=== PATIENT | female | born 1935 | race Caucasian/White ===

== ENCOUNTER 2017-04-24 14:40 | Inpatient (IN) | payer MEDICARE, BC ==
--- NOTE | 2017-04-24 16:16 | RAD ---
PORTABLE CHEST: History: Chest pain. Comparison: 02-01-17 FINDINGS: Heart is mildly prominent with post op sternotomy change. The lung jaimes are well aerated and are c lear. No evidence of vascular congestion. Transvenous pacemaker leads are noted. IMPRESSION: No acute process. Heart size is mildly prominent but stable. POS: [facility]
[2017-04-24 16:36] LABS: Bilirubin Negative (Negative); Blood, Urine Trace (Negative); Glucose, Urine (Dipstick) Negative (Negative); Ketone, Urine Negative (Negative)
[2017-04-24 16:37] LABS: Nitrite Negative (Negative); Protein, Urine (Dipstick) Negative (Neg-Trace); Urobilinogen 0.2 mg/dL (0.2-1.0)
[2017-04-24 16:39] LABS: #Eosinphils 0.2 thou/uL (0.0-0.7); #Monocytes 0.4 thou/uL (0.11-0.59); #Neutrophils 3.6 thou/uL (1.40-6.50); %Basophils 0.1 % (0.0-1.0); %Eosinophils 4.5 % (0.0-10.0); %Lymphocytes 18.8 % (21.0-51.0); %Monocytes 7.4 % (0.0-10.0); Hematocrit 37.4 % (36.0-47.0); Mean Platelet Volume 8.3 fL (7.4-10.4); Red Blood Cell (RBC) Count 3.69 mill/uL (4.20-5.40); White Blood Cell (WBC) Count 5.2 thou/uL (4.8-10.8)
[2017-04-24 16:46] LABS: PTT 49.1 SEC (22.9-36.1); Prothrombin Time 16.7 SEC (12.0-14.7)
[2017-04-24 16:52] LABS: ALT (SGPT) 7 U/L (8-55); AST (SGOT) 14 U/L (5-34); Alkaline Phosphatase 179 U/L (40-150); Anion Gap 13 mmol/L (10-20); BUN (Urea Nitrogen) 27 mg/dL (9.8-20.1); Bilirubin, Total 0.9 mg/dL (0.2-1.2); CK (CPK) 22 U/L (29-168); Calc. Creatinine Clearance 0 mL/min (70-130); Calcium 9.5 mg/dL (7.8-10.44); Carbon Dioxide 22 mmol/L (23-31); Chloride 105 mmol/L (98-107); Estimated GFR-MDRD 22; Globulin 2.6 g/dL (2.4-3.5); Lipase 443 U/L (8-78); Protein, Total 6.2 g/dL (6.0-8.3)
[2017-04-24 16:56] LABS: Troponin I 0.018 ng/mL (< 0.028)
[2017-04-24 17:17] LABS: Bacteria/HPF None Seen HPF (None Seen); RBC/HPF 0-3 HPF (0-3); Squamous Epithelial 21-50 HPF (0-3); WBC/HPF 0-3 HPF (0-3)
[2017-04-24 17:20] LABS: Hyaline Casts/LPF 0-3 HYALINE CAST LPF (0-3 Hyaline)
[2017-04-24] MEDS ORDERED: Furosemide 40 MG/4 ML VIAL ONE (17:59)
[2017-04-24 19:11] LABS: Troponin I 0.024 ng/mL (< 0.028)
[2017-04-24] MEDS ORDERED: Ondansetron HCl/PF 4 MG/2 ML Vial IVP PRN (19:45)
[2017-04-24] MEDS ORDERED: Fludrocortisone Acetate 0.1 MG TAB PO PRN (19:45)
[2017-04-24] MEDS ORDERED: cefTRIAXone\\ROCEPHIN 1 GM in Sodium Chloride 0.9% 100 ML IVPB SCH (20:00)
[2017-04-24] MEDS: Apixaban 5 MG TAB PO SCH (21:24)
[2017-04-24] MEDS: Hydrocortisone Sod Succ/PF 100 mg/2 ml Vial IVP SCH ×2 (21:24→21:31)
[2017-04-24] MEDS: Famotidine/PF 20 mg/2ml Vial SLOW IVP SCH (21:24)
[2017-04-24 22:00] LABS: Troponin I 0.018 ng/mL (< 0.028)
[2017-04-24] MEDS: Lorazepam 1 MG TAB PO PRN (23:10)
[2017-04-25 01:04] LABS: Troponin I 0.019 ng/mL (< 0.028)
--- NOTE | 2017-04-25 01:45 | HP ---
PRIMARY CARE PHYSICIAN: Dr. Sheikh. CHIEF COMPLAINT: \\\\"I'm having pain in my chest when I lay back and I also get short of breath.\\\\" HISTORY OF PRESENT ILLNESS: Ms. Johnson is a pleasant 82-year-old female. 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 In the last couple of days, she says that she has been waking up in the night with trouble b reathing and she also says that she feels some pain across her chest. It seems to be primarily on t he left side of her chest and it goes around to her back. She says that she will have to sit up in a chair in order to make the pain and the shortness of breath go away. She says that it keeps her f rom sleeping and she typically will have to read or do some knitting through the night. She says th at this has been off and on for several weeks, but has gotten progressively worse. Her daughter khai knox notes increasing swelling in her legs, primarily since Saturday. She also was seen in the emerge ncy room recently for the leg swelling and also redness in her legs and had some oozing of her legs of fluid and was put on Keflex for this. She also says that because of this excess swelling and babak rtness of breath she called her primary care physician Dr. Sheikh, who told her to take 80 mg of Lasix and she did do this, but her daughter was concerned that with 80 mg of Lasix that she would have lo w blood pressure and end up falling like she had in the past. The patient has been going to rehabil itation outpatient because she did suffer a fall and she says that she has been doing this twice a w [place] and she had been doing well until recently. She had gotten to the point where she was able to w alk again and was walking with a cane instead of a walker, but in the last few weeks, she is back us ing the walker again and has been relatively extremely sedentary. REVIEW OF SYSTEMS: With regard to the review of system: Constitutional: There has been some subje ctive fever, but no chills, no night sweats, but she has been having significant weakness. HEENT: She denies any headaches. She denies any dizziness. There has been no sore throat, rhinorrhea, nec k pain, no adenopathy. Pulmonary: She denies any cough or congestion, no hemoptysis. Cardiovascul ar: As the history of present illness with the addition of increasing lower extremity edema. She h as had PND and orthopnea as previously mentioned. Gastrointestinal: She denies any abdominal pain, no nausea, no vomiting, no change in bowels. Genitourinary: No urinary frequency, hematuria, no h esitancy. Neurologic: No focal weakness, numbness, no seizures. Musculoskeletal: She did mention some joint pains, but no rash and she has had the swelling in her lower extremities. Her daughter noted some redness and warmth in her legs. Psychiatric: No symptoms of anxiety or depression. PAST MEDICAL HISTORY: Significant for atrial fibrillation, chronic diastolic heart failure, mitral valve repair, aortic insufficiency, previous cerebrovascular accident, adrenal insufficiency and hyp othyroidism. PAST SURGICAL HISTORY: The patient has had a bilateral oophorectomy, she has had 3 previous AV node ablations and she has a pacemaker placement which was recently upgraded. ALLERGIES: She says are to SOLU-MEDROL. She says she cannot take PREDNISONE and she cannot take HY DROCORTISONE. SOCIAL HISTORY: She lives alone. She is a nonsmoker, nondrinker. FAMILY HISTORY: Significant for history of coronary artery disease. CURRENT MEDICATIONS: Include Lexapro 20 mg daily, estradiol 1 mg daily, Nexium 40 mg daily, prednis one 5 mg once a day, Eliquis 2.5 mg twice daily, Synthroid 112 mcg daily, lorazepam 1 mg daily, Kefl ex 500 mg t.i.d., fexofenadine 180 mg daily and Lasix 40 mg daily. PHYSICAL EXAMINATION: GENERAL: She is alert and oriented. She appears to be in no acute distress. VITAL SIGNS: Blood pressure was ranging from 98-108 systolic, heart rate is 80, respiratory rate of 14, temperature is 98.3. HEENT: Pupils are equal, round, and reactive. Extraocular muscles are intact. Her sclerae are ani cteric. Throat: There is no erythema, no exudates. NECK: No adenopathy, but she did have some increase in jugular venous distention. LUNGS: Clear. I did not appreciate any wheezing or rales. CARDIOVASCULAR: She has a normal S1, S2. I did not appreciate an S3 or S4. No murmurs, clicks, no rubs. ABDOMEN: Soft, it is nontender, nondistended. Positive for bowel sounds. There is no rebound, no guarding. EXTREMITIES: She has got 2+ pitting edema. There is some diffuse erythema. There is some warmth i n both her lower extremities up to about the level of the knees. Her dorsalis pedis pulses were pal pable and she did have some excoriations on her anterior cardenas bilaterally. NEUROLOGICALLY: The exam is nonfocal. LABORATORY DATA: Her white blood cell count was 5.2, hemoglobin 12, hematocrit is 37, platelet coun t 146. INR is 1.3. Sodium of 136, potassium 4.1, chloride is 105, CO2 is 22, BUN of 27, creatinine 2.13. Glucose of 121. Urinalysis was essentially negative. She had a natriuretic peptide, which is 334. ASSESSMENT AND PLAN: 1. This is an 82-year-old female that presents with symptoms suggestive of an exacerbation of conge stive heart failure with orthopnea and PND. The patient has a history of known diastolic heart fail ure. She also has increasing lower extremity edema. However, her proBNP is slightly lower than wha t it has been in the past; however, we will treat her symptomatically for decompensated heart failur e, placing her on IV Lasix and we will monitor her blood pressure carefully. We will also consult Mary Kay Dillon, her ecmo specialist in the a.m. for further recommendations. 2. Cellulitis. She appears to have bilateral lower extremity cellulitis with erythema and warmth o f both of her lower extremities. She also mentioned to me that she had gotten scratched recently by a dog. She had some bad scratches on both lower extremities and likely this is the source of infec tion; therefore, we will place her on IV antibiotics to cover for this. 3. She has a history of adrenal insufficiency given the recent cellulitis as well as the possible e xacerbation in congestive heart failure. She likely requires some stress dose steroids and this cou ld be why she has been having this progressive decline over the last few weeks to months. It could be related to insufficiently treated adrenal insufficiency. 4. She has a history of hypothyroidism. We will also need to check her thyroid functions as well. She says she had been failing to go to see Dr. Sánchez, her manufacturing supervisor in the last few months , but had planned to revisit him with regards to her endocrine illnesses and she also mentions that she had been taken off of Cytomel recently. Therefore, she may have some degree of hypothyroidism c ontributing to her symptomatology as well. Otherwise, we will continue her usual home medications r egarding the atrial fibrillation including the Eliquis. 5. Chronic kidney disease, stage 4. This appears to be stable. She has a creatinine of 2.13, whic h is about her baseline from her previous hospitalizations. We will be careful to renal dose medica tions as needed.
[2017-04-25 05:04] LABS: #Eosinphils 0.2 thou/uL (0.0-0.7); #Lymphocytes 0.7 thou/uL (1.20-3.40); #Monocytes 0.4 thou/uL (0.11-0.59); #Neutrophils 2.9 thou/uL (1.40-6.50); %Basophils 0.4 % (0.0-1.0); %Eosinophils 5.6 % (0.0-10.0); %Lymphocytes 17.2 % (21.0-51.0); %Monocytes 10.2 % (0.0-10.0); Hematocrit 35.3 % (36.0-47.0); Mean Platelet Volume 7.6 fL (7.4-10.4); Red Blood Cell (RBC) Count 3.53 mill/uL (4.20-5.40); White Blood Cell (WBC) Count 4.3 thou/uL (4.8-10.8)
[2017-04-25 05:22] LABS: Anion Gap 12 mmol/L (10-20); BUN (Urea Nitrogen) 26 mg/dL (9.8-20.1); Calc. Creatinine Clearance 23 mL/min (70-130); Calcium 9.2 mg/dL (7.8-10.44); Carbon Dioxide 26 mmol/L (23-31); Chloride 104 mmol/L (98-107); Estimated GFR-MDRD 23
[2017-04-25] MEDS: Furosemide 40 MG/4 ML VIAL SLOW IVP SCH ×2 (06:38→14:52)
[2017-04-25] MEDS: Levothyroxine Sodium 112 MCG TAB PO SCH (06:38)
[2017-04-25] MEDS: Apixaban 5 MG TAB PO SCH ×2 (08:55→21:07)
[2017-04-25] MEDS: predniSONE 5 MG TAB PO SCH (08:56)
[2017-04-25] MEDS ORDERED: Colchicine 0.6 MG TAB PO SCH ×2 (09:15→09:30)
[2017-04-25] MEDS: Ondansetron ODT 4 MG TAB PO PRN ×2 (12:48→18:09)
--- NOTE | 2017-04-25 15:01 | PDOC.PN ---
- Subjective Encounter Start Date: 04/25/17 Encounter Start Time: 09:05 Pt seen and examined on rounds, chart reviewed in its entirety. Case discussed [id number] with Dr Dillon. No CP since admit, no f/C, no N/V/D/C, no SOB excpe when lying flat. Dr iDllon plans to get and echo today, suspects pericarditis, doubts cardiac ischemia. 10 point ROS performed and neg except as above - Objective Resuscitation Status: Resuscitation Status FULL:Full Resuscitation MAR Reviewed: Yes Vital Signs & Weight: Vital Signs (12 hours) Temp Pulse Pulse Resp BP BP BP 04/25/17 11:23 98.0 F 77 12 146/69 H 04/25/17 08:13 76 131/60 110/59 L 04/25/17 08:00 98.1 F 76 18 04/25/17 07:00 98.1 F 76 18 131/60 04/25/17 04:25 98.8 F 74 16 131/62 Pulse Ox 04/25/17 11:23 98 04/25/17 08:13 04/25/17 08:00 04/25/17 07:00 96 04/25/17 04:25 94 L Weight Weight 154 lb 14.4 oz I&O: 04/24/17 04/25/17 04/26/17 06:59 06:59 06:59 Intake Total 586 480 Output Total 1550 400 Balance -964 80 Result Diagrams: 04/25/17 04:51 04/25/17 04:51 Radiology Reviewed by me: Yes EKG Reviewed by me: Yes Phys Exam - Physical Examination Constitutional: NAD HEENT: PERRLA, moist MMs, sclera anicteric, oral pharynx no lesions Neck: no nodes, no JVD, supple, full ROM Respiratory: no wheezing, no rales, no rhonchi, clear to auscultation bilateral Cardiovascular: RRR, no significant murmur, no rub Gastrointestinal: soft, non-tender, no distention, positive bowel sounds Musculoskeletal: pulses present, edema present improved form admit, no weeping Neurological: non-focal, normal sensation, moves all 4 limbs Lymphatic: no nodes Psychiatric: normal affect, A&O x 3 Skin: no rash, normal turgor, cap refill <2 seconds Deviation from normal: BLE with scabbed over scratches. minimal heat or redness Dx/Plan (1) Acute on chronic systolic CHF (congestive heart failure) Code(s): I50.23 - ACUTE ON CHRONIC SYSTOLIC (CONGESTIVE) HEART FAILURE Status : Acute Comment: echo pending, diuresed well overnight, feels better, legs less swollen (2) Pericarditis Code(s): I31.9 - DISEASE OF PERICARDIUM, UNSPECIFIED Status: Acute Qualifiers: Pericarditis type: idiopathic Chronicity: acute Qualified Code(s): I30.0 - Acute nonspecific idiopathic pericarditis Comment: suspeced by cardiology - followup on echo. Pt not candidate for NSAIDS due to CKD, resistant tto steroids. Will followup on results (3) Cellulitis of right lower extremity Code(s): L03.115 - CELLULITIS OF RIGHT LOWER LIMB Status: Acute Comment: CCM with abx. will change to po omnicef. (4) Adrenocortical insufficiency Code(s): E27.40 - UNSPECIFIED ADRENOCORTICAL INSUFFICIENCY Status: Chronic Comment: on prednisone 5mg, only takes fludrocortisone when BP drops. Will keep PRN at pt wishes (5) Anxiety and depression Code(s): F41.9 - ANXIETY DISORDER, UNSPECIFIED; F32.9 - MAJOR DEPRESSIVE DISORDER, SINGLE EPISODE, UNSPECIFIED Status: Chronic (6) Atrial fibrillation Code(s): I48.91 - UNSPECIFIED ATRIAL FIBRILLATION Status: Chronic Qualifiers: Atrial fibrillation type: paroxysmal Qualified Code(s): I48.0 - Paroxysmal atrial fibrillation (7) CKD (chronic kidney disease), stage IV Code(s): N18.4 - CHRONIC KIDNEY DISEASE, STAGE 4 (SEVERE) Status: Chronic Comment: Cr stable (8) Chronic anticoagulation Code(s): Z79.01 - SENIOR LIVING (CURRENT) USE OF ANTICOAGULANTS Status: Chronic (9) Dyslipidemia Code(s): E78.5 - HYPERLIPIDEMIA, UNSPECIFIED Status: Chronic (10) Hypothyroidism Code(s): E03.9 - HYPOTHYROIDISM, UNSPECIFIED Status: Chronic Qualifiers: Hypothyroidism type: unspecified Qualified Code(s): E03.9 - Hypothyroidism , unspecified - Plan cont current plan of care, continue antibiotics, PT/OT * .
--- NOTE | 2017-04-25 15:28 | CON ---
CARDIOLOGY CONSULTATION NOTE DATE OF CONSULTATION: 04/25/2017 REASON FOR CONSULTATION: Chest pain. HISTORY OF PRESENT ILLNESS: Ms. Contreras is a pleasant elderly woman with history of diastolic he art failure, atrial fibrillation, severe orthostatic hypotension with history of syncope, previous b iventricular pacemaker and previous mitral valve repair, admitted with chest pain. The patient's pa in is predominantly on the left side under the left breast. It hurts worse when she lays down. It hurts worse with a deep breath. She also had some in the center of her chest. It definitely hurts worse when she lays down. When she sits up, she can breathe better and the chest pain is not as intense, but it still hurts wi th a breath. She has no pressure, typical of angina. Otherwise, the patient has a long history of the other problems as outlined above. PAST MEDICAL AND SURGICAL HISTORY: 1. History of diastolic heart failure with recurrent admission. 2. History of orthostatic hypotension. She gets slightly volume depleted. She gets very hypotensi ve and sometimes faints. 3. History of biventricular pacemaker. 4. History of atrial fibrillation. 5. History of mitral valve repair many years ago. MEDICATIONS ON ADMISSION: 1. She takes fludrocortisone if she gets hypotensive. 2. Prednisone 5 mg a day. 3. Eliquis 2.5 mg twice a day. 4. Amiodarone 200 mg a day. ALLERGIES: \\\\"HYDROCORTISONE and METHYLPREDNISOLONE\\\\", but I do not know that it is actually a carmela e allergy, more side effects. FAMILY HISTORY: Negative for heart disease at a young age. 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 No alcohol or tobacco abuse. PHYSICAL EXAMINATION: GENERAL: This is a pleasant elderly woman in no distress and this hurts with a deep breath. VITAL SIGNS: Blood pressure 130/60 and pulse 76, regular. LUNGS: Clear. CARDIAC: Normal S1 and normal S2. There is no murmur, rub or gallop. ABDOMEN: Soft and nontender. No hepatosplenomegaly. EXTREMITIES: Warm and dry. No clubbing stenosis. There is moderate edema. There are some healing injury sites where she said it got bit by a dog on both the legs about 3 weeks ago, she came to the emergency room for that. It appears that it is crusted over now. IMAGING DATA: EKG is atrial sensed, ventricular paced in some locations, but in other areas, it is hard to tell if she is in sinus rhythm or not to biventricular paced rhythm. Chest x-ray shows card iomegaly with clear lung jaimes. ASSESSMENT: 1. Chest pain, it sounds like pleuritic, there may be some element of pericardial pain as well, pro chelseyly has some pericarditis. 2. Renal failure stage 4. Estimated glomerular filtration rate is 22. 3. History of mitral valve repair. 4. Orthostatic hypotension. 5. Biventricular pacemaker. 6. Paroxysmal atrial fibrillation. PLAN: 1. Interrogate the pacemaker to check the heart rhythm. We will add colchicine. 2. If pain persists, may need to add a short course of increased steroids. We will follow with you .
[2017-04-25] MEDS: Colchicine 0.6 MG TAB PO SCH (21:06)
[2017-04-25] MEDS: Cefdinir 300 MG CAP PO SCH (21:07)
[2017-04-25] MEDS: Famotidine/PF 20 mg/2ml Vial SLOW IVP SCH (21:07)
[2017-04-25] MEDS: Lorazepam 1 MG TAB PO PRN (21:08)
[2017-04-26 04:59] LABS: #Eosinphils 0.3 thou/uL (0.0-0.7); #Monocytes 0.6 thou/uL (0.11-0.59); #Neutrophils 3.2 thou/uL (1.40-6.50); %Basophils 0.9 % (0.0-1.0); %Eosinophils 5.7 % (0.0-10.0); %Monocytes 11.4 % (0.0-10.0); Hematocrit 36.1 % (36.0-47.0); Mean Platelet Volume 7.6 fL (7.4-10.4); Red Blood Cell (RBC) Count 3.61 mill/uL (4.20-5.40)
[2017-04-26 05:25] LABS: Anion Gap 16 mmol/L (10-20); BUN (Urea Nitrogen) 32 mg/dL (9.8-20.1); Calc. Creatinine Clearance 18 mL/min (70-130); Calcium 9.1 mg/dL (7.8-10.44); Carbon Dioxide 26 mmol/L (23-31); Chloride 100 mmol/L (98-107); Estimated GFR-MDRD 18
[2017-04-26] MEDS: Furosemide 40 MG/4 ML VIAL SLOW IVP SCH (05:54)
[2017-04-26] MEDS: Levothyroxine Sodium 112 MCG TAB PO SCH (05:54)
[2017-04-26] MEDS: Cefdinir 300 MG CAP PO SCH ×2 (09:06→20:43)
[2017-04-26] MEDS: Colchicine 0.6 MG TAB PO SCH ×2 (09:07→09:18)
[2017-04-26] MEDS: Apixaban 5 MG TAB PO SCH ×2 (09:07→20:43)
[2017-04-26] MEDS: predniSONE 5 MG TAB PO SCH (09:16)
[2017-04-26] MEDS ORDERED: Sodium Chloride 0.9% 500 ML IV SCH (09:30)
--- NOTE | 2017-04-26 11:53 | PDOC.PN ---
- Subjective Encounter Start Date: 04/26/17 Encounter Start Time: 11:15 - Objective Resuscitation Status: Feels weak.. Result Diagrams: 04/26/17 03:49 04/26/17 03:49 Phys Exam - Physical Examination HEENT: sclera anicteric Neck: no JVD Respiratory: no rales Cardiovascular: RRR Gastrointestinal: soft, non-tender, no distention Musculoskeletal: edema present Neurological: moves all 4 limbs Psychiatric: A&O x 3 Dx/Plan (1) Acute on chronic systolic CHF (congestive heart failure) Code(s): I50.23 - ACUTE ON CHRONIC SYSTOLIC (CONGESTIVE) HEART FAILURE Status : Acute Comment: Echo done. Discharge held by underground conduit installer today. Possible discharge tomorrow. (2) Pericarditis Code(s): I31.9 - DISEASE OF PERICARDIUM, UNSPECIFIED Status: Acute Qualifiers: Chronicity: acute Comment: In the setting of chf. f/u with cardiology.. (3) Cellulitis of right lower extremity Code(s): L03.115 - CELLULITIS OF RIGHT LOWER LIMB Status: Acute Comment: on omnicef. (4) Atrial fibrillation Code(s): I48.91 - UNSPECIFIED ATRIAL FIBRILLATION Status: Chronic Qualifiers: Atrial fibrillation type: paroxysmal Qualified Code(s): I48.0 - Paroxysmal atrial fibrillation (5) CKD (chronic kidney disease), stage IV Code(s): N18.4 - CHRONIC KIDNEY DISEASE, STAGE 4 (SEVERE) Status: Acute - Plan * .
--- NOTE | 2017-04-26 12:59 | PRG ---
DATE OF SERVICE: 04/26/2017 SUBJECTIVE: Ms. Contreras feels better today. Apparently, she took I believe one dose of colchici ne yesterday and then refused further doses. She is feeling better today. PHYSICAL EXAMINATION: VITAL SIGNS: Her blood pressure 129/60, pulse 75. LUNGS: Clear. CARDIAC: Normal S1, normal S2. ABDOMEN: Soft, nontender. EXTREMITIES: There is moderate edema. LABORATORY DATA: Her creatinine has worsened from 2.09 to 2.58. ASSESSMENT: 1. Diastolic congestive heart failure. 2. Renal failure, worsening still stage 4, but GFR is gone from 23 to 18 related to diuretics. 3. Chest pain, probably pericarditis. 4. Previous mitral valve repair. PLAN: 1. Need to stop intravenous Lasix. 2. Give her fluid. 3. She declines further colchicine. 4. She cannot receive anti-inflammatories. 5. She does not want steroids. 6. Echo pending.
[2017-04-26] MEDS: Colchicine 0.3 MG TAB PO SCH (20:46)
[2017-04-26] MEDS: Famotidine/PF 20 mg/2ml Vial SLOW IVP SCH (20:46)
[2017-04-26] MEDS: Lorazepam 1 MG TAB PO PRN (20:48)
[2017-04-26] MEDS ORDERED: Colchicine 0.6 MG TAB PO SCH (21:00)
[2017-04-27] MEDS: Levothyroxine Sodium 112 MCG TAB PO SCH (06:07)
[2017-04-27 06:08] VITALS: BMI 23.1
[2017-04-27 06:43] LABS: Anion Gap 15 mmol/L (10-20); BUN (Urea Nitrogen) 31 mg/dL (9.8-20.1); Calc. Creatinine Clearance 19 mL/min (70-130); Calcium 8.7 mg/dL (7.8-10.44); Carbon Dioxide 24 mmol/L (23-31); Chloride 103 mmol/L (98-107); Estimated GFR-MDRD 19
[2017-04-27 08:20] VITALS: BP 115/63; TEMP 98.3
[2017-04-27] MEDS: predniSONE 5 MG TAB PO SCH (08:21)
[2017-04-27] MEDS: Apixaban 5 MG TAB PO SCH (08:21)
[2017-04-27] MEDS: Colchicine 0.3 MG TAB PO SCH (08:22)
[2017-04-27] MEDS: Cefdinir 300 MG CAP PO SCH (08:22)
--- NOTE | 2017-04-27 08:57 | DIS ---
DATE OF ADMISISON: 04/26/2017 DATE OF DISCHARGE: 04/27/2017 PRIMARY CARE PROVIDER: Dr. Jeffry Sheikh. DISPOSITION: Discharged home. FINAL DIAGNOSES: Probable pleuritic chest pain; chronic diastolic heart failure; atrial fibrillatio n, controlled; adrenal insufficiency; chronic kidney disease, stage 4; hypothyroidism; cellulitis of her lower extremity. DISCHARGE MEDICATIONS: MiraLax 17 grams in water daily, prednisone 5 mg p.o. q.a.m., Ativan 1 mg at bedtime p.r.n., Eliquis 2.5 mg twice a day, Lasix 40 mg a day p.r.n., Nexium 40 mg a day, Levothyro xine 112 mcg a day, estradiol 1 mg a day, Lexapro 20 mg p.o. daily, Omnicef 300 mg p.o. daily for 7 more days. ALLERGIES: METHYLPREDNISOLONE, HYDROCORTISONE, they cause hot flashes. PENDING AT THE TIME OF DISCHARGE: Nothing except the blood cultures, which were no growth at 48 [address]. CODE STATUS: FULL. CONSULTATIONS: Dr. Amber Dillon, Cardiology. PROCEDURES: None. HOSPITAL COURSE: The patient admitted [facility] with chest pain when she laid back and some shortness of breath. She was thought to have an exacerbation of diastolic heart failure. Chest x-ray revealed no cardiomegaly, CHF or infiltrate. LABORATORY DATA: BNP was 334 x 2, which is lower than in the past. Comprehensive metabolic profile revealed a creatinine of 2.13, BUN of 27 consistent with her past history, T4 free was 1.01. TSH w as 5. CBC: White count 5.2, hemoglobin 12.0, platelet count 146,000. The patient was initially given Lasix, but this was stopped because of adverse changes on renal func tion and the lack of evidence for any exacerbation of heart failure. For possible pericarditis, she was started on colchicine, but refused it after the first dose. She refused any more steroids that she is taking, she is unable to take NSAIDs. When I saw her for the first time this morning, she s ays she feels fine and ready to go home. Vital signs are stable. Cardiorespiratory exam is unremar kable. She is being discharged on her home medicines plus Omnicef 300 mg twice a day for 7 days. S he has been advised to see Dr. Sheikh in 7 days for followup.
== END 2017-04-27 11:02 | disposition home or self-care (01) | DRG 315 ==
LOC: ERS 14:40 → 2SW 19:11 → OBSVTOIN 04-26 11:20 → 2NO 04-26 12:44
PROVIDERS: ADMIT Internal Medicine; ATTEND Internal Medicine
DX: I30.9 Acute pericarditis, unspecified (principal); I13.0 Hypertensive heart and chronic kidney disease with heart failure and stage 1 through stage 4 chronic kidney disease, or unspecified chronic kidney disease; N18.4 Chronic kidney disease, stage 4 (severe); E27.40 Unspecified adrenocortical insufficiency; I50.32 Chronic diastolic (congestive) heart failure; L03.115 Cellulitis of right lower limb; I48.0 Paroxysmal atrial fibrillation; Z79.01 Long term (current) use of anticoagulants; E03.9 Hypothyroidism, unspecified; Z86.73 Personal history of transient ischemic attack (TIA), and cerebral infarction without residual deficits; Z53.29 Procedure and treatment not carried out because of patient's decision for other reasons; Z95.0 Presence of cardiac pacemaker; I95.1 Orthostatic hypotension; F41.9 Anxiety disorder, unspecified; F32.9 Major depressive disorder, single episode, unspecified; E78.5 Hyperlipidemia, unspecified
CPT/HCPCS: 36415; 71010; 80048; 80053; 81003; 81015; 82550; 82553; 83605; 83690; 83880; 84439; 84443; 84484; 85025; 85610; 85730; 87040; 93005; 93306; 94760; 96374; A4216; G8978-GP-CJ; G8979-GP-CJ; G8980-GP-CJ; G8987-GO-CJ; G8988-GO-CI; J0696; J1720; J1940; J7050; Q0162; S0028

== ENCOUNTER 2017-07-11 09:29 | Outpatient (CLI) | payer MEDICARE, BC ==
[2017-07-11 11:33] LABS: Hematocrit 43.5 % (36.0-47.0); White Blood Cell (WBC) Count 11.6 thou/uL (4.8-10.8)
[2017-07-11 11:35] LABS: Bilirubin Small (Negative); Blood, Urine Negative (Negative); Glucose, Urine (Dipstick) Negative (Negative); Ketone, Urine Trace mg/dL (Negative); Nitrite Negative (Negative); Protein, Urine (Dipstick) Negative (Neg-Trace)
[2017-07-11 11:38] LABS: PTT 35.6 SEC (22.9-36.1); Prothrombin Time 15.8 SEC (12.0-14.7)
[2017-07-11 11:49] LABS: Bacteria/HPF 4+ HPF (None Seen); Hyaline Casts/LPF NONE SEEN LPF (0-3 Hyaline); RBC/HPF None Seen HPF (0-3); Squamous Epithelial 0-3 HPF (0-3)
[2017-07-11 12:06] LABS: Anion Gap 14 mmol/L (10-20); BUN (Urea Nitrogen) 50 mg/dL (9.8-20.1); Calc. Creatinine Clearance 0 mL/min (70-130); Calcium 9.3 mg/dL (7.8-10.44); Carbon Dioxide 20 mmol/L (23-31); Chloride 107 mmol/L (98-107); Estimated GFR-MDRD 26
--- NOTE | 2017-07-11 15:53 | EKG ---
Test Reason : Blood Pressure : / mmHG Vent. Rate : 078 BPM Atrial Rate : 227 BPM P-R Int : 000 ms QRS Dur : 170 ms QT Int : 474 ms P-R-T Axes : 000 -84 073 degrees QTc Int : 540 ms Electronic ventricular pacemaker When compared with ECG of 24-APR-2017 14:47, Electronic ventricular pacemaker has replaced Wide QRS rhythm Confirmed by TANYA RAMIREZ ([id number]) on 07/11/2017 3:52:49 PM Referred By: DAYNE Confirmed By:TANYA RAMIREZ
== END 2017-07-11 09:30 | disposition home or self-care (01) ==
LOC: LABBT 09:29
PROVIDERS: ATTEND Orthopaedic Surgery
DX: Z01.812 Encounter for preprocedural laboratory examination (principal); M87.9 Osteonecrosis, unspecified
CPT/HCPCS: 80048; 81001; 85027; 85610; 85730; 86850; 86900; 86901; 87081; 93005; 93010

== ENCOUNTER 2017-07-11 09:30 | Inpatient (IN) | payer MEDICARE, BC ==
[2017-07-11 11:33] LABS: Hemoglobin 14.5 g/dL (12.0-16.0); Mean Corpuscular HGB CONC 33.4 g/dL (32.0-36.0); Mean Corpuscular Hemoglobin 34.6 pg (27.0-31.0); Platelet Count 171 thou/uL (130-400); RBC Distribution Width 14.7 % (11.5-14.5); White Blood Cell (WBC) Count 11.6 thou/uL (4.8-10.8)
[2017-07-11 11:35] LABS: Bilirubin Small (Negative); Blood, Urine Negative (Negative); Clarity CLOUDY (Clear); Glucose, Urine (Dipstick) Negative (Negative); Leukocyte Negative (Negative); Nitrite Negative (Negative); Protein, Urine (Dipstick) Negative (Neg-Trace); Specific Gravity, Urine 1.028 (1.002-1.036); pH, Urine 5.5 (5.0-9.0)
[2017-07-11 11:38] LABS: INR-International Normal Ratio 1.2; PTT 35.6 SEC (22.9-36.1); Prothrombin Time 15.8 SEC (12.0-14.7)
[2017-07-11 11:49] LABS: Bacteria/HPF 4+ HPF (None Seen); Hyaline Casts/LPF NONE SEEN LPF (0-3 Hyaline); RBC/HPF None Seen HPF (0-3); Squamous Epithelial 0-3 HPF (0-3)
[2017-07-11 12:06] LABS: Anion Gap 14 mmol/L (10-20); BUN (Urea Nitrogen) 50 mg/dL (9.8-20.1); Calc. Creatinine Clearance 0 mL/min (70-130); Calcium 9.3 mg/dL (7.8-10.44); Carbon Dioxide 20 mmol/L (23-31); Chloride 107 mmol/L (98-107); Estimated GFR-MDRD 26; Glucose 67 mg/dL (83-110); Potassium 4.3 mmol/L (3.5-5.1); Sodium 137 mmol/L (136-145)
[2017-07-18] MEDS ORDERED: Fentanyl 100 MCG/2 ML VIAL ONE ×3 (12:41→15:27)
[2017-07-18] MEDS ORDERED: Bupivacaine/Epinephrine 0.25% 30 ML VIAL ONE (12:41)
[2017-07-18] MEDS ORDERED: Phenylephrine 10 MG/NS 250 ML 250 ML ONE (12:41)
[2017-07-18] MEDS ORDERED: CEFAZOLIN/Water 2 GM/20 ML SYRINGE ONE (12:44)
[2017-07-18] MEDS ORDERED: Acetaminophen 325 MG TAB PO PRN (13:20)
[2017-07-18] MEDS ORDERED: traMADol HCl 50 MG TAB PO PRN ×3 (13:20→14:00)
[2017-07-18] MEDS ORDERED: Fentanyl 100 MCG/2 ML VIAL SLOW IVP PRN (13:20)
[2017-07-18] MEDS ORDERED: Ondansetron HCl/PF 4 MG/2 ML Vial IVP PRN ×3 (13:20→15:19)
[2017-07-18] MEDS ORDERED: Promethazine HCl 25 MG SUPP PR PRN (14:00)
[2017-07-18] MEDS ORDERED: diphenhydrAMINE 50 MG/ML VIAL IM PRN (14:00)
[2017-07-18] MEDS ORDERED: Naloxone HCl 0.4 mg/ml Vial IVP PRN (14:00)
[2017-07-18] MEDS ORDERED: diphenhydrAMINE 25 MG CAP PO PRN (14:00)
[2017-07-18] MEDS ORDERED: diphenhydrAMINE 50 MG/ML VIAL IVP PRN (14:00)
[2017-07-18] MEDS ORDERED: Zolpidem Tartrate 5 MG TAB PO PRN (14:00)
[2017-07-18] MEDS ORDERED: Fentanyl/Bupivacaine 250 ML in Premix Bag 1 BAG EPIDURAL SCH (14:00)
[2017-07-18] MEDS ORDERED: Naloxone HCl 0.4 mg/ml Vial IV PRN (14:00)
[2017-07-18] MEDS ORDERED: Promethazine HCl 25 MG/ML VIAL IM PRN ×2 (14:00→15:19)
[2017-07-18] MEDS ORDERED: Eucerin (Mineral Oil/Petrolatum,White) 30 gm Jar TOP PRN (14:00)
[2017-07-18] MEDS ORDERED: Promethazine HCl 25 MG/ML VIAL SLOW IVP PRN (15:19)
[2017-07-18] MEDS ORDERED: Bupivacaine 0.25% HCL 30 ML VIAL ONE (15:32)
--- NOTE | 2017-07-18 15:36 | OP ---
DATE OF PROCEDURE: 07/18/2017 OPERATIONS: 1. Left hip hardware removal. 2. Left total hip arthroplasty. 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 COMPLICATIONS: None. ESTIMATED BLOOD LOSS: 200 mL. SURGEON: Jaycob Cerrato M.D. DRY KILN OPERATOR HELPER: Chente Quintero PA-C. IMPLANTS: [employer] GRIPTION acetabulum cup size 52 mm, size 6 [place]don femoral stem, +8.5 mm fem oral head size 36 mm. INDICATIONS: Ms. Contreras is an 82-year-old female who has fallen in the past. She sustained a fe moral neck fracture. She was treated with percutaneous screw fixation. Her fracture healed; however , over the last several months she has developed progressive osteonecrosis of the femoral head. She has been indicated for total hip arthroplasty with hardware removal of the previous screws. Risks sandoval ve been reviewed. She has elected to proceed with the operation. DESCRIPTION OF PROCEDURE: Ms. Contreras was identified in the preoperative holding area. Her corre ct extremity was marked. She was carried to the operating room. She was positioned supine. General anesthesia was induced. A multidisciplinary timeout was performed. The left lower extremity was pr epped and draped in sterile fashion. We began the procedure with a posterior approach to the hip. We dissected down through the subcutane ous tissues to the fascia. The fascia was incised. At this point, we identified the patient's previ ously placed screws. The three 7.3 mm screws were removed with an appropriate screwdriver. We then proceeded with hip arthroplasty. The fascial tissues were incised. We then performed a caps ulotomy. At this point, the patient's femoral head was dislocated. We made an osteotomy of the femo ral neck. Next, we cleared the acetabulum of scar tissue. We placed our appropriate acetabulum retr actors. We then were able to ream the acetabulum up to a size 51 mm reamer. This gave a good tight fit. We impacted a 52 mm cup. We then placed our polyethylene liner with a 10 degree lip. We remov ed peripheral osteophytes as well. At this point, we prepared the femur. We entered the intramedullary canal of the femur. We then courtney med sequentially up to a size 6 reamer. Next, we broach to a size 6 stem. At this point, we trialed . A +8.5 femoral head gave the best stability and range of motion. We removed our trial components. We then placed our final femoral head and reduce the hip. We thoroughly irrigated with copious lav age. At this point, we checked leg length which was appropriate. We then closed with our #5 Ethibon d suture closing the capsule and piriformis tendon through drill holes. We then closed with #2 Ethib ond suture, 2-0 Vicryl and bonilla for the skin. A sterile dressing was applied. The patient was ta lanie to the recovery room in good condition without complication.
[2017-07-18] MEDS ORDERED: Glycopyrrolate 0.2 MG/ML 5 ML SYRINGE ONE (15:51)
[2017-07-18] MEDS ORDERED: PHENYLEPHRINE-NS 100 MCG/ML 10 ML SYRINGE ONE ×2 (15:51→16:20)
[2017-07-18] MEDS ORDERED: Propofol 200 MG/20 ML VIAL ONE (15:51)
[2017-07-18] MEDS ORDERED: ePHEDrine/0.9% NaCl/PF SYRINGE 50 mg/10 ml ONE (16:03)
[2017-07-18] MEDS ORDERED: Hydrocortisone Sod Succ/PF 100 mg/2 ml Vial ONE (16:55)
[2017-07-18] MEDS ORDERED: PHENYLEPHRINE-NS 100 MCG/ML 10 ML SYRINGE IVP SCH (17:00)
[2017-07-18] MEDS ORDERED: Hydrocortisone Sod Succ/PF 100 MG in Sodium Chloride 0.9% 50 ML IVPB SCH (17:15)
[2017-07-18 17:33] LABS: Hemoglobin 10.7 g/dL (12.0-16.0); Mean Corpuscular HGB CONC 33.3 g/dL (32.0-36.0); Mean Corpuscular Hemoglobin 34.3 pg (27.0-31.0); Mean Platelet Volume 6.5 fL (7.4-10.4); Platelet Count 165 thou/uL (130-400); RBC Distribution Width 14.6 % (11.5-14.5); Red Blood Cell (RBC) Count 3.12 mill/uL (4.20-5.40)
[2017-07-18] MEDS ORDERED: Albumin 5% 500 ML ONE (17:41)
[2017-07-18] MEDS ORDERED: DOPamine 400 MG/D5W 250 ML 250 ML ONE (18:04)
--- NOTE | 2017-07-18 19:13 | RAD ---
SINGLE VIEW OF THE PELVIS: 07/18/17 COMPARISON: None. HISTORY: Status post left hip arthroplasty. FINDINGS: Single view of the pelvis shows the patient to be status post left hip arthroplasty. Air in the soft tissues is from recent is from recent surgery. No perihardware lucency or fracture is seen. IMPRESSION: Status post left hip arthroplasty without evidence of complication. POS: [facility]
--- NOTE | 2017-07-18 19:14 | RAD ---
SINGLE VIEW OF THE LEFT HIP 07/18/17 COMPARISON: None. HISTORY: Status post left hip arthroplasty. FINDINGS: Single view of the left hip shows the patient to be status post left hip arthroplasty. Overlying skin bonilla and air in the soft tissues are from recent surgery. IMPRESSION: Status post left hip arthroplasty without evidence of complication. POS: [facility]
[2017-07-18] MEDS: Dextrose 5 %-0.45 % NaCl 1,000 ML IV SCH (20:15)
[2017-07-18] MEDS: CEFAZOLIN/Water 2 GM/20 ML SYRINGE SLOW IVP SCH (20:17)
[2017-07-18] MEDS: Ketorolac Tromethamine 30 MG/ML VIAL IVP SCH ×2 (20:17→21:56)
[2017-07-18] MEDS ORDERED: DOPamine 400 MG/D5W 250 ML 250 ML IVPB SCH (21:00)
[2017-07-18] MEDS ORDERED: Acetaminophen 1,000 MG in Premix Bag 1 BAG IVPB ONE (21:00)
[2017-07-18] MEDS ORDERED: Furosemide 40 MG TAB PO PRN (21:04)
[2017-07-18] MEDS ORDERED: Docusate 100 MG CAP PO PRN (21:04)
[2017-07-18] MEDS: Cepastat Lozenges 1 LOZ PO PRN (21:35)
[2017-07-18] MEDS: HYDROcodone/Acetaminophen 5/325 mg Tablet PO PRN (21:55)
--- NOTE | 2017-07-18 22:33 | CON ---
DATE OF CONSULTATION: 07/18/2017 REASON FOR CONSULTATION: Hypotension postoperatively. HISTORY OF PRESENT ILLNESS: Ms. Contreras is a very pleasant 82-year-old woman with history of labi le blood pressure. She also has a history of mitral valve repair. The patient underwent hip surgery for intractable hip pain. In the postoperative period, her blood pressure was reported to be low, w e have been consulted about her situation in the postop. The patient is feeling better now. Blood pressure is actually improved down to 120 systolic. She is on 2.5 mcg per kilo per minute of dopamine. PAST MEDICAL HISTORY: 1. Labile hypertension and hypotension. 2. History of atrial arrhythmias ultimately underwent AV junction ablation and biventricular pacemak er. 3. History of biventricular pacemaker insertion. MEDICATIONS: 1. She takes fludrocortisone intermittently. 2. Prednisone. 3. Eliquis, but she is off statin. 4. Amiodarone previously, but she is now off the amiodarone. 5. She has chronic atrial fibrillation. She is on apixaban 2.5 mg twice a day. ALLERGIES: HYDROCORTISONE and METHYLPREDNISOLONE. REVIEW OF SYSTEMS: Constitutional: No significant weight gain or loss. Vision: No changes. Heari ng: No changes. Pulmonary: No cough or wheezing. Gastrointestinal: No nausea, vomiting, diarrhea . Skin: No rashes. Neurologic: No unilateral weakness or numbness. Psychiatric: No unusual depr ession or anxiety. Hematologic: No unusual bruising. Genitourinary: No burning with urination. PHYSICAL EXAMINATION: GENERAL: A pleasant elderly woman in no distress. VITAL SIGNS: Blood pressure now is 120 systolic earlier is in the 80s systolic. HEENT: Sclerae nonicteric. Mouth; mucous membranes moist. NECK: Supple, no lymphadenopathy. LUNGS: Clear, no wheezing, rales or rhonchi. CARDIAC: Normal S1, normal S2. There is a soft systolic murmur left midsternal border. No diastoli c murmur, no S3. ABDOMEN: Soft, nontender. EXTREMITIES: No clubbing or cyanosis. There is mild to moderate edema. Extensive ecchymosis most r ecent echocardiogram 04/24/2017. Ejection fraction 50 to 55%, markedly enlarged left atrium and mild to moderate aortic insufficiency, moderate to severe tricuspid insufficiency with moderately elevate d pressures, pulmonary artery. ASSESSMENT: 1. Postoperative hypotension with a history of labile hypertension and hypotension. 2. Tricuspid insufficiencies. 3. Chronic atrial fibrillation. PLAN: 1. Pressors as needed. 2. Probably can move out of the Intensive Care Unit tomorrow. We will check her tomorrow morning.
[2017-07-19] MEDS: Cepastat Lozenges 1 LOZ PO PRN (02:53)
[2017-07-19] MEDS: CEFAZOLIN/Water 2 GM/20 ML SYRINGE SLOW IVP SCH (04:08)
[2017-07-19] MEDS: Ketorolac Tromethamine 30 MG/ML VIAL IVP SCH (05:14)
[2017-07-19] MEDS: Levothyroxine Sodium 112 MCG TAB PO SCH (05:15)
[2017-07-19] MEDS: Dextrose 5 %-0.45 % NaCl 1,000 ML IV SCH (05:15)
[2017-07-19 07:18] LABS: Hemoglobin 8.3 g/dL (12.0-16.0)
[2017-07-19 07:24] LABS: INR-International Normal Ratio 1.2; Prothrombin Time 15.9 SEC (12.0-14.7)
[2017-07-19] MEDS: Multivit, Therapeutic 1 TAB PO SCH (08:03)
[2017-07-19] MEDS: HYDROcodone/Acetaminophen 5/325 mg Tablet PO PRN ×2 (08:03→22:10)
[2017-07-19] MEDS: predniSONE 5 MG TAB PO SCH (08:03)
[2017-07-19] MEDS: Escitalopram Oxalate 20 mg Tablet PO SCH (08:03)
[2017-07-19] MEDS: Estradiol 1 MG TAB PO SCH (08:04)
[2017-07-19] MEDS: Loratadine 10 MG TAB PO SCH (08:04)
[2017-07-19] MEDS: Enoxaparin Sodium 40 MG/0.4 ML SYRINGE SC SCH ×3 (08:04→16:55)
[2017-07-19] MEDS ORDERED: Furosemide 20 MG/2 ML VIAL IVP SCH (11:30)
--- NOTE | 2017-07-19 14:22 | PRG ---
DATE OF SERVICE: 07/19/2017 SUBJECTIVE: Ms. Contreras is feeling better today. Her blood pressure is improved and is 100 systo lic. Pulse is 70 and it is biventricular paced and she is 75 now. No chest pain. No shortness of b reath. PHYSICAL EXAMINATION LUNGS: Clear. CARDIAC: Normal S1, normal S2. ABDOMEN: Soft, nontender. EXTREMITIES: Mild edema with extensive ecchymosis. Hemoglobin did drop from 14.5 down to 8.3. ASSESSMENT: 1. Relatively low blood pressure. 2. Abrupt drop in hemoglobin and hematocrit down to 8.3. PLAN: 1. I agreed with packed red blood cells in view of the marked decrease in the blood counts. 2. The patient will receive a single dose of furosemide between 2 units. 3. Okay to me to go up to the surgical floor.
--- NOTE | 2017-07-19 15:10 | CON ---
DATE OF CONSULTATION: 07/19/2017 TIME OF SERVICE: 10:15. REQUESTING PHYSICIAN: Dr. Jaycob Cerrato with Orthopedics. PRIMARY CARE PHYSICIAN: Dr. Jeffry Sheikh. REASON FOR CONSULTATION: Medical management post Left total hip arthroplasty HISTORY OF PRESENT ILLNESS: Ms. Contreras is a very pleasant 82-year-old female with history of labile blood pressure, atrial arrhythmias, chronic atrial fibrillation, and valvular abnormalities who has had chronic pain to her left hip. She has failed outpatient management and so was admitted postop day # 0 for left total hip arthroplasty by Dr. Cerrato. Intraoperative course was largely unremarkable, though the patient did have some bleeding issues. She was admitted to the ICU overnight due to that and low blood pressure postoperatively. Cardiology was consulted for hypertension postoperatively, she was placed on dopamine 2.5 mcg/kg/min and blood pressure systolic was in the 120s. Since that time, she has been weaned off of the dopamine. Her systolic blood pressure is in the low 100s and diastolic blood pressure in the 40s with a mean arterial pressure of 65. Her hemoglobin preoperatively was noted to be 14.5 on 07/11, yesterday afternoon postop, it was noted to be 10.7 and today 8.3. We are consulted today for medical management. She denies any fevers or chills, no chest pain or shortness of breath, no nausea or vomiting, no diarrhea, no constipation. Her only complaint is pain to her left hip. PAST MEDICAL HISTORY: 1. Labile blood pressure. She occasionally takes fludrocortisone, but has not needed in 6 weeks or so. There was atrial arrhythmias, patient had a history of atrial ventricular junction ablation x3. 2. Chronic atrial fibrillation. 3. Dependence on a biventricular pacer, recently upgraded in February to an atrial Bi-V pacing. 4. Tricuspid regurgitation, moderate to severe, aortic insufficiency, mild to moderate. PAST SURGICAL HISTORY: 1. Mitral valve replacement about 15 years ago. 2. Bi-V pacer many years ago, upgraded on 02/2017 to a Bi-V, atrial pacer. 3. AV junction ablation x3. 4. Bilateral salpingo-oophorectomy 15 years ago. There was hysterectomy a long time ago. HOME MEDICATIONS: Include; 1. Cortisone. 2. Prednisone. 3. Eliquis 2.5 mg p.o. b.i.d. 4. Amiodarone. ALLERGIES: SOLU-MEDROL, HYDROCORTISONE, and PREDNISONE. FAMILY HISTORY: Significant for premature coronary artery disease. SOCIAL HISTORY: Negative for habits x3. She does live alone. REVIEW OF SYSTEMS: A 10-point review of systems performed and is negative for all other systems except as stated per HPI above. PHYSICAL EXAMINATION: VITAL SIGNS: Temperature 97.6, pulse 75, blood pressure 97/29 respiratory 21 and satting 100% on 2 liters nasal cannula. GENERAL: She is awake. She is alert. She is oriented x3. She is an older white female who appears to be in zero distress. HEENT: Normocephalic and atraumatic. Pupils are equal and reactive bilaterally , mucous members are moist. There are no visible lesions. No thrush. NECK: Supple. She has no lymphadenopathy, no JVD, no thyromegaly. She does have a normal carotid upstrokes. I do not hear any bruits. LUNGS: Clear to auscultation bilaterally. She has good air movement, symmetrical chest excursion. There are no wheezes, no rales, no rhonchi. No prolonged expiratory phase. CARDIOVASCULAR: She is in sinus rhythm. She has a normal rate of 75. She does have a 3/6 holosystolic murmur best heard at the right lower sternal border , does not radiate in the axilla or into the apex. ABDOMEN: Slightly obese. It is nontender and nondistended. She has no rebound , rigidity or guarding. There is normoactive bowel sounds present in all 4 quadrants. EXTREMITIES: Showed no cyanosis, no clubbing with trace pedal edema bilaterally. Left hip dressing is clean, dry and intact without any strike through. Her left lower extremity below the knee does have some skin tears present on the lateral aspect of her lower leg; there is some ecchymosis and 1+ edema to the mid tibial level. SKIN: Otherwise, warm, moist and well perfused. She has no other rashes or lesions. NEUROLOGIC: Cranial nerves II-XII are grossly intact. She has normal speech pattern. There are no focal neurologic deficits. MUSCULOSKELETAL: Remainder of the large joints are normal to inspection. There is no erythema, increased heat or palpable effusions. LABORATORY DA TA: Basic metabolic profile on 07/11 shows sodium of 137, potassium 4.3, chloride 107, bicarbonate 20, BUN 50, creatinine 1.87 which has actually improved her baseline, glucose was 67 and a calcium of 9.3. Urinalysis showed 4+ bacteria and 4-6 white blood cells. Hemoglobin and hematocrit today is 8.3 and 20.5. Her hemoglobin is down from 10.7 on 07/08 postoperatively and 14.5 preoperatively on 07/11. White blood cell count today is 16.0 postop. ASSESSMENT AND PLAN: 1. Postoperative hypotension: Currently stable at 100/40s. Suspect she is likely intravascularly volume depleted due to acute blood loss anemia. I will give her 2 units of packed red blood cells, with Lasix between units to get rid of the extra free water. I suspect that when she gets more blood cells intravascular space, the oncotic pressure will improve when she will improve diastolic blood pressure. She is currently off of pressors. Dr. Dillon from Cardiology is following. We will follow up with his recommendations. 2. Acute blood loss anemia after a total knee arthroplasty. Expected result for someone who was on Eliquis. Transfuse 2 units today and we will monitor her hemoglobin and hematocrit. 3. History of chronic atrial fibrillation: Currently in sinus rhythm and rate controlled. 4. Tricuspid regurgitation: Moderate to severe, and aortic insufficiency, mild to moderate. Again, Dr. Dillon is following the patient. We will continue to follow along with you. Thank you very much for this consult. UYEN
--- NOTE | 2017-07-19 18:17 | CON ---
DATE OF CONSULTATION: 07/19/2017 SERVICE: Pulmonary Medicine. REASON FOR CONSULT: Hypotension. HISTORY OF PRESENT ILLNESS: The patient is an 82-year-old white female with past medical history sig nificant for recent fall. She ended up breaking her hip. She has known adrenal insufficiency and ta kes some steroids on a daily basis. In perioperative period, she had some hypotension. Stress doses of steroids were started overnight and she was tucked in the ICU for close observation. This mornin g, her blood pressure is fantastic. She denies any current fevers, chills, nausea or vomiting. She had originally some postop pain that we are dealing with. It is much improved at this time. She is able to participate a little bit with rehabilitation. Otherwise, there has been no interval change t o her condition. She had no fevers or other overnight events. PAST MEDICAL HISTORY: 1. Atrial fibrillation. 2. Chronic diastolic heart failure. 3. History of cerebrovascular accident. 4. Adrenal insufficiency. 5. Hypothyroidism. PAST SURGICAL HISTORY: 1. Bilateral oophorectomy. 2. AV node ablation, multiple. 3. Pacemaker placement, recently upgraded to biventricular device. SOCIAL HISTORY: Negative for alcohol, tobacco or illicit drug use. She lives alone. FAMILY HISTORY: Noncontributory. ALLERGIES: SOLU-MEDROL, PREDNISONE and HYDROCORTISONE. MEDICATIONS: Medications list of inpatient medications were reviewed. No updates were made at this time. REVIEW OF SYSTEMS: General, head, ears, eyes, nose, throat, cardiovascular, respiratory, GI, , mus culoskeletal, neurologic and skin is negative except as mentioned in the HPI. PHYSICAL EXAMINATION: VITAL SIGNS: Afebrile, pulse 75, blood pressure 111/46, respirations 20, saturation 100% on room air . GENERAL: The patient is awake, alert, in no apparent distress. LUNGS: Decent air entry with no prolonged expiratory phase, wheezing, rhonchi or crackles. HEART: Normal rate, regular. ABDOMEN: Soft, nontender, nondistended, bowel sounds positive. MUSCULOSKELETAL: No cyanosis or clubbing. There is trace pitting in the bilateral lower extremities . NEUROLOGIC: Grossly nonfocal. LABORATORY DATA: Hemoglobin 8.3 and trending downward. WBC 16.0, platelets 165,000. INR 1.2. Crea tinine 1.87. Basic metabolic profile is otherwise unremarkable. The creatinine being 1.87 is fairly close to her baseline. Urinalysis is also unremarkable. ASSESSMENT: 1. Adrenal insufficiency with acute adrenal crisis. 2. Left total hip replacement, postoperative day #1. 3. Atrial fibrillation. PLAN: She is currently getting a unit of blood. After this, we will make certain, she makes an appr opriate response to it. If she does, she will be stable for transition to the surgical unit. Karis ames will continue to follow while the patient remains in this location. When she hits the floor, we will sign off.
[2017-07-19] MEDS: Lorazepam 1 MG TAB PO PRN (21:47)
[2017-07-20] MEDS: Dextrose 5 %-0.45 % NaCl 1,000 ML IV SCH ×4 (05:19→23:37)
[2017-07-20 05:33] LABS: #Eosinphils 0.2 thou/uL (0.0-0.7); #Lymphocytes 0.8 thou/uL (1.20-3.40); #Monocytes 0.5 thou/uL (0.11-0.59); #Neutrophils 7.5 thou/uL (1.40-6.50); %Lymphocytes 9.1 % (21.0-51.0); %Monocytes 5.9 % (0.0-10.0); %Neutrophils 83.1 % (42.0-75.0); Hemoglobin 9.9 g/dL (12.0-16.0); Mean Corpuscular HGB CONC 34.3 g/dL (32.0-36.0); Mean Corpuscular Hemoglobin 34.1 pg (27.0-31.0); Mean Corpuscular Volume 99.4 fl (81.0-99.0); Mean Platelet Volume 6.6 fL (7.4-10.4); Platelet Count 90 thou/uL (130-400); RBC Distribution Width 15.1 % (11.5-14.5); Red Blood Cell (RBC) Count 2.91 mill/uL (4.20-5.40); White Blood Cell (WBC) Count 9.1 thou/uL (4.8-10.8)
[2017-07-20 05:57] LABS: Anion Gap 9 mmol/L (10-20); BUN (Urea Nitrogen) 55 mg/dL (9.8-20.1); Calc. Creatinine Clearance 26 mL/min (70-130); Calcium 8.2 mg/dL (7.8-10.44); Carbon Dioxide 27 mmol/L (23-31); Chloride 104 mmol/L (98-107); Estimated GFR-MDRD 26; Glucose 95 mg/dL (83-110); Magnesium 1.8 mg/dL (1.6-2.6); Potassium 4.8 mmol/L (3.5-5.1); Sodium 135 mmol/L (136-145)
[2017-07-20] MEDS: Levothyroxine Sodium 112 MCG TAB PO SCH (06:16)
[2017-07-20] MEDS: HYDROcodone/Acetaminophen 5/325 mg Tablet PO PRN ×4 (06:16→20:22)
[2017-07-20] MEDS: Cepastat Lozenges 1 LOZ PO PRN (06:18)
[2017-07-20] MEDS: predniSONE 5 MG TAB PO SCH (08:42)
[2017-07-20] MEDS: Escitalopram Oxalate 20 mg Tablet PO SCH (08:43)
[2017-07-20] MEDS: Loratadine 10 MG TAB PO SCH (08:43)
[2017-07-20] MEDS: Estradiol 1 MG TAB PO SCH (08:43)
[2017-07-20] MEDS: Multivit, Therapeutic 1 TAB PO SCH (08:43)
--- NOTE | 2017-07-20 10:57 | PDOC.PN ---
- Subjective Encounter Start Date: 07/20/17 Encounter Start Time: 09:45 PT transferred tot he floor yesterday afternoon. Post transfusion, her BP and HR have been normal. No F/C, no N/V/D/C. Awaiting rehab eval. plans to go home if possible post- discharge Denies CP or SOB at present 10 point ROS performed and neg for all systems except as per HPI - Objective MAR Reviewed: Yes Vital Signs & Weight: Vital Signs (12 hours) Temp Pulse Resp BP BP Pulse Ox 07/20/17 07:35 98.0 F 77 16 123/70 93 L 07/20/17 04:00 98 F 75 16 114/65 96 07/20/17 00:00 98.3 F 80 19 125/73 97 Weight Weight 160 lb 14.999 oz Most Recent Monitor Data Heart Rate from ECG 75 NIBP 124/49 NIBP BP-Mean 80 Respiration from ECG 24 SpO2 100 I&O: 07/19/17 07/20/17 07/21/17 06:59 06:59 06:59 Intake Total 1191.8 1452 Output Total 525 1430 Balance 666.8 22 Result Diagrams: 07/20/17 05:06 07/20/17 05:06 Radiology Reviewed by me: Yes EKG Reviewed by me: Yes Phys Exam - Physical Examination Constitutional: NAD HEENT: PERRLA, moist MMs, sclera anicteric, oral pharynx no lesions Neck: no nodes, no JVD, supple, full ROM Respiratory: no wheezing, no rales, no rhonchi, clear to auscultation bilateral Cardiovascular: RRR, no significant murmur, no rub Gastrointestinal: soft, non-tender, no distention, positive bowel sounds Musculoskeletal: pulses present, edema present edema left > right LEs Neurological: non-focal, normal sensation, moves all 4 limbs Lymphatic: no nodes Psychiatric: normal affect, A&O x 3 Skin: no rash, normal turgor, cap refill <2 seconds Dx/Plan (1) Chronic systolic CHF (congestive heart failure) Code(s): I50.22 - CHRONIC SYSTOLIC (CONGESTIVE) HEART FAILURE Status: Acute Comment: stable, post trnasfusion. CCM. Dr Dillon on case (2) Labile blood pressure Code(s): R09.89 - OTH SYMPTOMS AND SIGNS INVOLVING THE CIRC AND RESP SYSTEMS Status: Acute Comment: BP stable without fludricortisone post transfusion, CCM , monitor (3) Paroxysmal A-fib Code(s): I48.0 - PAROXYSMAL ATRIAL FIBRILLATION Status: Chronic (4) CKD (chronic kidney disease), stage IV Code(s): N18.4 - CHRONIC KIDNEY DISEASE, STAGE 4 (SEVERE) Status: Chronic Comment: Cr 1.88, stable (5) Adrenocortical insufficiency Code(s): E27.40 - UNSPECIFIED ADRENOCORTICAL INSUFFICIENCY Status: Chronic Comment: only takes fludrocortisone when BP drops. 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 restart per ortho and cardiology (8) Dyslipidemia Code(s): E78.5 - HYPERLIPIDEMIA, UNSPECIFIED Status: Chronic (9) Hypothyroidism Code(s): E03.9 - HYPOTHYROIDISM, UNSPECIFIED Status: Chronic Qualifiers: Hypothyroidism type: acquired Qualified Code(s): E03.9 - Hypothyroidism, unspecified (10) Acute blood loss anemia Code(s): D62 - ACUTE POSTHEMORRHAGIC ANEMIA Status: Acute Comment: 6 gram drop post op. transfused 2 units PRBCs. post transfusion H/H 9.9. CCM - Plan cont current plan of care, PT/OT, out of bed/ambulate * .
--- NOTE | 2017-07-20 14:52 | PRG ---
DATE OF SERVICE: 07/20/2017 SUBJECTIVE: This morning, she is awake, alert, responsive. Denies any pain and shortness of breath. OBJECTIVE: VITAL SIGNS: Sats are 90% on room air, temperature 98, blood pressure 123/70, respirations 18. CHEST: Chest reveals decreased breath sounds, no wheezing. CARDIAC: Normal S1, S2. No gallops. Creatinine 1.88. Yesterday white count 9000, H&H 9 and 29. IMPRESSION: Status post left total hip, atrial fibrillation, adrenal insufficiency with crises , apparently resolved. PLAN: Continue PT. Continue prednisone. We will follow.
[2017-07-20] MEDS ORDERED: Enoxaparin Sodium 40 MG/0.4 ML SYRINGE SC SCH (21:00)
[2017-07-20] MEDS: Lorazepam 1 MG TAB PO PRN (22:21)
[2017-07-21] MEDS: HYDROcodone/Acetaminophen 5/325 mg Tablet PO PRN ×4 (02:56→20:29)
[2017-07-21 04:46] LABS: Anion Gap 10 mmol/L (10-20); BUN (Urea Nitrogen) 51 mg/dL (9.8-20.1); Calc. Creatinine Clearance 27 mL/min (70-130); Carbon Dioxide 23 mmol/L (23-31); Chloride 104 mmol/L (98-107); Estimated GFR-MDRD 26; Glucose 92 mg/dL (83-110); Potassium 4.7 mmol/L (3.5-5.1); Sodium 132 mmol/L (136-145)
[2017-07-21 05:59] LABS: Band 2 % (5-11); Eosinophils 4 % (0-10); Lymphocytes 11 % (21-51); MDiff Complete? YES; Mean Corpuscular HGB CONC 34.2 g/dL (32.0-36.0); Mean Corpuscular Hemoglobin 34.5 pg (27.0-31.0); Mean Platelet Volume 7.4 fL (7.4-10.4); Metamyelocyte 1 % (0-0); Monocytes 8 % (0-10); Neutrophil 74 % (42-75); PLT Morphology Comment Appears Decreased; Platelet Count 112 thou/uL (130-400); RBC Distribution Width 14.8 % (11.5-14.5); RBC Morphology Normal; White Blood Cell (WBC) Count 9.6 thou/uL (4.8-10.8)
[2017-07-21] MEDS: Levothyroxine Sodium 112 MCG TAB PO SCH (06:18)
[2017-07-21] MEDS: Cepastat Lozenges 1 LOZ PO PRN ×2 (06:21→23:38)
[2017-07-21] MEDS: Dextrose 5 %-0.45 % NaCl 1,000 ML IV SCH ×2 (07:41→18:22)
[2017-07-21] MEDS: predniSONE 5 MG TAB PO SCH (08:23)
[2017-07-21] MEDS: Escitalopram Oxalate 20 mg Tablet PO SCH (08:23)
[2017-07-21] MEDS: Loratadine 10 MG TAB PO SCH (08:23)
[2017-07-21] MEDS: Multivit, Therapeutic 1 TAB PO SCH (08:23)
[2017-07-21] MEDS: Estradiol 1 MG TAB PO SCH (08:23)
--- NOTE | 2017-07-21 11:17 | PDOC.PN ---
- Subjective Encounter Start Date: 07/21/17 Encounter Start Time: 09:45 Pt feels weak today, no f/c, no n/V/D/C,no CP or SOB. no cough Hip sore as expected. No drainage noted H/H and BP stable today. 10 point ROS performed and neg for all except as stated in the HPI - Objective MAR Reviewed: Yes Vital Signs & Weight: Vital Signs (12 hours) Temp Pulse Resp BP Pulse Ox 07/21/17 08:11 97.8 F 75 18 102/65 93 L 07/21/17 04:25 96 07/20/17 23:50 97.8 F 76 16 111/63 96 Weight Weight 160 lb 14.999 oz Most Recent Monitor Data Heart Rate from ECG 75 NIBP 124/49 NIBP BP-Mean 80 Respiration from ECG 24 SpO2 100 I&O: 07/20/17 07/21/17 07/22/17 06:59 06:59 06:59 Intake Total 1452 1002 Output Total 1430 Balance 22 1002 Result Diagrams: 07/21/17 03:40 07/21/17 03:40 Phys Exam - Physical Examination Constitutional: NAD HEENT: PERRLA, moist MMs, sclera anicteric, oral pharynx no lesions Neck: no nodes, no JVD, supple, full ROM Respiratory: no wheezing, no rales, no rhonchi, clear to auscultation bilateral Cardiovascular: RRR, no rub Gastrointestinal: soft, non-tender, no distention, positive bowel sounds Musculoskeletal: no edema, pulses present Neurological: non-focal, normal sensation, moves all 4 limbs Lymphatic: no nodes Psychiatric: normal affect, A&O x 3 Skin: no rash, normal turgor, cap refill <2 seconds Dx/Plan (1) Labile blood pressure Code(s): R09.89 - OTH SYMPTOMS AND SIGNS INVOLVING THE CIRC AND RESP SYSTEMS Status: Acute Comment: BP stable without fludricortisone post transfusion, CCM , monitor (2) Chronic systolic CHF (congestive heart failure) Code(s): I50.22 - CHRONIC SYSTOLIC (CONGESTIVE) HEART FAILURE Status: Acute Comment: stable, post transfusion. CCM. Dr Dillon on case (3) Paroxysmal A-fib Code(s): I48.0 - PAROXYSMAL ATRIAL FIBRILLATION Status: Chronic (4) CKD (chronic kidney disease), stage IV Code(s): N18.4 - CHRONIC KIDNEY DISEASE, STAGE 4 (SEVERE) Status: Chronic Comment: Cr stable (5) Adrenocortical insufficiency Code(s): E27.40 - UNSPECIFIED ADRENOCORTICAL INSUFFICIENCY Status: Chronic Comment: only takes fludrocortisone when BP drops. 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 restart per ortho and cardiology (8) Dyslipidemia Code(s): E78.5 - HYPERLIPIDEMIA, UNSPECIFIED Status: Chronic (9) Hypothyroidism Code(s): E03.9 - HYPOTHYROIDISM, UNSPECIFIED Status: Chronic Qualifiers: Hypothyroidism type: acquired Qualified Code(s): E03.9 - Hypothyroidism, unspecified (10) Acute blood loss anemia Code(s): D62 - ACUTE POSTHEMORRHAGIC ANEMIA Status: Acute Comment: 6 gram drop post op. transfused 2 units PRBCs. post transfusion H/H 9.9, 10.0 today. CCM. - Plan cont current plan of care, PT/OT, out of bed/ambulate, DVT proph w/lovenox * .
[2017-07-21] MEDS ORDERED: Polyethylene Glycol 3350 17 GM Packet PO PRN (12:18)
--- NOTE | 2017-07-21 13:53 | PRG ---
DATE OF SERVICE: 07/21/2017 SUBJECTIVE: This morning, she is weak, but denies any pain or shortness of breath. PHYSICAL EXAMINATION: VITAL SIGNS: Sats 98%, temperature 97, blood pressure 100/65. CHEST: Decreased breath sounds, no wheezing. CARDIAC: Normal S1 and S2. No gallops. ABDOMEN: Soft, no masses. LABORATORY DATA: White count 9.6, hemoglobin and hematocrit is 10 and 29, platelet count normal. So dium 132, BUN and creatinine are 50 and 1.83. IMPRESSION: Congestive heart failure, atrial fibrillation, adrenal insufficiency, deconditioning. PLAN: Continue prednisone, PT and supportive care.
[2017-07-21] MEDS: Apixaban 5 MG TAB PO SCH (20:28)
[2017-07-21] MEDS ORDERED: Enoxaparin Sodium 30 MG/0.3 ML SYRINGE SC SCH (21:00)
[2017-07-21] MEDS: Lorazepam 1 MG TAB PO PRN (23:38)
[2017-07-22] MEDS: Dextrose 5 %-0.45 % NaCl 1,000 ML IV SCH (05:48)
[2017-07-22] MEDS: Levothyroxine Sodium 112 MCG TAB PO SCH (06:08)
[2017-07-22] MEDS: HYDROcodone/Acetaminophen 5/325 mg Tablet PO PRN ×2 (06:11→21:52)
[2017-07-22] MEDS: Loratadine 10 MG TAB PO SCH (08:53)
[2017-07-22] MEDS: Apixaban 5 MG TAB PO SCH ×2 (08:53→21:51)
[2017-07-22] MEDS: Escitalopram Oxalate 20 mg Tablet PO SCH (08:53)
[2017-07-22] MEDS: Estradiol 1 MG TAB PO SCH (08:53)
[2017-07-22] MEDS: predniSONE 5 MG TAB PO SCH (08:54)
[2017-07-22] MEDS: Multivit, Therapeutic 1 TAB PO SCH (08:54)
--- NOTE | 2017-07-22 12:54 | PRG ---
DATE OF SERVICE: 07/22/2017 SERVICE: Pulmonary Medicine. INTERVAL HISTORY: The patient is doing great from a respiratory standpoint. She is on room air. Nhan ortiz is persistent to working with physical therapy. Today, she took 10 steps and because of some mild discomfort, she decided she was done and did not participate any further. She denies any current fev ers, chills, nausea or vomiting. She has an appetite, but not really for the food that is being brou ght to her. PHYSICAL EXAMINATION: VITAL SIGNS: Afebrile, pulse 80, blood pressure 129/69, respirations 18, saturation 98% on room air. GENERAL: The patient is awake, alert, in no apparent distress. LUNGS: Decent air entry. There is no prolonged expiratory phase. Dependent crackles are minimal. No wheezing or rhonchi are appreciated. HEART: Normal rate, regular. ABDOMEN: Soft, nontender, nondistended. Bowel sounds are positive. MUSCULOSKELETAL: No cyanosis or clubbing. No pitting in the bilateral lower extremities. NEUROLOGIC: Grossly nonfocal. LABORATORY DATA: WBC 9.6, hemoglobin 10.0, platelets 112,000 and improving. INR 1.2. Creatinine 1. 83 and roughly stable with a BUN of 51. Sodium is down trending to 132. ASSESSMENT: 1. Adrenal crisis, resolved. 2. Left total hip replacement, postoperative day #4. 3. Atrial fibrillation. PLAN: At this point, the patient is stable for transition out of the hospital from purely respirator y perspective. She has no further requirements for inpatient pulmonary or critical care opinion. Ho me steroid doses can be resumed. If she decompensates, please give me a phone call.
--- NOTE | 2017-07-22 13:18 | PDOC.PN ---
- Subjective Encounter Start Date: 07/22/17 Encounter Start Time: 08:45 Pt up with PT at the time of my visit. VERY slow movement progress No F/C,no n/V/d/C, no CP or sOB, no palpitations BP has remained stable 10 point ROS performed and neg for all systems except as per hPI Pulm note reviewed, cleared form a respiratory standpoint to discharge - Objective MAR Reviewed: Yes Vital Signs & Weight: Vital Signs (12 hours) Temp Pulse Resp BP Pulse Ox 07/22/17 11:19 97.6 F 75 16 144/80 H 96 07/22/17 07:38 98.4 F 75 16 127/55 L 96 Weight Weight 160 lb 14.999 oz Most Recent Monitor Data Heart Rate from ECG 75 NIBP 124/49 NIBP BP-Mean 80 Respiration from ECG 24 SpO2 100 I&O: 07/21/17 07/22/17 07/23/17 06:59 06:59 06:59 Intake Total 1002 1050 Balance 1002 1050 Result Diagrams: 07/21/17 03:40 07/21/17 03:40 Phys Exam - Physical Examination Constitutional: NAD HEENT: PERRLA, moist MMs, sclera anicteric, oral pharynx no lesions Neck: no nodes, no JVD, supple, full ROM Respiratory: no wheezing, no rales, no rhonchi, clear to auscultation bilateral Cardiovascular: RRR, no significant murmur, no rub Gastrointestinal: soft, non-tender, no distention, positive bowel sounds Musculoskeletal: pulses present, edema present Neurological: non-focal, normal sensation, moves all 4 limbs Lymphatic: no nodes Psychiatric: normal affect, A&O x 3 Skin: no rash, normal turgor, cap refill <2 seconds Dx/Plan (1) Labile blood pressure Code(s): R09.89 - OTH SYMPTOMS AND SIGNS INVOLVING THE CIRC AND RESP SYSTEMS Status: Acute Comment: BP stable without fludricortisone post transfusion, CCM , monitor (2) Chronic systolic CHF (congestive heart failure) Code(s): I50.22 - CHRONIC SYSTOLIC (CONGESTIVE) HEART FAILURE Status: Acute Comment: stable, post transfusion. CCM. Dr Dillon on case (3) Paroxysmal A-fib Code(s): I48.0 - PAROXYSMAL ATRIAL FIBRILLATION Status: Chronic (4) CKD (chronic kidney disease), stage IV Code(s): N18.4 - CHRONIC KIDNEY DISEASE, STAGE 4 (SEVERE) Status: Chronic Comment: Cr stable (5) Adrenocortical insufficiency Code(s): E27.40 - UNSPECIFIED ADRENOCORTICAL INSUFFICIENCY Status: Chronic Comment: only takes fludrocortisone when BP drops. Will keep PRN at pt wishes (6) Anxiety and depression Code(s): F41.9 - ANXIETY DISORDER, UNSPECIFIED; F32.9 - MAJOR DEPRESSIVE DISORDER, SINGLE EPISODE, UNSPECIFIED Status: Chronic (7) Chronic anticoagulation Code(s): Z79.01 - PIPE TESTER (CURRENT) USE OF ANTICOAGULANTS Status: Chronic Comment: eliquis held for now. restart per ortho and cardiology (8) Dyslipidemia Code(s): E78.5 - HYPERLIPIDEMIA, UNSPECIFIED Status: Chronic (9) Hypothyroidism Code(s): E03.9 - HYPOTHYROIDISM, UNSPECIFIED Status: Chronic Qualifiers: Hypothyroidism type: acquired Qualified Code(s): E03.9 - Hypothyroidism, unspecified (10) Acute blood loss anemia Code(s): D62 - ACUTE POSTHEMORRHAGIC ANEMIA Status: Acute Comment: 6 gram drop post op. transfused 2 units PRBCs. post transfusion H/H 9.9, 10.0. CCM. - Plan cont current plan of care, PT/OT, out of bed/ambulate * .
[2017-07-22 14:48] VITALS: BMI 24.0
[2017-07-22] MEDS: Lorazepam 1 MG TAB PO PRN (22:07)
[2017-07-23] MEDS: Levothyroxine Sodium 112 MCG TAB PO SCH (06:47)
[2017-07-23] MEDS ORDERED: Furosemide 40 MG TAB PO SCH (09:00)
[2017-07-23] MEDS: HYDROcodone/Acetaminophen 5/325 mg Tablet PO PRN (09:35)
[2017-07-23] MEDS: Apixaban 5 MG TAB PO SCH (09:36)
[2017-07-23] MEDS: Loratadine 10 MG TAB PO SCH ×2 (09:36→09:38)
[2017-07-23] MEDS: Escitalopram Oxalate 20 mg Tablet PO SCH (09:37)
[2017-07-23] MEDS: predniSONE 5 MG TAB PO SCH (09:37)
[2017-07-23] MEDS: Estradiol 1 MG TAB PO SCH (09:37)
[2017-07-23] MEDS: Multivit, Therapeutic 1 TAB PO SCH (09:37)
--- NOTE | 2017-07-23 11:30 | PDOC.PN ---
- Subjective Encounter Start Date: 07/23/17 Encounter Start Time: 10:10 Pt feels weak, no appetite. No F/C, no N/V/D/C, no CP no SOB at rest, but some NAVARRETE 10 point ROS performed and neg for all systems except as per HPI Some serous drainage from wound on left hip discussed case with Slide Developer, will address need for supplements due to decreased po intake - Objective Vital Signs & Weight: Vital Signs (12 hours) Temp Pulse Resp BP Pulse Ox 07/23/17 08:00 97.9 F 78 18 127/66 91 L 07/23/17 04:00 97.5 F L 75 16 160/73 H 98 07/23/17 00:00 97.5 F L 75 16 146/82 H 98 Weight Admit Weight 154 lb 5.177 oz Weight 160 lb 14.999 oz Most Recent Monitor Data Heart Rate from ECG 75 NIBP 124/49 NIBP BP-Mean 80 Respiration from ECG 24 SpO2 100 I&O: 07/22/17 07/23/17 07/24/17 06:59 06:59 06:59 Intake Total 1050 720 Balance 1050 720 Result Diagrams: 07/21/17 03:40 07/21/17 03:40 Phys Exam - Physical Examination Constitutional: NAD HEENT: PERRLA, moist MMs, sclera anicteric, oral pharynx no lesions Neck: no nodes, no JVD, supple, full ROM Respiratory: no wheezing, no rales, no rhonchi, clear to auscultation bilateral Cardiovascular: RRR, no significant murmur, no rub Gastrointestinal: soft, non-tender, no distention, positive bowel sounds Musculoskeletal: pulses present, edema present Neurological: non-focal, normal sensation, moves all 4 limbs Lymphatic: no nodes Psychiatric: normal affect, A&O x 3 Skin: no rash, normal turgor, cap refill <2 seconds Dx/Plan (1) Labile blood pressure Code(s): R09.89 - OTH SYMPTOMS AND SIGNS INVOLVING THE CIRC AND RESP SYSTEMS Status: Acute Comment: BP stable without fludricortisone post transfusion, [facility] , monitor (2) Chronic systolic CHF (congestive heart failure) Code(s): I50.22 - CHRONIC SYSTOLIC (CONGESTIVE) HEART FAILURE Status: Acute Comment: stable, post transfusion. CCM. Dr Dillon on case (3) Paroxysmal A-fib Code(s): I48.0 - PAROXYSMAL ATRIAL FIBRILLATION Status: Chronic (4) CKD (chronic kidney disease), stage IV Code(s): N18.4 - CHRONIC KIDNEY DISEASE, STAGE 4 (SEVERE) Status: Chronic Comment: Cr stable (5) Adrenocortical insufficiency Code(s): E27.40 - UNSPECIFIED ADRENOCORTICAL INSUFFICIENCY Status: Chronic Comment: only takes fludrocortisone when BP drops. Will keep PRN at pt wishes (6) Anxiety and depression Code(s): F41.9 - ANXIETY DISORDER, UNSPECIFIED; F32.9 - MAJOR DEPRESSIVE DISORDER, SINGLE EPISODE, UNSPECIFIED Status: Chronic (7) Chronic anticoagulation Code(s): Z79.01 - LONGTERM (CURRENT) USE OF ANTICOAGULANTS Status: Chronic Comment: magdy held for now. restart per ortho and cardiology (8) Dyslipidemia Code(s): E78.5 - HYPERLIPIDEMIA, UNSPECIFIED Status: Chronic (9) Hypothyroidism Code(s): E03.9 - HYPOTHYROIDISM, UNSPECIFIED Status: Chronic Qualifiers: Hypothyroidism type: acquired Qualified Code(s): E03.9 - Hypothyroidism, unspecified (10) Acute blood loss anemia Code(s): D62 - ACUTE POSTHEMORRHAGIC ANEMIA Status: Acute Comment: 6 gram drop post op. transfused 2 units PRBCs. post transfusion H/H 9.9, 10.0. CCM. - Plan cont current plan of care to rehab today, recommend supplements per Nutrition recommendations when av * .
[2017-07-23 12:36] VITALS: BP 137/78; TEMP 97.6
--- NOTE | 2017-07-24 11:52 | DIS ---
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 PROCEDURE: 1. Left hip hardware removal. 2. Left total hip arthroplasty. HOSPITAL STAY: The patient did not progress very well. She struggles with ambulation due to pain an d she had some nausea few days postoperatively, so this slow her down on her recuperation, but by , patient was ready to discharge. DISCHARGE DISPOSITION: To rehab. DISCHARGE INSTRUCTIONS: Given, patient verbally and via handouts. DISCHARGE MEDICATIONS: Given with usage instructions. FOLLOWUP: Followup would be in 10-[address], sooner if there are problems or concerns. This is Chente Quintero PA-C dictating for Dr. Jaycob Cerrato.
== END 2017-07-23 15:05 | DRG 470 ==
LOC: SURG A 07-18 11:09 → CCU 07-18 19:20 → SURG B 07-19 17:21
PROVIDERS: ADMIT Orthopaedic Surgery; ATTEND Orthopaedic Surgery
PROC: 0QP704Z Removal of Internal Fixation Device from Left Upper Femur, Open Approach (ICD-10-PCS; principal; 2017-07-18)
PROC: 0SRB02A Replacement of Left Hip Joint with Metal on Polyethylene Synthetic Substitute, Uncemented, Open Approach (ICD-10-PCS; 2017-07-18)
PROC: 3E0T3BZ Introduction of Anesthetic Agent into Peripheral Nerves and Plexi, Percutaneous Approach (ICD-10-PCS; 2017-07-18)
PROC: 30233N1 Transfusion of Nonautologous Red Blood Cells into Peripheral Vein, Percutaneous Approach (ICD-10-PCS; 2017-07-19)
DX: M87.252 Osteonecrosis due to previous trauma, left femur (principal); E27.2 Addisonian crisis; E27.40 Unspecified adrenocortical insufficiency; N18.4 Chronic kidney disease, stage 4 (severe); I50.32 Chronic diastolic (congestive) heart failure; I08.2 Rheumatic disorders of both aortic and tricuspid valves; I13.0 Hypertensive heart and chronic kidney disease with heart failure and stage 1 through stage 4 chronic kidney disease, or unspecified chronic kidney disease; D62 Acute posthemorrhagic anemia; M87.052 Idiopathic aseptic necrosis of left femur; Z91.81 History of falling; Z79.52 Long term (current) use of systemic steroids; I95.81 Postprocedural hypotension; Z86.73 Personal history of transient ischemic attack (TIA), and cerebral infarction without residual deficits; E03.9 Hypothyroidism, unspecified; Z88.8 Allergy status to other drugs, medicaments and biological substances; Z95.0 Presence of cardiac pacemaker; Z79.01 Long term (current) use of anticoagulants; Z87.81 Personal history of (healed) traumatic fracture; I48.0 Paroxysmal atrial fibrillation; F41.9 Anxiety disorder, unspecified; F32.9 Major depressive disorder, single episode, unspecified
CPT/HCPCS: 36415; 36430; 72170; 80048; 81001; 83735; 85014; 85018; 85025; 85027; 85610; 85730; 86850; 86900; 86901; 96374; C1776; G8978-GP-CL; G8979-GP-CJ; G8987-GO-CK; G8988-GO-CI; J0131; J1265; J1650; J1720; J1885; J1940; J2405; J2704; J3010; J7050; P9016; P9045; S0020

== ENCOUNTER 2017-08-21 05:32 | Inpatient (IN) | payer MEDICARE, BC ==
[2017-08-21] MEDS ORDERED: Midazolam HCl 5 mg/ml Vial ONE ×2 (06:36→08:25)
[2017-08-21] MEDS ORDERED: Fentanyl 100 MCG/2 ML VIAL ONE ×2 (06:36→08:25)
[2017-08-21 06:44] LABS: #Eosinphils 0.1 thou/uL (0.0-0.7); #Lymphocytes 1.5 thou/uL (1.20-3.40); #Monocytes 0.5 thou/uL (0.11-0.59); #Neutrophils 5.9 thou/uL (1.40-6.50); %Basophils 0.6 % (0.0-1.0); %Eosinophils 1.6 % (0.0-10.0); %Lymphocytes 18.9 % (21.0-51.0); %Monocytes 6.7 % (0.0-10.0); %Neutrophils 72.3 % (42.0-75.0); Hemoglobin 10.8 g/dL (12.0-16.0); Mean Corpuscular HGB CONC 31.7 g/dL (32.0-36.0); Mean Corpuscular Hemoglobin 32.8 pg (27.0-31.0); Mean Platelet Volume 6.6 fL (7.4-10.4); Platelet Count 198 thou/uL (130-400); RBC Distribution Width 14.9 % (11.5-14.5); Red Blood Cell (RBC) Count 3.29 mill/uL (4.20-5.40); White Blood Cell (WBC) Count 8.2 thou/uL (4.8-10.8)
[2017-08-21 06:50] LABS: INR-International Normal Ratio 1.3
[2017-08-21 06:51] LABS: PTT 38.5 SEC (22.9-36.1)
[2017-08-21 07:07] LABS: ALT (SGPT) 8 U/L (8-55); AST (SGOT) 15 U/L (5-34); Albumin 3.7 g/dL (3.4-4.8); Alkaline Phosphatase 92 U/L (40-150); Anion Gap 12 mmol/L (10-20); BUN (Urea Nitrogen) 33 mg/dL (9.8-20.1); Bilirubin, Total 0.6 mg/dL (0.2-1.2); Calc. Creatinine Clearance 0 mL/min (70-130); Calcium 9.3 mg/dL (7.8-10.44); Carbon Dioxide 24 mmol/L (23-31); Chloride 106 mmol/L (98-107); Estimated GFR-MDRD 27; Globulin 2.2 g/dL (2.4-3.5); Glucose 92 mg/dL (83-110); Potassium 4.4 mmol/L (3.5-5.1); Protein, Total 5.9 g/dL (6.0-8.3); Sodium 138 mmol/L (136-145)
[2017-08-21 07:10] LABS: CKMB 2.1 ng/mL (0-6.6); Troponin I 0.034 ng/mL (< 0.028)
[2017-08-21] MEDS ORDERED: Bacitracin Zinc 1 Packet ONE (07:16)
[2017-08-21] MEDS ORDERED: Naloxone HCl 2 mg/2 ml Syringe ONE (08:46)
[2017-08-21] MEDS ORDERED: Diprivan 20 ML ONE (08:54)
--- NOTE | 2017-08-21 09:41 | RAD ---
SINGLE VIEW OF THE LEFT HIP: Comparison: 07-18-17 History: Fall at home with left hip pain. FINDINGS: A single view of the left hip shows dislocation of the patient's left hip prosthesis. No fracture is seen. IMPRESSION: Dislocated left hip prosthesis. POS: [place]
[2017-08-21 10:12] LABS: Troponin I 0.035 ng/mL (< 0.028)
--- NOTE | 2017-08-21 12:55 | RAD ---
SINGLE VIEW OF THE PELVIS: HISTORY: Hip dislocation. COMPARISON: Hip radiograph from 08/21/2017. FINDINGS: A single view of the pelvis shows relocation of the previously seen dislocated left hip prosthesis. No perihardware lucency or fracture is seen. IMPRESSION: Reduction of previously seen left hip prosthetic dislocation. POS: [facility]
--- NOTE | 2017-08-21 12:58 | RAD ---
TWO VIEWS LEFT HIP: Comparison: 08-21-17 History: Left prosthetic hip dislocation. FINDINGS: Two views of the left hip shows reduction of the previously seen dislocated left hip prosthesis. No p erihardware lucency of fracture is seen. Surrounding soft tissue swelling is present. IMPRESSION: Reduction of dislocated left hip prosthesis. POS: [facility]
[2017-08-21 13:03] LABS: Troponin I 0.042 ng/mL (< 0.028)
--- NOTE | 2017-08-21 13:09 | OP ---
DATE OF PROCEDURE: 08/21/2017 PREPROCEDURAL DIAGNOSIS: Left total hip arthroplasty with traumatic dislocation. POST-PROCEDURE DIAGNOSIS: Left total hip arthroplasty with traumatic dislocation. OPERATIVE PROCEDURE: Closed reduction under general sedation, left total hip arthroplasty. PROCEDURIST: Hakan Castano PA-C ANESTHESIA: TIVA via Dr. Rubio Aranda. FLUIDS: 250. MEDICATIONS USED: Propofol. INDICATION FOR PROCEDURE: Susie is an 82-year-old white female who is approximately 3 weeks postop lef t total hip arthroplasty who fell early this morning. The resultant fall dislocated her left total h ip arthroplasty which she received electively [address] Cerrato. One prior reduction has been attempted in the emergency room and our service was called for a second attempt at closed reduct ion. PROCEDURE IN DETAIL: After informed consent was obtained in the preoperative holding area, the patie nt was positioned appropriately in supine position. She received propofol IV per Dr. Rubio Aranda. Please see his procedure note. Once adequate level of anesthesia was obtained, the affected leg was then flexed, internally rotated and adducted across the body. We did not get a good nice relocation clunk, but we did have a good positioning and the limb was brought back out to length clinically. P ostprocedurally she had good limb length. She is neurovascularly intact both before, during, and aft er and again no internal or external rotation or deformity was identified. We did experience some sk in tears on the back of the patient's calf from traction. Plain radiographs were obtained post-proce dure and showed good relocation. The procedure was terminated without any complication. She will re main in the emergency room and be admitted to the Medicine Service for further observation, abduction pillow at all times. She may be weightbearing as tolerated.
[2017-08-21 14:28] VITALS: BMI 24.0
[2017-08-21] MEDS ORDERED: Nitroglycerin 0.4 MG TAB (25 Tab Bottle) SL PRN (14:28)
[2017-08-21] MEDS ORDERED: Loratadine 10 MG TAB PO PRN (14:28)
[2017-08-21] MEDS ORDERED: Benzonatate 100 MG CAP PO PRN (14:28)
[2017-08-21] MEDS ORDERED: Diabetic Tussin 200 MG/10 ML UDCUP PO PRN (14:28)
[2017-08-21] MEDS ORDERED: Calcium Carbonate 500 MG ChewTAB PO PRN (14:28)
[2017-08-21] MEDS ORDERED: Mag-Al 1200 mg/1200 mg/30 ML UDCUP PO PRN (14:28)
[2017-08-21] MEDS ORDERED: cloNIDine 0.1 MG TAB PO PRN (14:28)
[2017-08-21] MEDS ORDERED: hydrALAZINE 20 MG/ML VIAL SLOW IVP PRN (14:28)
[2017-08-21] MEDS ORDERED: Acetaminophen 325 MG TAB PO PRN (14:28)
[2017-08-21] MEDS ORDERED: FLU VACC TS2017-18 (>65YR) 0.5 ML SYRINGE IM ONE (14:45)
--- NOTE | 2017-08-21 15:01 | RAD ---
CHEST ONE VIEW: History: Chest pain. Dyspnea. Comparison: 04-24-17 FINDINGS: Cardiac silhouette is magnified and enlarged. Pulmonary vasculature is unremarkable. Mediastinum is m idline with post-operative changes and a multi-lead left subclavian cardiac electronic device. There is minimal blunting of the left lateral costophrenic angle. No lobar consolidation or evidence of pne umothorax. steam locomotive firer/fireman leads overlie the chest. IMPRESSION: 1. Cardiomegaly. No evidence of pulmonary edema. POS: [place]
[2017-08-21] MEDS: traMADol HCl 50 MG TAB PO PRN ×2 (15:02→22:13)
[2017-08-21] MEDS ORDERED: Docusate 100 MG CAP PO PRN (16:14)
--- NOTE | 2017-08-21 16:18 | PDOC.PN ---
- Subjective Encounter Start Date: 08/21/17 Encounter Start Time: 16:16 Subjective: consulted for fall ? syncope.Pt seen and examined -: denies any syncopal event.Was rather a mechanical fall -: no prodromal symptoms,no palpitations,chest pain,dizziness H/O recent Left hip replacement 07/21.came with doslocation with fall today and admitted to Orthopedics service - Objective MAR Reviewed: Yes Vital Signs & Weight: Vital Signs (12 hours) Temp Pulse Resp BP Pulse Ox 08/21/17 15:52 97.9 F 75 20 125/60 100 08/21/17 14:26 98.3 F 75 20 130/69 100 Weight Weight 158 lb Result Diagrams: 08/21/17 06:31 08/21/17 06:31 Additional Labs: Laboratory Tests 07/24/17 07/25/17 07/29/17 05:00 05:00 03:40 Creatinine 1.96 H 1.80 H 1.74 H 08/21/17 06:31 Creatinine 1.78 H Radiology Reviewed by me: Yes (CXR-no Pulmonary edema) Phys Exam - Physical Examination Constitutional: NAD HEENT: PERRLA, moist MMs, sclera anicteric, oral pharynx no lesions Neck: no nodes, no JVD, supple, full ROM Respiratory: no wheezing, no rales, no rhonchi, clear to auscultation bilateral Cardiovascular: RRR, no significant murmur, no rub Gastrointestinal: soft, non-tender, no distention, positive bowel sounds Musculoskeletal: no edema, pulses present Neurological: non-focal, normal sensation, moves all 4 limbs Psychiatric: normal affect, A&O x 3 Deviation from normal: multiple bruises on all extremities Dx/Plan (1) Elevated troponin Code(s): R74.8 - ABNORMAL LEVELS OF OTHER SERUM ENZYMES Status: Acute (2) Hip dislocation, left Code(s): S73.005A - UNSPECIFIED DISLOCATION OF LEFT HIP, INITIAL ENCOUNTER Status: Acute (3) Fall Code(s): W19.XXXA - UNSPECIFIED FALL, INITIAL ENCOUNTER Status: Acute (4) Chronic systolic CHF (congestive heart failure) Code(s): I50.22 - CHRONIC SYSTOLIC (CONGESTIVE) HEART FAILURE Status: Acute Comment: stable, post transfusion. CCM. Dr Dillon on case (5) Adrenocortical insufficiency Code(s): E27.40 - UNSPECIFIED ADRENOCORTICAL INSUFFICIENCY Status: Chronic Comment: only takes fludrocortisone when BP drops. Will keep PRN at pt wishes (6) CKD (chronic kidney disease), stage IV Code(s): N18.4 - CHRONIC KIDNEY DISEASE, STAGE 4 (SEVERE) Status: Chronic Comment: Cr stable (7) Chronic anticoagulation Code(s): Z79.01 - FILLING TECHNICIAN (CURRENT) USE OF ANTICOAGULANTS Status: Chronic Comment: eliquis held for now. restart per ortho and cardiology (8) Dyslipidemia Code(s): E78.5 - HYPERLIPIDEMIA, UNSPECIFIED Status: Chronic (9) Hypothyroidism Code(s): E03.9 - HYPOTHYROIDISM, UNSPECIFIED Status: Chronic Qualifiers: Hypothyroidism type: acquired Qualified Code(s): E03.9 - Hypothyroidism, unspecified (10) Paroxysmal A-fib Code(s): I48.0 - PAROXYSMAL ATRIAL FIBRILLATION Status: Chronic - Plan DVT proph w/SCDs will get PPM interrogated.Cardiology consult for elevated troponin. -: no evidence of CHF.euvolemic -: TSH very high.increase levothyroxine dose. -: check orthostatics given Q of syncope,though pt denies. -: restart home meds including eliquis.Cleared with ortho * .am labs * will follow. Review of Systems - Review of Systems Constitutional: weakness. negative: fever, chills, sweats, malaise, other Eyes: negative: Pain, Vision Change, Conjunctivae Inflammation, Eyelid Inflammation, Redness, Other ENT: negative: Ear Pain, Ear Discharge, Nose Pain, Nose Discharge, Nose Congestion, Mouth Pain, Mouth Swelling, Throat Pain, Throat Swelling, Other Respiratory: negative: Cough, Dry, Shortness of Breath, Hemoptysis, SOB with Excertion, Pleuritic Pain, Sputum, Wheezing Cardiovascular: negative: chest pain, palpitations, orthopnea, paroxysmal nocturnal dyspnea, edema, light headedness, other Gastrointestinal: negative: Nausea, Vomiting, Abdominal Pain, Diarrhea, Constipation, Melena, Hematochezia, Other Genitourinary: negative: Dysuria, Frequency, Incontinence, Hematuria, Retention , Other Musculoskeletal: Leg Pain Neurological: negative: Weakness, Numbness, Incoordination, Change in Speech, Confusion, Seizures, Other - Medications/Allergies Allergies/Adverse Reactions: Allergies Allergy/AdvReac Type Severity Reaction Status Date / Time hydrocortisone Allergy Intermediate HOT FLASHES Verified 07/11/17 09:52 methylprednisolone Allergy Intermediate HOT FLASHES Verified 07/11/17 09:52 [From Solu-Medrol] Medications: Current Medications Acetaminophen (Tylenol) 650 mg PO Q4H PRN PRN Reason: Headache/Fever or Mild Pain Al Hydroxide/Mg Hydroxide (Maalox) 15 ml PO Q4H PRN PRN Reason: Heartburn or Indigestion Benzonatate (Tessalon) 100 mg PO Q4H PRN PRN Reason: Cough Calcium Carbonate (Tums) 1,000 mg PO Q4H PRN PRN Reason: Heartburn or Indigestion Clonidine (Catapres) 0.1 mg PO Q4H PRN PRN Reason: Systolic BP > 170 Docusate Sodium (Colace) 100 mg PO BID PRN PRN Reason: Constipation Escitalopram Oxalate (Lexapro) 20 mg PO QAM [facility] Guaifenesin (Robitussin Sf) 200 mg PO Q4H PRN PRN Reason: Cough Hydralazine HCl (Apresoline) 10 mg SLOW IVP Q4H PRN PRN Reason: Systolic BP > 180 Levothyroxine Sodium (Synthroid) 125 mcg PO 0600 [facility] Loratadine (Claritin) 10 mg PO DAILYPRN PRN PRN Reason: Sinus Symptoms Nitroglycerin (Nitrostat) 0.4 mg SL Q5MIN PRN PRN Reason: Chest Pain Non-Formulary Medication (Apixaban [Eliquis]) 2.5 mg PO BID [facility] Non-Formulary Medication (Cholecalciferol (Vitamin D3) [Vitamin D3]) 5,000 unit PO QAM [facility] Non-Formulary Medication (Cyanocobalamin (Vitamin B-12) [Vitamin B12]) 2,500 mcg SQ Q28D [facility] Non-Formulary Medication (Duloxetine Hcl [Duloxetine Hcl]) 30 mg PO QAM [facility] Non-Formulary Medication (Esomeprazole Magnesium [Nexium]) 40 mg PO QAM [facility] Non-Formulary Medication (Estradiol [Estradiol]) 1 mg PO QAM [facility] Prednisone (Prednisone) 5 mg PO QAM[facility] Tramadol HCl (Ultram) 50 mg PO Q4H PRN PRN Reason: Moderate Pain (4-6) Last Admin: 08/21/17 15:02 Dose: 50 mg
[2017-08-21] MEDS: Apixaban 5 MG TAB PO SCH (21:26)
[2017-08-22] MEDS: traMADol HCl 50 MG TAB PO PRN ×3 (02:01→14:50)
--- NOTE | 2017-08-22 02:15 | CON ---
DATE OF CONSULTATION: 08/21/2017 HISTORY OF PRESENT ILLNESS: Susie Contreras is an 82-year-old white female with a previous history of biventricular pacemaker and chronic atrial fibrillation as well as mitral valve repair 20 years ago. She has problems with somewhat labile blood pressure and at times hypotension. On 07/18/2017, she underwent removal of left hip hardware and left total hip replacement. She was slow to progress after that. She currently is back home and this morning was getting up out of bed and had a fall. She denies any dizziness. She does remember falling and seems to remember hitting the floor. She dislocated her left hip and in the emergency room, this was reduced. She denied any chest discomfort. She has had some dyspnea on exertion at home, but this is not significantly worsened over her baseline.. She does not take the Lasix on a regular basis. PAST MEDICAL HISTORY: Remarkable for labile hypertension and at times quite hypotensive. Hypothyroidism. She has chronic atrial fibrillation and has undergone an AV node ablation. In 2004 at catheterization, she had normal coronary arteries. PAST SURGICAL HISTORY: Mitral valve repair approximately 20 years ago, biventricular pacemaker placement, AV node ablation. MEDICATIONS: Eliquis 2.5 mg b.i.d., vitamin D 5000 units q.a.m., B12 of 25 mcg daily, Colace 100 b.i.d. p.r.n., Lexapro 20 mg q.a.m., Nexium 40 mg q.a.m., estradiol 1 mg daily, Lasix 40 mg p.o. p.r.n. which she rarely takes, [place] p.r.n., Synthroid 112 mcg daily, lidocaine patch p.r.n., Claritin 10 mg p.r.n., Ativan 2 mg p.o. at bedtime p.r.n., prednisone 5 mg daily, Phenergan 25 mg p.r.n. ALLERGIES: SOLU-MEDROL and HYDROCORTISONE. SOCIAL HISTORY: She does not smoke or drink. REVIEW OF SYSTEMS: Twelve point review of systems otherwise unremarkable. PHYSICAL EXAMINATION: VITAL SIGNS: 125/60, pulse 75. HEENT: PERRL. NECK: Supple. LUNGS: Chest is clear. CARDIAC: S1 and S2 are normal, without any S3 or S4. There is a 2/6 holosystolic murmur along the left sternal border. ABDOMEN: Normal bowel sounds, without tenderness or organomegaly. EXTREMITIES: Revealed 2+ edema on the left, 1+ edema on the right. NEUROLOGIC: Grossly intact. SKIN: Warm and dry. LABORATORY: EKG reveals ventricular pacing. Echocardiogram in 04/2017 revealed ejection fraction of 50-55% with mild left ventricular enlargement and severe left atrial enlargement, moderate right atrial enlargement, trace mitral regurgitation, [id number] aortic regurgitation, [id number] tricuspid regurgitation with moderately elevated pulmonary pressure. Hemoglobin 10.8, hematocrit 34.0, white count 8200, platelets 198,000. INR 1.3 , sodium 138, potassium 4.4, chloride 106, carbon dioxide 24, BUN 33, creatinine 1.72. Troponin I 0.042. BNP 768.3. IMPRESSION: 1. From her description, it sounds as if she had a fall, not a true syncopal episode. 2. Labile blood pressure. 3. Chronic diastolic heart failure. 4. History of mitral valve repair. 5. Status post biventricular pacemaker. 6. Chronic atrial fibrillation with atrioventricular node ablation. 7. Hypothyroidism. 8. Chronic kidney disease. PLAN: [employer] has been contacted to interrogate her pacemaker to see if she had any significant arrhythmias or if there is a problem with the lead function , which I doubt is the problem. Historically, it sounds as if she had a fall with her feet becoming entangled and then falling and remembering the fall. UYEN
[2017-08-22] MEDS: Levothyroxine Sodium 125 MCG TAB PO SCH (05:31)
[2017-08-22] MEDS: Apixaban 5 MG TAB PO SCH ×2 (08:57→21:28)
[2017-08-22] MEDS: Estradiol 1 MG TAB PO SCH (08:57)
[2017-08-22] MEDS: predniSONE 5 MG TAB PO SCH (08:57)
[2017-08-22] MEDS: DULoxetine 30 MG CAP PO SCH (08:57)
[2017-08-22] MEDS: Escitalopram Oxalate 20 mg Tablet PO SCH (08:58)
[2017-08-22] MEDS ORDERED: Furosemide 40 MG/4 ML VIAL SLOW IVP SCH (10:45)
[2017-08-22] MEDS ORDERED: Furosemide 100 MG/10 ML VIAL SLOW IVP SCH (10:45)
[2017-08-22] MEDS ORDERED: Potassium Chloride 20 MEQ TAB PO SCH (12:00)
--- NOTE | 2017-08-22 12:19 | PRG ---
DATE OF SERVICE: 08/22/2017 SUBJECTIVE: Liam Rae had an episode of falling yesterday, dislocated her hip. She is doing better today. Her OptiVol was found to be high. OBJECTIVE: VITAL SIGNS: Blood pressure 130/60, pulse 77 and regular. LUNGS: Clear. CARDIAC: Normal S1 and S2. ABDOMEN: Soft, nontender. EXTREMITIES: There is severe edema. ASSESSMENT: 1. Congestive heart failure, diastolic, chronic, decompensated. 2. Recent fall. 3. Orthostatic hypotension. PLAN: 1. Give her a dose of furosemide 40 mg IV now. 2. Potassium. 3. Probably be able to be released home tomorrow. 4. Chronic atrial fibrillation. 5. Indeterminate troponin, probably not significant or demand ischemia issue.
--- NOTE | 2017-08-22 13:17 | HP ---
CHIEF COMPLAINT: Left hip periprosthetic dislocation. HISTORY OF PRESENT ILLNESS: Susie is an 81-year-old white female who was admitted to the emergency félix after she fell earlier on the morning of admission. Her surgical history goes back to December of last year when she had a valgus impacted femoral neck fracture treated with closed reduction and cannulate d screw fixation on 12/15/2016. 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 She was seen in Dr. Cerrato's clinic about 3-4 weeks ago and went and head and electively scheduled explantation of cannulated scre ws with conversion to total hip arthroplasty. She underwent that particular conversion on 07/18/2017 . She has been doing relatively well postoperatively until she fell on the morning of admission. Pl ain radiographs demonstrated her hip to be dislocated. The emergency room physician has already made one attempt at reduction and our service was called for definitive treatment and closed reduction at tempt. PAST MEDICAL HISTORY: Significant for chronic atrial fibrillation, labile blood pressure, and hypoth yroidism. PAST SURGICAL HISTORY: She has had a cardiac catheterization, recent hip surgery, please see HPI, mi tral valve repair 20 years ago and a biventricular pacemaker placement and AV node ablation. MEDICATIONS: Please see medication reconciliation form. ALLERGIES: Patient claims SOLU-MEDROL, HYDROCORTISONE. SOCIAL HISTORY: She denies any ethanol, tobacco or illicit drug abuse. PHYSICAL EXAMINATION: GENERAL: This is an elderly, frail appearing female in no apparent distress, but uncomfortable. She is lying in hospital bed supine. She is alert, responsive to examiner and appropriate. MUSCULOSKELETAL: Visual inspection of both lower extremities demonstrates shortening and internal ro tation of the left lower extremity relative to the right. She is neurovascularly intact in the invol frank extremity. IMAGING STUDIES: AP pelvis demonstrates hardware to be intact, but she does have clearly dislocated total hip arthroplasty. IMPRESSION: 1. Traumatic left hip prosthetic dislocation. 2. Fall, mechanical in nature. 3. Atrial fibrillation, chronic in nature. 4. Hypothyroidism. PLAN: 1. The risks, benefits, options, alternatives, and rationale for proceeding with closed reduction un annamaria intravenous anesthesia in the emergency room has been explained in great detail to the patient an d her daughter who accompanied her. All questions were answered and no guarantee of outcome was stat ed or implied. 2. Please see orders. 3. The patient will need to be admitted for further workup for fall and a medicine consult will be t urned in.
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
[2017-08-23] MEDS: Levothyroxine Sodium 125 MCG TAB PO SCH (06:20)
[2017-08-23] MEDS: DULoxetine 30 MG CAP PO SCH (08:36)
[2017-08-23] MEDS: predniSONE 5 MG TAB PO SCH (08:36)
[2017-08-23] MEDS: Estradiol 1 MG TAB PO SCH (08:36)
[2017-08-23] MEDS: Escitalopram Oxalate 20 mg Tablet PO SCH (08:37)
[2017-08-23] MEDS: Apixaban 5 MG TAB PO SCH ×2 (08:37→21:48)
[2017-08-23 09:22] LABS: Anion Gap 15 mmol/L (10-20); BUN (Urea Nitrogen) 29 mg/dL (9.8-20.1); Calc. Creatinine Clearance 27 mL/min (70-130); Carbon Dioxide 22 mmol/L (23-31); Chloride 101 mmol/L (98-107); Estimated GFR-MDRD 29; Glucose 97 mg/dL (83-110); Potassium 4.4 mmol/L (3.5-5.1); Sodium 134 mmol/L (136-145)
--- NOTE | 2017-08-23 09:45 | PRG ---
DATE OF SERVICE: 08/23/2017 Ms. Contreras has a severe drop in blood pressure when she stands up today. She received a diuretic dose yesterday and there was reported 1600 mL out. Her weight went from 158 to 149 which does not r eally correlate. PHYSICAL EXAMINATION: VITAL SIGNS: Blood pressure as mentioned is very low, it is 80 systolic and it drops much lower than that when she sits up, pulse 70. LUNGS: Clear. CARDIAC: Normal S1, normal S2. Edema is reduced. ASSESSMENT: 1. Diastolic heart failure. 2. Severe orthostatic hypotension. PLAN: 1. The patient will need to lay down in bed and rest. Blood pressure will likely come up. 2. It looks like she is probably hypothyroid, therefore, it appears she likely needs to be thyroid r epleted or at least the dose may need to be increased. 3. Probably home later today if her blood pressure is adequate.
[2017-08-23] MEDS: traMADol HCl 50 MG TAB PO PRN ×2 (11:55→21:49)
--- NOTE | 2017-08-23 13:08 | PDOC.PN ---
- Subjective Encounter Start Date: 08/23/17 Encounter Start Time: 13:06 Subjective: feels OK and better.had episode of low BP earlier for PT -: reports this is common for her -: denies any dizziness,chest pain - Objective MAR Reviewed: Yes Vital Signs & Weight: Vital Signs (12 hours) Temp Pulse Resp BP Pulse Ox 08/23/17 11:55 97.9 F 75 18 115/57 L 98 Result Diagrams: 08/21/17 06:31 08/23/17 08:46 Additional Labs: Accuchecks 08/23/17 11:48 POC Glucose 132 H Phys Exam - Physical Examination Constitutional: NAD HEENT: PERRLA, moist MMs, sclera anicteric, oral pharynx no lesions Neck: no nodes, no JVD, supple, full ROM Respiratory: no wheezing, no rales, no rhonchi, clear to auscultation bilateral Cardiovascular: RRR, no significant murmur, no rub, gallop Gastrointestinal: soft, non-tender, no distention, positive bowel sounds Musculoskeletal: no edema, pulses present Neurological: non-focal, normal sensation, moves all 4 limbs Psychiatric: normal affect, A&O x 3 Skin: no rash Dx/Plan (1) Elevated troponin Code(s): R74.8 - ABNORMAL LEVELS OF OTHER SERUM ENZYMES Status: Acute (2) Hip dislocation, left Code(s): S73.005A - UNSPECIFIED DISLOCATION OF LEFT HIP, INITIAL ENCOUNTER Status: Acute Comment: s/p external reduction (3) Fall Code(s): W19.XXXA - UNSPECIFIED FALL, INITIAL ENCOUNTER Status: Acute (4) Chronic systolic CHF (congestive heart failure) Code(s): I50.22 - CHRONIC SYSTOLIC (CONGESTIVE) HEART FAILURE Status: Acute Comment: Dr Dillon on case (5) Adrenocortical insufficiency Code(s): E27.40 - UNSPECIFIED ADRENOCORTICAL INSUFFICIENCY Status: Chronic (6) CKD (chronic kidney disease), stage IV Code(s): N18.4 - CHRONIC KIDNEY DISEASE, STAGE 4 (SEVERE) Status: Chronic Comment: Cr stable (7) Chronic anticoagulation Code(s): Z79.01 - [facility] (CURRENT) USE OF ANTICOAGULANTS Status: Chronic (8) Dyslipidemia Code(s): E78.5 - HYPERLIPIDEMIA, UNSPECIFIED Status: Chronic (9) Hypothyroidism Code(s): E03.9 - HYPOTHYROIDISM, UNSPECIFIED Status: Chronic Qualifiers: Hypothyroidism type: acquired Qualified Code(s): E03.9 - Hypothyroidism, unspecified Comment: TSH high.Levothyroxine dose increased (10) Paroxysmal A-fib Code(s): I48.0 - PAROXYSMAL ATRIAL FIBRILLATION Status: Chronic Comment: on Eliquis - Plan DVT proph w/SCDs monitor BP.cardiology aware.not on any BP meds -: Levothyroxine dose increased & pt advised to get TSH check in 4 weeks -: new scrpit sent to pharmacy. -: OK to DC from IM stand point if cleared by Primary team -: f/u w PCP.Diuresis as per cardiology * . Review of Systems - Review of Systems Constitutional: negative: fever, chills, sweats, weakness, malaise, other ENT: negative: Ear Pain, Ear Discharge, Nose Pain, Nose Discharge, Nose Congestion, Mouth Pain, Mouth Swelling, Throat Pain, Throat Swelling, Other Respiratory: negative: Cough, Dry, Shortness of Breath, Hemoptysis, SOB with Excertion, Pleuritic Pain, Sputum, Wheezing Cardiovascular: negative: chest pain, palpitations, orthopnea, paroxysmal nocturnal dyspnea, edema, light headedness, other Gastrointestinal: negative: Nausea, Vomiting, Abdominal Pain, Diarrhea, Constipation, Melena, Hematochezia, Other Genitourinary: negative: Dysuria, Frequency, Incontinence, Hematuria, Retention , Other Musculoskeletal: negative: Neck Pain, Shoulder Pain, Arm Pain, Back Pain, Hand Pain, Leg Pain, Foot Pain, Other Neurological: negative: Weakness, Numbness, Incoordination, Change in Speech, Confusion, Seizures, Other - Medications/Allergies Allergies/Adverse Reactions: Allergies Allergy/AdvReac Type Severity Reaction Status Date / Time hydrocortisone Allergy Intermediate HOT FLASHES Verified 07/11/17 09:52 methylprednisolone Allergy Intermediate HOT FLASHES Verified 07/11/17 09:52 [From Solu-Medrol] Medications: Current Medications Acetaminophen (Tylenol) 650 mg PO Q4H PRN PRN Reason: Headache/Fever or Mild Pain Last Admin: 08/23/17 06:35 Dose: 650 mg Al Hydroxide/Mg Hydroxide (Maalox) 15 ml PO Q4H PRN PRN Reason: Heartburn or Indigestion Apixaban (Eliquis) 2.5 mg PO BID [facility] Last Admin: 08/23/17 08:37 Dose: 2.5 mg Benzonatate (Tessalon) 100 mg PO Q4H PRN PRN Reason: Cough Calcium Carbonate (Tums) 1,000 mg PO Q4H PRN PRN Reason: Heartburn or Indigestion Cholecalciferol (Vitamin D3) 5,000 units PO [facility] Last Admin: 08/23/17 08:36 Dose: 5,000 units Clonidine (Catapres) 0.1 mg PO Q4H PRN PRN Reason: Systolic BP > 170 Cyanocobalamin (Vitamin B-12) 2,500 mcg SC Q28D [facility] Docusate Sodium (Colace) 100 mg PO BID PRN PRN Reason: Constipation Duloxetine HCl (Cymbalta) 30 mg PO [facility] Last Admin: 08/23/17 08:36 Dose: 30 mg Escitalopram Oxalate (Lexapro) 20 mg PO [facility] Last Admin: 08/23/17 08:37 Dose: 20 mg Estradiol (Estrace) 1 mg PO DAILY [facility] Last Admin: 08/23/17 08:36 Dose: 1 mg Guaifenesin (Robitussin Sf) 200 mg PO Q4H PRN PRN Reason: Cough Hydralazine HCl (Apresoline) 10 mg SLOW IVP Q4H PRN PRN Reason: Systolic BP > 180 Levothyroxine Sodium (Synthroid) 125 mcg PO 0600 [facility] Last Admin: 08/23/17 06:20 Dose: 125 mcg Loratadine (Claritin) 10 mg PO DAILYPRN PRN PRN Reason: Sinus Symptoms Nitroglycerin (Nitrostat) 0.4 mg SL Q5MIN PRN PRN Reason: Chest Pain Pantoprazole Sodium (Protonix) 40 mg PO DAILY [facility] Last Admin: 08/23/17 08:49 Dose: 40 mg [facility] Last Admin: 08/23/17 08:36 Dose: 5 mg Tramadol HCl (Ultram) 50 mg PO Q4H PRN PRN Reason: Moderate Pain (4-6) Last Admin: 08/23/17 11:55 Dose: 50 mg
[2017-08-23] MEDS ORDERED: Ondansetron ODT 4 MG TAB PO PRN (22:57)
[2017-08-24] MEDS: Levothyroxine Sodium 125 MCG TAB PO SCH (05:20)
[2017-08-24 05:53] LABS: Anion Gap 10 mmol/L (10-20); BUN (Urea Nitrogen) 33 mg/dL (9.8-20.1); Calc. Creatinine Clearance 25 mL/min (70-130); Calcium 8.7 mg/dL (7.8-10.44); Carbon Dioxide 26 mmol/L (23-31); Chloride 101 mmol/L (98-107); Estimated GFR-MDRD 26; Glucose 101 mg/dL (83-110); Potassium 4.4 mmol/L (3.5-5.1); Sodium 133 mmol/L (136-145)
[2017-08-24] MEDS: Apixaban 5 MG TAB PO SCH (08:36)
[2017-08-24] MEDS: DULoxetine 30 MG CAP PO SCH (08:36)
[2017-08-24] MEDS: Estradiol 1 MG TAB PO SCH (08:37)
[2017-08-24] MEDS: Escitalopram Oxalate 20 mg Tablet PO SCH (08:37)
[2017-08-24] MEDS: predniSONE 5 MG TAB PO SCH (08:38)
[2017-08-24] MEDS: traMADol HCl 50 MG TAB PO PRN (08:51)
[2017-08-24 11:42] VITALS: BP 139/65; TEMP 97.7
--- NOTE | 2017-08-24 19:49 | PDOC.CTH ---
Cardiology Progress Note - Subjective She is doing much better. Breathing back to baseline. - Objective Vital Signs Temp Pulse Pulse Resp BP BP Pulse Ox 08/24/17 11:15 97.7 F 70 18 139/65 94 L 08/24/17 11:03 77 139/65 08/24/17 08:00 98.3 F 75 18 94 L - Physical Examination General/Neuro: alert & oriented x3, NAD Neck: no JVD present Lungs: unlabored respirations Heart: RRR Abdomen: NT/ND Extremities: other: (no edema) - Telemetry Telemetry Rhythm: NSR - Labs Result Diagrams: 08/21/17 06:31 08/24/17 05:04 Troponin/CKMB CK-MB (CK-2) 2.1 ng/mL (0-6.6) 08/21/17 06:31 Troponin I 0.042 ng/mL (< 0.028) H 08/21/17 12:36 - Assessment/Plan 1. Diastolic heart failure. improved. 2. Orthostatic hypotension. PLAN: - May d/c home from cardiac perspective. - Follow up with Dr. Dillon as scheduled.
[2017-09-05] MEDS ORDERED: Cyanocobalamin 1000 MCG/ML VIAL SC SCH (09:00)
== END 2017-08-24 16:07 | disposition home or self-care (01) | DRG 560 ==
LOC: ERS 05:32 → ERHOLD 07:52 → 2SE 13:39 → OBSVTOIN 08-23 09:30
PROVIDERS: ADMIT Orthopaedic Surgery; ATTEND Orthopaedic Surgery
PROC: 0SSBXZZ Reposition Left Hip Joint, External Approach (ICD-10-PCS; principal; 2017-08-23)
DX: T84.021A Dislocation of internal left hip prosthesis, initial encounter (principal); I50.32 Chronic diastolic (congestive) heart failure; N18.4 Chronic kidney disease, stage 4 (severe); E27.40 Unspecified adrenocortical insufficiency; I48.0 Paroxysmal atrial fibrillation; E03.9 Hypothyroidism, unspecified; W19.XXXA Unspecified fall, initial encounter; Z95.0 Presence of cardiac pacemaker; Z95.2 Presence of prosthetic heart valve; I95.1 Orthostatic hypotension; Z79.01 Long term (current) use of anticoagulants
CPT/HCPCS: 27265; 36415; 36416; 51702; 71045; 72170; 80048; 80053; 82533; 82553; 83880; 84443; 84484; 85025; 85610; 85730; 93005; 94760; 96374; 99152; 99156; G8978-GP-CK; G8979-GP-CI; J1940; J2250; J2310; J2704; J3010; Q0162

== ENCOUNTER 2018-01-01 11:36 | Outpatient (CLI) | payer MEDICARE, BC ==
--- NOTE | 2018-01-01 13:27 | RAD ---
RIGHT KNEE 4 VIEWS: HISTORY: Right knee osteoarthritis. COMPARISON: None. FINDINGS: There is chondrocalcinosis. There is severe tricompartment degenerative change. No fracture. Mild bone demineralization is noted. No significant joint effusion. IMPRESSION: 1. Tricompartment degenerative change. 2. Chondrocalcinosis in the medial lateral compartment. POS: [facility]
== END 2018-01-01 11:37 | disposition home or self-care (01) ==
LOC: RAD 11:36
PROVIDERS: ATTEND Nurse Practitioner Family
DX: M17.0 Bilateral primary osteoarthritis of knee (principal); M11.261 Other chondrocalcinosis, right knee

== ENCOUNTER 2018-04-06 15:38 | Observation (INO) | payer MEDICARE, BC ==
[2018-04-06 16:56] LABS: #Eosinphils 0.1 thou/uL (0.0-0.7); #Lymphocytes 0.9 thou/uL (1.20-3.40); #Monocytes 0.5 thou/uL (0.11-0.59); #Neutrophils 7.2 thou/uL (1.40-6.50); %Basophils 0.3 % (0.0-1.0); %Eosinophils 0.7 % (0.0-10.0); %Monocytes 5.5 % (0.0-10.0); %Neutrophils 83.6 % (42.0-75.0); Hemoglobin 13.4 g/dL (12.0-16.0); Mean Corpuscular HGB CONC 34.9 g/dL (32.0-36.0); Mean Corpuscular Hemoglobin 33.8 pg (27.0-31.0); Mean Corpuscular Volume 96.7 fL (78.0-98.0); Mean Platelet Volume 6.7 fL (7.4-10.4); Platelet Count 173 thou/uL (130-400); RBC Distribution Width 13.6 % (11.5-14.5); Red Blood Cell (RBC) Count 3.96 mill/uL (4.20-5.40); White Blood Cell (WBC) Count 8.7 thou/uL (4.8-10.8)
[2018-04-06 17:02] LABS: INR-International Normal Ratio 1.3; PTT 42.1 SEC (22.9-36.1); Prothrombin Time 15.9 SEC (12.0-14.7)
--- NOTE | 2018-04-06 17:06 | RAD ---
TWO AP VIEWS OF THE CHEST: Indication: Chest pain. Comparison: 08-21-17 FINDINGS: There is stable mild cardiomegaly. The lungs are hyperinflated but clear. Midline sternotomy changes are stable. Multi-lead pacemaker is unchanged. No acute osseous abnormality is evident. IMPRESSION: No acute abnormality. Stable chronic findings as above. POS: [facility]
[2018-04-06 17:12] LABS: ALT (SGPT) 11 U/L (8-55); AST (SGOT) 18 U/L (5-34); Alkaline Phosphatase 92 U/L (40-150); Anion Gap 14 mmol/L (10-20); BUN (Urea Nitrogen) 43 mg/dL (9.8-20.1); Bilirubin, Total 0.9 mg/dL (0.2-1.2); Calc. Creatinine Clearance 0 mL/min (70-130); Calcium 9.4 mg/dL (7.8-10.44); Carbon Dioxide 25 mmol/L (23-31); Chloride 102 mmol/L (98-107); Estimated GFR-MDRD 20; Globulin 2.1 g/dL (2.4-3.5); Glucose 107 mg/dL (83-110); Potassium 3.7 mmol/L (3.5-5.1); Protein, Total 6.1 g/dL (6.0-8.3); Sodium 137 mmol/L (136-145)
[2018-04-06 17:16] LABS: CKMB 1.1 ng/mL (0-6.6); Troponin I 0.019 ng/mL (< 0.028)
[2018-04-06] MEDS ORDERED: Acetaminophen 500 MG TAB ONE (18:00)
[2018-04-06] MEDS ORDERED: Furosemide 40 MG/4 ML VIAL ONE (18:15)
[2018-04-06] MEDS ORDERED: Senokot 8.6 MG TAB PO PRN (19:05)
[2018-04-06] MEDS ORDERED: Ondansetron HCl/PF 4 MG/2 ML Vial IVP PRN (19:05)
[2018-04-06] MEDS ORDERED: Bisacodyl 5 MG TAB PO PRN (19:05)
[2018-04-06] MEDS ORDERED: Calcium Carbonate 500 MG ChewTAB PO PRN (19:05)
[2018-04-06] MEDS ORDERED: Mag-Al 1200 mg/1200 mg/30 ML UDCUP PO PRN (19:05)
[2018-04-06] MEDS ORDERED: HYDROcodone/Acetaminophen 5/325 mg Tablet PO PRN (19:05)
--- NOTE | 2018-04-06 19:10 | ULT ---
ULTRASOUND WITH DOPPLER DUPLEX VENOUS LOWER EXTREMITY LEFT: HISTORY: 83-year-old female with left lower extremity pain. TECHNIQUE: Color flow Doppler, spectral waveform analysis of pulsed Doppler, and dietz-scale imaging with nadya karma and augmentation, were used to evaluate the left common femoral, femoral, popliteal, posterior t ibial, and superficial femoral, veins; and the proximal portions of the profunda femoral and greater saphenous, veins. FINDINGS: There is normal compressibility, demonstration of blood flow by color Doppler and pulsed Doppler, and response to augmentation, in all interrogated veins. There is a 3.5 x 4.5 x 1.5 cm well circumscribed cystic lesion in the popliteal fossa consistent with a meza's cyst. In the soft tissues of the medial proximal to midcalf, in the region of pain, there is a elongated hy poechoic mass measuring approximately 10 x 1.5 cm, with heterogeneous, mixed intermediate and low int ernal echoes. This could be a hematoma, or abscess. There is soft tissue edema in the distal calf. IMPRESSION: 1. No deep vein thrombosis in the left lower extremity. 2. Hematoma versus abscess in the calf. 3. Edema in the distal calf. 4. Meza's cyst. alfredo POS: [facility]
[2018-04-06 21:07] VITALS: BMI 22.8
--- NOTE | 2018-04-06 21:33 | ULT ---
RENAL ULTRASOUND: History: Acute kidney injury. FINDINGS: The right kidney is small measuring 9 x 2.3 x 4.9 cm. The right renal cortical thickness was 7 mm. Th ere is 1.8 cm cyst within the superior pole of the right kidney. No hydronephrosis or solid renal les ion is evident. The left kidney measures 9.3 x 4.8 x 4.9 cm. The left renal cortical thickness was 1.3 cm. No focal r enal lesion or hydronephrosis is evident. Visualized bladder is normal appearing. There are bilateral ureteral jets. IMPRESSION: 1. Atrophic right kidney. Right renal cyst. 2. No hydronephrosis. POS: [facility]
[2018-04-06] MEDS: Heparin 5,000 UNITS/ML VIAL SC SCH (21:42)
[2018-04-06] MEDS: Famotidine/PF 20 mg/2ml Vial SLOW IVP SCH (21:48)
--- NOTE | 2018-04-06 22:08 | CT ---
CT LEFT LOWER EXTREMITY NONCONTRAST: DATE: 04-06-18 TIME: 7:54 p.m. History: 83-year-old female with left lower extremity pain and swelling. Hematoma versus abscess at left calf noted on venous doppler ultrasound earlier today. FINDINGS: There is left total hip replacement arthroplasty hardware causing severe streak artifact, obscuring a djacent soft tissues. No free fluid visualized within the left side of the pelvic cavity. There is so mewhat severe soft tissue edema circumferentially throughout the leg inferior to the knee. Some of th is extends superiorly to the left posterior thigh. The edema of the left leg extends into the left an kle and left foot. There is a focally prominent such collection of fluid at the medial aspect of the calf. However, this study was ordered without IV contrast, which would have been useful in distinguishing abscess from h ematoma (by the presence of rim enhancement around the fluid collection for abscess). The medial flui d collection does not appear as discrete on the CT compared to the ultrasound, and its density appear s similar to the rest of the fluid of the leg. There is a Meza's cyst in the popliteal fossa. There are mild to moderate degenerative changes at the patellofemoral compartment. No periostitis or destructive osseous lesion. There is diffuse osteopenia. IMPRESSION: 1. Somewhat severe, circumferential superficial soft tissue edema throughout the left leg (distal to the knee). 2. At the medial aspect of the left leg (calf) there is a region of asymmetrically greater prominence of the edema fluid. It is uncertain whether this is just part of the edema fluid, or represents absc ess or hematoma. 3. Meza's cyst. 4. Total left hip replacement arthroplasty. POS: [facility]
[2018-04-06] MEDS ORDERED: hydrALAZINE 20 MG/ML VIAL SLOW IVP PRN (22:45)
[2018-04-06 23:34] LABS: Bilirubin Negative (Negative); Blood, Urine Negative (Negative); Clarity CLEAR (Clear); Glucose, Urine (Dipstick) Negative (Negative); Leukocyte Negative (Negative); Nitrite Negative (Negative); Protein, Urine (Dipstick) Negative (Neg-Trace); Specific Gravity, Urine 1.004 (1.002-1.036)
[2018-04-06 23:35] LABS: Bacteria/HPF None Seen HPF (None Seen); Hyaline Casts/LPF 0-3 HYALINE CAST LPF (0-3 Hyaline); Pathc Cast-AUWi Flag 0.14 (0-2.49); RBC/HPF 0-3 HPF (0-3); Squamous Epithelial 0-3 HPF (0-3); WBC/HPF None Seen HPF (0-3)
[2018-04-07] MEDS ORDERED: Lorazepam 1 MG TAB PO SCH ×2 (00:45→21:00)
--- NOTE | 2018-04-07 04:27 | PDOC.EVN ---
Event Note - Event Note Event Note: pt admin 04/06/2918 h&p [id number]
[2018-04-07 04:31] LABS: #Eosinphils 0.1 thou/uL (0.0-0.7); #Lymphocytes 1.4 thou/uL (1.20-3.40); #Monocytes 0.7 thou/uL (0.11-0.59); #Neutrophils 4.5 thou/uL (1.40-6.50); %Basophils 0.5 % (0.0-1.0); %Eosinophils 2.1 % (0.0-10.0); %Lymphocytes 20.1 % (21.0-51.0); %Neutrophils 67.3 % (42.0-75.0); ALT (SGPT) 10 U/L (8-55); AST (SGOT) 16 U/L (5-34); Albumin 3.6 g/dL (3.4-4.8); Alkaline Phosphatase 85 U/L (40-150); Anion Gap 19 mmol/L (10-20); BUN (Urea Nitrogen) 42 mg/dL (9.8-20.1); Calc. Creatinine Clearance 19 mL/min (70-130); Calcium 9.3 mg/dL (7.8-10.44); Carbon Dioxide 21 mmol/L (23-31); Chloride 102 mmol/L (98-107); Estimated GFR-MDRD 20; Globulin 2.3 g/dL (2.4-3.5); Glucose 88 mg/dL (83-110); Hemoglobin 13.1 g/dL (12.0-16.0); Magnesium 1.9 mg/dL (1.6-2.6); Mean Corpuscular HGB CONC 34.9 g/dL (32.0-36.0); Mean Corpuscular Hemoglobin 33.5 pg (27.0-31.0); Mean Corpuscular Volume 95.9 fL (78.0-98.0); Mean Platelet Volume 7.2 fL (7.4-10.4); Platelet Count 162 thou/uL (130-400); Potassium 3.6 mmol/L (3.5-5.1); Protein, Total 5.9 g/dL (6.0-8.3); RBC Distribution Width 13.3 % (11.5-14.5); Red Blood Cell (RBC) Count 3.91 mill/uL (4.20-5.40); Sodium 138 mmol/L (136-145); White Blood Cell (WBC) Count 6.7 thou/uL (4.8-10.8)
[2018-04-07] MEDS ORDERED: Furosemide 40 MG/4 ML VIAL SLOW IVP SCH (06:00)
[2018-04-07] MEDS ORDERED: Lidocaine 5% Patch TD SCH (09:00)
[2018-04-07] MEDS: Heparin 5,000 UNITS/ML VIAL SC SCH (10:11)
[2018-04-07] MEDS: Acetaminophen 325 MG TAB PO PRN ×2 (10:18→18:17)
[2018-04-07] MEDS ORDERED: Lidocaine 5% Patch TD PRN ×2 (10:19→11:05)
--- NOTE | 2018-04-07 11:19 | CON ---
DATE OF CONSULTATION: 04/07/2018 REASON FOR CONSULTATION: Elevated creatinine. HISTORY OF PRESENT ILLNESS: This is a very pleasant 83-year-old female who presented to the hospital with a history of chest pain. The patient had a baseline creatinine of 1.6 from 03/14/2018 which sandoval s increased to 2.32. The patient had taken no nephrotoxic medication. She does have swelling on her left leg, but no major swelling on the right leg. The patient denies headache, numbness, tingling o r weakness. Denies any nausea, vomiting or chest pain. PAST MEDICAL HISTORY: CVA, atrial fibrillation, congestive heart failure, hypertension, history of m itral valve repair, history of hysterectomy, history of left hip repair. SOCIAL HISTORY: No alcohol or drug use. FAMILY HISTORY: Negative for ESRD. ALLERGIES: Reviewed. HOME MEDICATIONS: List reviewed. REVIEW OF SYSTEMS: A 15-point review of systems was performed and negative. GENERAL: Weakness- HEAD: Headache- NECK: No swelling or lumps. NOSE: No epistaxis or discharge. EYES: No diplopia or pain. RESPIRATORY: Dyspnea- CARDIOVASCULAR: Chest pain- GASTROINTESTINAL: Nausea- /PHYSICIAN INTERNIST: Hematuria- MUSCULOSKELETAL: No joint pain. NEUROPSYCHIATIC SYSTEMS: No suicidal ideation. No ideation. SKIN: Denies any rash or ulcer. CONSTITUTIONAL: No fever or chills. PHYSICAL EXAMINATION: GENERAL: Patient is awake, alert. VITAL SIGNS: Afebrile, pulse 82, breathing at 16, blood pressure 138/71. OBJECTIVE: See above. Awake, alert, in no acute distress. GENERAL APPEARANCE AND MENTAL STATUS: Fair. HEAD/NECK: Normocephalic. Atraumatic. EYES: EOMI. No deformity. EARS: Clear. No ulcers. NOSE: Intact. No lesions. MOUTH: Clear. No discharge. THROAT: Clear. No exudate. LUNGS: Clear. No crackles. CARDIAC: S1, S2. No rub. ABDOMEN: Benign. BS+. GENITALIA/RECTUM: Lira absent. BACK/EXTREMITIES: Edema 0+ Ulcer- NEUROLOGICAL: Alert and motor intact. SKIN: Rash- Bruise- LYMPHATICS: Edema- Ulcer- LABORATORY: Creatinine 2.3. ASSESSMENT AND RECOMMENDATIONS: 1. Acute kidney injury with chronic kidney disease, most likely due to cardiorenal syndrome or ische twyla or hypertensive nephropathy. No indication for dialysis. 2. Hypertension, stable. 3. Anemia, stable. 4. Proteinuria, not present. 5. Medication based on GFR are appropriate. No indication for dialysis. A renal ultrasound has been ordered and we are awaiting imaging studies.
--- NOTE | 2018-04-07 11:48 | NM ---
NUCLEAR MEDICINE LUNG SCAN: HISTORY: Chest pain and shortness of breath. COMPARISON: Prior day's chest x-ray. FINDINGS: The ventilation portion of this examination was performed 10.3 mCi Xenon 133 gas followed by the perf usion study using 6.2 mCi 99m Technetium MAA. This shows a fairly normal ventilation perfusion study . No signs of any significant air trapping. No segmental or subsegmental defects. IMPRESSION: Findings compatible with a very low probability of pulmonary embolism. POS: [facility]
[2018-04-07] MEDS: Sodium Chloride 0.9% 500 ML IV SCH ×4 (12:04→13:22)
--- NOTE | 2018-04-07 15:05 | PDOC.PN ---
- Subjective Encounter Start Date: 04/07/18 Encounter Start Time: 13:30 -: old records requested/rev Pt seen and exmained, chart reviewed in its entirety, this is my first visit with this patient during this encounter. Pt complaining of left leg pain from the swelling, better today no F/c, no N/V/d/C, no CP or sOB. Cardiology has not seen. Nephrology did see , appreciate their recommendations Pt tiltes with orthostatics this AM, givne IV bolus and torsemide held, IV lasix discontinued for now All systems reviewed adn neg x as per HPI - Objective Resuscitation Status: Resuscitation Status FULL:Full Resuscitation MAR Reviewed: Yes Vital Signs & Weight: Vital Signs (12 hours) Temp Pulse Pulse Pulse Resp BP BP 04/07/18 12:04 97.7 F 79 15 04/07/18 10:00 04/07/18 09:02 77 76 118/60 98/49 L 04/07/18 08:00 97.9 F 78 16 04/07/18 07:55 97.9 F 78 16 BP BP BP BP BP Pulse Ox Pulse Ox 04/07/18 12:04 128/60 97 04/07/18 10:00 111/59 L 81/38 L 134/63 04/07/18 09:02 112/58 L 96 04/07/18 08:00 04/07/18 07:55 139/63 96 Weight Weight 151 lb 1.6 oz I&O: 04/06/18 04/07/18 04/08/18 06:59 06:59 06:59 Intake Total 0 50 Output Total 1050 315 Balance -1050 -265 Result Diagrams: 04/07/18 03:33 04/07/18 03:33 Radiology Reviewed by me: Yes EKG Reviewed by me: Yes Phys Exam - Physical Examination Constitutional: NAD HEENT: PERRLA, moist MMs, sclera anicteric, oral pharynx no lesions Neck: no nodes, no JVD, supple, full ROM Respiratory: no wheezing, no rales, no rhonchi, clear to auscultation bilateral Cardiovascular: RRR, no significant murmur, no rub Gastrointestinal: soft, non-tender, no distention, positive bowel sounds edema to LLE below the knee, foot warm Neurological: non-focal, normal sensation, moves all 4 limbs Lymphatic: no nodes Psychiatric: normal affect, A&O x 3 Skin: no rash, normal turgor, cap refill <2 seconds Dx/Plan (1) Acute blood loss anemia Code(s): D62 - ACUTE POSTHEMORRHAGIC ANEMIA Status: Acute Comment: 6 gram drop post op. transfused 2 units PRBCs. post transfusion H/H 9.9, 10.0. CCM. (2) Acute on chronic systolic CHF (congestive heart failure) Code(s): I50.23 - ACUTE ON CHRONIC SYSTOLIC (CONGESTIVE) HEART FAILURE Status : Acute Comment: Echo done. Discharge held by pruner today. Possible discharge tomorrow. (3) Chronic systolic CHF (congestive heart failure) Code(s): I50.22 - CHRONIC SYSTOLIC (CONGESTIVE) HEART FAILURE Status: Acute Comment: Dr Dillon on case (4) TONYA (acute kidney injury) Code(s): N17.9 - ACUTE KIDNEY FAILURE, UNSPECIFIED Status: Acute Comment: Suspect prerenal,/overdiuresis due to edema of leg. bolus ordered, lasix on hold (5) Anxiety and depression Code(s): F41.9 - ANXIETY DISORDER, UNSPECIFIED; F32.9 - MAJOR DEPRESSIVE DISORDER, SINGLE EPISODE, UNSPECIFIED Status: Chronic (6) Atrial fibrillation Code(s): I48.91 - UNSPECIFIED ATRIAL FIBRILLATION Status: Chronic Qualifiers: Atrial fibrillation type: paroxysmal Qualified Code(s): I48.0 - Paroxysmal atrial fibrillation (7) CKD (chronic kidney disease), stage IV Code(s): N18.4 - CHRONIC KIDNEY DISEASE, STAGE 4 (SEVERE) Status: Chronic Comment: Cr stable (8) Chronic anticoagulation Code(s): Z79.01 - ASSISTED (CURRENT) USE OF ANTICOAGULANTS Status: Chronic Comment: restart eliquis (9) Dyslipidemia Code(s): E78.5 - HYPERLIPIDEMIA, UNSPECIFIED Status: Chronic (10) Hypothyroidism Code(s): E03.9 - HYPOTHYROIDISM, UNSPECIFIED Status: Chronic Qualifiers: Hypothyroidism type: acquired Qualified Code(s): E03.9 - Hypothyroidism, unspecified Comment: TSH high.Levothyroxine dose increased (11) Paroxysmal A-fib Code(s): I48.0 - PAROXYSMAL ATRIAL FIBRILLATION Status: Chronic Comment: on Eliquis - Plan cont current plan of care, PT/OT, out of bed/ambulate * . juliette/britney to [facility]
[2018-04-07] MEDS ORDERED: Loperamide HCl 2 MG CAP PO SCH (18:45)
[2018-04-07] MEDS: Lorazepam 1 MG TAB PO SCH (21:33)
[2018-04-07] MEDS: Apixaban 2.5 MG TAB PO SCH (21:33)
[2018-04-07] MEDS: Famotidine/PF 20 mg/2ml Vial SLOW IVP SCH (21:37)
[2018-04-07] MEDS: Lidocaine Patch Removal TOP SCH (22:29)
[2018-04-08] MEDS: Acetaminophen 325 MG TAB PO PRN ×2 (03:34→21:45)
[2018-04-08 04:28] LABS: #Eosinphils 0.1 thou/uL (0.0-0.7); #Lymphocytes 1.7 thou/uL (1.20-3.40); #Monocytes 0.5 thou/uL (0.11-0.59); #Neutrophils 3.8 thou/uL (1.40-6.50); %Basophils 0.7 % (0.0-1.0); %Eosinophils 2.3 % (0.0-10.0); %Lymphocytes 27.6 % (21.0-51.0); %Neutrophils 61.4 % (42.0-75.0); Hemoglobin 13.6 g/dL (12.0-16.0); Mean Corpuscular HGB CONC 33.6 g/dL (32.0-36.0); Mean Corpuscular Hemoglobin 32.3 pg (27.0-31.0); Mean Corpuscular Volume 96.2 fL (78.0-98.0); Mean Platelet Volume 6.9 fL (7.4-10.4); Platelet Count 175 thou/uL (130-400); RBC Distribution Width 13.4 % (11.5-14.5); White Blood Cell (WBC) Count 6.2 thou/uL (4.8-10.8)
[2018-04-08 04:59] LABS: ALT (SGPT) 9 U/L (8-55); AST (SGOT) 16 U/L (5-34); Albumin 3.9 g/dL (3.4-4.8); Alkaline Phosphatase 85 U/L (40-150); Anion Gap 18 mmol/L (10-20); BUN (Urea Nitrogen) 41 mg/dL (9.8-20.1); Bilirubin, Total 1.1 mg/dL (0.2-1.2); Calc. Creatinine Clearance 18 mL/min (70-130); Calcium 9.6 mg/dL (7.8-10.44); Carbon Dioxide 22 mmol/L (23-31); Chloride 101 mmol/L (98-107); Estimated GFR-MDRD 18; Globulin 2.3 g/dL (2.4-3.5); Glucose 92 mg/dL (83-110); Magnesium 1.9 mg/dL (1.6-2.6); Potassium 3.7 mmol/L (3.5-5.1); Protein, Total 6.2 g/dL (6.0-8.3); Sodium 137 mmol/L (136-145)
[2018-04-08] MEDS: Levothyroxine Sodium 112 MCG TAB PO SCH (05:31)
[2018-04-08] MEDS: predniSONE 5 MG TAB PO SCH (08:55)
[2018-04-08] MEDS: Estradiol 1 MG TAB PO SCH (08:56)
[2018-04-08] MEDS: Escitalopram Oxalate 20 mg Tablet PO SCH (08:56)
[2018-04-08] MEDS: Apixaban 2.5 MG TAB PO SCH ×3 (09:01→21:20)
--- NOTE | 2018-04-08 12:37 | PRG ---
DATE OF SERVICE: 04/08/2018 SUBJECTIVE: This is an 83-year-old female being seen for acute kidney injury with unilateral kidney. The patient denies any nausea, vomiting or chest pain. PHYSICAL EXAMINATION: GENERAL: Patient is awake, alert. VITAL SIGNS: Afebrile, pulse 72, breathing at 16, blood pressure 152/70. GENERAL APPEARANCE AND MENTAL STATUS: Fair. HEAD/NECK: Normocephalic. Atraumatic. EYES: EOMI. No deformity. EARS: Clear. No ulcers. NOSE: Intact. No lesions. MOUTH: Clear. No discharge. THROAT: Clear. No exudate. LUNGS: Clear. No crackles. CARDIAC: S1, S2. No rub. ABDOMEN: Benign. BS+. GENITALIA/RECTUM: Lira absent. BACK/EXTREMITIES: Edema 0+ Ulcer-. NEUROLOGICAL: Alert and motor intact. SKIN: Rash- Bruise- LYMPHATICS: Edema- Ulcer-. LABORATORY DATA: Show hemoglobin 13, creatinine is 2.5. ASSESSMENT AND PLAN: 1. Acute kidney injury with chronic kidney disease, most likely in the setting of a unilateral kidne y, likely because of ischemic nephropathy. We would recommend gentle hydration. 2. Hypertension, stable. 3. Anemia, stable. 4. Medication based on glomerular filtration rate are appropriate. No indication for dialysis.
[2018-04-08] MEDS ORDERED: Pantoprazole 40 MG GRANULES PACKET PO SCH (13:30)
--- NOTE | 2018-04-08 13:34 | PRG ---
DATE OF SERVICE: 04/08/2018 SUBJECTIVE: Ms. Contreras is feeling better today. She said the initial chest pain may have hurt w ith a deep breath, but she is not sure. Ventilation perfusion scan was negative. OBJECTIVE: VITAL SIGNS: Blood pressure 142/66, pulse 72. LUNGS: Clear. CARDIAC: Normal S1, normal S2. ASSESSMENT: Chest pain of uncertain etiology, possibly gastrointestinal. PLAN: 1. Stress testing to be done tomorrow. 2. Add Protonix. 3. Hopefully home tomorrow if doing well.
--- NOTE | 2018-04-08 15:25 | HP ---
CHIEF COMPLAINT: Chest pain and palpitations HISTORY OF PRESENT ILLNESS: This is an 83-year-old female with past medical history notable for CHF, atrial fibrillation and a prior CVA, who presented with a chief complaint of intermittent left-sided chest pain with palpitations, shortness of breath and left lower extremity swelling. It appears that patient does have chronic left lower extremity swelling that is only significantly greater than the right that is associated with her CHF exacerbation. The patient did go to see her translator/interpreter approximately a week ago due to similar symptoms and subsequently had her home diuretic changed from oral Lasix to oral torsemide. The patient states that she has been taking torsemide over the last week without much subjective increase in her urine output; however, the patient did experience lower than usual blood pressures and today has stopped taking her torsemide. The patient is accompanied by her daughter at bedside who states that, she, the daughter, is significantly concerned that airplane trip on 02/21, the patient's left lower extremity has been significantly more swollen than her right. This at times becomes extremely painful due to the amount of swelling has been accompanied by skin changes including darkening of the skin, specifically in the left lower extremity. The patient's daughter states that while there has always been differential between right lower extremity swelling versus that in the left lower extremity since the patient was post accident . REVIEW OF SYSTEMS: As per HPI. Constitutional: The patient is unaware whether or not she has actually gained or lost weight. Denies any fevers or chills. HEENT: Denies any lightheadedness, dizziness, vision changes, headache. Cardiovascular: As noted above. The patient states that in the past she has had these with CHF exacerbation and has been told that they are "pleurisy." Respiratory: Denies any cough, congestion, shortness of breath with exertion or recent respiratory infection. Gastrointestinal: Denies any nausea, vomiting, abdominal pain issues with constipation, or diarrhea. Genitourinary: Denies any overt change in her urinary frequency, quantity, color or odor. When the patient takes a diuretic, it renders her mostly incontinent. Therefore, the patient has not subjectively noticed any increasing heaviness or frequency of her diaper changes. Musculoskeletal: No new myalgias or arthralgias other than that described above in the HPI. Remainder review of systems otherwise negative. PAST MEDICAL HISTORY: Significant for the above and noted within the HPI including, 1. 2. Congestive heart failure. The patient does not recall what her EF is. 3. Atrial fibrillation. 4. Status post ICD pacemaker placement. 5. Status post mitral valve repair and status post hysterectomy with oophorectomy. 6. Status post repair. 7. History of cellulitis of the left lower extremity. FAMILY HISTORY: The patient does not recall any family history of blood clots or edema. SOCIAL HISTORY: The patient's daughter resides with her at bedside today. The patient denies any alcohol, tobacco or illicit drug use. The patient's daughter has been designated as the patient's medical decision maker if she is unable to make her own medical decision. The patient is currently a FULL CODE. PHYSICAL EXAMINATION: GENERAL: The patient is awake, alert, conversant, in no acute distress, seated in the hospital stretcher. HEENT: Normocephalic, atraumatic. Equal ocular motions are intact, slightly dry mucous membrane. CARDIOVASCULAR: S1, S2. No murmurs, rubs or gallops are appreciable. Pulses 2 + bilateral upper extremity bilateral lower pitting pedal edema of the left lower extremity, 1-2+ edema of the left and right lower extremity. ABDOMEN: Positive bowel sounds, soft, nontender to palpation. RESPIRATORY: Reasonable air movement. No wheezes, rales or rhonchi. Clear to auscultation bilaterally, no conversational dyspnea. EXTREMITIES: Moving all extremities independently. LABORATORY DATA AND IMAGIN04/06/2018, chest x-ray, impression, "no acute abnormality. Stable chronic findings." , ultrasound of the left lower extremity, impression, "no deep vein thrombosis in the left lower extremity. Hematoma versus abscess in the calf. Edema in the distal calf. Meza cyst." WBC 8.7, hemoglobin 13.4, hematocrit 38.3, platelets 173. PT 15.9, INR 1.3, aPTT 42.1. Sodium 137, potassium 3.7, chloride 102, bicarb 25, BUN 43, creatinine 2.33, glucose 107, calcium 9.4, total bilirubin 0.9, AST 18, ALT 11, alkaline phosphatase 92. Troponin 0.02. BNP natriuretic peptide 309.2, which is actually a bit lower. She has been during hospitalizations in 2017, total protein 6.1, albumin is 2.0. UA is essentially bland. ASSESSMENT AND PLAN: An 83-year-old female presenting with chief complaint of chest pain and left lower extremity swelling. 1. Chest pain. The patient appears to have a history of congestive heart failure and atrial fibrillation. The patient could have a possibility of acute coronary syndrome. Trend troponins, check EKG again in the morning. Consult the patient's outpatient translator/interpreter team as well. I suspect that patient has been having adequate followup with her outpatient team and likely has an echocardiogram within the last 6 months; however, if not, we can always obtain a 2D echo for the patient. Maintain the patient on her home diabetic at this point in time, close attention to intake and output along with daily weight. Also, concern for the possibility of a pulmonary embolus. Patient currently takes Eliquis at home for atrial fibrillation, secondary prevention. Patient does not have a deep venous thrombosis. The patient does have acute kidney injury. Therefore, again advisable to pursue a ventilation perfusion scan when available. 2. Known history of atrial fibrillation, currently without rapid ventricular response. Continue the patient on her home regimen and continued to monitor. 3. Left lower extremity swelling. I have discussed this extensively with the patient and her daughter at bedside. There is currently no DVT. Ultrasound is concerning for the possibility of an abscess versus hematoma and I think that it would be reasonable to pursue further imaging. We will obtain a noncontrast CT of the left lower extremity, which is suboptimal given that the patient has renal dysfunction. 4. Acute kidney injury without known history of chronic renal disease. The patient is currently on diuretics. We will consult Nephrology. Check ultrasound of bilateral renal. Suspect that it could be prerenal in etiology with a change in patient's diuretic regimen; however, the patient does need at least a maintenance diuresis for her congestive heart failure. 5. History of congestive heart failure as noted above. 6. History of cerebrovascular accident without current new neurological deficits. 7. Diet: Cardiac, low sodium. 8. Activity as tolerated. Continue working with physical therapy. Of note, patient does go to an outpatient rehab center for physical therapy twice a week as well. 9. Deep venous thrombosis prophylaxis. 10. FULL CODE. MTDD
--- NOTE | 2018-04-08 16:34 | CON ---
DATE OF CONSULTATION: 04/08/2018 HISTORY OF PRESENT ILLNESS: The patient is an 83-year-old woman who presents with midsternal chest discomfort. The patient has a previous history of mitral valve repair approximately 20 years ago. She also has a history of chronic atrial fibrillation and is on anticoagulation therapy. The patient approximately a month ago developed a swollen left leg after being on a plane flight. She reports yesterday developing mid sternal chest discomfort. This lasted approximately 5 minutes. She had another episode the following day and then presented to the emergency room. The patient denies having any present chest discomfort. PAST MEDICAL HISTORY: 1. Status post mitral valve repair. 2. Chronic atrial fibrillation. 3. History of pacemaker placement. 4. Hypertension. 5. Hypothyroidism. PAST SURGICAL HISTORY: Oophorectomy. SOCIAL HISTORY: Nonsmoker. FAMILY HISTORY: Positive family history of coronary artery disease. ALLERGIES: SOLU-MEDROL, PREDNISONE, and HYDROCORTISONE. MEDICATIONS: Lexapro 20 mg daily, Demadex 20 daily, apixaban 2.5 b.i.d., lorazepam 2 mg at bedtime, prednisone 5 mg q.a.m., and Synthroid. REVIEW OF SYSTEMS: A 10-point system otherwise unremarkable. Noticeable for easy bruising. Otherwise unremarkable. PHYSICAL EXAMINATION: GENERAL: This is an elderly woman in no acute distress. VITAL SIGNS: The blood pressure 134/63. NECK: Showed no jugular venous distention. LUNGS: Clear to auscultation. HEART: Regular rate and rhythm. Normal S1, S2 with a 1/6 systolic murmur. ABDOMEN: Nondistended. EXTREMITIES: Swollen left lower extremity. NEUROLOGIC: Nonfocal. VASCULAR: Radial pulses are 2+ LABORATORY RESULTS: Revealed her to have a sodium of 138, potassium 3.6, chloride 102, bicarb is 21, BUN 42, creatinine is 2.32. Her white blood cell count is 6.7, hemoglobin 131, hematocrit 37.5, platelets were 162. EKG revealed a dual chamber electronic pacemaker. IMPRESSION: 1. Chest pain with some features suggestive of angina. 2. Prominent atrial fibrillation. 3. Status post mitral valve repair. 4. History of pacemaker placement. 5. History of atrioventricular nancy ablation. 6. Hypertension. 7. Swollen right lower extremity. This patient presented with chest pain and swollen left lower extremity. The patient underwent a V/Q scan which revealed no evidence of pulmonary embolism .The ultrasound which revealed a possible hematoma. From a cardiac standpoint, her chest pain has some features suggestive of angina. We would recommend she undergo stress testing during this hospitalization. We will follow this patient with you. UYEN
[2018-04-08] MEDS: Lorazepam 1 MG TAB PO SCH (21:20)
[2018-04-08] MEDS: Famotidine/PF 20 mg/2ml Vial SLOW IVP SCH (21:21)
[2018-04-08] MEDS: Lidocaine Patch Removal TOP SCH (21:21)
[2018-04-09 04:45] LABS: #Eosinphils 0.1 thou/uL (0.0-0.7); #Lymphocytes 1.6 thou/uL (1.20-3.40); #Monocytes 0.6 thou/uL (0.11-0.59); #Neutrophils 4.1 thou/uL (1.40-6.50); %Basophils 0.3 % (0.0-1.0); %Eosinophils 2.1 % (0.0-10.0); %Lymphocytes 25.1 % (21.0-51.0); %Monocytes 8.9 % (0.0-10.0); %Neutrophils 63.5 % (42.0-75.0); Hemoglobin 13.6 g/dL (12.0-16.0); Mean Corpuscular HGB CONC 34.3 g/dL (32.0-36.0); Mean Corpuscular Hemoglobin 33.3 pg (27.0-31.0); Mean Corpuscular Volume 97.2 fL (78.0-98.0); Mean Platelet Volume 7.3 fL (7.4-10.4); Platelet Count 177 thou/uL (130-400); RBC Distribution Width 13.3 % (11.5-14.5); White Blood Cell (WBC) Count 6.4 thou/uL (4.8-10.8)
[2018-04-09 05:02] LABS: ALT (SGPT) 9 U/L (8-55); AST (SGOT) 16 U/L (5-34); Albumin 3.9 g/dL (3.4-4.8); Alkaline Phosphatase 85 U/L (40-150); Anion Gap 15 mmol/L (10-20); BUN (Urea Nitrogen) 35 mg/dL (9.8-20.1); Calc. Creatinine Clearance 21 mL/min (70-130); Calcium 9.7 mg/dL (7.8-10.44); Carbon Dioxide 24 mmol/L (23-31); Chloride 101 mmol/L (98-107); Estimated GFR-MDRD 22; Globulin 2.3 g/dL (2.4-3.5); Glucose 96 mg/dL (83-110); Potassium 3.5 mmol/L (3.5-5.1); Protein, Total 6.2 g/dL (6.0-8.3); Sodium 136 mmol/L (136-145)
[2018-04-09] MEDS: Levothyroxine Sodium 112 MCG TAB PO SCH (06:10)
[2018-04-09] MEDS ORDERED: ADENOSINE 60 MG/20 ML VIAL ONE (07:31)
[2018-04-09] MEDS ORDERED: Pantoprazole 40 MG GRANULES PACKET PO SCH (09:00)
[2018-04-09] MEDS: Escitalopram Oxalate 20 mg Tablet PO SCH (11:38)
[2018-04-09] MEDS: Estradiol 1 MG TAB PO SCH (11:38)
[2018-04-09] MEDS: Apixaban 2.5 MG TAB PO SCH (11:39)
[2018-04-09] MEDS: predniSONE 5 MG TAB PO SCH (11:46)
--- NOTE | 2018-04-09 12:20 | NM ---
CARDIAC SPECT WITH EF AND WALL MOTION: HISTORY: An 83-year-old female with chest pain. History of CVA. History of congestive heart failure and atri al fibrillation. TECHNIQUE: This is a Lexiscan sestamibi study. The patient was injected with 31.6 millicuries technetium 99m se stamibi intravenously for stress images, and the patient was injected with 9.3 millicuries of technet ium 99m sestamibi intravenously for resting images. FINDINGS: Multiple SPECT images in the short axis, vertical long axis, and horizontal long axis demonstrate no scan evidence for infarct or ischemia. TID: 1.05 LHR: 0.25 EDV: 81 mL EF: 55% MYOCARDIAL PERFUSION WALL MOTION: Wall motion is within normal limits. IMPRESSION: Unremarkable cardiac single-photon emission computed tomography with effusion and wall motion. POS: [facility]
[2018-04-09 12:32] VITALS: BP 145/66; TEMP 97.2
--- NOTE | 2018-04-09 14:24 | PDOC.PN ---
- Subjective Encounter Start Date: 04/08/18 Encounter Start Time: 09:30 Pt feeling better, no f/c, no n/V/d/C. leg better, but sore from compression wrap. No CP, no SOb, no other compalints all systems reviewed and neg x as above Seen by Dr duarte, planning stres tomorrow, 48 hours after VQ - Objective Resuscitation Status: Resuscitation Status FULL:Full Resuscitation MAR Reviewed: Yes Vital Signs & Weight: Vital Signs (12 hours) Temp Pulse Resp BP BP Pulse Ox 04/09/18 12:05 97.2 F L 80 20 145/66 H 98 04/09/18 08:00 97 04/09/18 07:59 97.8 F 76 16 04/09/18 07:55 98.5 F 75 16 146/67 H 97 04/09/18 04:03 97.8 F 76 16 149/73 H 94 L Weight Weight 150 lb 4.8 oz I&O: 04/08/18 04/09/18 04/10/18 06:59 06:59 06:59 Intake Total 1140 240 Output Total 765 750 Balance 375 -510 Result Diagrams: 04/09/18 04:20 04/09/18 04:20 Phys Exam - Physical Examination Constitutional: NAD HEENT: PERRLA, moist MMs, sclera anicteric, oral pharynx no lesions Neck: no nodes, no JVD, supple, full ROM Respiratory: no wheezing, no rales, no rhonchi, clear to auscultation bilateral Cardiovascular: RRR, no significant murmur Gastrointestinal: soft, non-tender, no distention, positive bowel sounds Musculoskeletal: edema present Neurological: non-focal, normal sensation, moves all 4 limbs Lymphatic: no nodes Psychiatric: normal affect, A&O x 3 Skin: no rash, normal turgor, cap refill <2 seconds Dx/Plan (1) Acute on chronic systolic CHF (congestive heart failure) Code(s): I50.23 - ACUTE ON CHRONIC SYSTOLIC (CONGESTIVE) HEART FAILURE Status : Acute Comment: Echo done. Discharge held by cherry dipper today. Possible discharge tomorrow. (2) Chronic systolic CHF (congestive heart failure) Code(s): I50.22 - CHRONIC SYSTOLIC (CONGESTIVE) HEART FAILURE Status: Acute Comment: Dr Santana on case (3) TONYA (acute kidney injury) Code(s): N17.9 - ACUTE KIDNEY FAILURE, UNSPECIFIED Status: Acute Comment: Suspect prerenal,/overdiuresis due to edema of leg. bolus ordered, lasix on hold (4) Anxiety and depression Code(s): F41.9 - ANXIETY DISORDER, UNSPECIFIED; F32.9 - MAJOR DEPRESSIVE DISORDER, SINGLE EPISODE, UNSPECIFIED Status: Chronic (5) Atrial fibrillation Code(s): I48.91 - UNSPECIFIED ATRIAL FIBRILLATION Status: Chronic Qualifiers: Atrial fibrillation type: paroxysmal Qualified Code(s): I48.0 - Paroxysmal atrial fibrillation (6) CKD (chronic kidney disease), stage IV Code(s): N18.4 - CHRONIC KIDNEY DISEASE, STAGE 4 (SEVERE) Status: Chronic Comment: Cr stable (7) Chronic anticoagulation Code(s): Z79.01 - SENIOR ENLISTED ADVISOR (CURRENT) USE OF ANTICOAGULANTS Status: Chronic Comment: restart eliquis (8) Dyslipidemia Code(s): E78.5 - HYPERLIPIDEMIA, UNSPECIFIED Status: Chronic (9) Hypothyroidism Code(s): E03.9 - HYPOTHYROIDISM, UNSPECIFIED Status: Chronic Qualifiers: Hypothyroidism type: acquired Qualified Code(s): E03.9 - Hypothyroidism, unspecified Comment: TSH high.Levothyroxine dose increased (10) Paroxysmal A-fib Code(s): I48.0 - PAROXYSMAL ATRIAL FIBRILLATION Status: Chronic Comment: on Eliquis - Plan cont current plan of care, out of bed/ambulate * . stress in AM, if neg, planning to discharge if cleared by cardiology
--- NOTE | 2018-04-09 18:02 | PRG ---
DATE OF SERVICE: 04/09/2018 SUBJECTIVE: An 83-year-old female being seen for acute kidney injury. The patient denies any nausea, vomiting or chest pain. PHYSICAL EXAMINATION: GENERAL: The patient is awake and alert, in no acute distress. VITAL SIGNS: Afebrile, pulse 80, breathing at 16, blood pressure 130-70. GENERAL APPEARANCE AND MENTAL STATUS: Fair. HEAD/NECK: Normocephalic. Atraumatic. EYES: EOMI. No deformity. EARS: Clear. No ulcers. NOSE: Intact. No lesions. MOUTH: Clear. No discharge. THROAT: Clear. No exudate. LUNGS: Clear. No crackles. CARDIAC: S1, S2. No rub. ABDOMEN: Benign. BS+. GENITALIA/RECTUM: Lira absent. BACK/EXTREMITIES: Edema 0+. Ulcer-. NEUROLOGICAL: Alert and motor intact. SKIN: Rash-. Bruise-. LYMPHATICS: Edema-. Ulcer-. LABORATORY DATA: Hemoglobin 13.6, creatinine 2.1 ASSESSMENT AND RECOMMENDATIONS: 1. Acute kidney injury, chronic kidney disease stage IV, improved. 2. Hypertension, stable. 3. Anemia, stable. 4. Chronic kidney disease stage 4, stable. No indication for dialysis. The patient will follow up and see me in 2-3 weeks. UYEN
== END 2018-04-09 15:22 | disposition home or self-care (01) ==
LOC: ERS 15:38 → 2SW 19:05
PROVIDERS: ADMIT Internal Medicine; ATTEND Internal Medicine
DX: R07.9 Chest pain, unspecified (principal); I13.0 Hypertensive heart and chronic kidney disease with heart failure and stage 1 through stage 4 chronic kidney disease, or unspecified chronic kidney disease; I50.23 Acute on chronic systolic (congestive) heart failure; N18.4 Chronic kidney disease, stage 4 (severe); M79.89 Other specified soft tissue disorders; N17.9 Acute kidney failure, unspecified; D64.9 Anemia, unspecified; E03.9 Hypothyroidism, unspecified; E78.5 Hyperlipidemia, unspecified; F41.9 Anxiety disorder, unspecified; I48.0 Paroxysmal atrial fibrillation; Z88.5 Allergy status to narcotic agent; Z95.0 Presence of cardiac pacemaker; Z95.2 Presence of prosthetic heart valve; Z86.73 Personal history of transient ischemic attack (TIA), and cerebral infarction without residual deficits; Z79.01 Long term (current) use of anticoagulants; Z79.899 Other long term (current) drug therapy
CPT/HCPCS: 71045; 73700; 76770; 78452; 78579; 80053 ×4; 81001; 82553; 83735 ×3; 83880; 84484 ×2; 85025 ×4; 85610; 85730; 93005; 93017; 93306; 93798; 93971; 94760 ×2; 96374; 96375; 96376 ×2; 97116 ×2; 97139; 97530; 99285; A9500; A9540; A9558; G0378 ×3; G8978; G8979; 36415; J0153; J0360; J1644; J1940; S0028

== ENCOUNTER 2018-12-01 07:36 | Outpatient (CLI) | payer MEDICARE, BC ==
--- NOTE | 2018-12-01 11:15 | ULT ---
COMPLETE ABDOMEN ULTRASOUND WITH ABDOMINAL DUPLEX EVALUATION: Date: 12/01/18 INDICATION: Epigastric abdominal pain. Concern for ischemic bowel. Patient has renal insufficiency and was not a candidate for CT angiogram. FINDINGS: The visualized abdominal aorta was of normal caliber. No aneurysmal dilatation is noted. IVC was norm al appearing. There is high velocity flow seen within the proximal SMA with a peak systolic velocity measuring 295 cm/second. The celiac artery was not demonstrated. There is a small, 9 mm, hyperechoic lesion seen within the peripheral right hepatic lobe. No addition al focal hepatic lesion is evident. There is a simple-appearing cystic abnormality seen within the pancreatic tail measuring 2.4 x 1.6 cm . The right kidney is slightly small, measuring 6.2 x 3.6 x 3.5 cm. Multiple small cysts involving the right kidney. One is seen measuring 1.0 cm along superior pole. One is seen measuring 1.0 cm along th e mid to lateral aspect of the right kidney. An additional is seen measuring 7.0 mm within the superi or pole. There is a 3.1 cm cyst within the superior pole of the right kidney. The spleen measures up to 11.1 cm. Left kidney measures 9.5 x 5.5 x 5.1 cm. The gallbladder demonstrates multiple mobile stones. No sonographic Calderon's sign is reported. Common bile duct measures 3.8 mm. IMPRESSION: 1. 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 2. Simple appearing cystic lesion involving the pancreatic body is not fully characterized. This may reflect a small pseudocyst or possibly a small serous cystic abnormality of the pancreas. An IPMN tu mor cannot be entirely excluded. Would recommend sonographic follow-up in 3 months. 3. Small hyperechoic lesion within the peripheral right hepatic lobe may reflect a tiny hemangioma. No additional lesion is evident. Metastatic disease is felt to be less likely. This could be followed in 3 months to document stability. 4. Multiple right renal cysts. 5. Cholelithiasis without sonographic evidence of acute cholecystitis. POS: [facility]
== END 2018-12-01 07:37 | disposition home or self-care (01) ==
LOC: BICULT 07:36
PROVIDERS: ATTEND Internal Medicine
DX: R10.13 Epigastric pain (principal); R10.30 Lower abdominal pain, unspecified; R63.4 Abnormal weight loss; K55.1 Chronic vascular disorders of intestine; K76.9 Liver disease, unspecified; K86.9 Disease of pancreas, unspecified; K80.20 Calculus of gallbladder without cholecystitis without obstruction; N28.1 Cyst of kidney, acquired
CPT/HCPCS: 76700

== ENCOUNTER 2019-01-13 12:29 | Outpatient (CLI) | payer MEDICARE, BC ==
--- NOTE | 2019-01-13 13:50 | CT ---
CT ABDOMEN AND PELVIS WITHOUT IV CONTRAST: Multiple axial tomograms obtained through the abdomen and pelvis without IV enhancement. INDICATION: Abdominal aortic aneurysm. Abdominal pain. COMPARISON: Correlation is made to abdominal ultrasound 12/01/2018. FINDINGS: Images through the lung bases are clear. The inferior vena cava is prominent. The liver, spleen, and pancreas are unremarkable given limitations of a noncontrasted study. The hyp erechoic lesion described in the right lobe of the liver on the ultrasound exam is not identified on this unenhanced CT scan. The spleen and pancreas are unremarkable. There are several peripherally calcified gallstones seen in the neck of the gallbladder. Cholelithia sis was documented on recent ultrasound. Adrenal glands unremarkable. There are cystic lesions seen in the right kidney which were described on recent ultrasound. No hydr onephrosis or urinary calculus. Small bowel loops are normal caliber. There is stool throughout the colon. Abdominal aorta is normal caliber with mild atherosclerotic calcifications. No adenopathy. No free fluid. IMPRESSION: 1. Cholelithiasis. 2. No evidence of abdominal aortic aneurysm. 3. Right renal cystic lesions confirmed on recent ultrasound exam. POS: [facility]
== END 2019-01-13 12:30 | disposition home or self-care (01) ==
LOC: BICCT 12:29
PROVIDERS: ATTEND Thoracic Surgery (Cardiothoracic Vascular Surgery)
DX: I71.4 Abdominal aortic aneurysm, without rupture (principal); K80.20 Calculus of gallbladder without cholecystitis without obstruction; N28.1 Cyst of kidney, acquired
CPT/HCPCS: 74176

== ENCOUNTER 2019-03-25 09:22 | Outpatient (CLI) | payer MEDICARE, BC ==
--- NOTE | 2019-03-25 11:45 | ULT ---
Abdominal Ultrasound: Multiple grayscale images of right upper quadrant obtained according to protocol. INDICATION: History of epigastric and lower abdominal pain; follow-up to prior ultrasound, 12/01/2018 FINDINGS: Liver: Subcentimeter hyperechoic focus of the liver is again demonstrated. Gallbladder: Cholelithiasis. Gallbladder wall: Normal. Calderon's Sign: Negative Common bile duct is normal. Ascites: None Spleen: 9 mm hyperechoic focus is nonspecific Pancreas: Cystic lesion measuring 1.9 cm is present, without significant interval detrimental change Kidneys: Bilateral renal cyst formation present Aorta/IVC: No acute process. IMPRESSION: No significant interval change of cystic pancreatic lesion. No significant interval change of hyperechoic subcentimeter focus of the hepatic parenchyma. Indeterminate subcentimeter hyperechoic focus of the spleen. Bilateral renal cysts. Cholelithiasis. Consider 6 month follow-up ultrasound for continued assessment of the above findings for confirmation of stability.
== END 2019-03-25 09:23 | disposition home or self-care (01) ==
LOC: BICULT 09:22
PROVIDERS: ATTEND Internal Medicine
DX: R10.13 Epigastric pain (principal); R63.4 Abnormal weight loss; N28.1 Cyst of kidney, acquired; K80.20 Calculus of gallbladder without cholecystitis without obstruction
CPT/HCPCS: 76700

== ENCOUNTER 2019-04-19 13:39 | Emergency (ER) | payer MEDICARE, BC ==
--- NOTE | 2019-04-19 14:36 | RAD ---
Exam: Chest one view HISTORY:Altered mental status Comparison: 04/06/2019 FINDINGS: Lines and tubes: Stable sternotomy wires and left-sided transvenous pacemaker. Cardiac silhouette:Cardiomegaly Aorta: Atherosclerosis of the aortic knob. Slight elongation of the descending thoracic aorta Pulmonary vessels: Normal Costophrenic angles: Clear LUNGS: No masses or consolidation. Pneumothorax: None Osseous abnormalities: None IMPRESSION: No acute cardiopulmonary process.
[2019-04-19 14:54] LABS: Hemoglobin 13.4 g/dL (12.0-16.0); Mean Corpuscular HGB CONC 34.4 g/dL (32.0-36.0); Mean Corpuscular Hemoglobin 32.5 pg (27.0-31.0); Mean Corpuscular Volume 94.5 fL (78.0-98.0); RBC Distribution Width 13.1 % (11.5-14.5); Red Blood Cell (RBC) Count 4.14 mill/uL (4.20-5.40); White Blood Cell (WBC) Count 5.6 thou/uL (4.8-10.8)
[2019-04-19 15:12] LABS: #Eosinphils 0.1 thou/uL (0.0-0.7); #Lymphocytes 1.3 thou/uL (1.20-3.40); #Monocytes 0.5 thou/uL (0.11-0.59); #Neutrophils 3.7 thou/uL (1.40-6.50); %Basophils 0.6 % (0.0-1.0); %Eosinophils 1.5 % (0.0-10.0); %Lymphocytes 22.4 % (21.0-51.0); %Monocytes 8.3 % (0.0-10.0); %Neutrophils 67.2 % (42.0-75.0); Mean Platelet Volume 8.1 fL (7.4-10.4); Platelet Count 118 thou/uL (130-400); Platelet Morphology Comment Appears Adequate
[2019-04-19 15:33] LABS: CKMB 1.9 ng/mL (0-6.6)
[2019-04-19 15:58] LABS: ALT (SGPT) 9 U/L (8-55); AST (SGOT) 14 U/L (5-34); Albumin 4.3 g/dL (3.4-4.8); Alkaline Phosphatase 70 U/L (40-150); Anion Gap 14 mmol/L (10-20); BUN (Urea Nitrogen) 39 mg/dL (9.8-20.1); Bilirubin, Total 0.6 mg/dL (0.2-1.2); Calc. Creatinine Clearance 0 mL/min (70-130); Calcium 9.7 mg/dL (7.8-10.44); Carbon Dioxide 23 mmol/L (23-31); Estimated GFR-MDRD 24; Globulin 1.9 g/dL (2.4-3.5); Glucose 87 mg/dL (83-110); Lipase 23 U/L (8-78); Protein, Total 6.2 g/dL (6.0-8.3)
[2019-04-19 16:13] LABS: Chloride 105 mmol/L (98-107); Potassium 4.4 mmol/L (3.5-5.1); Sodium 138 mmol/L (136-145)
[2019-04-19 16:24] LABS: Bilirubin Negative (Negative); Blood, Urine Negative (Negative); Clarity Clear (Clear); Glucose, Urine (Dipstick) Normal (Negative); Leukocyte Negative Leu/uL (Negative); Nitrite Negative (Negative); Protein, Urine (Dipstick) Negative (Neg-Trace); Urobilinogen Normal mg/dL (Less than 2)
--- NOTE | 2019-04-19 20:00 | CT ---
CT OF BRAIN PERFORMED WITHOUT CONTRAST ENHANCEMENT: History: Fall with head injury. Patient is on blood thinners. Comparison: 09-22-15 FINDINGS: There is generalized ventricular and sulcal prominence. There are no signs of intracerebral hemorrhag e or extraaxial fluid collections. The mastoid air cells and visualized sinuses are clear. IMPRESSION: No acute intracranial abnormalities. POS: [facility]
== END 2019-04-19 21:23 ==
LOC: ERS 13:39
DX: R53.1 Weakness (principal); R27.0 Ataxia, unspecified; E86.0 Dehydration; I49.9 Cardiac arrhythmia, unspecified; I48.91 Unspecified atrial fibrillation; I25.10 Atherosclerotic heart disease of native coronary artery without angina pectoris; Z86.73 Personal history of transient ischemic attack (TIA), and cerebral infarction without residual deficits; F32.9 Major depressive disorder, single episode, unspecified; Z79.01 Long term (current) use of anticoagulants; Z79.899 Other long term (current) drug therapy; Z79.52 Long term (current) use of systemic steroids; W18.30XA Fall on same level, unspecified, initial encounter
CPT/HCPCS: 36415; 70450; 71045; 80053; 81003; 82550; 82553; 83690; 84443; 84484; 85025; 93005; 96360

== ENCOUNTER 2019-05-04 05:35 | Emergency (ER) | payer MEDICARE, BC | END 2019-05-04 18:40 | disposition left against medical advice (07) | LOC: ERS 17:35 | DX: Z53.21 Procedure and treatment not carried out due to patient leaving prior to being seen by health care provider (principal) ==

== ENCOUNTER 2020-05-21 07:16 | Inpatient (IN) | payer MEDICARE, BC, OTHER ==
[2020-05-21 08:05] LABS: Hemoglobin 11.4 g/dL (12.0-16.0); Mean Corpuscular HGB CONC 31.7 g/dL (32.0-36.0); Mean Corpuscular Hemoglobin 33.6 pg (27.0-31.0); Mean Platelet Volume 8.2 fL (7.4-10.4); Platelet Count 122 thou/uL (130-400); RBC Distribution Width 14.5 % (11.5-14.5); Red Blood Cell (RBC) Count 3.38 mill/uL (4.20-5.40); White Blood Cell (WBC) Count 7.2 thou/uL (4.8-10.8)
[2020-05-21] MEDS ORDERED: Furosemide 40 MG/4 ML VIAL ONE (08:08)
[2020-05-21 08:28] LABS: ALT (SGPT) 7 U/L (8-55); AST (SGOT) 16 U/L (5-34); Albumin 3.6 g/dL (3.4-4.8); Alkaline Phosphatase 83 U/L (40-110); Anion Gap 16 mmol/L (10-20); BUN (Urea Nitrogen) 42 mg/dL (9.8-20.1); Bilirubin, Total 0.5 mg/dL (0.2-1.2); Calc. Creatinine Clearance 0 mL/min (70-130); Calcium 8.2 mg/dL (7.8-10.44); Carbon Dioxide 21 mmol/L (23-31); Chloride 106 mmol/L (98-107); Estimated GFR-MDRD 20; Globulin 2.1 g/dL (2.4-3.5); Glucose 89 mg/dL (83-110); Potassium 4.6 mmol/L (3.5-5.1); Protein, Total 5.7 g/dL (6.0-8.3); Sodium 138 mmol/L (136-145)
[2020-05-21 08:30] LABS: #Eosinphils 0.2 thou/uL (0.0-0.7); #Lymphocytes 0.6 thou/uL (1.20-3.40); #Monocytes 0.5 thou/uL (0.11-0.59); #Neutrophils 5.9 thou/uL (1.40-6.50); %Basophils 0.4 % (0.0-1.0); %Eosinophils 2.8 % (0.0-10.0); %Lymphocytes 8.3 % (21.0-51.0); %Monocytes 6.5 % (0.0-10.0); Burr Cells SLIGHT = 2-5 cells (100X) (0-1/hpf); Elliptocytes SLIGHT = 2-5 cells (100X) (0-1/hpf); MDiff Complete? YES; Macrocytosis SLIGHT = 6-15 cells (100X) (0-5/hpf); Ovalocytes SLIGHT = 2-5 cells (100X) (0-1/hpf); Platelet Morphology Comment Appears Decreased
[2020-05-21 08:52] LABS: CKMB 1.9 ng/mL (0-6.6)
--- NOTE | 2020-05-21 08:57 | CT ---
CT BRAIN: DATE: 05/21/2020. PROVIDED CLINICAL HISTORY: Head pain status post fall. FINDINGS: Comparison 04/19/2019. The ventricular system appears normal in size and morphology. There is no evidence for intracranial hemorrhage or mass effect. The extracranial soft tissues and osseous structures demonstrate an unrem arkable CT appearance. IMPRESSION: No evidence for intracranial hemorrhage or mass effect. POS: [facility]
--- NOTE | 2020-05-21 09:02 | CT ---
CT CERVICAL SPINE: DATE: 05/21/2020. PROVIDED CLINICAL HISTORY: Fall with lower extremity edema. FINDINGS: There is no evidence for a fracture or traumatic subluxation. Cervical degenerative changes are seen . Partially visualized left pleural fluid. No prevertebral soft tissue swelling apparent. Carotid calcifications are seen. IMPRESSION: 1. No evidence for a fracture or traumatic subluxation. 2. Partially visualized left pleural fluid. POS: [facility]
--- NOTE | 2020-05-21 09:08 | RAD ---
PORTABLE CHEST: HISTORY: Fall. COMPARISON: 04/19/2019. FINDINGS: Cardiomegaly is stable. Postop sternotomy change and pacemaker leads are stable. Small bilateral effusions. The lungs appear clear. No infiltrate, pneumothorax, or vascular congest ion. IMPRESSION: Small bilateral effusions and mild cardiomegaly. POS: [facility]
--- NOTE | 2020-05-21 09:14 | RAD ---
PELVIC RADIOGRAPH: DATE: 05/21/2020. PROVIDED CLINICAL HISTORY: Fall. FINDINGS: Comparison is made with the examination dated 08/21/2017. Postoperative changes of left total hip art hroplasty are redemonstrated with a stable somewhat vertical orientation to the acetabular component. There is no evidence for a fracture or other acute osseous abnormality. Right hip joint space loss is similar to prior. No evidence for hardware loosening or migration with incomplete visualization of the femoral component. IMPRESSION: No evidence for an acute osseous abnormality. If there is persistent clinical concern, conservative management and followup imaging are advised. POS: [facility]
[2020-05-21 10:32] LABS: Bilirubin Negative (Negative); Blood, Urine Negative (Negative); Clarity Clear (Clear); Glucose, Urine (Dipstick) Normal (Negative); Ketone, Urine Negative (Negative); Leukocyte Negative Leu/uL (Negative); Nitrite Negative (Negative); Protein, Urine (Dipstick) Negative (Neg-Trace); Specific Gravity, Urine 1.011 (1.002-1.036); Urobilinogen Normal mg/dL (Less than 2); pH, Urine 5.5 (5.0-9.0)
[2020-05-21] MEDS ORDERED: Senokot S 8.6-50 MG TAB PO PRN (10:48)
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
--- NOTE | 2020-05-21 12:06 | PDOC.EVN ---
Event Note - Event Note Event Note: Patient discussed with ADALID Teran and evaluated at the bedside. In summary - weakness over the past week or so, episode of garbled speech yesterday, fall today, feeling cold over past week, worsening edema of legs and weeping of legs. O - VS reviewed Gen - awake, alert, responsive Lungs - ctab with good air movement Heart - 3/6 systolic murmur Abd - soft, present bowel sounds, non-tender Ext - significant bilateral edema with hyperpigmentation and erythema, bandages from open wounds Imp/Plan: Acute on chronic diastolic heart failure - diuresis - echo - consult Cardiology Acute resp failure with hypoxia - monitor oxygen needs and wean as tolerated Concern of LE infection/significant edema and open wounds - Obtain blood cultures - Start Rocephin - Wound care consult Acute on Chronic renal failure - Consult Nephrology - diuresis and monitor renal function Fall Concern for TIA - pt/ot/speech - MRI brain - echo Hypothermia - obtain blood cultures, follow urine culture Indeterminant troponin - trend and tx heart failure Chronic atrial fibrillation on eliquis - continue full anticoagulation Hypothyroidism - obtain tsh - continue thyroid replacement at home dose Adrenal insufficiency - continue home dose of prednisone - monitor for adrenal crisis & treat if detected anemia - mild - trend hemoglobin here and f/u as outpatient dvt prophy - on eliquis gi prophy - not indicated, continue home ppi code status - full reviewed plan of care with patient/daughter in ER, no questions or further needs at end of eval.
[2020-05-21] MEDS ORDERED: FLU VACC QS2020-21(65YR UP)/PF 240 MCG/0.7 ML SYRINGE IM ONE (14:15)
[2020-05-21] MEDS: cefTRIAXone\\ROCEPHIN 1 GM in Sodium Chloride 0.9% 100 ML IVPB SCH (18:03)
[2020-05-21 20:32] LABS: CKMB 2.1 ng/mL (0-6.6)
[2020-05-21] MEDS ORDERED: Lorazepam 1 MG TAB PO SCH (21:45)
[2020-05-21] MEDS: Apixaban 2.5 MG TAB PO SCH (22:06)
[2020-05-22] MEDS: Levothyroxine Sodium 112 MCG TAB PO SCH (05:56)
[2020-05-22] MEDS ORDERED: Furosemide 40 MG/4 ML VIAL SLOW IVP SCH (06:00)
[2020-05-22] MEDS: Escitalopram Oxalate 20 mg Tablet PO SCH (08:21)
[2020-05-22] MEDS: predniSONE 5 MG TAB PO SCH (08:21)
[2020-05-22] MEDS: Amiodarone 200 MG TAB PO SCH (08:21)
[2020-05-22] MEDS: Estradiol 1 MG TAB PO SCH (08:21)
[2020-05-22] MEDS: Apixaban 2.5 MG TAB PO SCH ×2 (08:21→21:00)
[2020-05-22 08:50] LABS: #Basophils 0.1 thou/uL (0.0-0.2); #Eosinphils 0.3 thou/uL (0.0-0.7); #Lymphocytes 0.7 thou/uL (1.20-3.40); #Monocytes 0.5 thou/uL (0.11-0.59); #Neutrophils 5.9 thou/uL (1.40-6.50); %Basophils 0.7 % (0.0-1.0); %Eosinophils 3.7 % (0.0-10.0); %Lymphocytes 9.7 % (21.0-51.0); %Monocytes 7.1 % (0.0-10.0); %Neutrophils 78.8 % (42.0-75.0); Mean Corpuscular HGB CONC 32.3 g/dL (32.0-36.0); Mean Corpuscular Hemoglobin 33.9 pg (27.0-31.0); Mean Platelet Volume 8.2 fL (7.4-10.4); Platelet Count 137 thou/uL (130-400); RBC Distribution Width 14.5 % (11.5-14.5); Red Blood Cell (RBC) Count 3.53 mill/uL (4.20-5.40); White Blood Cell (WBC) Count 7.5 thou/uL (4.8-10.8)
--- NOTE | 2020-05-22 09:15 | PDOC.HOSPP ---
- Subjective Encounter Date: 05/22/20 Encounter Time: 09:14 Subjective: No overnight events. Patient reports that she feels much better today. Denies any chest pain, shortness of breath, abdominal pain. Reports mild pain and continued swelling to her bilateral lower extremities. Denies any new numbness or weakness. Denies fever chills night sweats. Chart and medications reviewed. Telemetry reviewed. - Objective Vital Signs & Weight: Vital Signs (12 hours) Temp Pulse Resp BP Pulse Ox 05/22/20 04:00 98.0 F 77 18 130/62 97 05/22/20 02:24 20 100 05/22/20 00:00 20 92 L Weight Weight 156 lb I&O: 05/21/20 05/22/20 05/23/20 06:59 06:59 06:59 Intake Total 250 Output Total 300 Balance -50 Result Diagrams: 05/22/20 08:39 05/22/20 08:39 Hospitalist ROS - Review of Systems Constitutional: reports: malaise. denies: fever, chills, sweats Eyes: denies: vision change Respiratory: denies: cough, shortness of breath Cardiovascular: reports: edema. denies: chest pain, palpitations Gastrointestinal: denies: nausea, vomiting, abdominal pain Genitourinary: denies: dysuria Musculoskeletal: reports: leg pain Skin: reports: rash Neurological: denies: weakness, numbness - Medication Medications: Active Medications Generic Name Dose Route Start Last Admin Trade Name Freq PRN Reason Stop Dose Admin Amiodarone HCl 200 mg 05/22/20 09:00 05/22/20 08:21 Amiodarone 200 Mg Tab PO 200 mg DAILY CHASTITY Administration Apixaban 2.5 mg 05/21/20 21:00 05/22/20 08:21 Apixaban 2.5 Mg Tab PO 2.5 mg BID CHASTITY Administration Escitalopram Oxalate 20 mg 05/22/20 09:00 05/22/20 08:21 Escitalopram Oxalate 20 Mg Tablet PO 20 mg DAILY [facility] Administration Estradiol 1 mg 05/22/20 09:00 05/22/20 08:21 Estradiol 1 Mg Tab PO 1 mg QAM CHAST[facility] Administration Furosemide 40 mg 05/22/20 06:00 05/22/20 05:56 Furosemide 40 Mg/4 Ml Vial SLOW IVP 40 mg 0600,1400 CH[facility] Administration Ceftriaxone Sodium 1 gm/ 100 mls @ 200 mls/hr 05/21/20 18:00 05/21/20 18:03 Sodium Chloride IVPB 100 mls 1800 CHASTITY Administration Levothyroxine Sodium 224 mcg 05/22/20 06:00 05/22/20 05:56 Levothyroxine Sodium 112 Mcg Tab PO 224 mcg 0600 CH[facility] Administration Pantoprazole Sodium 40 mg 05/22/20 09:00 05/22/20 08:21 Pantoprazole 40 Mg Tab PO 40 mg DAILY [facility] Administration Prednisone 5 mg 05/22/20 08:00 05/22/20 08:21 Prednisone 5 Mg Tab PO 5 mg QAM-WM CHASTITY Administration - Exam General Appearance: NAD, awake alert Eye: anicteric sclera ENT: normocephalic atraumatic, moist mucosa Neck: supple, symmetric, no JVD, no thyromegaly, no lymphadenopathy, no carotid bruit Heart: RRR, murmur present Respiratory: CTAB, no wheezes, no rales, no ronchi, normal chest expansion, no tachypnea, normal percussion Gastrointestinal: soft, non-tender, non-distended, normal bowel sounds, no palpable masses, no hepatomegaly, no splenomegaly, no bruit Extremities - other findings: Pitting edema bilaterally Skin - other findings: Erythema, purpura to bilateral lower extremities Neurological: normal sensation to touch, no weakness, no focal deficits, no new deficit Neurological - other findings: No pronator drift Musculoskeletal: normal tone, normal strength, no muscle wasting Psychiatric: normal affect, normal behavior, A&O x 3 Hosp A/P - Plan Acute heart failure exacerbation 85F hx of CHF with most recent EF 50-55% (2018) presents in acute CHF exacerbation. CXR showed small bilateral infiltrate. BNP mildly elevated at 378.6. WBC 7.2. LE with significant 2+ pitting edema. Pt received 40 mg IV lasix in ED. Currently spo2 of 99% on 3L NC. Pt reports she has been non-compliant with her torsemide 20 mg, and only takes it every few days instead of daily. Pt follows with Dr. Dillon. Echo pending. Will continue with IV lasix. Cardiology recs appreciated. Cr stable from yesterday at 2.27. PLAN: -IV lasix 40 mg BID -I/Os -Cont. pulse oximitery, telemetry -Echo pending -Cardiology consult, recs appreciated -Closely monitor respiratory status Hypothermia Pt hypothermic to 96.1, repeat 95 degrees. CXR showed mild bilateral effusion. UA grossly negative, cx pendings. WBC 7.2. Patient does not currently meet SIRS criteria. Pt with significant LE edema with overlying erythema. Started on IV ceftriaxone. Bcx show gram positive cocci in clusters, in 1/4 bottles. Likely contaminant, but will continue ceftriaxone and continue to follow. Hypothermia now resolved. PLAN -Trend fever curve, WBCs -Ceftriaxone IV -Follow BCx Acute hypoxic respiratory failure Acute hypoxic respiratory failure 2/2 acute CHF exacerbation. 86% on RA. Pt now maintaining O2 saturation 99% on 3L NC. CXR Will continue diuresis as above and closely monitor. Pt now 96% on 2L, improving. PLAN -Diuresis as above -Closely monitor respiratory status Urinary Tract Infection Pt reports mild dysuria day prior to admission. UA negative, however UCx grew gram negative rods >100k CFUs. Will treat with IV ceftriaxone and monitor. PLAN -IV Ceftriaxone Garbled speech Daughter reports that patient had 30-minute episode day prior to admission of garbled speech and worsening left lower extremity weakness. Patient has a history of a prior CVA of which CVA has mild residual left-sided deficits. On exam patient alert and oriented x4. Neuro exam within normal limits. No pronator drift. Head CT negative for bleed. Daughter reports that prior CVA was "deep brain bleed". Will hold off on aspirin for now. Neurology recommendations appreciated. Plan: MRI brain, will confirm if PPM MRI compatible. Telemetry monitoring Neurology consult, recs appreciated q4 neuro checks Elevation in Troponin Initial troponin mildly elevated on admission, 0.117. Repeat troponin peaked at 0.130, now down to 0.113. EKG showed paced rhythm with no ischemic changes. Pt denies chest pain. Likely 2/2 CKD. Will continue to monitor for symptoms. Plan: -Telemetry monitoring -Monitor for new symptoms Acute kidney injury in setting of chronic kidney disease Baseline creatinine 1.6. BUN/CR 42/2.28. Likely a component of cardiorenal vs progression of CKD. Patient follows with Dr. Arnold as her rn heart. Will diurese patient and continue to monitor. PLAN Trend kidney function IV diuresis Nephrology consult, recommendations appreciated Renally dose medications Avoid nephrotoxic medications Lymphedema vs Cellulitis Significant lymphedema, and edema to bilateral lower extremities, with weeping wounds. Given patient's hypothermia, and altered mental status will start patient on ceftriaxone. Patient and daughter both reports that legs are more edematous than baseline. Legs erythematous with multiple areas of bruising. PLAN Wound care consult Continue Rocephin Fall 85-year-old female history of A. fib on Eliquis, CVA, CHF, mitral valve replacement who presents from home after fall secondary to weakness. Head CT no acute pathology, CT neck no fracture, chest, pelvic plain films negative. Pt with small skin tear to R elbow. Daughter also reports increased confusion over the past few days, as well as increased swelling to her bilateral lower extremities. Pt denies any symptoms other than weakness. Likely secondary to increased fluid in her legs and AMS. PLAN: -PT/OT -Fall precautions -Closely monitor for symptoms -Investigations of AMS as above Atrial fibrillation History of A. fib on Eliquis, status post AICD. EKG shows paced rhythm, with normal ventricular rate. Plan Continue Eliquis 2.5 mg twice daily Continue amiodarone 200 mg Telemetry monitoring Adrenal insufficiency History of adrenal insufficiency. Continue home prednisone 5 mg. Consider need for stress dose steroids. Hyperlipidemia Continue home statin Hypothyroidism Continue home levothyroxine, TSH wnl. DVT Prophylaxis: Eliquis FULL CODE Case discussed with attending physician, Dr. Bergeron.
[2020-05-22 09:23] LABS: Anion Gap 17 mmol/L (10-20); BUN (Urea Nitrogen) 38 mg/dL (9.8-20.1); Calc. Creatinine Clearance 20 mL/min (70-130); Calcium 8.3 mg/dL (7.8-10.44); Carbon Dioxide 17 mmol/L (23-31); Cardiac Risk 2.6 (Less than 4.5); Chloride 107 mmol/L (98-107); Cholesterol 145 mg/dl (< 200 Desired); Estimated GFR-MDRD 20; Glucose 76 mg/dL (83-110); HDL Cholesterol 55 mg/dL (>60 Neg Risk); LDL Cholesterol, Calculated 69 mg/dL; Potassium 4.2 mmol/L (3.5-5.1); Sodium 137 mmol/L (136-145); Triglycerides 103 mg/dL (Less than 150)
[2020-05-22 09:36] LABS: CKMB 1.4 ng/mL (0-6.6)
[2020-05-22 12:37] LABS: SARS-CoV-2 MS2 Positive; SARS-CoV-2 N Gene Negative; SARS-CoV-2 S Gene Negative; SARS-CoV-2 by NAA Not Detected (NotDetected); SARS-CoV-2 orf1ab Negative
--- NOTE | 2020-05-22 14:41 | PDOC.EVN ---
Event Note - Event Note Event Note: Pt evaluated and discussed with ADALID Teran - Pt reports she is feeling better today, is ambulating with a walker. She has multiple areas of bruising all over, to include her back from fall yesterday. She denies any n/v/abd pain. She thinks the edema is improved in her legs. Exam: VS normal Gen - awake, alert, responsive, NAD Lungs -ctab with good air movement heart - 3/6 MITCHELL unchanged abd - soft, nt/nd\ Ext - bilateral edema and lymphedema, violaceous in appearance with mild erythema Labs reviewed - creatinine 2.27 today - unchanged from yesterday Ucx - gram neg ivory Blood cx - one set gram positive tele - paced 70's Impression: 1. Cellulitis with possible UTI and possible bacteremia - continue rocephin, follow cultures 2. Acute on Chronic diastolic HF - continue diuresis - echo - Cards consult 3. Acute resp failure with hypoxia - wean oxygen as tolerated - diurese 4. Acute on chronic renal failure - nephrology consult 5. Speech changes a few days ago - possible TIA - MRI cannot be performed today - deferred to tomorrow, re-evaluate tomorrow to determine if this is still indicated 6. Hypothermia - resolved - may have been secondary to infection 7. chronic atrial fibrillation - rate controlled - on eliquis with renal dosing 8. Hypothyroid - on appropriate replacement 9. Adrenal insufficiency - continue daily prednisone, no signs of crisis 10. Anemia - mild 11. Skin tears/ecchymosis s/p fall - tx pain, tx open areas and monitor for change - chronic lymphedema/edema - wound care consult. reviewed the plan of care with patient, no quesitons or further needs at end of eval
[2020-05-22] MEDS: cefTRIAXone\\ROCEPHIN 1 GM in Sodium Chloride 0.9% 100 ML IVPB SCH (18:28)
--- NOTE | 2020-05-22 18:57 | CON ---
DATE OF CONSULTATION: 05/22/2020 CONSULTING PHYSICIAN: Hospitalist Service. IMPRESSION: 1. Weakness secondary to congestive heart failure. 2. History of atrial fibrillation with anticoagulation. PLAN: 1. Continue efforts to address her heart failure. 2. She can be discharged to her discretion. HISTORY OF PRESENT ILLNESS: Ms. Contreras is an 85-year-old woman who has a history of atrial fibrillation. She lives alone, although her daughter checks her on a daily basis. She apparently went to the bathroom and slipped and fell. When she did so, she broke her toilet, which resulted in a secondary flooding of the bathroom. She laid on the floor and was unable to get up independently. She crawled out of the bathroom eventually and was able to call her daughter for help. She was brought into the hospital for evaluation. She was thought to have a bit of slurred speech, although in her recollection, she does not recall have any trouble talking. She just recalls feeling very weak. She had no complaint of headache, nausea, vomiting, vertigo, chest pain, shortness of breath, lateralized weakness, or numbness. She had a CT of brain, no acute changes were found. EKG shows a paced rhythm. Her lab work was reviewed and appears unremarkable. She was noted to have elevated BNP and was started on Lasix. She has had some peripheral edema present for some time now. She reports her strength feels like it is coming back. She was able to get out of bed today and walk with the use of her walker. She has no other complaints at this point. She was transiently treated with aspirin. PAST MEDICAL HISTORY: Atrial fibrillation, CHF. ALLERGIES: CLINDAMYCIN, SOLU-MEDROL. SOCIAL HISTORY: No tobacco or alcohol use. FAMILY HISTORY: Unremarkable. REVIEW OF SYSTEMS: Ten-system review of systems is otherwise negative. PHYSICAL EXAMINATION: GENERAL: She is a well-nourished elderly lady, in no distress. VITAL SIGNS: Blood pressure 153/65, pulse 75, respirations 16, and temperature 95.9. HEENT: Pupils are equal and reactive. Conjunctivae clear. Oropharynx clear. NECK: Supple. No lymphadenopathy. ABDOMEN: Soft and nontender. EXTREMITIES: Moderate edema in both legs. SKIN: Clear. NEUROLOGIC: She is alert and appropriate. Her speech is fluent and clear. Cranial nerves were intact. Motor exam showed good heel burnisher strength bilaterally. She had antigravity strength in both legs. Sensation was intact to touch. No abnormal movements were seen. SUMMARY: This is an elderly lady, who presented with CHF and some generalized weakness. She could not get up after a fall. She seems to be doing better at this point. I do not see any acute neurologic issues. Job ID: [id number]
--- NOTE | 2020-05-22 19:32 | CON ---
DATE OF CONSULTATION: 05/22/2020 CONSULTING PHYSICIAN: Aida Bergeron MD REASON FOR CONSULTATION: Acute kidney injury on chronic kidney disease. REASON FOR ADMISSION: Fall. HISTORY OF PRESENT ILLNESS: The patient is an 85-year-old female with history of atrial fibrillation, CVA, CHF, chronic kidney disease, came to the hospital after a fall and was found to have fluid overload too and she is on Lasix also. The patient was also getting confused at home. The patient not able to give a good history to me. She denies any chest pain. She reports her breathing is better. No fever or chills. No nausea or vomiting reported to me. PAST MEDICAL HISTORY: Positive for chronic kidney disease, atrial fibrillation, CHF, renal insufficiency, lymphedema, hyperlipidemia, hypertension. PAST SURGICAL HISTORY: Left hip surgery, ICD, mitral valve repair, oophorectomy, hysterectomy. HOME MEDICATIONS: Home medicines reviewed. ALLERGIES: TO CLINDAMYCIN AND METHYLPREDNISONE. SOCIAL HISTORY: No smoking, alcohol, or illicit drug abuse. FAMILY HISTORY: No history of kidney disease. REVIEW OF SYSTEMS: The following complete review of systems was negative, unless otherwise mentioned in the HPI or below: Constitutional: Weight loss or gain, ability to conduct usual activities. Skin: Rash, itching. Eyes: Double vision, pain. ENT/Mouth: Nose bleeding, neck stiffness, pain, tenderness. Cardiovascular: Palpitations, dyspnea on exertion, orthopnea. Respiratory: Shortness of breath, wheezing, cough, hemoptysis, fever or night sweats. Gastrointestinal: Poor appetite, abdominal pain, heartburn, nausea, vomiting, constipation, or diarrhea. Genitourinary: Urgency, frequency, dysuria, nocturia. Musculoskeletal: Pain, swelling. Neurologic/Psychiatric: Anxiety, depression. Allergy/Immunologic: Skin rash, bleeding tendency. PHYSICAL EXAMINATION: GENERAL: A well-built elderly lady, in no apparent distress. VITAL SIGNS: Temperature 98.4, pulse 77, respiratory rate 16, blood pressure 113/55. HEENT: Atraumatic, normocephalic. Oral mucosa moist. NECK: Supple. CVS: S1, S2 heard. Rate and rhythm regular. RESPIRATORY: Clear. GI: Abdomen is soft. MUSCULOSKELETAL: No tenderness. No edema. DERMATOLOGIC: No skin rash. NEUROLOGY: Alert and awake. PSYCHIATRIC: Normal mood and affect. LABORATORY DATA: Hemoglobin is 12.0. Potassium 4.2, BUN is 38, creatinine is 2.2. Microbiology showed blood cultures gram-positive cocci. Urine culture with gram-negative rods. ASSESSMENT AND PLAN: 1. Acute kidney injury on chronic kidney disease stage 4 with solitary kidney. Renal function is stable, close to her baseline, but I would reduce the Lasix to once daily and continue on salt restriction. 2. History of hypertension. 3. History of solitary kidney. 4. Anemia of chronic disease. 5. Acidosis. 6. Possible urinary tract infection. Follow up cultures. Continue antibiotics and continue supportive care. We will reduce Lasix to once a day. Continue close monitoring of cardiorespiratory status. Avoid nephrotoxins and we will monitor the renal function along with other providers. We are working on the case. We will continue to follow. Thank you for the consult. Job ID: [id number]
--- NOTE | 2020-05-22 20:51 | PRG ---
DATE OF SERVICE: Ms. Contreras is feeling better. She is admitted to the hospital with near syncopal or syncopal episode. She has a long history of orthostatic hypotension in combination with diastolic dysfunction and previous biventricular pacemaker. The patient is doing well now, recheck her tomorrow. It has been a very difficult situation. If she gets intravascularly depleted, she tends to have hypotensive episodes. Intravascular expansion tends to worsen her severe edema. We will follow with you. Job ID: [id number]
[2020-05-22] MEDS: Lorazepam 1 MG TAB PO SCH (21:00)
[2020-05-23 05:05] LABS: Anion Gap 13 mmol/L (10-20); BUN (Urea Nitrogen) 39 mg/dL (9.8-20.1); Calc. Creatinine Clearance 20 mL/min (70-130); Calcium 8.3 mg/dL (7.8-10.44); Carbon Dioxide 23 mmol/L (23-31); Chloride 103 mmol/L (98-107); Estimated GFR-MDRD 20; Glucose 86 mg/dL (83-110); Potassium 3.9 mmol/L (3.5-5.1); Sodium 135 mmol/L (136-145)
[2020-05-23 05:24] LABS: #Eosinphils 0.2 thou/uL (0.0-0.7); #Lymphocytes 0.7 thou/uL (1.20-3.40); #Monocytes 0.5 thou/uL (0.11-0.59); #Neutrophils 3.9 thou/uL (1.40-6.50); %Basophils 0.4 % (0.0-1.0); %Eosinophils 4.4 % (0.0-10.0); %Lymphocytes 12.7 % (21.0-51.0); %Monocytes 9.9 % (0.0-10.0); %Neutrophils 72.5 % (42.0-75.0); Hemoglobin 10.8 g/dL (12.0-16.0); Mean Corpuscular HGB CONC 33.4 g/dL (32.0-36.0); Mean Corpuscular Hemoglobin 33.5 pg (27.0-31.0); Mean Platelet Volume 8.4 fL (7.4-10.4); Platelet Count 113 thou/uL (130-400); Platelet Morphology Comment Appears Decreased; RBC Distribution Width 14.2 % (11.5-14.5); Red Blood Cell (RBC) Count 3.21 mill/uL (4.20-5.40); White Blood Cell (WBC) Count 5.4 thou/uL (4.8-10.8)
[2020-05-23] MEDS: Levothyroxine Sodium 112 MCG TAB PO SCH (05:59)
[2020-05-23] MEDS ORDERED: Furosemide 40 MG/4 ML VIAL SLOW IVP SCH ×2 (09:00→18:30)
[2020-05-23] MEDS: Amiodarone 200 MG TAB PO SCH ×2 (09:26→21:26)
[2020-05-23] MEDS: Apixaban 2.5 MG TAB PO SCH ×2 (09:26→21:26)
[2020-05-23] MEDS: predniSONE 5 MG TAB PO SCH (09:26)
[2020-05-23] MEDS: Estradiol 1 MG TAB PO SCH (09:26)
[2020-05-23] MEDS: Escitalopram Oxalate 20 mg Tablet PO SCH (09:26)
--- NOTE | 2020-05-23 10:34 | PRG ---
DATE OF SERVICE: 05/23/2020 SUBJECTIVE: An 85-year-old female, being seen for acute kidney injury. The patient denies any nausea, vomiting, or chest pain. OBJECTIVE: General: The patient is awake and alert. Vital Signs: Afebrile, pulse 75, breathing at 16, blood pressure 139/70. HEENT: Head normocephalic and atraumatic. Eyes intact, no ulcers. Nose intact, no ulcers. Ears intact, no ulcers. Neck: Supple. No JVD. Chest: Symmetrical and clear. Cardiovascular: Shows S1 and S2, no rub, no murmur. Gastrointestinal: Abdomen is soft, bowel sounds positive. Extremities: Show no edema or ulcers. Skin: Shows no rash or petechiae. Musculoskeletal: Shows no joint swelling or stiffness. Genitourinary: Shows no Lira or CVA tenderness. Neurologic: Motor intact. Cranial nerves intact. LABORATORY DATA: Hemoglobin 10.8, creatinine 2.2. ASSESSMENT AND PLAN: 1. Acute kidney injury with chronic kidney disease stage 4, stable. 2. Hypertension, stable. 3. Anemia, stable. 4. Medication based on GFR appropriate. No indication for dialysis. The patient will follow up to see me in 3 to 4 weeks. Job ID: [id number]
--- NOTE | 2020-05-23 11:55 | PRG ---
DATE OF SERVICE: 05/23/2020 SUBJECTIVE: Ms. Contreras is feeling well. She has received some intravenous diuretic. She is diuresing well. OBJECTIVE: VITAL SIGNS: Her blood pressure 139/70, pulse 70. LUNGS: Clear. CARDIAC: Normal S1 and S2. ABDOMEN: Soft, nontender. EXTREMITIES: Moderate edema. ASSESSMENT: 1. Congestive heart failure, diastolic, chronic. 2. Renal failure stage 4. 3. Syncopal episode related to orthostatic hypotension. 4. History of atrial fibrillation, paroxysmal. PLAN: Interrogate the pacemaker. It looks like she has no significant arrhythmias. Okay to me to go home. ADDENDUM: Ms. Contreras is found to be in persistent atrial fibrillation on the pacemaker check. The patient's heart failure certainly does worse when she is in atrial fibrillation. Recommend that she proceed to cardioversion. Discussed risks including stroke. The patient understands, wished to proceed. If we do not do a cardioversion, likely to stay in chronic atrial fibrillation, will likely do worse from a heart failure standpoint long-term, even short term. If she has recurrence after that, could consider atrial fibrillation ablation as another option. Job ID: [id number]
[2020-05-23 12:08] VITALS: BMI 23.8
--- NOTE | 2020-05-23 13:10 | PDOC.HOSPP ---
- Subjective Encounter Date: 05/23/20 Encounter Time: 13:08 Subjective: Overnight events. Patient states that she is feeling much better today. Denies any chest pain, shortness of breath, abdominal pain, additional swelling. States her left foot is still more edematous than her right, and is more swollen than it usually is at home. - Objective Vital Signs & Weight: Vital Signs (12 hours) Temp Pulse Resp BP Pulse Ox 05/23/20 12:07 97.8 F 75 16 145/65 H 95 05/23/20 08:52 94 L 05/23/20 07:15 94 L 05/23/20 07:12 97.7 F 75 16 139/70 94 L 05/23/20 03:26 98.0 F 94 16 124/58 L Weight Admit Weight 169 lb 14.4 oz Weight 157 lb I&O: 05/22/20 05/23/20 05/24/20 06:59 06:59 06:59 Intake Total 250 900 Output Total 300 Balance -50 900 Result Diagrams: 05/23/20 03:43 05/23/20 03:43 Hospitalist ROS - Medication Medications: Active Medications Generic Name Dose Route Start Last Admin Trade Name Freq PRN Reason Stop Dose Admin Amiodarone HCl 200 mg 05/22/20 09:00 05/23/20 09:26 Amiodarone 200 Mg Tab PO 200 mg DAILY CHASTITY Administration Apixaban 2.5 mg 05/21/20 21:00 05/23/20 09:26 Apixaban 2.5 Mg Tab PO 2.5 mg BID CHASTITY Administration Escitalopram Oxalate 20 mg 05/22/20 09:00 05/23/20 09:26 Escitalopram Oxalate 20 Mg Tablet PO 20 mg DAILY CHASTITY Administration Estradiol 1 mg 05/22/20 09:00 05/23/20 09:26 Estradiol 1 Mg Tab PO 1 mg QAM CHASTITY Administration Furosemide 40 mg 05/23/20 09:00 05/23/20 09:27 Furosemide 40 Mg/4 Ml Vial SLOW IVP 40 mg DAILY CHASTITY Administration Ceftriaxone Sodium 1 gm/ 100 mls @ 200 mls/hr 05/21/20 18:00 05/22/20 18:28 Sodium Chloride IVPB 100 mls 1800 CHASTITY Administration Levothyroxine Sodium 224 mcg 05/22/20 06:00 05/23/20 05:59 Levothyroxine Sodium 112 Mcg Tab PO 224 mcg 0600 CHASTITY Administration Lorazepam 2 mg 05/22/20 21:00 05/22/20 21:00 Lorazepam 1 Mg Tab PO 2 mg HS CHASTITY Administration Pantoprazole Sodium 40 mg 05/22/20 09:00 05/23/20 09:26 Pantoprazole 40 Mg Tab PO 40 mg DAILY CHASTITY Administration Prednisone 5 mg 05/22/20 08:00 05/23/20 09:26 Prednisone 5 Mg Tab PO 5 mg QAM-WM CHASTITY Administration - Exam General Appearance: NAD, awake alert Neck: supple Heart: RRR, murmur present Respiratory: CTAB, no wheezes, no rales, no ronchi Gastrointestinal: soft, non-tender, non-distended, normal bowel sounds Extremities - other findings: pitting edema to left lower extremity Skin - other findings: scattered bruising throughout Psychiatric: normal affect, normal behavior, A&O x 3 Hosp A/P - Plan Acute heart failure exacerbation Recent echo shows EF at 50 to 55% Patient diuresing well, okay to discharge per cardiology Currently 95% on room air, was able to be weaned off oxygen last night Acute hypoxic respiratory failure Secondary to CHF exacerbation Patient was able to be weaned off of oxygen, 95% on room air Urinary tract infection Continue IV ceftriaxone Possible TIA Neurology consulted and signed off at this time Continue weakness Acute kidney injury in setting of chronic kidney disease Nephrology consulted, recommended for follow-up in 3 to 4 weeks Renally dose medications and avoid nephrotoxic medications Lymphedema versus cellulitis Wound care consult in place Continue IV ceftriaxone Fall Continue PT and OT Patient requesting to go to rehab versus home health We will place case management consult Atrial fibrillation Status post AICD Continue Eliquis and amiodarone No overnight telemetry events Hyperlipidemia Continue home statin Hypothyroidism Continue home levothyroxine Adrenal insufficiency Continue home prednisone
[2020-05-23] MEDS: cefTRIAXone\\ROCEPHIN 1 GM in Sodium Chloride 0.9% 100 ML IVPB SCH (18:13)
--- NOTE | 2020-05-23 18:29 | PDOC.EVN ---
Event Note - Event Note Event Note: Pt discussed with ANNEALER HELPER Dipesh and examined -she is feeling better. She denies any difficulty breathing, denies any other concerns. States she would like to go to rehab. VS reviewed gen - awake, alert, responsive heart - irregular with 3/6 MITCHELL lungs -ctab with good air movement abd - soft, nt/nd ext - 2+ edema - lymphedema skin - hyperpigmentation LE bilateral, open wounds, less erythema Cx - Klebsiella in urine 1 positive blood culture c/w contaminant Imp - Acute on chronic diastolic HF - rate controlled - Collaborated with Drs. Arnold and Santana with regards to the diuretic for this patient - will given additional 40 mg IV lasix now, and start oral lasix at 80 mg once daily tomorrow. - Dr. Dillon plans on cardioversion tomorrow Acute resp failure with hypoxia - wean oxygen LE infection - on rocephin and responding well - continue this for now and transition to oral medication at discharge Positive urine culture - covered with rocephin Acute on chronic renal failure - likely at new baseline and stable renal function a fib - on anticoagulation concern for tia - resolved dvt prophy - on eliquis gi prophy - not indicated code status full reviewed plan of care with patient, no questions or further needs at end of eval.
[2020-05-23] MEDS: Lorazepam 1 MG TAB PO SCH (21:26)
[2020-05-23] MEDS: Acetaminophen 325 MG TAB PO PRN (21:35)
[2020-05-24 04:49] LABS: #Basophils 0.1 thou/uL (0.0-0.2); #Eosinphils 0.3 thou/uL (0.0-0.7); #Lymphocytes 0.7 thou/uL (1.20-3.40); #Monocytes 0.6 thou/uL (0.11-0.59); #Neutrophils 4.2 thou/uL (1.40-6.50); %Eosinophils 5.4 % (0.0-10.0); %Lymphocytes 12.2 % (21.0-51.0); %Monocytes 9.7 % (0.0-10.0); %Neutrophils 71.7 % (42.0-75.0); Mean Corpuscular HGB CONC 33.1 g/dL (32.0-36.0); Mean Corpuscular Hemoglobin 33.1 pg (27.0-31.0); Mean Platelet Volume 8.4 fL (7.4-10.4); Platelet Count 128 thou/uL (130-400); RBC Distribution Width 13.9 % (11.5-14.5); Red Blood Cell (RBC) Count 3.32 mill/uL (4.20-5.40); White Blood Cell (WBC) Count 5.8 thou/uL (4.8-10.8)
[2020-05-24 05:12] LABS: Anion Gap 13 mmol/L (10-20); BUN (Urea Nitrogen) 40 mg/dL (9.8-20.1); Calc. Creatinine Clearance 19 mL/min (70-130); Calcium 8.5 mg/dL (7.8-10.44); Carbon Dioxide 26 mmol/L (23-31); Chloride 101 mmol/L (98-107); Estimated GFR-MDRD 19; Glucose 97 mg/dL (83-110); Potassium 4.2 mmol/L (3.5-5.1); Sodium 136 mmol/L (136-145)
[2020-05-24] MEDS: Levothyroxine Sodium 112 MCG TAB PO SCH (05:31)
[2020-05-24] MEDS ORDERED: PROPOFOL 200 MG/20 ML VIAL ONE (10:00)
--- NOTE | 2020-05-24 10:07 | PRG ---
DATE OF SERVICE: 05/24/2020 SUBJECTIVE: An 85-year-old female being seen for acute kidney injury. The patient denies any nausea, vomiting or chest pain. PHYSICAL EXAMINATION: GENERAL: Patient is awake and alert. VITAL SIGNS: Afebrile, pulse 77, breathing 16, blood pressure 134/69. HEENT: Head normocephalic and atraumatic. Eyes intact, no ulcers. Nose intact, no ulcers. Ears intact, no ulcers. Neck: Supple. No JVD. Chest: Symmetrical and clear. Cardiovascular: Shows S1 and S2, no rub, no murmur. Gastrointestinal: Abdomen is soft, bowel sounds positive. Extremities: Show no edema or ulcers. Skin: Shows no rash or petechiae. Musculoskeletal: Shows no joint swelling or stiffness. Genitourinary: Shows no Lira or CVA tenderness. Neurologic: Motor intact. Cranial nerves intact. LABORATORY DATA: Labs show hemoglobin 11.4. ASSESSMENT AND RECOMMENDATION: 1. Stage IV chronic disease, stable. 2. Hypertension, stable. 3. Edema, continue diuretics judiciously. Continue Lasix 40 IV twice day or 80 twice a day based on urine output. 4. Anemia, stable. 5. Medication based on GFR appropriate. Job ID: [id number]
[2020-05-24] MEDS: Estradiol 1 MG TAB PO SCH (11:05)
[2020-05-24] MEDS: predniSONE 5 MG TAB PO SCH (11:05)
[2020-05-24] MEDS: Amiodarone 200 MG TAB PO SCH ×2 (11:05→21:34)
[2020-05-24] MEDS: Furosemide 80 MG TAB PO SCH (11:05)
[2020-05-24] MEDS: Escitalopram Oxalate 20 mg Tablet PO SCH (11:06)
[2020-05-24] MEDS: Apixaban 2.5 MG TAB PO SCH ×2 (11:06→21:35)
--- NOTE | 2020-05-24 18:22 | PDOC.HOSPP ---
- Subjective Encounter Date: 05/24/20 Encounter Time: 13:00 Subjective: Patient is status post cardioversion. States she is feeling well and still willing to go to rehab. Case management consult for possible rehab placement entered, awaiting response. - Objective Vital Signs & Weight: Vital Signs (12 hours) Temp Pulse Resp BP BP Pulse Ox 05/24/20 16:30 98.3 F 78 14 129/66 95 05/24/20 10:50 97.8 F 86 16 141/65 H 96 05/24/20 08:31 97.5 F L 77 14 134/69 97 05/24/20 07:15 96 Weight Admit Weight 169 lb 14.4 oz Weight 155 lb 3 oz I&O: 05/23/20 05/24/20 05/25/20 06:59 06:59 06:59 Intake Total 900 960 Balance 900 960 Result Diagrams: 05/24/20 03:52 05/24/20 03:52 Hospitalist ROS - Medication Medications: Active Medications Generic Name Dose Route Start Last Admin Trade Name Freq PRN Reason Stop Dose Admin Acetaminophen 650 mg 05/21/20 10:48 05/23/20 21:35 Acetaminophen 325 Mg Tab PO 650 mg Q4H PRN Administration Headache/Fever/Mild Pain (1-3) Amiodarone HCl 200 mg 05/23/20 21:00 05/24/20 11:05 Amiodarone 200 Mg Tab PO 200 mg BID CHASTITY Administration Apixaban 2.5 mg 05/21/20 21:00 05/24/20 11:06 Apixaban 2.5 Mg Tab PO 2.5 mg BID CHASTITY Administration Escitalopram Oxalate 20 mg 05/22/20 09:00 05/24/20 11:06 Escitalopram Oxalate 20 Mg Tablet PO 20 mg DAILY CHASTITY Administration Estradiol 1 mg 05/22/20 09:00 05/24/20 11:05 Estradiol 1 Mg Tab PO 1 mg QAM CHASTITY Administration Furosemide 80 mg 05/24/20 07:30 05/24/20 11:05 Furosemide 80 Mg Tab PO 80 mg DAILY-AC CHASTITY Administration Ceftriaxone Sodium 1 gm/ 100 mls @ 200 mls/hr 05/21/20 18:00 05/23/20 18:13 Sodium Chloride IVPB 100 mls 1800 CHASTITY Administration Levothyroxine Sodium 224 mcg 05/22/20 06:00 05/24/20 05:31 Levothyroxine Sodium 112 Mcg Tab PO 224 mcg 0600 CHASTITY Administration Lorazepam 2 mg 05/22/20 21:00 05/23/20 21:26 Lorazepam 1 Mg Tab PO 2 mg HS CHASTITY Administration Pantoprazole Sodium 40 mg 05/22/20 09:00 05/24/20 11:05 Pantoprazole 40 Mg Tab PO 40 mg DAILY CHASTITY Administration Prednisone 5 mg 05/22/20 08:00 05/24/20 11:05 Prednisone 5 Mg Tab PO 5 mg QAM-WM CHASTITY Administration - Exam General Appearance: NAD, awake alert Eye: PERRL, anicteric sclera ENT: normocephalic atraumatic, moist mucosa Neck: supple, symmetric Heart: RRR, no gallops, no rubs, diminshed peripheral pulses, murmur present Respiratory: CTAB, no wheezes, no rales, no ronchi, normal chest expansion, no tachypnea Gastrointestinal: soft, non-tender, non-distended, normal bowel sounds, no palpable masses Extremities: no cyanosis, no clubbing, 2+ LE edema Musculoskeletal: normal tone Psychiatric: normal affect, normal behavior, A&O x 3 Hosp A/P - Plan Acute heart failure exacerbation Recent echo shows EF at 50 to 55% Patient diuresing well, received extra dose of Lasix last night Acute hypoxic respiratory failure Secondary to CHF exacerbation Patient tolerating room air Urinary tract infection Continue IV ceftriaxone Possible TIA Neurology consulted and signed off at this time Acute kidney injury in setting of chronic kidney disease Nephrology consulted, recommended for follow-up in 3 to 4 weeks Renally dose medications and avoid nephrotoxic medications Lymphedema versus cellulitis Wound care following patient Continue IV ceftriaxone Fall Continue PT and OT Patient requesting to go to rehab versus home health Awaiting case management response to possible rehab Atrial fibrillation Status post AICD and cardioversion Continue Eliquis and amiodarone Hyperlipidemia Continue home statin Hypothyroidism Continue home levothyroxine Adrenal insufficiency Continue home prednisone
[2020-05-24] MEDS: cefTRIAXone\\ROCEPHIN 1 GM in Sodium Chloride 0.9% 100 ML IVPB SCH (18:29)
--- NOTE | 2020-05-24 18:59 | PDOC.BPN ---
- Brief Progress Note Encounter Date: 05/24/20 Encounter Time: 18:55 Pt ok to be discharged per cardiology. Due to daughter's concerns for safety at home patient discharge is held until the morning.
[2020-05-24] MEDS: Lorazepam 1 MG TAB PO SCH (21:35)
[2020-05-25] MEDS: Acetaminophen 325 MG TAB PO PRN (00:04)
[2020-05-25 04:21] LABS: #Eosinphils 0.3 thou/uL (0.0-0.7); #Lymphocytes 0.8 thou/uL (1.20-3.40); #Monocytes 0.6 thou/uL (0.11-0.59); #Neutrophils 4.8 thou/uL (1.40-6.50); %Basophils 0.7 % (0.0-1.0); %Eosinophils 4.3 % (0.0-10.0); %Lymphocytes 12.7 % (21.0-51.0); %Monocytes 9.1 % (0.0-10.0); %Neutrophils 73.2 % (42.0-75.0); Hemoglobin 11.4 g/dL (12.0-16.0); Mean Corpuscular HGB CONC 33.3 g/dL (32.0-36.0); Mean Corpuscular Hemoglobin 33.4 pg (27.0-31.0); Mean Platelet Volume 7.9 fL (7.4-10.4); Platelet Count 135 thou/uL (130-400); RBC Distribution Width 13.9 % (11.5-14.5); White Blood Cell (WBC) Count 6.5 thou/uL (4.8-10.8)
[2020-05-25 04:42] LABS: Anion Gap 16 mmol/L (10-20); BUN (Urea Nitrogen) 36 mg/dL (9.8-20.1); Calc. Creatinine Clearance 19 mL/min (70-130); Calcium 8.3 mg/dL (7.8-10.44); Carbon Dioxide 25 mmol/L (23-31); Chloride 100 mmol/L (98-107); Estimated GFR-MDRD 20; Glucose 85 mg/dL (83-110); Potassium 3.5 mmol/L (3.5-5.1); Sodium 137 mmol/L (136-145)
[2020-05-25] MEDS: Levothyroxine Sodium 112 MCG TAB PO SCH (05:48)
[2020-05-25] MEDS: Furosemide 80 MG TAB PO SCH (08:29)
[2020-05-25] MEDS: Escitalopram Oxalate 20 mg Tablet PO SCH (08:29)
[2020-05-25] MEDS: Estradiol 1 MG TAB PO SCH (08:29)
[2020-05-25] MEDS: Apixaban 2.5 MG TAB PO SCH (08:29)
[2020-05-25] MEDS: Amiodarone 200 MG TAB PO SCH (08:29)
[2020-05-25] MEDS: predniSONE 5 MG TAB PO SCH (08:29)
--- NOTE | 2020-05-25 09:21 | PRG ---
DATE OF SERVICE: 05/25/2020 SUBJECTIVE: An 85-year-old female being seen for acute kidney injury. The patient denies any nausea, vomiting, or chest pain. PHYSICAL EXAMINATION: General: The patient is awake, alert. VITAL SIGNS: Afebrile, pulse 75, breathing at 16, blood pressure 132/64. HEENT: Head normocephalic and atraumatic. Eyes intact, no ulcers. Nose intact, no ulcers. Ears intact, no ulcers. Neck: Supple. No JVD. Chest: Symmetrical and clear. Cardiovascular: Shows S1 and S2, no rub, no murmur. Gastrointestinal: Abdomen is soft, bowel sounds positive. Extremities: Show no edema or ulcers. Skin: Shows no rash or petechiae. Musculoskeletal: Shows no joint swelling or stiffness. Genitourinary: Shows no Lira or CVA tenderness. Neurologic: Motor intact. Cranial nerves intact. LABS: Show hemoglobin 11.4, creatinine is 2.3. ASSESSMENT: 1. Chronic kidney disease stage 4, stable. 2. Acute kidney injury, stable. 3. Hypertension, stable. 4. Congestive heart failure, continue Lasix. 5. Medication based on glomerular filtration rate appropriate. No indication for dialysis at this time. Job ID: [id number]
[2020-05-25 11:59] VITALS: BP 133/60; TEMP 97.6
--- NOTE | 2020-05-25 12:39 | DIS ---
DATE OF ADMISSION: 05/21/2020 DATE OF DISCHARGE: 05/25/2020 DISCHARGE DIAGNOSES: 1. Acute diastolic congestive heart failure exacerbation with ejection fraction of 50% to 55%, improved. 2. Acute hypoxic respiratory failure secondarily to #1, resolved. 3. Urinary tract infection with Klebsiella pneumoniae species. 4. Acute on chronic kidney disease stage 4. 5. Status post fall. 6. Atrial fibrillation, status post AICD and cardioversion with chronic anticoagulation with Eliquis. 7. Hypothyroidism. CONSULTATIONS: Dr. Dillon with Cardiology Service. Dr. Arnold and Dr. Barajas with Nephrology Service. Dr. Braun with Neurology Service. PERTINENT LABORATORY AND X-RAY FINDINGS: Creatinine ranged between 2.27 to 2.39, estimated GFR ranged between 19 to 20. Troponin I ranged between 0.113 to 0.130. BNP 379. Magnesium level 2.1. TSH 0.41. Total cholesterol 145, triglycerides 103, HDL 55, LDL 69. CBC showed a hemoglobin ranging between 10.8 to 12.0. COVID-19 PCR not detected 05/21/2020. Urine culture dated 05/21/2020, showed greater than 100,000 colonies of Klebsiella pneumoniae species, pansensitive. Blood cultures 1/2 positive from 05/21/2020 for coagulase-negative Staph species skin contaminant. CT of the brain without contrast, no acute intracranial process. CT of the cervical spine dated 05/21/2020, showed no evidence of fracture or dislocation. Portable chest x-ray dated 05/21/2020, showed small bilateral pleural effusions and mild cardiomegaly. Pelvic radiographs dated 05/21/2020, showed no acute fracture. 2D transthoracic echocardiogram dated 05/22/2020, showed ejection fraction of 50% to 55%. Severe left atrial enlargement. Moderate aortic and tricuspid regurgitation. HOSPITAL COURSE: The patient was initially admitted after presenting status post fall in the context of chronic atrial fibrillation, on chronic anticoagulation with Eliquis. The patient underwent extensive evaluation including CT imaging of the brain showing no acute process. Radiographs of the cervical spine and pelvis also revealed no evidence of fracture. The patient was noted with mild CHF exacerbation with chest imaging showing small bilateral effusions. The patient was given IV Lasix and monitored for clinical response. The patient was also placed on supplemental oxygen at 3 L/minute by nasal cannula, tolerating without complication. The patient was evaluated by the Neurology Service without specific recommendation for any acute intervention. The patient's condition and presentation likely due to multiple comorbid conditions in addition to congestive heart failure exacerbation. The patient was evaluated by the Cardiology Service, at which point, the patient was deemed an appropriate candidate for cardioversion due to persistent atrial fibrillation. The patient underwent the procedure successfully on 05/24/2020 without complication. The patient was also concomitantly treated for urinary tract infection with Klebsiella species, receiving IV Rocephin throughout the hospital course. The patient did clinically stabilize, maintaining O2 saturations on room air in the 96% to 98% range. The patient was initially considering a potential transfer to inpatient rehabilitation due to deconditioning and fall; however, decided to pursue Home Health Services including Physical Therapy after discharge. I have examined the patient at the time of discharge and discussed followup instructions. The patient verbalizes understanding and agreement, ready for discharge on 05/25/2020. DISCHARGE MEDICATIONS: 1. Amiodarone 200 mg p.o. daily. 2. Demadex 20 mg p.o. daily. 3. Eliquis 2.5 mg p.o. b.i.d. 4. Estradiol 1 mg p.o. q.a.m. 5. Lexapro 20 mg p.o. daily. 6. Lidocaine patch one patch topically daily p.r.n. 7. Omeprazole 40 mg p.o. q.a.m. 8. Prednisone 5 mg p.o. q.a.m. 9. Levothyroxine 112 mcg two tablets p.o. daily. 10. Vitamin D3 of 5000 units p.o. daily. 11. Omnicef 300 mg p.o. daily x7 days. 12. Ativan 2 mg p.o. at bedtime. FOLLOWUP: The patient may follow up with her primary care provider, Dr. Jeffry Sheikh. The patient will follow up with Dr. Dillon with Cardiology Service. CONDITION ON DISCHARGE: Fair. ACTIVITY: Ad-kirby, rolling walker with standby assistance. DIET: Heart healthy. CODE STATUS: Full. DISPOSITION: To home with [facility], 05/25/2020. TIME SPENT: Total time preparing and coordinating discharge, 36 minutes. Job ID: [id number]
--- NOTE | 2020-05-26 11:19 | CCLSPC ---
PROCEDURE: Cardioversion. The patient was brought to the PCU in the fasting state. She was sedated by Anesthesia. She was given 200 joules direct current energy and converted to sinus rhythm. This was confirmed by the interrogating the pacemaker. INDICATION: Persistent atrial fibrillation with diastolic congestive heart failure. CONCLUSION: Successful cardioversion. COMPLICATIONS: None. Job ID: [id number]
== END 2020-05-25 13:01 | disposition home health service (06) | DRG 291 ==
LOC: ERS 07:16 → 2NO 12:46
PROVIDERS: ADMIT Family Medicine; ATTEND Family Medicine
PROC: 5A2204Z Restoration of Cardiac Rhythm, Single (ICD-10-PCS; principal; 2020-05-23)
DX: I13.0 Hypertensive heart and chronic kidney disease with heart failure and stage 1 through stage 4 chronic kidney disease, or unspecified chronic kidney disease (principal); I50.33 Acute on chronic diastolic (congestive) heart failure; J96.01 Acute respiratory failure with hypoxia; N39.0 Urinary tract infection, site not specified; N17.9 Acute kidney failure, unspecified; N18.4 Chronic kidney disease, stage 4 (severe); E27.40 Unspecified adrenocortical insufficiency; E87.2 Acidosis; I48.19 Other persistent atrial fibrillation; L03.116 Cellulitis of left lower limb; G45.9 Transient cerebral ischemic attack, unspecified; Q60.0 Renal agenesis, unilateral; Z20.828 Contact with and (suspected) exposure to other viral communicable diseases; B96.1 Klebsiella pneumoniae [K. pneumoniae] as the cause of diseases classified elsewhere; E03.9 Hypothyroidism, unspecified; D63.1 Anemia in chronic kidney disease; R68.0 Hypothermia, not associated with low environmental temperature; N28.1 Cyst of kidney, acquired; I95.1 Orthostatic hypotension; Z96.642 Presence of left artificial hip joint; I48.0 Paroxysmal atrial fibrillation; Z79.01 Long term (current) use of anticoagulants; Z95.810 Presence of automatic (implantable) cardiac defibrillator; Z95.2 Presence of prosthetic heart valve; Z90.710 Acquired absence of both cervix and uterus; Z79.890 Hormone replacement therapy; Z79.52 Long term (current) use of systemic steroids
CPT/HCPCS: 36415; 70450; 71045; 72125; 72170; 80048; 80053; 80061; 81003; 82553; 83735; 83880; 84443; 84484; 85025; 87040; 87077; 87086; 87149; 87186; 87635; 92960; 93005; 93306; 96374; J0696; J1940; J2704; J3490; J7512; U0003

== ENCOUNTER 2020-06-09 10:38 | Inpatient (IN) | payer MEDICARE, BC ==
[2020-06-09 11:31] LABS: Bilirubin Negative (Negative); Blood, Urine Negative (Negative); Glucose, Urine (Dipstick) Negative (Negative); Ketone, Urine Trace mg/dL (Negative); Leukocyte Negative (Negative); Nitrite Negative (Negative); Protein, Urine (Dipstick) Trace mg/dL (Neg-Trace); Specific Gravity, Urine 1.025 (1.005-1.030); Urobilinogen 0.2 mg/dL (Less than 2); pH, Urine 5.5 (5.0-9.0)
--- NOTE | 2020-06-09 11:43 | CT ---
Exam: CT brain PROVIDED CLINICAL HISTORY: Altered mental status COMPARISON: 05/21/2020 FINDINGS: The ventricular system is normal in size and morphology. No evidence for intracranial hemorrhage or mass effect. The extracranial soft tissues and osseous structures demonstrate no evidence for an acute abnormality. IMPRESSION: No evidence for intracranial hemorrhage or mass effect.
[2020-06-09 11:45] LABS: Clarity Hazy (Clear)
[2020-06-09 12:01] LABS: #Lymphocytes 0.5 thou/uL (1.20-3.40); #Monocytes 0.2 thou/uL (0.11-0.59); #Neutrophils 2.6 thou/uL (1.40-6.50); %Basophils 0.4 % (0.0-1.0); %Eosinophils 0.7 % (0.0-10.0); %Lymphocytes 14.5 % (21.0-51.0); %Monocytes 4.5 % (0.0-10.0); %Neutrophils 79.7 % (42.0-75.0); Burr Cells SLIGHT = 2-5 cells (100X) (0-1/hpf); Hemoglobin 12.5 g/dL (12.0-16.0); MDiff Complete? YES; Mean Corpuscular HGB CONC 32.6 g/dL (32.0-36.0); Mean Corpuscular Hemoglobin 32.6 pg (27.0-31.0); Mean Platelet Volume 9.3 fL (7.4-10.4); Ovalocytes SLIGHT = 2-5 cells (100X) (0-1/hpf); Platelet Count 109 thou/uL (130-400); Platelet Morphology Comment Appears Decreased; Polychromasia SLIGHT = 2-3 cells (100X) (0-2/hpf); Red Blood Cell (RBC) Count 3.84 mill/uL (4.20-5.40); White Blood Cell (WBC) Count 3.2 thou/uL (4.8-10.8)
--- NOTE | 2020-06-09 12:08 | RAD ---
PORTABLE CHEST: Date: 06/09/2020 HISTORY: Weakness. COMPARISON: 05/21/2020. FINDINGS: Cardiomegaly with mild vascular engorgement. There is new hazy infiltrate in the left mid and lower lung and in the right lower lung. Postop sternotomy change. Pacemaker leads are unchanged. IMPRESSION: There are new bilateral infiltrates when compared to 05/21/2020. POS: AGW
[2020-06-09] MEDS ORDERED: Acetaminophen 325 MG TAB ONE (12:22)
[2020-06-09 12:38] LABS: ALT (SGPT) 13 U/L (8-55); AST (SGOT) 38 U/L (5-34); Albumin 3.7 g/dL (3.4-4.8); Alkaline Phosphatase 86 U/L (40-110); Anion Gap 18 mmol/L (10-20); BUN (Urea Nitrogen) 38 mg/dL (9.8-20.1); Bilirubin, Total 0.7 mg/dL (0.2-1.2); CK (CPK) 119 U/L (29-168); Calc. Creatinine Clearance 0 mL/min (70-130); Calcium 8.6 mg/dL (7.8-10.44); Carbon Dioxide 20 mmol/L (23-31); Chloride 102 mmol/L (98-107); Estimated GFR-MDRD 17; Globulin 2.8 g/dL (2.4-3.5); Glucose 75 mg/dL (83-110); Lipase 243 U/L (8-78); Potassium 5.2 mmol/L (3.5-5.1); Protein, Total 6.5 g/dL (6.0-8.3); Sodium 135 mmol/L (136-145)
[2020-06-09] MEDS ORDERED: Fentanyl 100 MCG/2 ML VIAL ONE (14:06)
[2020-06-09] MEDS ORDERED: Ondansetron ODT 4 MG TAB ONE (14:06)
--- NOTE | 2020-06-09 14:33 | CT ---
CT ABDOMEN AND PELVIS WITHOUT IV CONTRAST: Date: 06/09/2020 INDICATION: Abdominal pain. Comparison made to CT abdomen and pelvis performed without IV contrast on 01/13/2019. FINDINGS: Images through the lung bases reveal small bilateral pleural effusions which are new from prior exam. There is hazy infiltrate and/or atelectasis in both lung bases, slightly more pronounced on the righ t. The liver appears unremarkable. There is a small low density lesion in the spleen measuring in the 5- 6 mm range. This was probably present on the prior exam. Spleen is upper normal size, but appears sta ble. Spleen measures up to 12.0 cm craniocaudal. Pancreas is atrophic. There is low density mass in the body of the pancreas measuring approximately 2.0 cm. This was presen t on the prior exam and appears stable. The gallbladder is mildly distended and there are numerous small partially calcified gallstones in th e neck of the gallbladder. These were present previously. Adrenal glands appear normal. There are two exophytic cysts from the lateral right kidney which were described on the prior exam an d appear stable. There is a small exophytic cyst from the lateral left renal cortex measuring 1.0 cm which was present previously. There is a cortical density suggesting cortical calcification in the an terior left renal cortex which was present previously and appears stable. No hydronephrosis. The small bowel loops are normal caliber. Colon unremarkable. Urinary bladder is mildly distended and unremarkable. Pelvic structures unremarkable. Pelvis is obscu red by artifact from the left hip prosthesis. There are degenerative changes in the spine. The vertebral bodies maintain height. IMPRESSION: 1. Small bilateral pleural effusions, new since the prior exam. Bibasilar infiltrates and/or atelect asis. 2. Tiny low density lesion in the spleen is stable. Borderline splenomegaly. 3. 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 4. Cholelithiasis is again noted. There is mild gallbladder distention. 5. Renal cystic lesions appear stable. No hydronephrosis. POS: AGW
[2020-06-09] MEDS ORDERED: Senokot S 8.6-50 MG TAB PO PRN (15:16)
[2020-06-09] MEDS ORDERED: Ondansetron PF 4 MG/2 ML Vial IVP PRN (15:16)
[2020-06-09 15:24] LABS: Troponin I 0.057 ng/mL (< 0.028)
[2020-06-09] MEDS ORDERED: Lidocaine 5% Patch TD PRN (15:38)
[2020-06-09] MEDS ORDERED: Hydrocortisone Sod Succ/PF 100 mg/2 ml Vial IVP SCH ×3 (17:45→21:00)
[2020-06-09] MEDS ORDERED: Pantoprazole 40 MG VIAL IVP SCH (18:15)
[2020-06-09 18:19] LABS: Troponin I 0.054 ng/mL (< 0.028)
[2020-06-09] MEDS ORDERED: Piperacillin/Tazobactam 3.375 GM in Sodium Chloride 0.9% 100 ML IVPB SCH (18:30)
[2020-06-09] MEDS ORDERED: Heparin 5,000 UNITS/ML VIAL SC SCH (21:00)
[2020-06-09 21:23] VITALS: BMI 21.9
[2020-06-09] MEDS: Nystatin 500,000 UNITS/5 ML UDCUP SSW SCH ×2 (23:06→23:30)
[2020-06-09] MEDS ORDERED: HYDROcodone/Acetaminophen 5/325 mg Tablet PO PRN (23:11)
[2020-06-09] MEDS: Lorazepam 1 MG TAB PO SCH (23:30)
[2020-06-09] MEDS: Acetaminophen 325 MG TAB PO PRN (23:30)
[2020-06-09] MEDS: Apixaban 2.5 MG TAB PO SCH (23:30)
[2020-06-09] MEDS: Cefepime 1 GM in Sodium Chloride 0.9% 100 ML IVPB SCH (23:30)
--- NOTE | 2020-06-10 00:34 | HP ---
CHIEF COMPLAINT: Generalized weakness. HISTORY OF PRESENT ILLNESS: The patient is an 85-year-old female, who was just discharged from the hospital, who presents back to the hospital with complaints of generalized weakness going on for the past week, worsening for the past few days. The patient states that normally she ambulates with a walker, however, has been unable to do so for the past few days. She denies any fevers or chills. She states that she has not been really eating very much for the past week. The patient denies any chest pain or chest tightness. She states that she has been taking all her medications. She denies any dark stools, nausea, vomiting, or diarrhea. Last time, the patient was discharged from the hospital, which was on May 25. She was discharged with diastolic heart failure and respiratory failure. She was [facility] be [facility] facility; however, patient refused. The patient states that since she has been discharged from the hospital, she has been having some sputum production, which has been greenish in color. However, states that today, she does not have any more sputum production. PAST MEDICAL HISTORY: She has atrial fibrillation, on Eliquis; heart failure; chronic kidney disease; congenital absence of kidney; adrenal insufficiency; lymphedema; hyperlipidemia; hypertension. PAST SURGICAL HISTORY: She has had a history of left hip replacement, AICD, mitral valve repair, oophorectomy, hysterectomy. FAMILY HISTORY: No history of heart disease or stroke. SOCIAL HISTORY: She never smoked. Does not drink any alcohol or drug use. She lives independent. She is a full code. REVIEW OF SYSTEMS: All negative, except for the ones mentioned above in the HPI. PHYSICAL EXAMINATION: VITAL SIGNS: Temperature 97.6, 75, 18, 95% on room air, 133/60. GENERAL: She is awake, alert, and oriented x3. Does not appear in distress. CV: S1 and S2 present. LUNGS: She has some crackles to bilateral lung bases. ABDOMEN: Soft. Mild tenderness to epigastric area otherwise. Bowel sounds are present x2. EXTREMITIES: She does have lower extremity pitting edema 1-2 and also has chronic venous changes. NEUROVASCULAR: No focal deficits noted. HEENT: She has significant oral thrush in her mouth. SKIN: She has a bruise to her left eyelid area and also bruises to her lower extremities. DIAGNOSTIC DATA: EKG, no ST elevation or depression noted. She did have a CT of abdomen and pelvis, which indicated a small bilateral pleural effusion which is new since prior exam. Bibasilar infiltrates and atelectasis. Tiny low-density lesion to the spleen, borderline splenomegaly, 2.0 cm low-density mass in the body of the pancreas is stable. Cholelithiasis is again noted. There is some mild gallbladder distention and renal cyst lesion appears stable. No hydronephrosis. She also had a chest x-ray and a CT head. Chest x-ray shows new bilateral bibasilar infiltrates and CT brain indicates no evidence of intracranial hemorrhage. ASSESSMENT AND PLAN: The patient is a very pleasant 85-year-old female, who presents to the hospital with multiple complaints. 1. Generalized weakness could be secondary to healthcare-acquired pneumonia or hospital-acquired pneumonia. The patient recently got discharged from the hospital. She had some symptoms of generalized weakness, cough. She also has leukopenia. We will start the patient on some antibiotics for now. Her COVID test is ordered is pending. She did have a BNP, which was mildly elevated. The patient did undergo cardioversion during her last visit for atrial fibrillation. The patient currently is in sinus. Unclear at this time her generalized weakness could be multifactorial. She has also not been eating or drinking very much. She looks very deconditioned. 2. Protein-calorie malnutrition, moderate, probably. She states that she has not been eating for the past week. We will start her on some Ensure. I will start her on some nystatin for her oral thrush. She denies any pain during swallowing to me. 3. Elevated lipase. We did do a CT and her C-reactive protein was mildly elevated. I do not think she has pancreatitis. I will go ahead and start feeding her. CT did not show any pancreatic inflammation. This could be possible secondary to gastritis. Also, she is on Eliquis and she has been taking her medications with no oral intake. I will start her on Protonix IV and we will continue to monitor her. Her H and H are stable. However, this could be a little bit of dehydration. 4. Atrial fibrillation. We will continue her Eliquis for now. 5. Hyperkalemia. Again, we will recheck labs to see if that has improved. 6. Mildly elevated troponins. This could most likely secondary to be demand related, type 2. We will continue to trend them. She just recently had an echocardiogram, which indicated an EF of 50% to 55%, with left atrium severely dilated with [id number] aortic regurgitation. 7. Deep venous thrombosis prophylaxis. The patient is already on Eliquis. We will continue that. Job ID: [id number]
[2020-06-10] MEDS: Lidocaine Patch Removal 1 EACH TOP SCH ×3 (01:12→21:10)
[2020-06-10] MEDS: Hydrocortisone Sod Succ/PF 100 mg/2 ml Vial IVP SCH ×3 (03:08→20:49)
[2020-06-10] MEDS: Piperacillin/Tazobactam 2.25 GM in Sodium Chloride 0.9% 100 ML IVPB SCH ×5 (03:11→23:18)
[2020-06-10] MEDS: Levothyroxine Sodium 112 MCG TAB PO SCH (06:18)
[2020-06-10] MEDS: Escitalopram Oxalate 20 mg Tablet PO SCH (09:44)
[2020-06-10] MEDS: Nystatin 500,000 UNITS/5 ML UDCUP SSW SCH ×4 (09:45→20:48)
[2020-06-10] MEDS: Amiodarone 200 MG TAB PO SCH (09:45)
[2020-06-10] MEDS: Apixaban 2.5 MG TAB PO SCH ×2 (09:46→20:48)
[2020-06-10] MEDS: Pantoprazole 40 MG VIAL IVP SCH (09:47)
[2020-06-10 10:11] LABS: SARS-CoV-2 NAA Rapid Test DETECTED (NotDetected)
--- NOTE | 2020-06-10 15:39 | PDOC.HOSPP ---
- Subjective Encounter Date: 06/10/20 Subjective: The patient still intermittently febrile. She is complaining of shortness of breath. - Objective Vital Signs & Weight: Vital Signs (12 hours) Temp Pulse Pulse Pulse Resp BP BP 06/10/20 14:05 75 77 135/64 133/62 06/10/20 12:43 98.5 F 75 20 06/10/20 09:45 97.9 F 75 24 H 06/10/20 03:54 97.6 F 75 22 H BP Pulse Ox Pulse Ox Pulse Ox 06/10/20 14:05 96 95 06/10/20 12:43 139/60 100 06/10/20 09:45 150/67 H 98 06/10/20 03:54 133/63 99 Weight Weight 144 lb 6.4 oz I&O: 06/09/20 06/10/20 06/11/20 06:59 06:59 06:59 Intake Total 840 Balance 840 Result Diagrams: 06/09/20 11:15 06/09/20 11:15 Hospitalist ROS - Medication Medications: Active Medications Generic Name Dose Route Start Last Admin Trade Name Freq PRN Reason Stop Dose Admin Acetaminophen 650 mg 06/09/20 15:16 06/09/20 23:30 Acetaminophen 325 Mg Tab PO 650 mg Q6H PRN Administration Headache/Fever/Mild Pain (1-3) Amiodarone HCl 200 mg 06/10/20 09:00 06/10/20 09:45 Amiodarone 200 Mg Tab PO 200 mg DAILY CHASTITY Administration Apixaban 2.5 mg 06/09/20 21:00 06/10/20 09:46 Apixaban 2.5 Mg Tab PO 2.5 mg BID CHASTITY Administration Escitalopram Oxalate 20 mg 06/10/20 09:00 06/10/20 09:44 Escitalopram Oxalate 20 Mg Tablet PO 20 mg DAILY CHASTITY Administration Hydrocortisone Sodium Succinate 25 mg 06/09/20 21:00 06/10/20 09:47 Hydrocortisone Sod Succ/Pf 100 Mg/2 Ml Vial IVP 25 mg BID CHASTITY Administration Piperacillin Sod/Tazobactam 100 mls @ 200 mls/hr 06/09/20 23:59 06/10/20 12:42 Sod 2.25 gm/ Sodium Chloride IVPB 100 mls Q6HR CHASTITY Administration Cefepime HCl 1 gm/ Sodium 100 mls @ 200 mls/hr 06/09/20 23:00 06/09/20 23:30 Chloride IVPB 100 mls 2300 CHASTITY Administration Levothyroxine Sodium 224 mcg 06/10/20 06:00 06/10/20 06:18 Levothyroxine Sodium 112 Mcg Tab PO 224 mcg 0600 CHASTITY Administration Lorazepam 2 mg 06/09/20 21:00 06/09/20 23:30 Lorazepam 1 Mg Tab PO 2 mg HS CHASTITY Administration Miscellaneous Medication 1 each 06/09/20 21:00 06/10/20 09:49 Lidocaine Patch Removal 1 Each TOP Not Given Q12HR CHASTITY Nystatin 500,000 units 06/09/20 17:00 06/10/20 12:42 Nystatin 500,000 Units/5 Ml Udcup SSW 500,000 units QID CHASTITY Administration Pantoprazole Sodium 40 mg 06/10/20 09:00 06/10/20 09:46 Pantoprazole 40 Mg Tab PO 40 mg QAM CHASTITY Administration Pantoprazole Sodium 40 mg 06/10/20 09:00 06/10/20 09:47 Pantoprazole 40 Mg Vial IVP Not Given DAILY CHASTITY - Exam General Appearance: awake alert ENT: normocephalic atraumatic Neck: supple, no JVD Heart: RRR Respiratory: normal chest expansion, no tachypnea Gastrointestinal: soft, non-tender Neurological: cranial nerve grossly intact, no focal deficits Hosp A/P (1) Pneumonia due to COVID-19 virus Code(s): U07.1 - COVID-19; J12.89 - OTHER VIRAL PNEUMONIA Status: Acute (2) Elevated troponin Code(s): R74.8 - ABNORMAL LEVELS OF OTHER SERUM ENZYMES Status: Acute (3) CKD (chronic kidney disease), stage IV Code(s): N18.4 - CHRONIC KIDNEY DISEASE, STAGE 4 (SEVERE) Status: Chronic (4) Paroxysmal A-fib Code(s): I48.0 - PAROXYSMAL ATRIAL FIBRILLATION Status: Chronic - Plan The patient is not hypoxic at rest. She is still have subjective shortness of breath and fevers are present. She is not a candidate for remdesivir due to chronic kidney disease. Elevated troponin is likely due to demand ischemia. Check CBC and BMP in the a.m. If the patient remained stable for the next 24 hours without hypoxia, she can probably be discharged safely.
[2020-06-10] MEDS: Lorazepam 1 MG TAB PO SCH (20:48)
[2020-06-10] MEDS: Cefepime 1 GM in Sodium Chloride 0.9% 100 ML IVPB SCH (22:39)
[2020-06-11 05:03] LABS: #Lymphocytes 0.3 thou/uL (1.20-3.40); #Monocytes 0.2 thou/uL (0.11-0.59); #Neutrophils 1.7 thou/uL (1.40-6.50); %Eosinophils 0.2 % (0.0-10.0); %Lymphocytes 12.5 % (21.0-51.0); %Monocytes 8.2 % (0.0-10.0); %Neutrophils 79.1 % (42.0-75.0); Hemoglobin 11.8 g/dL (12.0-16.0); Mean Corpuscular HGB CONC 33.4 g/dL (32.0-36.0); Mean Corpuscular Hemoglobin 33.7 pg (27.0-31.0); Mean Platelet Volume 8.6 fL (7.4-10.4); Platelet Count 101 thou/uL (130-400); RBC Distribution Width 13.9 % (11.5-14.5); Red Blood Cell (RBC) Count 3.51 mill/uL (4.20-5.40); White Blood Cell (WBC) Count 2.2 thou/uL (4.8-10.8)
[2020-06-11 05:13] LABS: Anion Gap 15 mmol/L (10-20); BUN (Urea Nitrogen) 35 mg/dL (9.8-20.1); Calc. Creatinine Clearance 20 mL/min (70-130); Calcium 7.7 mg/dL (7.8-10.44); Carbon Dioxide 18 mmol/L (23-31); Chloride 106 mmol/L (98-107); Estimated GFR-MDRD 22; Glucose 115 mg/dL (83-110); Potassium 3.9 mmol/L (3.5-5.1); Sodium 135 mmol/L (136-145)
[2020-06-11] MEDS: Levothyroxine Sodium 112 MCG TAB PO SCH (05:40)
[2020-06-11] MEDS: Piperacillin/Tazobactam 2.25 GM in Sodium Chloride 0.9% 100 ML IVPB SCH ×2 (05:41→12:50)
[2020-06-11] MEDS: Amiodarone 200 MG TAB PO SCH (11:07)
[2020-06-11] MEDS: Apixaban 2.5 MG TAB PO SCH ×2 (11:07→20:22)
[2020-06-11] MEDS: Nystatin 500,000 UNITS/5 ML UDCUP SSW SCH ×4 (11:08→20:23)
[2020-06-11] MEDS: Escitalopram Oxalate 20 mg Tablet PO SCH (11:08)
[2020-06-11] MEDS: Hydrocortisone Sod Succ/PF 100 mg/2 ml Vial IVP SCH (11:11)
[2020-06-11] MEDS: Pantoprazole 40 MG VIAL IVP SCH (11:11)
[2020-06-11] MEDS: Lidocaine Patch Removal 1 EACH TOP SCH ×2 (11:11→20:23)
[2020-06-11] MEDS ORDERED: Non-Formulary Item 1 EACH (Cholecalciferol (Vitamin D3) [Vitamin D] 1000 UNIT Capsule) PO SCH (12:19)
[2020-06-11] MEDS ORDERED: Cholecalciferol 1,000 UNITS (25 MCG) TAB PO SCH (12:30)
--- NOTE | 2020-06-11 13:15 | EKG ---
Test Reason : Blood Pressure : / mmHG Vent. Rate : 095 BPM Atrial Rate : 097 BPM P-R Int : 000 ms QRS Dur : 176 ms QT Int : 450 ms P-R-T Axes : 000 266 056 degrees QTc Int : 565 ms Ventricular-paced rhythm Abnormal ECG Confirmed by EVELYN JEAN DO ([id number]), editor managing newspaper RAMIRO MURRAY ([id number]) on 06/11/2020 1:14:23 PM Referred By: Confirmed By:EVELYN JEAN DO
--- NOTE | 2020-06-11 15:15 | PDOC.HOSPP ---
- Subjective Subjective: Pt remains on room air. no fever. denies any chest pain. spoke with her daughter on the phone - Objective Vital Signs & Weight: Vital Signs (12 hours) Temp Pulse Resp BP Pulse Ox 06/11/20 13:15 97.7 F 75 18 141/67 H 95 06/11/20 08:37 98.4 F 75 18 143/65 H 95 06/11/20 03:45 97.9 F 77 16 133/63 94 L Weight Weight 145 lb I&O: 06/10/20 06/11/20 06/12/20 06:59 06:59 06:59 Intake Total 840 440 Balance 840 440 Result Diagrams: 06/11/20 04:33 06/11/20 04:33 Radiology Reviewed by me: Yes EKG Reviewed by me: Yes Hospitalist ROS - Medication Medications: Active Medications Generic Name Dose Route Start Last Admin Trade Name Freq PRN Reason Stop Dose Admin Acetaminophen 650 mg 06/09/20 15:16 06/09/20 23:30 Acetaminophen 325 Mg Tab PO 650 mg Q6H PRN Administration Headache/Fever/Mild Pain (1-3) Amiodarone HCl 200 mg 06/10/20 09:00 06/11/20 11:07 Amiodarone 200 Mg Tab PO 200 mg DAILY CHASTITY Administration Apixaban 2.5 mg 06/09/20 21:00 06/11/20 11:07 Apixaban 2.5 Mg Tab PO 2.5 mg BID CHASTITY Administration Escitalopram Oxalate 20 mg 06/10/20 09:00 06/11/20 11:08 Escitalopram Oxalate 20 Mg Tablet PO 20 mg DAILY CHASTITY Administration Levothyroxine Sodium 224 mcg 06/10/20 06:00 06/11/20 05:40 Levothyroxine Sodium 112 Mcg Tab PO 224 mcg 0600 CHASTITY Administration Lorazepam 2 mg 06/09/20 21:00 06/10/20 20:48 Lorazepam 1 Mg Tab PO 2 mg HS CHASTITY Administration Miscellaneous Medication 1 each 06/09/20 21:00 06/11/20 11:11 Lidocaine Patch Removal 1 Each TOP Not Given Q12HR CHASTITY Nystatin 500,000 units 06/09/20 17:00 06/11/20 11:08 Nystatin 500,000 Units/5 Ml Udcup SSW 500,000 units QID CHASTITY Administration Pantoprazole Sodium 40 mg 06/10/20 09:00 06/11/20 11:08 Pantoprazole 40 Mg Tab PO 40 mg QAM CHASTITY Administration Pantoprazole Sodium 40 mg 06/10/20 09:00 06/11/20 11:11 Pantoprazole 40 Mg Vial IVP Not Given DAILY CHASTITY - Exam General Appearance: NAD Eye: PERRL ENT: normocephalic atraumatic Neck: supple Heart: RRR Respiratory: CTAB Gastrointestinal: soft Skin: normal turgor Musculoskeletal: normal tone Psychiatric: normal affect, normal behavior Hosp A/P - Plan COVID-19 Pneumonia --cont steroid. will d/c IV abx. --sating well on room air. possible d/c tomorrow if cont to do well Elevated troponin - mild. level insignificant in setting of CKD and lack of cardiac symptoms --monitor CKD IV --Cr table, follow BMP PAF --NSR, cont Eliquis, and Amio
[2020-06-11] MEDS: Lorazepam 1 MG TAB PO SCH (20:23)
[2020-06-12 04:52] LABS: #Lymphocytes 0.5 thou/uL (1.20-3.40); #Monocytes 0.2 thou/uL (0.11-0.59); #Neutrophils 2.9 thou/uL (1.40-6.50); %Eosinophils 0.3 % (0.0-10.0); %Lymphocytes 14.3 % (21.0-51.0); %Monocytes 5.3 % (0.0-10.0); Hemoglobin 11.7 g/dL (12.0-16.0); Mean Corpuscular HGB CONC 33.7 g/dL (32.0-36.0); Mean Platelet Volume 8.5 fL (7.4-10.4); Platelet Count 117 thou/uL (130-400); RBC Distribution Width 13.9 % (11.5-14.5); Red Blood Cell (RBC) Count 3.44 mill/uL (4.20-5.40); White Blood Cell (WBC) Count 3.7 thou/uL (4.8-10.8)
[2020-06-12 05:04] LABS: Anion Gap 14 mmol/L (10-20); BUN (Urea Nitrogen) 31 mg/dL (9.8-20.1); Calc. Creatinine Clearance 23 mL/min (70-130); Carbon Dioxide 19 mmol/L (23-31); Chloride 106 mmol/L (98-107); Estimated GFR-MDRD 26; Glucose 87 mg/dL (83-110); Potassium 3.6 mmol/L (3.5-5.1); Sodium 135 mmol/L (136-145)
[2020-06-12] MEDS: Levothyroxine Sodium 112 MCG TAB PO SCH (05:10)
[2020-06-12] MEDS: Acetaminophen 325 MG TAB PO PRN (05:10)
[2020-06-12] MEDS ORDERED: Dexamethasone 4 mg/ml Vial SLOW IVP SCH (09:00)
[2020-06-12] MEDS: Apixaban 2.5 MG TAB PO SCH ×2 (09:10→20:11)
[2020-06-12] MEDS: Amiodarone 200 MG TAB PO SCH (09:10)
[2020-06-12] MEDS: Escitalopram Oxalate 20 mg Tablet PO SCH (09:10)
[2020-06-12] MEDS: Nystatin 500,000 UNITS/5 ML UDCUP SSW SCH ×4 (09:10→20:11)
[2020-06-12] MEDS: Cholecalciferol 1,000 UNITS (25 MCG) TAB PO SCH (09:10)
[2020-06-12] MEDS: Lidocaine Patch Removal 1 EACH TOP SCH (09:11)
[2020-06-12] MEDS: Pantoprazole 40 MG VIAL IVP SCH (09:11)
[2020-06-12] MEDS ORDERED: Dexamethasone 4 MG TAB PO SCH ×2 (10:01→10:15)
[2020-06-12] MEDS ORDERED: Loperamide HCl 2 MG CAP PO PRN (12:14)
--- NOTE | 2020-06-12 12:17 | PDOC.HOSPP ---
- Subjective Subjective: Patient was seen examined at bedside. Patient has been maintaining her O2 sat between 91-93% on room air. She had some minimal dyspnea with exertion. Otherwise no fever - Objective Vital Signs & Weight: Vital Signs (12 hours) Temp Pulse Resp BP Pulse Ox 06/12/20 11:34 97.9 F 75 22 H 127/62 94 L 06/12/20 09:09 98.3 F 75 20 145/65 H 93 L 06/12/20 05:11 93 L 06/12/20 03:30 98.8 F 75 18 136/64 91 L Weight Weight 137 lb 4.8 oz I&O: 06/11/20 06/12/20 06/13/20 06:59 06:59 06:59 Intake Total 440 130 Balance 440 130 Result Diagrams: 06/12/20 04:37 06/12/20 04:37 Radiology Reviewed by me: Yes EKG Reviewed by me: Yes Hospitalist ROS - Medication Medications: Active Medications Generic Name Dose Route Start Last Admin Trade Name Freq PRN Reason Stop Dose Admin Acetaminophen 650 mg 06/09/20 15:16 06/12/20 05:10 Acetaminophen 325 Mg Tab PO 650 mg Q6H PRN Administration Headache/Fever/Mild Pain (1-3) Amiodarone HCl 200 mg 06/10/20 09:00 06/12/20 09:10 Amiodarone 200 Mg Tab PO 200 mg DAILY CHASTITY Administration Apixaban 2.5 mg 06/09/20 21:00 06/12/20 09:10 Apixaban 2.5 Mg Tab PO 2.5 mg BID CHASTITY Administration Cholecalciferol 5,000 units 06/12/20 09:00 06/12/20 09:10 Cholecalciferol 1,000 Units (25 Mcg) Tab PO 5,000 units DAILY CHASTITY Administration Escitalopram Oxalate 20 mg 06/10/20 09:00 06/12/20 09:10 Escitalopram Oxalate 20 Mg Tablet PO 20 mg DAILY CHASTITY Administration Levothyroxine Sodium 224 mcg 06/10/20 06:00 06/12/20 05:10 Levothyroxine Sodium 112 Mcg Tab PO 224 mcg 0600 CHASTITY Administration Lorazepam 2 mg 06/09/20 21:00 06/11/20 20:23 Lorazepam 1 Mg Tab PO 2 mg HS CHASTITY Administration Nystatin 500,000 units 06/09/20 17:00 06/12/20 09:10 Nystatin 500,000 Units/5 Ml Udcup SSW 500,000 units QID CHASTITY Administration Pantoprazole Sodium 40 mg 06/10/20 09:00 06/12/20 09:11 Pantoprazole 40 Mg Tab PO 40 mg QAM CHASTITY Administration Pantoprazole Sodium 40 mg 06/10/20 09:00 06/12/20 09:11 Pantoprazole 40 Mg Vial IVP Not Given DAILY CHASTITY - Exam General Appearance: NAD Eye: PERRL ENT: normocephalic atraumatic Neck: supple Heart: RRR Respiratory: CTAB Gastrointestinal: soft Extremities: no cyanosis Skin: normal turgor, no lesions Neurological: cranial nerve grossly intact Musculoskeletal: normal tone Psychiatric: normal affect, normal behavior, A&O x 3 Hosp A/P - Plan COVID-19 Pneumonia --she is slightly hypoxia with O2 sat around 91-93% on room air. --change Decadron to PO, and observe her one more day. If stable, home in AM Elevated troponin - mild. level insignificant in setting of CKD and lack of cardiac symptoms --monitor CKD IV --Cr table, follow BMP PAF --NSR, cont Eliquis, and Amio
[2020-06-12] MEDS: Lorazepam 1 MG TAB PO SCH (20:11)
[2020-06-13] MEDS: Levothyroxine Sodium 112 MCG TAB PO SCH (04:50)
[2020-06-13 05:30] LABS: Anion Gap 13 mmol/L (10-20); BUN (Urea Nitrogen) 29 mg/dL (9.8-20.1); Calc. Creatinine Clearance 25 mL/min (70-130); Calcium 7.8 mg/dL (7.8-10.44); Carbon Dioxide 19 mmol/L (23-31); Chloride 107 mmol/L (98-107); Estimated GFR-MDRD 30; Glucose 123 mg/dL (83-110); Sodium 135 mmol/L (136-145)
[2020-06-13 06:31] LABS: Band 11 % (5-11); Lymphocytes 22 % (21-51); MDiff Complete? YES; Mean Corpuscular HGB CONC 34.2 g/dL (32.0-36.0); Mean Corpuscular Hemoglobin 33.9 pg (27.0-31.0); Mean Corpuscular Volume 99.4 fL (78.0-98.0); Mean Platelet Volume 8.8 fL (7.4-10.4); Monocytes 9 % (0-10); Neutrophil 58 % (42-75); Nucleated RBC 1 % (0); Platelet Count 106 thou/uL (130-400); Platelet Morphology Comment Appears Decreased; RBC Distribution Width 13.9 % (11.5-14.5); Red Blood Cell (RBC) Count 3.53 mill/uL (4.20-5.40); White Blood Cell (WBC) Count 1.5 thou/uL (4.8-10.8)
[2020-06-13] MEDS ORDERED: Dexamethasone 4 MG TAB PO SCH (08:00)
[2020-06-13] MEDS: Amiodarone 200 MG TAB PO SCH (09:09)
[2020-06-13] MEDS: Cholecalciferol 1,000 UNITS (25 MCG) TAB PO SCH (09:10)
[2020-06-13] MEDS: Escitalopram Oxalate 20 mg Tablet PO SCH (09:10)
[2020-06-13] MEDS: Nystatin 500,000 UNITS/5 ML UDCUP SSW SCH ×2 (09:10→12:19)
[2020-06-13] MEDS: Apixaban 2.5 MG TAB PO SCH (09:10)
[2020-06-13] MEDS: Pantoprazole 40 MG VIAL IVP SCH (09:11)
[2020-06-13 12:49] VITALS: BP 124/58; TEMP 97.3
--- NOTE | 2020-06-13 14:52 | PDOC.HOSPP ---
- Subjective Subjective: pt remains on room air. she is concerned about go home because her daughter also sick as well, no one stay with her at night. will consult CM to explore other option if pt is not able to go home with HH - Objective Vital Signs & Weight: Vital Signs (12 hours) Temp Pulse Resp BP Pulse Ox 06/13/20 12:15 97.3 F L 75 20 124/58 L 94 L 06/13/20 09:45 98 F 79 20 154/70 H 94 L 06/13/20 05:15 97.8 F 75 19 145/67 H 93 L Weight Weight 134 lb 9 oz I&O: 06/12/20 06/13/20 06/14/20 06:59 06:59 06:59 Intake Total 130 790 120 Balance 130 790 120 Result Diagrams: 06/13/20 04:58 06/13/20 04:58 Radiology Reviewed by me: Yes EKG Reviewed by me: Yes Hospitalist ROS - Medication Medications: Active Medications Generic Name Dose Route Start Last Admin Trade Name Freq PRN Reason Stop Dose Admin Acetaminophen 650 mg 06/09/20 15:16 06/12/20 05:10 Acetaminophen 325 Mg Tab PO 650 mg Q6H PRN Administration Headache/Fever/Mild Pain (1-3) Amiodarone HCl 200 mg 06/10/20 09:00 06/13/20 09:09 Amiodarone 200 Mg Tab PO 200 mg DAILY CHASTITY Administration Apixaban 2.5 mg 06/09/20 21:00 06/13/20 09:10 Apixaban 2.5 Mg Tab PO 2.5 mg BID CHASTITY Administration Cholecalciferol 5,000 units 06/12/20 09:00 06/13/20 09:10 Cholecalciferol 1,000 Units (25 Mcg) Tab PO 5,000 units DAILY CHASTITY Administration Dexamethasone 6 mg 06/13/20 08:00 06/13/20 09:09 Dexamethasone 4 Mg Tab PO 6 mg QAM-WM CHASTITY Administration Escitalopram Oxalate 20 mg 06/10/20 09:00 06/13/20 09:10 Escitalopram Oxalate 20 Mg Tablet PO 20 mg DAILY CHASTITY Administration Levothyroxine Sodium 224 mcg 06/10/20 06:00 06/13/20 04:50 Levothyroxine Sodium 112 Mcg Tab PO 224 mcg 0600 CHASTITY Administration Loperamide HCl 2 mg 06/12/20 12:14 06/12/20 12:21 Loperamide Hcl 2 Mg Cap PO 2 mg PRN PRN Administration Diarrhea/Loose Stools Lorazepam 2 mg 06/09/20 21:00 06/12/20 20:11 Lorazepam 1 Mg Tab PO 2 mg HS CHASTITY Administration Nystatin 500,000 units 06/09/20 17:00 06/13/20 12:19 Nystatin 500,000 Units/5 Ml Udcup SSW 500,000 units QID CHASTITY Administration Pantoprazole Sodium 40 mg 06/10/20 09:00 06/13/20 09:10 Pantoprazole 40 Mg Tab PO 40 mg QAM CHASTITY Administration Pantoprazole Sodium 40 mg 06/10/20 09:00 06/13/20 09:11 Pantoprazole 40 Mg Vial IVP Not Given DAILY CHASTITY - Exam General Appearance: NAD Eye: PERRL ENT: normocephalic atraumatic Neck: supple, JVD Heart: RRR Respiratory: CTAB Gastrointestinal: soft Skin: normal turgor Neurological: cranial nerve grossly intact Musculoskeletal: normal tone Hosp A/P - Plan COVID-19 Pneumonia --remains on room air --transitioned Decadron to PO --consult CM to explore other options as she is unable to go home Elevated troponin - mild. level insignificant in setting of CKD and lack of cardiac symptoms --monitor CKD IV --Cr table, follow BMP PAF --NSR, cont Eliquis, and Amio
--- NOTE | 2020-06-13 15:15 | PDOC.DS.DS ---
Provider - Provider Date of Admission: 06/09/20 14:23 Date of Discharge: 06/13/20 Admitting Provider: Milena Hernandez MD Consultations: None Primary Care Physician: Jeffry Sheikh MD Course - Hospital Course Hospital Course: DISCHARGE DIAGNOSES: 1. COVID-19 pneumonia 2. Elevated troponin, mild secondary to above, in settings of CKD 3. CKD stage IV 4. Paroxysmal atrial fib 5. Moderate protein calorie malnutrition, POA HISTORY OF PRESENT ILLNESS AND BRIEF HOSPITAL COURSE: The patient is a very pleasant 85 years old female, who has significant past medical historyof atrial fib on Eliquis for stroke prophylaxis, chronic heart failure, CKD stage IV, dyslipidemia, hypertension, who was recently discharged from the hospital, who presented to ED with complaint of generalized weakness going on for the past week. Initial work-up in ED, found that she had a bilateral infiltrates. Covid PCR came back positive. Patient was started on Decadron. She remained on room air, and satting well in the mid 90%. She did not require any oxygen. She has been up and ambulate around with a walker. She remains afebrile. At this time, patient is medically stable for discharge. It should be noted, on her last admission, she was discharged from the hospital on May 25 for CHF exac, at that time it was recommended to discharge to care home home facility; however, patient refused. She is again refused care home facility/swing bed at this time. building manager was consulted to arrange home health. PERTINENT IMAGING STUDIES: CT abdomen pelvic: Small bilateral pleural effusion. Tiny low-density lesions in the spleen stable. 2 cm low-density mass in the body of pancreas stable. Cholelithiasis is again noted. Brain CT: No evidence of intracranial hemorrhage or mass-effect. Chest x-ray: New bibasilar infiltrate when compared to 05/21/2020 PROCEDURE PERFORMED: NONE DISCHARGE CONDITION: STABLE DISPOSITION: HOME with HH, pt declined SNF/swing bed PHYSICAL EXAM: General Appearance: Alert, oriented, resting comfortably, no apparent distress, well developed/nourished. HEENT: Normocephalic/atraumatic, moist mucous membrane, normal ENT inspection, normal tones. PERRLA, no scleral icterus, normal conjunctiva Neck: Supple, normal inspection, no JVD Respiratory: Lungs are clear bilaterally, normal breath sounds, no accessory muscle use Cardiovascular: Regular rate, regular rhythm, no murmur, no rubs Abdomen: Soft, nontender, nondistended, normal bowel sounds, no organomegaly, no guarding no rebound Back: Normal inspection, no CVA tenderness Extremities: No clubbing, no cyanosis, no edema Psych/Mental Status: Normal affect, speech, non-pressured, AAO x 3 Neurologic: CN II-XII are intact. Skin: Warm/Dry, Normal Color, no rashes DISCHARGE TIME SPENT: >30 MINUTES Resuscitation Status: 06/09/20 15:16 Resuscitation Status Routine Resuscitation Status: FULL: Full Resuscitation - Labs Lab Results: 06/13/20 04:58 06/13/20 04:58 Abnormal Lab Results - Last 48 hrs 06/12/20 04:37: Sodium 135 L, Carbon Dioxide 19 L, BUN 31 H, Creatinine 1.84 H 06/12/20 04:37: WBC 3.7 L, RBC 3.44 L, Hgb 11.7 L, Hct 34.7 L, MCV 101.0 H, MCH 34.0 H, Plt Count 117 L, Neutrophils % 80.0 H, Lymphocytes % 14.3 L, Lymphocytes # 0.5 L 06/12/20 04:37: C-Reactive Protein 1.40 H 06/13/20 04:58: Sodium 135 L, Carbon Dioxide 19 L, BUN 29 H, Creatinine 1.62 H 06/13/20 04:58: WBC 1.5 L, RBC 3.53 L, Hct 35.1 L, MCV 99.4 H, MCH 33.9 H, Plt Count 106 L, Nucleated RBCs # (Man) 1 H, Plt Morphology Comment Appears Decreased L 06/13/20 04:58: C-Reactive Protein 2.52 H Microbiology - Entire Visit 06/09/20 14:39 Venous blood - Left Hand Blood Culture - Preliminary NO GROWTH AT 48 HOURS 06/09/20 14:47 Venous blood - Right Arm Blood Culture - Preliminary NO GROWTH AT 48 HOURS - Physical Exam Vitals: Vital Signs (12 hours) Temp Pulse Resp BP Pulse Ox 06/13/20 12:15 97.3 F L 75 20 124/58 L 94 L 06/13/20 09:45 98 F 79 20 154/70 H 94 L 06/13/20 05:15 97.8 F 75 19 145/67 H 93 L Weight Weight 134 lb 9 oz Physical Exam: The patient was seen and examined on the day of discharge. Plan - Discharge Medications Prescriptions: predniSONE 10 mg PO QAM-WM #30 tab Home Medications: Medication Instructions Recorded Confirmed Type Estradiol 1 mg PO QAM 02/21/13 06/09/20 History Lidocaine [Lidocaine 5% Patch] 1 patch TOP PRN PRN 09/30/13 06/09/20 History Lorazepam [Ativan] 2 mg PO HS 09/30/13 06/09/20 History predniSONE 5 mg PO QAM-WM 09/23/15 06/09/20 History Apixaban [Eliquis] 2.5 mg PO BID 11/04/15 06/09/20 History Esomeprazole Magnesium [NexIUM] 40 mg PO QAM 04/24/17 06/09/20 History Promethazine [Phenergan] 25 mg PO Q6HR PRN 04/24/17 06/09/20 History HYDROcodone Bit/APAP 5/325 [[place]] 1 tab PO Q4H PRN #0 tab 07/23/17 06/09/20 Rx Escitalopram Oxalate [Lexapro] 20 mg PO DAILY 04/06/18 06/09/20 History Levothyroxine Sodium [Synthroid] 2 tab PO DAILY 04/06/18 06/09/20 History Torsemide [Demadex] 20 mg PO DAILY PRN 04/06/18 06/09/20 History Cholecalciferol (Vitamin D3) 5,000 units PO DAILY 05/21/20 06/09/20 History [Vitamin D] Amiodarone HCl 200 mg PO DAILY 06/13/20 06/13/20 History predniSONE 10 mg PO QAM-WM #30 tab 06/13/20 Rx Allergies: clindamycin Allergy (Severe, Verified 06/09/20 21:15) Anaphylaxis FROM ESD REPORT methylprednisolone [From Solu-Medrol] Allergy (Severe, Verified 06/10/20 01:18) "I felt really bad" Per pt - Discharge Instructions Discharge Instructions:: Please complete the course of taper 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
--- NOTE | 2020-06-15 11:47 | PQF ---
CLINICAL DOCUMENTATION CLARIFICATION FORM: Dear : Abelino Arthur MD Date / Time: 06/15/2020 Please exercise your independent, professional judgment in responding to the clarification form. Clinical indicators are provided on the bottom of this form for your review Please check appropriate box(es): HEART FAILURE: A. ACUITY [ ] Acute [ X] Acute on Chronic [ X] Chronic B. TYPE: [X ] Systolic / HFrEF [ ] Diastolic / HFpEF [ ] Combined Systolic / Diastolic [ ] Hypertensive Heart and Kidney disease [ ] Hypertensive Heart Disease [ ] Hypertensive Kidney Disease [ ] Other diagnosis (Please specify if any) [ ] Unable to determine In addition, please specify: Present on Admission (POA): [ X ] Yes [ ] No [ ] Unable to determine Physician Signature: Date/Time: For continuity of documentation, please document condition throughout progress notes and discharge summary. Thank You. To be completed by CDI/Coding staff for physician review: Present Clinical Indicators - Signs / Symptoms / Labs Results and Location in Medical Record [x] Recently had an echocardiogram, which indicated an EF of 50% to 55% H&P on 06/10 [x] Dyspnea on exertion Hospital PN on 06/12 [x] Lower extremity pitting edema H&P on 06/10 [x] CHF Exacerbation ED provider report on 06/09 [x] Elevated BNP 432.5 H Laboratory on 06/09 [ ] JVD [x] Shortness of breath Hospital PN on 06/10 [ ] Pleural effusion / pulmonary edema [x] CXR results-cardiomegaly with mild vascular engorgement Chest x ray on 06/09 [ ] Arrhythmia--tachycardia Present Risk Factors Results and Location in Medical Record [ ] History of CAD/ischemic heart disease [x] CKD Hypertension H&P on 06/10 [ ] History of LA Present Treatments Results and Location in Medical Record [ ] Administration of FRED / ARB / BB [ ] Cardiac monitoring / telemetry/ECHO [x] Home medication: Torsemide 20 mg Home medication [x] Discharge to home: Torsemide 20 mg Discharge medication [ ] AICD [ ] Cardiology Consult CDS/Telecom Billing Analyst Signature: AAS Phone #: Date/Time: 06/15/2020 This is a permanent part of the Medical Record [facility]
== END 2020-06-13 16:53 | disposition home health service (06) | DRG 177 ==
LOC: ERS 10:38 → ERHOLD 14:23 → 2SW 21:42
PROVIDERS: ADMIT Internal Medicine; ATTEND Family Medicine
DX: U07.1 COVID-19 (principal); J12.89 Other viral pneumonia; I50.23 Acute on chronic systolic (congestive) heart failure; E44.0 Moderate protein-calorie malnutrition; I13.0 Hypertensive heart and chronic kidney disease with heart failure and stage 1 through stage 4 chronic kidney disease, or unspecified chronic kidney disease; I24.8 Other forms of acute ischemic heart disease; N18.4 Chronic kidney disease, stage 4 (severe); F32.9 Major depressive disorder, single episode, unspecified; E87.5 Hyperkalemia; I48.0 Paroxysmal atrial fibrillation; I50.9 Heart failure, unspecified; E78.5 Hyperlipidemia, unspecified; Z96.642 Presence of left artificial hip joint; Z90.710 Acquired absence of both cervix and uterus; Z88.1 Allergy status to other antibiotic agents; Z88.8 Allergy status to other drugs, medicaments and biological substances; Z95.0 Presence of cardiac pacemaker; Z79.899 Other long term (current) drug therapy; Z79.01 Long term (current) use of anticoagulants; Z68.20 Body mass index [BMI] 20.0-20.9, adult
CPT/HCPCS: 36415; 51701; 70450; 71045; 74176; 80048; 80053; 81003; 82533; 82550; 82553; 82728; 83690; 83880; 84484; 85025; 86140; 87040; 87635; 93005; 96365; 96366; 96375; C9113; J0692; J1720; J1956; J2543; J3010; J3490; J8540; Q0162; U0002; U0003

== ENCOUNTER 2020-07-19 08:17 | Inpatient (IN) | payer MEDICARE, BC ==
[2020-07-19 09:12] LABS: Band 17 % (5-11); Eosinophils 1 % (0-10); Hemoglobin 11.8 g/dL (12.0-16.0); Lymphocytes 11 % (21-51); MDiff Complete? YES; Mean Corpuscular HGB CONC 32.6 g/dL (32.0-36.0); Mean Corpuscular Hemoglobin 33.5 pg (27.0-31.0); Mean Platelet Volume 10.7 fL (7.4-10.4); Monocytes 3 % (0-10); Neutrophil 67 % (42-75); Ovalocytes SLIGHT = 2-5 cells (100X) (0-1/hpf); Platelet Count 33 thou/uL (130-400); Platelet Morphology Comment Appears Decreased; Polychromasia SLIGHT = 2-3 cells (100X) (0-2/hpf); RBC Distribution Width 15.7 % (11.5-14.5); Reactive Lymphocytes 1 % (0-10); Red Blood Cell (RBC) Count 3.52 mill/uL (4.20-5.40); White Blood Cell (WBC) Count 9.5 thou/uL (4.8-10.8)
[2020-07-19 09:14] LABS: ALT (SGPT) 8 U/L (8-55); AST (SGOT) 16 U/L (5-34); Albumin 3.7 g/dL (3.4-4.8); Alkaline Phosphatase 86 U/L (40-110); Anion Gap 17 mmol/L (10-20); BUN (Urea Nitrogen) 34 mg/dL (9.8-20.1); Calc. Creatinine Clearance 0 mL/min (70-130); Calcium 8.5 mg/dL (7.8-10.44); Carbon Dioxide 17 mmol/L (23-31); Chloride 107 mmol/L (98-107); Globulin 2.5 g/dL (2.4-3.5); Glucose 82 mg/dL (83-110); Potassium 4.5 mmol/L (3.5-5.1); Protein, Total 6.2 g/dL (6.0-8.3); Sodium 136 mmol/L (136-145)
--- NOTE | 2020-07-19 09:22 | RAD ---
PORTABLE CHEST: Date: 07/19/2020 HISTORY: Dyspnea. COMPARISON: 06/09/2020. FINDINGS: Bilateral effusions obscure the AP angles. Mild cardiomegaly with postop sternotomy change. The infiltrate in the left mid lung on the prior exam has significantly resolved. There is some resid ual atelectasis or scarring in the left peripheral lung field. The right lung appears clear. Vascular ity is normal. IMPRESSION: Persistent small bilateral effusions. Significant improvement in the left lung infiltrate when compar ed to 06/09/2020. POS: STEPHANIE
[2020-07-19] MEDS ORDERED: Furosemide 40 MG/4 ML VIAL ONE (10:59)
--- NOTE | 2020-07-19 13:04 | PDOC.HHP ---
Hospitalist HPI - History of Present Illness History of Present Illness: ADMISSION DATE: 07/19/2020 TIME OF ASSESSMENT: 1225 PRIMARY CARE PHYSICIAN: Kori CHIEF COMPLAINT: Weakness HPI: Patient is a 85-year-old female past medical history significant for CHF and CKD. She presents to the ER today after ambulating to the bathroom at 0400 this morning and feeling weak afterward. She states she felt shaky and a little short of breath but was able to make it back to bed without falling. Denies chest pain, nausea, vomiting, diaphoresis. She has had some increased leg swelling recently and a nonhealing wound to her left cardenas. She does not know how long she has had the wound, states that she bumped into something and did not fall. Patient denies any UTI symptoms but states that she feels she cannot urinate since she got here this morning, currently has pure wick in place. She is not on oxygen at home. She states that she has home health come and help her with her ADLs but she is able to manage her own medications. She uses a walker to ambulate. ED COURSE: Vital Signs: Blood pressure 111/54, pulse 78, respiratory rate 21, temp 98.6, O2 sat 98% on room air Today in the ER they completed lab work, chest x-ray, EKG. She was administered Lasix 40 mg IV. PAST MEDICAL HISTORY: Atrial fibrillation on Eliquis, CVA, CHF, CKD, congenital absence of kidney, adrenal insufficiency, lymphedema, hyperlipidemia, hypertension PAST SURGICAL HISTORY: Pacemaker placement, left hip replacement, mitral valve r epair, oophorectomy, hysterectomy SOCIAL HISTORY: Patient lives at home alone. She ambulates with a walker. She has home health come and assist with ADLs. Denies alcohol drug or tobacco use. FAMILY HISTORY: Father had a stroke ALLERGIES: Codeine, Solu-Medrol CURRENT MEDICATIONS: Eliquis 5 mg 2 times a day Lexapro 20 mg once daily Estradiol 1 mg once daily Nexium 40 mg once daily Prednisone 5 mg once daily Synthroid 112 mcg once daily Torsemide 20 mg once daily Lorazepam 2 mg at bedtime as needed Lasix 40 mg as needed Lidocaine patch Vitamin D3 5000 units daily Vitamin B12 Hospitalist ROS - Review of Systems Constitutional: reports: weakness, other (shaky) Respiratory: reports: shortness of breath All other systems reviewed; all pertinent +/- noted in HPI/Subj Hospitalist History - Social History Alcohol: reports: None Drugs: reports: none - Exam General Appearance: NAD, awake alert Eye: PERRL ENT: normocephalic atraumatic Neck: supple Heart: no murmur, no gallops, no rubs, normal peripheral pulses, irregular Respiratory: no wheezes, rales (bibasilar, faint) Gastrointestinal: soft, non-tender, non-distended, normal bowel sounds Extremities - other findings: 3+ edema, weeping bilateral LE, nonhealing wound to left cardenas Skin - other findings: stasis dermatitis to BLE, scattered bruising throughout Musculoskeletal: generalized weakness Psychiatric: normal affect, normal behavior, A&O x 3 Hospitalist Results - Labs Result Diagrams: 07/19/20 08:42 07/19/20 08:35 Lab results: WBC 9.5 thou/uL (4.8-10.8) 07/19/20 08:42 Hgb 11.8 g/dL (12.0-16.0) L 07/19/20 08:42 Hct 36.3 % (36.0-47.0) 07/19/20 08:42 MCV 103.0 fL (78.0-98.0) H 07/19/20 08:42 Plt Count 33 thou/uL (130-400) L 07/19/20 08:42 Band Neuts % (Manual) 17 % (5-11) H 07/19/20 08:42 Sodium 136 mmol/L (136-145) 07/19/20 08:35 Potassium 4.5 mmol/L (3.5-5.1) 07/19/20 08:35 Chloride 107 mmol/L (98-107) 07/19/20 08:35 Carbon Dioxide 17 mmol/L (23-31) L 07/19/20 08:35 BUN 34 mg/dL (9.8-20.1) H 07/19/20 08:35 Creatinine 2.41 mg/dL (0.6-1.1) H 07/19/20 08:35 Glucose 82 mg/dL (83-110) L 07/19/20 08:35 Calcium 8.5 mg/dL (7.8-10.44) 07/19/20 08:35 Total Bilirubin 1.0 mg/dL (0.2-1.2) 07/19/20 08:35 AST 16 U/L (5-34) 07/19/20 08:35 ALT 8 U/L (8-55) 07/19/20 08:35 Alkaline Phosphatase 86 U/L (40-110) 07/19/20 08:35 CK-MB (CK-2) 1.0 ng/mL (0-6.6) 07/19/20 08:42 Troponin I 0.047 ng/mL (< 0.028) H 07/19/20 08:42 B-Natriuretic Peptide 620.4 pg/mL (0-100) H 07/19/20 08:42 Serum Total Protein 6.2 g/dL (6.0-8.3) 07/19/20 08:35 Albumin 3.7 g/dL (3.4-4.8) 07/19/20 08:35 - EKG Interpretation EKG: Paced 75 bpm - Radiology Interpretation Chest x-ray Status: image reviewed by me, report reviewed by me Additional Comment: Persistent small bilateral effusions. Significant improvement in left lung i nfiltrate when compared to June 09, 2020. Hospitalist H&P A/P - Plan Plan: Acute on chronic diastolic heart failure Most recent echo on May 22, 2020 showed EF 50 to 55% Small bilateral infiltrate showed on x-ray BMP elevated to 620.4 IV Lasix 40 mg twice dailyfirst dose received in ER Strict I's and O's Monitor on telemetry Cardiology consultation Closely monitor respiratory status Elevation in troponin Possibly secondary to demand, previous admission was 0.055patient currently at 0.047 and 0.085 Continue to trend troponin to peak Denies chest pain, continue to monitor telemetry Acute kidney injury in setting of chronic kidney disease Continue to trend kidney function IV diuresis Nephrology consultation Avoid nephrotoxic meds and renally dose medications Lymphedema versus cellulitis Wound care consultunhealing wound to left cardenas Patient afebrile with no leukocytosis Atrial fibrillation Currently on Eliquis with pacemaker showing paced rhythm Continue Eliquis and amiodarone Adrenal insufficiency Continue home prednisone Hyperlipidemia Continue home statin Hypothyroidism Continue home levothyroxine DVT prophylaxis: Mal Full code Surrogate decision-maker are her children, Bill and Teresita Patient and care discussed with Dr. Brewster
[2020-07-19 14:11] LABS: Troponin I 0.085 ng/mL (< 0.028)
[2020-07-19 16:20] LABS: Troponin I 0.088 ng/mL (< 0.028)
[2020-07-19] MEDS: Furosemide 40 MG/4 ML VIAL SLOW IVP SCH ×3 (16:22→22:52)
[2020-07-19] MEDS ORDERED: Lidocaine 5% Patch TD PRN (17:56)
[2020-07-19] MEDS ORDERED: Lidocaine Patch Removal 1 EACH TOP PRN (17:58)
[2020-07-19] MEDS: HYDROcodone/Acetaminophen 5/325 mg Tablet PO PRN (18:12)
[2020-07-19] MEDS: Apixaban 2.5 MG TAB PO SCH (21:53)
[2020-07-20] MEDS: HYDROcodone/Acetaminophen 5/325 mg Tablet PO PRN ×3 (00:08→18:46)
[2020-07-20 01:08] LABS: Bilirubin Negative (Negative); Blood, Urine Negative (Negative); Clarity Clear (Clear); Glucose, Urine (Dipstick) Normal (Negative); Ketone, Urine Negative (Negative); Leukocyte Negative Leu/uL (Negative); Nitrite Negative (Negative); Protein, Urine (Dipstick) 20 mg/dL (Neg-Trace); RBC/HPF 0-3 HPF (0-3); Specific Gravity, Urine 1.013 (1.002-1.036); Urobilinogen Normal mg/dL (Less than 2); WBC/HPF 0-3 HPF (0-3)
[2020-07-20 01:09] LABS: Bacteria/HPF 1+ HPF (None Seen)
[2020-07-20 01:10] LABS: Urine Culture Reflex No No
--- NOTE | 2020-07-20 02:32 | CON ---
DATE OF CONSULTATION: 07/19/2020 REASON FOR CONSULTATION: Diastolic heart failure. HISTORY OF PRESENT ILLNESS: Ms. Contreras is a pleasant 85-year-old woman with long history of diastolic congestive heart failure, which has been gradually getting worse. She had refractory swelling of her lower extremities and some trouble breathing, but the main complaint was pain and swelling of her lower extremities and inability of the oral diuretics to get any of the fluid off. She finally came here to the hospital. The patient also has a history of atrial fibrillation, paroxysmal, and history of mitral valve repair many years ago. She also has a history of labile hypertension and orthostatic hypotension. Recent echocardiogram showed ejection fraction 50-55%, severely dilated left atrium, moderate tricuspid insufficiency with elevated pulmonary pressure and dilatation of the inferior vena cava. MEDICATIONS: At home, 1. Lorazepam. 2. Prednisone. 3. Apixaban 2.5 mg twice a day. 4. Torsemide. 5. Amiodarone 200 mg a day. PAST MEDICAL HISTORY: As mentioned, also atrial fibrillation. PHYSICAL EXAMINATION: GENERAL: This is an 85-year-old woman, becoming more chronically ill-appearing with some loss of muscle mass. VITAL SIGNS: Blood pressure 119/55, pulse 80, it is regular. NECK: Veins are distended up to the angle of the jaw. Carotids have normal upstrokes. LUNGS: Clear anteriorly and laterally. CARDIAC: Normal S1, normal S2. I do not hear murmur, rub, or gallop. ABDOMEN: Soft and nontender. EXTREMITIES: There is severe peripheral edema. On physical examination, extremities, severe peripheral edema, warm on the left, severe bilateral. PERTINENT LABORATORY DATA: Troponin 0.088. BNP 620.4, creatinine 2.41. Chest x-ray shows very small bilateral effusions, mild cardiomegaly. The lung jaimes really do not look congested, however. ASSESSMENT: 1. Severe congestive heart failure, diastolic. 2. Previous biventricular pacemaker, functioning normally, but looks like she has probably an underlying atrial fibrillation. 3. Stage IV renal failure. PLAN: 1. Give her a dose of intravenous diuretics now that she is supine. 2. Interrogate pacemaker tomorrow, looks like she is probably back in atrial fibrillation. We did cardiovert her a couple of months ago, seems to do much better when she is in sinus rhythm. 3. We will follow with you. Job ID: [id number]
[2020-07-20 05:06] LABS: Anion Gap 14 mmol/L (10-20); BUN (Urea Nitrogen) 41 mg/dL (9.8-20.1); Calc. Creatinine Clearance 16 mL/min (70-130); Calcium 7.8 mg/dL (7.8-10.44); Carbon Dioxide 19 mmol/L (23-31); Chloride 105 mmol/L (98-107); Glucose 60 mg/dL (83-110); Magnesium 1.7 mg/dL (1.6-2.6); Potassium 4.4 mmol/L (3.5-5.1); Sodium 134 mmol/L (136-145)
[2020-07-20 05:08] LABS: #Eosinphils 0.1 thou/uL (0.0-0.7); #Lymphocytes 0.6 thou/uL (1.20-3.40); #Monocytes 0.5 thou/uL (0.11-0.59); #Neutrophils 12.3 thou/uL (1.40-6.50); %Basophils 0.2 % (0.0-1.0); %Eosinophils 0.4 % (0.0-10.0); %Lymphocytes 4.4 % (21.0-51.0); %Monocytes 3.6 % (0.0-10.0); %Neutrophils 91.4 % (42.0-75.0); Hemoglobin 10.9 g/dL (12.0-16.0); Mean Corpuscular HGB CONC 32.4 g/dL (32.0-36.0); Mean Corpuscular Hemoglobin 33.7 pg (27.0-31.0); Mean Platelet Volume 8.7 fL (7.4-10.4); Platelet Count 95 thou/uL (130-400); RBC Distribution Width 15.9 % (11.5-14.5); Red Blood Cell (RBC) Count 3.23 mill/uL (4.20-5.40); White Blood Cell (WBC) Count 13.4 thou/uL (4.8-10.8)
[2020-07-20] MEDS: Levothyroxine Sodium 112 MCG TAB PO SCH (05:28)
[2020-07-20] MEDS: Furosemide 40 MG/4 ML VIAL SLOW IVP SCH ×2 (05:30→15:42)
[2020-07-20] MEDS: Amiodarone 200 MG TAB PO SCH (08:05)
[2020-07-20] MEDS: Escitalopram Oxalate 20 mg Tablet PO SCH (08:05)
[2020-07-20] MEDS: Apixaban 2.5 MG TAB PO SCH ×2 (08:05→20:57)
[2020-07-20 09:13] LABS: SARS-CoV-2 MS2 Positive; SARS-CoV-2 N Gene Positive; SARS-CoV-2 S Gene Negative; SARS-CoV-2 by NAA DETECTED (NotDetected); SARS-CoV-2 orf1ab Positive
--- NOTE | 2020-07-20 19:15 | PDOC.HOSPP ---
- Subjective Encounter Date: 07/20/20 Encounter Time: 10:00 Subjective: Patient seen for follow-up regarding CHF exacerbation. Reports feeling better. - Objective Vital Signs & Weight: Vital Signs (12 hours) Temp Pulse Resp BP Pulse Ox 07/20/20 15:44 97.6 F 75 18 127/61 97 07/20/20 11:23 98.1 F 75 16 108/53 L 96 07/20/20 08:00 97.8 F 75 15 113/56 L 97 Weight Admit Weight 157 lb Weight 157 lb I reviewed patient's labs and MAR I&O: 07/19/20 07/20/20 07/21/20 06:59 06:59 06:59 Intake Total 480 840 Output Total 350 Balance 130 840 Result Diagrams: 07/21/20 04:18 07/21/20 04:18 EKG Reviewed by me: Yes (Electronic paced rhythm on telemetry) Hospitalist ROS - Review of Systems Respiratory: reports: SOB with excertion. denies: cough, dry, shortness of breath, hemoptysis, pleuritic pain, sputum, wheezing Cardiovascular: reports: edema. denies: chest pain, palpitations, orthopnea, paroxysmal noc. dyspnea, light headedness - Medication Medications: Active Medications Generic Name Dose Route Start Last Admin Trade Name Freq PRN Reason Stop Dose Admin Hydrocodone Bitart/Acetaminophen 1 tab 07/19/20 17:44 07/20/20 18:46 Hydrocodone/Acetaminophen 5/325 Mg Tablet PO 1 tab Q4H PRN Administration Mild Pain 0-3 Amiodarone HCl 200 mg 07/20/20 09:00 07/20/20 08:05 Amiodarone 200 Mg Tab PO 200 mg DAILY CHASTITY Administration Apixaban 2.5 mg 07/19/20 21:00 07/20/20 08:05 Apixaban 2.5 Mg Tab PO 2.5 mg BID CHASTITY Administration Escitalopram Oxalate 20 mg 07/20/20 09:00 07/20/20 08:05 Escitalopram Oxalate 20 Mg Tablet PO 20 mg DAILY CHASTITY Administration Furosemide 20 mg 07/20/20 14:00 07/20/20 15:42 Furosemide 40 Mg/4 Ml Vial SLOW IVP 20 mg 0600,1400 CHASTITY Administration Levothyroxine Sodium 224 mcg 07/20/20 06:00 07/20/20 05:28 Levothyroxine Sodium 112 Mcg Tab PO 224 mcg 0600 [facility] Administration - Exam General Appearance: awake alert Eye: anicteric sclera Neck: supple Heart: RRR Respiratory: rales Gastrointestinal: soft, non-tender Psychiatric: normal affect, normal behavior Hosp A/P - Plan -Assessment/plan Acute on chronic diastolic heart failure, NYHA class III Continue IV furosemide Strict I's and O's Monitor on telemetry Appreciate cardiology consultation Closely monitor respiratory status Acute kidney injury in setting of chronic kidney disease Await nephrology service input. Atrial fibrillation Continue Eliquis and amiodarone Adrenal insufficiency Continue prednisone Hyperlipidemia Continue statin Hypothyroidism Continue home levothyroxine
[2020-07-20] MEDS ORDERED: Lorazepam 1 MG TAB PO SCH (22:15)
[2020-07-21 04:49] LABS: #Eosinphils 0.1 thou/uL (0.0-0.7); #Lymphocytes 0.5 thou/uL (1.20-3.40); #Monocytes 0.5 thou/uL (0.11-0.59); #Neutrophils 10.7 thou/uL (1.40-6.50); %Basophils 0.2 % (0.0-1.0); %Eosinophils 0.8 % (0.0-10.0); %Lymphocytes 4.5 % (21.0-51.0); %Monocytes 3.9 % (0.0-10.0); %Neutrophils 90.6 % (42.0-75.0); Hemoglobin 11.6 g/dL (12.0-16.0); Mean Corpuscular HGB CONC 32.5 g/dL (32.0-36.0); Mean Corpuscular Hemoglobin 33.9 pg (27.0-31.0); Mean Platelet Volume 8.9 fL (7.4-10.4); Platelet Count 97 thou/uL (130-400); RBC Distribution Width 15.7 % (11.5-14.5); Red Blood Cell (RBC) Count 3.42 mill/uL (4.20-5.40); White Blood Cell (WBC) Count 11.8 thou/uL (4.8-10.8)
[2020-07-21 05:13] LABS: Anion Gap 15 mmol/L (10-20); BUN (Urea Nitrogen) 45 mg/dL (9.8-20.1); Calc. Creatinine Clearance 15 mL/min (70-130); Calcium 8.1 mg/dL (7.8-10.44); Carbon Dioxide 21 mmol/L (23-31); Chloride 99 mmol/L (98-107); Glucose 77 mg/dL (83-110); Potassium 4.5 mmol/L (3.5-5.1); Sodium 130 mmol/L (136-145)
[2020-07-21] MEDS: Levothyroxine Sodium 112 MCG TAB PO SCH (06:25)
[2020-07-21] MEDS: Furosemide 40 MG/4 ML VIAL SLOW IVP SCH ×2 (07:03→15:36)
[2020-07-21] MEDS: Amiodarone 200 MG TAB PO SCH (08:43)
[2020-07-21] MEDS: Escitalopram Oxalate 20 mg Tablet PO SCH (08:44)
[2020-07-21] MEDS: Apixaban 2.5 MG TAB PO SCH ×2 (08:44→21:59)
--- NOTE | 2020-07-21 12:27 | PRG ---
DATE OF SERVICE: 07/21/2020 SUBJECTIVE: An 85-year-old female, being seen for acute kidney injury. The patient denied nausea, vomiting, or chest pain. OBJECTIVE: General: The patient is awake and alert. Vital Signs: Afebrile, pulse 68, breathing at 16, blood pressure 128/60. HEENT: Head normocephalic and atraumatic. Eyes intact, no ulcers. Nose intact, no ulcers. Ears intact, no ulcers. Neck: Supple. No JVD. Chest: Symmetrical and clear. Cardiovascular: Shows S1 and S2, no rub, no murmur. Gastrointestinal: Abdomen is soft, bowel sounds positive. Extremities: Show no edema or ulcers. Skin: Shows no rash or petechiae. Musculoskeletal: Shows no joint swelling or stiffness. Genitourinary: Shows no Lira or CVA tenderness. Neurologic: Motor intact. Cranial nerves intact. LABORATORY DATA: Reviewed. ASSESSMENT AND PLAN: 1. Chronic kidney disease, stable. 2. Acute kidney injury, stable. 3. Hypertension, stable. 4. Anemia, stable. 5. No indication for dialysis. Job ID: [id number]
--- NOTE | 2020-07-21 12:50 | PRG ---
DATE OF SERVICE: 07/20/2020 SUBJECTIVE: 85-year-old female, being seen for acute kidney injury. The patient denied nausea, vomiting, or chest pain. PHYSICAL EXAMINATION: General: The patient is awake and alert. Vital Signs: Afebrile, pulse 85, breathing at 16, blood pressure 108/53. HEENT: Head normocephalic and atraumatic. Eyes intact, no ulcers. Nose intact, no ulcers. Ears intact, no ulcers. Neck: Supple. No JVD. Chest: Symmetrical and clear. Cardiovascular: Shows S1 and S2, no rub, no murmur. Gastrointestinal: Abdomen is soft, bowel sounds positive. Extremities: Show no edema or ulcers. Skin: Shows no rash or petechiae. Musculoskeletal: Shows no joint swelling or stiffness. Genitourinary: Shows no Lira or CVA tenderness. Neurologic: Motor intact. Cranial nerves intact. LABS: Reviewed. ASSESSMENT AND PLAN: 1. Chronic kidney disease stage 4 with acute kidney injury due to COVID-19. 2. Hypertension, stable. 3. Anemia, stable. 4. COVID-19. 5. The patient has most likely ATN due to pneumonia. No indication for dialysis. Job ID: [id number]
--- NOTE | 2020-07-21 14:14 | CON ---
DATE OF CONSULTATION: 07/19/2020 TIME OF CONSULTATION: 8 p.m. in the emergency room. REASON FOR CONSULTATION: Elevated creatinine. HISTORY OF PRESENT ILLNESS: This is a very pleasant 85-year-old female followed by me in the clinic, presented to the hospital with weakness. The patient had a baseline creatinine in the low 2s to 1, which increased to 2.4, so I was consulted. The patient had cough like symptom. PAST MEDICAL HISTORY: Significant for AFib, CKD, congenital absence of kidney, adrenal insufficiency, lymphedema, history of pacemaker, hip replacement, mitral valve repair, oophorectomy, hysterectomy. SOCIAL: No alcohol or drug use. FAMILY HISTORY: Negative for ESRD. ALLERGIES: REVIEWED. HOME MEDICATION: List reviewed. HOSPITAL MEDICATION: List reviewed. REVIEW OF SYSTEMS: A 15-point review of system was performed, negative except for positive noted above. HEENT: Eyes intact, no diplopia. Ears: No hearing loss or earache. Nose: No discharge or bleeding. Chest: No cough or phlegm. Abdomen: No nausea or vomiting. Genitourinary: No hematuria. No Lira catheter. Musculoskeletal: No low back pain. No joint swelling or pain. Neurological: No syncope. No seizures. Skin: No complaints of rash or itching. Psychiatric: No depression. Constitutional: No weight loss or loss of appetite. PHYSICAL EXAMINATION: General: The patient is awake and alert. Vital Signs: Afebrile, pulse 75, breathing at 16, blood pressure 130/70. HEENT: Head normocephalic and atraumatic. Eyes intact, no ulcers. Nose intact, no ulcers. Ears intact, no ulcers. Neck: Supple. No JVD. Chest: Symmetrical and clear. Cardiovascular: Shows S1 and S2, no rub, no murmur. Gastrointestinal: Abdomen is soft, bowel sounds positive. Extremities: Show no edema or ulcers. Skin: Shows no rash or petechiae. Musculoskeletal: Shows no joint swelling or stiffness. Genitourinary: Shows no Lira or CVA tenderness. Neurologic: Motor intact. Cranial nerves intact. LABS: Reviewed. ASSESSMENT AND PLAN: 1. Acute kidney injury with chronic kidney disease most likely due to pneumonia like symptoms, possibly ATN. 2. Hypertension, stable. 3. Anemia, stable. 4. Medication based on GFR appropriate. No indication for dialysis. Job ID: [id number]
--- NOTE | 2020-07-21 19:07 | PDOC.HOSPP ---
- Subjective Encounter Date: 07/21/20 Encounter Time: 11:00 Subjective: Patient seen for follow-up regarding CHF exacerbation. Reports feeling better. Denies chest pain. Denies cough. Denies fevers or chills. - Objective Vital Signs & Weight: Vital Signs (12 hours) Temp Pulse Pulse Pulse Resp BP BP 07/21/20 15:39 98.5 F 80 18 119/57 L 07/21/20 11:29 97.8 F 75 18 07/21/20 10:58 89 78 138/59 L 07/21/20 07:10 98.5 F 64 18 128/60 BP Pulse Ox 07/21/20 15:39 96 07/21/20 11:29 118/57 L 96 07/21/20 10:58 07/21/20 07:10 95 Weight Admit Weight 157 lb Weight 147 lb I&O: 07/20/20 07/21/20 07/22/20 06:59 06:59 06:59 Intake Total 480 1200 960 Output Total 350 600 800 Balance 130 600 160 Result Diagrams: 07/21/20 04:18 07/21/20 04:18 Additional Labs: Labs and MAR reviewed by me EKG Reviewed by me: Yes (Electronic V paced rhythm on telemetry) Hospitalist ROS - Review of Systems Respiratory: denies: cough, shortness of breath, SOB with excertion, pleuritic pain, wheezing Cardiovascular: denies: chest pain, palpitations, orthopnea, paroxysmal noc. d yspnea, edema, light headedness - Medication Medications: Active Medications Generic Name Dose Route Start Last Admin Trade Name Freq PRN Reason Stop Dose Admin Hydrocodone Bitart/Acetaminophen 1 tab 07/19/20 17:44 07/20/20 18:46 Hydrocodone/Acetaminophen 5/325 Mg Tablet PO 1 tab Q4H PRN Administration Mild Pain 0-3 Amiodarone HCl 200 mg 07/20/20 09:00 07/21/20 08:43 Amiodarone 200 Mg Tab PO 200 mg DAILY CHASTITY Administration Apixaban 2.5 mg 07/19/20 21:00 07/21/20 08:44 Apixaban 2.5 Mg Tab PO 2.5 mg BID CHASTITY Administration Escitalopram Oxalate 20 mg 07/20/20 09:00 07/21/20 08:44 Escitalopram Oxalate 20 Mg Tablet PO 20 mg DAILY CHASTITY Administration Furosemide 20 mg 07/20/20 14:00 07/21/20 15:36 Furosemide 40 Mg/4 Ml Vial SLOW IVP 20 mg 0600,1400 CHASTITY Administration Levothyroxine Sodium 224 mcg 07/20/20 06:00 07/21/20 06:25 Levothyroxine Sodium 112 Mcg Tab PO 224 mcg 0600 CHASTITY Administration Pantoprazole Sodium 40 mg 07/21/20 09:00 07/21/20 08:44 Pantoprazole 40 Mg Tab PO 40 mg DAILY CHASTITY Administration - Exam General Appearance: awake alert Eye: PERRL ENT: normocephalic atraumatic Neck: supple Heart: RRR Respiratory: CTAB Gastrointestinal: soft, non-tender Skin: no rashes Psychiatric: normal affect, normal behavior Hosp A/P - Plan -Assessment/plan Acute on chronic diastolic heart failure, NYHA class III Patient is on IV furosemide 20 mg twice daily. Continue to monitor on telemetry Cardiac rehab Acute kidney injury in setting of chronic kidney disease Creatinine stabilizing, 2.87 today. Atrial fibrillation Patient is on Eliquis and amiodarone Adrenal insufficiency Continue prednisone Hyperlipidemia Patient is on statin Hypothyroidism Continue levothyroxine.
[2020-07-21] MEDS: HYDROcodone/Acetaminophen 5/325 mg Tablet PO PRN (21:57)
[2020-07-21] MEDS: Lorazepam 1 MG TAB PO SCH (21:59)
[2020-07-22 05:07] LABS: #Eosinphils 0.1 thou/uL (0.0-0.7); #Lymphocytes 0.5 thou/uL (1.20-3.40); #Monocytes 0.7 thou/uL (0.11-0.59); #Neutrophils 7.2 thou/uL (1.40-6.50); %Eosinophils 1.6 % (0.0-10.0); %Lymphocytes 6.3 % (21.0-51.0); %Monocytes 7.7 % (0.0-10.0); %Neutrophils 84.4 % (42.0-75.0); Mean Corpuscular HGB CONC 33.1 g/dL (32.0-36.0); Mean Corpuscular Hemoglobin 34.6 pg (27.0-31.0); Mean Platelet Volume 9.1 fL (7.4-10.4); Platelet Count 95 thou/uL (130-400); RBC Distribution Width 15.4 % (11.5-14.5); Red Blood Cell (RBC) Count 3.18 mill/uL (4.20-5.40); White Blood Cell (WBC) Count 8.5 thou/uL (4.8-10.8)
[2020-07-22 05:08] LABS: Anion Gap 16 mmol/L (10-20); BUN (Urea Nitrogen) 46 mg/dL (9.8-20.1); Calc. Creatinine Clearance 16 mL/min (70-130); Carbon Dioxide 23 mmol/L (23-31); Chloride 99 mmol/L (98-107); Glucose 91 mg/dL (83-110); Potassium 3.5 mmol/L (3.5-5.1); Sodium 134 mmol/L (136-145)
[2020-07-22] MEDS: Furosemide 40 MG/4 ML VIAL SLOW IVP SCH ×2 (06:19→14:57)
[2020-07-22] MEDS: Levothyroxine Sodium 112 MCG TAB PO SCH (06:20)
--- NOTE | 2020-07-22 08:21 | PRG ---
DATE OF SERVICE: 07/22/2020 SUBJECTIVE: Ms. Contreras is breathing fine. No chest pain or pressure. Her complaint is of swelling of her left leg and pain. OBJECTIVE: VITAL SIGNS: Her blood pressure is 140/60 and pulse 75 and regular. LUNGS: Clear. CARDIAC: Normal S1 and normal S2. ABDOMEN: Soft and nontender. EXTREMITIES: [id number] edema in the left leg, [id number] on the right. Left leg is warm. LABORATORY DATA: Echocardiogram revealed the ejection fraction of 50% to 55% on recent echo. ASSESSMENT: 1. Diastolic heart failure. 2. Atrial fibrillation, appears to have recurred. 3. Left leg swelling. 4. Renal failure stage 4. PLAN: 1. She is on Lasix 20 mg twice a day. 2. I asked her to elevate her foot as much as possible. 3. ? Antibiotics for her leg. Job ID: [id number]
[2020-07-22] MEDS: Escitalopram Oxalate 20 mg Tablet PO SCH (08:55)
[2020-07-22] MEDS: Amiodarone 200 MG TAB PO SCH (08:55)
[2020-07-22] MEDS: Apixaban 2.5 MG TAB PO SCH ×2 (08:55→20:38)
[2020-07-22] MEDS ORDERED: CEFAZOLIN 1 GM in Sodium Chloride 0.9% 100 ML IVPB SCH ×2 (09:00→14:00)
--- NOTE | 2020-07-22 10:38 | PRG ---
DATE OF SERVICE: 07/22/2020 SUBJECTIVE: An 85-year-old female, being seen for acute kidney injury. The patient denied nausea, vomiting, or chest pain. PHYSICAL EXAMINATION: General: The patient is awake and alert. Vital Signs: Afebrile, pulse 75, breathing at 16, blood pressure 130/60. HEENT: Head normocephalic and atraumatic. Eyes intact, no ulcers. Nose intact, no ulcers. Ears intact, no ulcers. Neck: Supple. No JVD. Chest: Symmetrical and clear. Cardiovascular: Shows S1 and S2, no rub, no murmur. Gastrointestinal: Abdomen is soft, bowel sounds positive. Extremities: Show no edema or ulcers. Skin: Shows no rash or petechiae. Musculoskeletal: Shows no joint swelling or stiffness. Genitourinary: Shows no Lira or CVA tenderness. Neurologic: Motor intact. Cranial nerves intact. LABORATORY DATA: Reviewed. ASSESSMENT AND PLAN: 1. Acute kidney injury with chronic kidney disease and edema. Continue diuretics. 2. Hypertension, stable. 3. Anemia, stable. 4. Medication based on GFR, appropriate. The patient has chronic kidney disease, stage 4. Renal function is stable. Job ID: [id number]
[2020-07-22] MEDS: HYDROcodone/Acetaminophen 5/325 mg Tablet PO PRN ×2 (12:54→20:38)
--- NOTE | 2020-07-22 18:48 | PDOC.HOSPP ---
- Subjective Encounter Date: 07/22/20 Encounter Time: 11:00 Subjective: Patient seen for follow-up for CHF exacerbation. She denies chest pain. Reports shortness of breath is better. Reports left lower extremity redness. - Objective Vital Signs & Weight: Vital Signs (12 hours) Temp Pulse Resp BP Pulse Ox 07/22/20 16:03 97.4 F L 76 16 105/51 L 97 07/22/20 11:22 97.6 F 75 16 137/63 97 07/22/20 07:50 95 07/22/20 07:47 97.4 F L 75 16 141/65 H 95 Weight Admit Weight 157 lb Weight 147 lb I&O: 07/21/20 07/22/20 07/23/20 06:59 06:59 06:59 Intake Total 1200 1180 397 Output Total 600 1780 900 Balance 600 -600 -503 Result Diagrams: 07/22/20 04:29 07/22/20 04:29 Additional Labs: I reviewed patient's labs and MAR EKG Reviewed by me: Yes (Electronic AV paced rhythm on telemetry) Hospitalist ROS - Review of Systems Respiratory: reports: SOB with excertion. denies: cough, dry, shortness of breath, hemoptysis, pleuritic pain, sputum, wheezing Gastrointestinal: denies: nausea, vomiting, abdominal pain, diarrhea, constipation, melena, hematochezia Skin: reports: rash. denies: lesions, maye, bruising - Medication Medications: Active Medications Generic Name Dose Route Start Last Admin Trade Name Freq PRN Reason Stop Dose Admin Hydrocodone Bitart/Acetaminophen 1 tab 07/19/20 17:44 07/22/20 12:54 Hydrocodone/Acetaminophen 5/325 Mg Tablet PO 1 tab Q4H PRN Administration Mild Pain 0-3 Amiodarone HCl 200 mg 07/20/20 09:00 07/22/20 08:55 Amiodarone 200 Mg Tab PO 200 mg DAILY CHASTITY Administration Apixaban 2.5 mg 07/19/20 21:00 07/22/20 08:55 Apixaban 2.5 Mg Tab PO 2.5 mg BID CHASTITY Administration Escitalopram Oxalate 20 mg 07/20/20 09:00 07/22/20 08:55 Escitalopram Oxalate 20 Mg Tablet PO 20 mg DAILY CHASTITY Administration Furosemide 20 mg 07/20/20 14:00 07/22/20 14:57 Furosemide 40 Mg/4 Ml Vial SLOW IVP 20 mg 0600,1400 CHASTITY Administration Cefazolin Sodium 1 gm/ Sodium 100 mls @ 200 mls/hr 07/22/20 14:00 07/22/20 14:58 Chloride IVPB 100 mls Q8HR CHASTITY Administration Levothyroxine Sodium 224 mcg 07/20/20 06:00 07/22/20 06:20 Levothyroxine Sodium 112 Mcg Tab PO 224 mcg 0600 CHASTITY Administration Lorazepam 2 mg 07/21/20 21:00 07/21/20 21:59 Lorazepam 1 Mg Tab PO 2 mg HS CHASTITY Administration Pantoprazole Sodium 40 mg 07/21/20 09:00 07/22/20 08:55 Pantoprazole 40 Mg Tab PO 40 mg DAILY CHASTITY Administration - Exam General Appearance: awake alert Eye: anicteric sclera ENT: moist mucosa Neck: supple Heart: RRR Respiratory: CTAB Gastrointestinal: soft, non-tender Skin - other findings: Left cardenas erythema, warmth and mild tenderness Psychiatric: normal affect, normal behavior Hosp A/P - Plan -Assessment/plan Acute on chronic diastolic heart failure, NYHA class III Continue furosemide 20 mg twice daily. Continue to monitor on telemetry Cardiac rehab Acute kidney injury in setting of chronic kidney disease Creatinine stabilizing, 2.65 today. Cellulitis of left lower extremity Start Ancef 1 g IV every 8 hour. Atrial fibrillation Patient is on Eliquis and amiodarone Adrenal insufficiency Patient is on prednisone Hyperlipidemia Continue statin Hypothyroidism Patient is a levothyroxine.
[2020-07-22] MEDS: ceFAZolin 1 GM/D5W 1 GM in Premix Bag 1 BAG IVPB SCH (20:37)
[2020-07-22] MEDS: Lorazepam 1 MG TAB PO SCH (20:38)
[2020-07-23 05:00] LABS: Anion Gap 16 mmol/L (10-20); BUN (Urea Nitrogen) 38 mg/dL (9.8-20.1); Calc. Creatinine Clearance 17 mL/min (70-130); Calcium 8.1 mg/dL (7.8-10.44); Carbon Dioxide 25 mmol/L (23-31); Chloride 97 mmol/L (98-107); Glucose 85 mg/dL (83-110); Potassium 3.3 mmol/L (3.5-5.1); Sodium 135 mmol/L (136-145)
[2020-07-23] MEDS: Furosemide 40 MG/4 ML VIAL SLOW IVP SCH ×2 (05:44→14:03)
[2020-07-23] MEDS: ceFAZolin 1 GM/D5W 1 GM in Premix Bag 1 BAG IVPB SCH ×3 (05:46→21:05)
[2020-07-23] MEDS: Levothyroxine Sodium 112 MCG TAB PO SCH (05:46)
[2020-07-23] MEDS: Amiodarone 200 MG TAB PO SCH (09:34)
[2020-07-23] MEDS: Apixaban 2.5 MG TAB PO SCH ×2 (09:34→21:06)
[2020-07-23] MEDS: Escitalopram Oxalate 20 mg Tablet PO SCH (09:34)
--- NOTE | 2020-07-23 10:36 | PRG ---
DATE OF SERVICE: SUBJECTIVE: An 85-year-old female being seen for acute kidney injury. Patient denies any nausea, vomiting, or chest pain. PHYSICAL EXAMINATION: GENERAL: Patient is awake and alert. VITAL SIGNS: Afebrile, pulse 75, breathing at 16, blood pressure 124/61. HEENT: Head normocephalic and atraumatic. Eyes intact, no ulcers. Nose intact, no ulcers. Ears intact, no ulcers. NECK: Supple. No JVD. CHEST: Symmetrical and clear. CARDIOVASCULAR: Shows S1 and S2, no rub, no murmur. GASTROINTESTINAL: Abdomen is soft, bowel sounds positive. EXTREMITIES: Show no edema or ulcers. Skin: Shows no rash or petechiae. MUSCULOSKELETAL: Shows no joint swelling or stiffness. GENITOURINARY: Shows no Lira or CVA tenderness. NEUROLOGIC: Motor intact. Cranial nerves intact. LABORATORY DATA: Hemoglobin 11 and potassium is 3.3. ASSESSMENT AND PLAN: 1. Chronic kidney disease, stage 4, improved. 2. Acute kidney injury, stable. 3. Hypokalemia. Recommend high potassium diet. 4. Edema. Continue diuretics up to 40 mg. Also, will need some sort of venous insufficiency workup for her edema. Job ID: [id number]
[2020-07-23] MEDS: HYDROcodone/Acetaminophen 5/325 mg Tablet PO PRN ×2 (10:56→23:43)
--- NOTE | 2020-07-23 12:32 | PDOC.HOSPP ---
- Subjective Encounter Date: 07/23/20 Encounter Time: 11:30 Subjective: Patient seen and examined for congestive heart failure exacerbation with cellulitis. Shortness of breath improving. Requesting to discontinue Lasix. Denies any chest pain or palpitations. No fever or chills reported. - Objective Vital Signs & Weight: Vital Signs (12 hours) Temp Pulse Resp BP Pulse Ox 07/23/20 10:58 98 F 75 16 135/62 96 07/23/20 07:46 97.9 F 76 16 124/66 94 L 07/23/20 04:00 97.6 F 75 18 124/61 95 Weight Admit Weight 157 lb Weight 140 lb 12.8 oz I&O: 07/22/20 07/23/20 07/24/20 06:59 06:59 06:59 Intake Total 1180 787 Output Total 1780 2100 Balance -600 1313 Result Diagrams: 07/22/20 04:29 07/23/20 03:48 Additional Labs: Abnormal Lab Results - Last 48 hrs 07/22/20 04:29: RBC 3.18 L, Hgb 11.0 L, Hct 33.2 L, MCV 104.0 H, MCH 34.6 H, RDW 15.4 H, Plt Count 95 L, Neutrophils % 84.4 H, Lymphocytes % 6.3 L, Neutrophils # 7.2 H, Lymphocytes # 0.5 L, Monocytes # 0.7 H 07/22/20 04:29: Sodium 134 L, BUN 46 H, Creatinine 2.65 H 07/23/20 03:48: Sodium 135 L, Potassium 3.3 L, Chloride 97 L, BUN 38 H, Creatinine 2.54 H EKG Reviewed by me: Yes (Paced rhythm on telemetry) Hospitalist ROS - Review of Systems Respiratory: reports: SOB with excertion. denies: cough, dry, shortness of breath, hemoptysis, pleuritic pain, sputum, wheezing, other Cardiovascular: reports: edema. denies: chest pain, palpitations, orthopnea, paroxysmal noc. dyspnea, light headedness, other Gastrointestinal: denies: nausea, vomiting, abdominal pain, diarrhea, constipation, melena, hematochezia, other - Medication Medications: Active Medications Generic Name Dose Route Start Last Admin Trade Name Freq PRN Reason Stop Dose Admin Hydrocodone Bitart/Acetaminophen 1 tab 07/19/20 17:44 07/23/20 10:56 Hydrocodone/Acetaminophen 5/325 Mg Tablet PO 1 tab Q4H PRN Administration Mild Pain 0-3 Amiodarone HCl 200 mg 07/20/20 09:00 07/23/20 09:34 Amiodarone 200 Mg Tab PO 200 mg DAILY CHASTITY Administration Apixaban 2.5 mg 07/19/20 21:00 07/23/20 09:34 Apixaban 2.5 Mg Tab PO 2.5 mg BID CHASTITY Administration Escitalopram Oxalate 20 mg 07/20/20 09:00 07/23/20 09:34 Escitalopram Oxalate 20 Mg Tablet PO 20 mg DAILY CHASTITY Administration Furosemide 20 mg 07/20/20 14:00 07/23/20 05:44 Furosemide 40 Mg/4 Ml Vial SLOW IVP 20 mg 0600,1400 CHASTITY Administration Cefazolin Sodium/Dextrose 1 gm 50 mls @ 100 mls/hr 07/22/20 22:00 07/23/20 05:46 / Device IVPB 50 mls Q8HR CHASTITY Administration Levothyroxine Sodium 224 mcg 07/20/20 06:00 07/23/20 05:46 Levothyroxine Sodium 112 Mcg Tab PO 224 mcg 0600 CHASTITY Administration Lorazepam 2 mg 07/21/20 21:00 07/22/20 20:38 Lorazepam 1 Mg Tab PO 2 mg HS CHASTITY Administration Pantoprazole Sodium 40 mg 07/21/20 09:00 07/23/20 09:34 Pantoprazole 40 Mg Tab PO 40 mg DAILY CHASTITY Administration - Exam General Appearance: ill appearing Neck: supple, symmetric Heart: RRR, no gallops, no rubs Respiratory: rales, rhonchi Gastrointestinal: soft, non-tender, normal bowel sounds Extremities: 2+ LE edema (Left lower extremity) Musculoskeletal: generalized weakness Psychiatric: normal affect, A&O x 3 Hosp A/P - Plan Acute on chronic diastolic heart failure exacerbation Left lower extremity cellulitis TONYA on CKD stage IV Hyponatremia Hypokalemia Paroxysmal atrial fibrillation on anticoagulation Chronic adrenal insufficiency Hypothyroidism Hyperlipidemia History of labile hypertension Anxiety GERD Plan: Continue IV Lasix per cardiology. Continue fluid restriction. Continue amiodarone with Eliquis. Monitor labs on the daily basis. Renal function improving. Replace potassium. Counseled on congestive heart failure. Resume prednisone. Continue other medications as above.
[2020-07-23] MEDS ORDERED: Promethazine 25 MG TAB PO PRN (12:41)
[2020-07-23] MEDS ORDERED: Potassium Chloride 20 MEQ TAB PO SCH ×2 (12:45→17:00)
[2020-07-23] MEDS ORDERED: predniSONE 5 MG TAB PO SCH (13:00)
--- NOTE | 2020-07-23 14:40 | EKG ---
Test Reason : HEAVY BREATHING Blood Pressure : / mmHG Vent. Rate : 075 BPM Atrial Rate : 076 BPM P-R Int : 000 ms QRS Dur : 164 ms QT Int : 470 ms P-R-T Axes : 000 -62 078 degrees QTc Int : 524 ms Electronic ventricular pacemaker Confirmed by LJ ERWIN [id number]), food editor RAMIRO MURRAY ([id number]) on 07/23/2020 2:40:02 PM Referred By: Confirmed By:LJ ERWIN
[2020-07-23] MEDS: Lorazepam 1 MG TAB PO SCH (21:05)
[2020-07-24 04:27] LABS: #Eosinphils 0.1 thou/uL (0.0-0.7); #Lymphocytes 0.6 thou/uL (1.20-3.40); #Monocytes 0.9 thou/uL (0.11-0.59); #Neutrophils 5.4 thou/uL (1.40-6.50); %Basophils 0.2 % (0.0-1.0); %Lymphocytes 8.9 % (21.0-51.0); %Neutrophils 76.9 % (42.0-75.0); Hemoglobin 10.9 g/dL (12.0-16.0); Mean Corpuscular HGB CONC 32.9 g/dL (32.0-36.0); Mean Corpuscular Hemoglobin 34.1 pg (27.0-31.0); Mean Platelet Volume 8.4 fL (7.4-10.4); Platelet Count 129 thou/uL (130-400); RBC Distribution Width 15.1 % (11.5-14.5); Red Blood Cell (RBC) Count 3.21 mill/uL (4.20-5.40)
[2020-07-24 04:52] LABS: Anion Gap 15 mmol/L (10-20); BUN (Urea Nitrogen) 35 mg/dL (9.8-20.1); Calc. Creatinine Clearance 18 mL/min (70-130); Calcium 7.8 mg/dL (7.8-10.44); Carbon Dioxide 25 mmol/L (23-31); Chloride 97 mmol/L (98-107); Glucose 96 mg/dL (83-110); Magnesium 1.7 mg/dL (1.6-2.6); Potassium 4.1 mmol/L (3.5-5.1); Sodium 133 mmol/L (136-145)
[2020-07-24] MEDS: ceFAZolin 1 GM/D5W 1 GM in Premix Bag 1 BAG IVPB SCH ×3 (05:40→21:55)
[2020-07-24] MEDS: Furosemide 40 MG/4 ML VIAL SLOW IVP SCH ×2 (05:41→13:59)
[2020-07-24] MEDS: Levothyroxine Sodium 112 MCG TAB PO SCH (05:41)
[2020-07-24] MEDS: Amiodarone 200 MG TAB PO SCH (08:25)
[2020-07-24] MEDS: Cholecalciferol 1,000 UNITS (25 MCG) TAB PO SCH (08:25)
[2020-07-24] MEDS: Apixaban 2.5 MG TAB PO SCH ×2 (08:26→21:53)
[2020-07-24] MEDS: Escitalopram Oxalate 20 mg Tablet PO SCH (08:26)
[2020-07-24] MEDS: predniSONE 5 MG TAB PO SCH (08:26)
[2020-07-24] MEDS: HYDROcodone/Acetaminophen 5/325 mg Tablet PO PRN ×2 (12:46→21:54)
--- NOTE | 2020-07-24 12:55 | PDOC.BPN ---
- Brief Progress Note Encounter Date: 07/24/20 Encounter Time: 12:55 Subjective: Patient does not have new complaints. Patient's daughter was also present in the room at the time of admission. She is able to participate in physical therapy. Review of systems Gen.: No fever, no chills All the 14 systems reviewed except for the ones mentioned above are negative Physical examination Vital Signs (24 hours) Temp Pulse Pulse Pulse Pulse Resp BP 07/24/20 16:06 97.9 F 75 12 07/24/20 12:43 98.4 F 76 16 07/24/20 12:04 75 75 76 117/56 L 07/24/20 11:25 77 75 125/58 L 07/24/20 08:13 97.8 F 75 12 07/24/20 04:00 97.6 F 75 17 07/24/20 00:00 86 BP BP BP Pulse Ox Pulse Ox Pulse Ox Pulse Ox 07/24/20 16:06 111/55 L 95 07/24/20 12:43 132/62 97 07/24/20 12:04 126/60 132/62 98 07/24/20 11:25 123/60 95 95 07/24/20 08:13 129/58 L 97 07/24/20 04:00 118/54 L 95 07/24/20 00:00 130/62 Intake & Output - 24 hours 07/24/20 07/25/20 06:59 06:59 Intake Total 940 480 Output Total 1200 900 Balance -260 -420 Weight 139 lb 14.4 oz Intake: Intake, IV Amount 100 Oral 840 480 Output: Urine 1200 900 Other: Voiding Method Diaper Diaper Constitutional: Elderly female patient, not in pain or discomfort HEENT: Mucous membranes moist, no icterus Neck: Trachea midline, no lymphadenopathy Heart: Regular rate and rhythm; no murmurs Lungs: Air entry equal bilateral; no wheezes Abdomen: Soft; nontender; no guarding/tenderness/rebound Extremities: No calf tenderness; no ulcers, no bruises Neurological: Patient is awake, following commands Skin: No rash, no ulcers Psychological: Not agitated Labs and Imaging reviewed Laboratory Results - last 24 hr 07/24/20 07/24/20 03:46 03:46 WBC 7.0 RBC 3.21 L Hgb 10.9 L Hct 33.2 L MCV 103.0 H MCH 34.1 H MCHC 32.9 RDW 15.1 H Plt Count 129 L MPV 8.4 Neutrophils % 76.9 H Lymphocytes % 8.9 L Monocytes % 13.0 H Eosinophils % 1.0 Basophils % 0.2 Neutrophils # 5.4 Lymphocytes # 0.6 L Monocytes # 0.9 H Eosinophils # 0.1 Basophils # 0.0 Sodium 133 L Potassium 4.1 Chloride 97 L Carbon Dioxide 25 Anion Gap 15 BUN 35 H Creatinine 2.22 H Estimated GFR (MDRD) 21 Glucose 96 Calcium 7.8 Magnesium 1.7 Active Medications Generic Name Dose Route Start Last Admin Trade Name Freq PRN Reason Stop Dose Admin Hydrocodone Bitart/Acetaminophen 1 tab 07/19/20 17:44 07/24/20 12:46 Hydrocodone/Acetaminophen 5/325 Mg Tablet PO 1 tab Q4H PRN Administration Mild Pain 0-3 Amiodarone HCl 200 mg 07/20/20 09:00 07/24/20 08:25 Amiodarone 200 Mg Tab PO 200 mg DAILY CHASTITY Administration Apixaban 2.5 mg 07/19/20 21:00 07/24/20 08:26 Apixaban 2.5 Mg Tab PO 2.5 mg BID CHASTITY Administration Cephalexin 250 mg 07/25/20 09:00 Cephalexin 250 Mg Cap PO TID CHASTITY Cholecalciferol 5,000 units 07/24/20 09:00 07/24/20 08:25 Cholecalciferol 1,000 Units (25 Mcg) Tab PO 5,000 units DAILY CHASTITY Administration Cyanocobalamin 1,000 mcg 07/25/20 09:00 Cyanocobalamin (Vitamin B-12) 1,000 Mcg Tab PO DAILY CHASTITY Escitalopram Oxalate 20 mg 07/20/20 09:00 07/24/20 08:26 Escitalopram Oxalate 20 Mg Tablet PO 20 mg DAILY CHASTITY Administration Folic Acid 1 mg 07/25/20 09:00 Folic Acid 1 Mg Tab PO DAILY CHASTITY Furosemide 40 mg 07/25/20 07:30 Furosemide 40 Mg Tab PO DAILY-AC [facility] Cefazolin Sodium/Dextrose 1 gm 50 mls @ 100 mls/hr 07/22/20 22:00 07/24/20 13:56 / Device IVPB 07/24/20 23:59 50 mls Q8HR CHASTITY Administration Levothyroxine Sodium 224 mcg 07/20/20 06:00 07/24/20 05:41 Levothyroxine Sodium 112 Mcg Tab PO 224 mcg 0600 CHASTITY Administration Lidocaine 1 patch 07/19/20 17:56 Lidocaine 5% Patch TD DAILY PRN Pain Lorazepam 2 mg 07/21/20 21:00 07/23/20 21:05 Lorazepam 1 Mg Tab PO 2 mg HS CHASTITY Administration Miscellaneous Medication 1 each 07/19/20 17:58 Lidocaine Patch Removal 1 Each TOP HS PRN LIDOCAINE PATCH USE Heart failure Miscellaneous Medication 1 each 07/23/20 09:58 Pharmacy To Dose (Ancef) IVPB PRN PRN Pharmacy to dose (ANCEF) Multivitamins 1 tab 07/25/20 09:00 Multivit, Therapeutic 1 Tab PO DAILY CHASTITY Pantoprazole Sodium 40 mg 07/21/20 09:00 07/24/20 08:25 Pantoprazole 40 Mg Tab PO 40 mg DAILY CHASTITY Administration Pantoprazole Sodium 40 mg 07/24/20 09:00 07/24/20 08:26 Pantoprazole 40 Mg Tab PO Not Given DAILY CHASTITY Prednisone 5 mg 07/24/20 08:00 07/24/20 08:26 Prednisone 5 Mg Tab PO 5 mg QAM-WM CHASTITY Administration Promethazine HCl 25 mg 07/23/20 12:41 Promethazine 25 Mg Tab PO Q6HR PRN Nausea Assessment and plan TONYA on CKD stage III/IV Hypokalemia Hyponatremia Edema Patient's urine output in the last 24 hours 2100 mL. Patient was changed to p.o. Lasix this morning. Patient's potassium is within normal limits, continue to monitor sodium levels. Discussed with patient's family and RN Thank you for allowing me to participate in the management of this pt
--- NOTE | 2020-07-24 19:11 | PDOC.HOSPP ---
- Subjective Encounter Date: 07/24/20 Encounter Time: 10:30 Subjective: Patient seen and examined for congestive heart failure exacerbation. Shortness of breath improving. Denies any fever or chills. No chest pain or palpitations. - Objective Vital Signs & Weight: Vital Signs (12 hours) Temp Pulse Pulse Pulse Pulse Resp BP 07/24/20 16:06 97.9 F 75 12 07/24/20 12:43 98.4 F 76 16 07/24/20 12:04 75 75 76 117/56 L 07/24/20 11:25 77 75 125/58 L 07/24/20 08:13 97.8 F 75 12 BP BP BP Pulse Ox Pulse Ox Pulse Ox Pulse Ox 07/24/20 16:06 111/55 L 95 07/24/20 12:43 132/62 97 07/24/20 12:04 126/60 132/62 98 07/24/20 11:25 123/60 95 95 07/24/20 08:13 129/58 L 97 Weight Admit Weight 157 lb Weight 139 lb 14.4 oz I&O: 07/23/20 07/24/20 07/25/20 06:59 06:59 06:59 Intake Total 787 940 480 Output Total 2100 1200 900 Balance -4671 -074 -600 Result Diagrams: 07/24/20 03:46 07/24/20 03:46 Additional Labs: Abnormal Lab Results - Last 48 hrs 07/23/20 03:48: Sodium 135 L, Potassium 3.3 L, Chloride 97 L, BUN 38 H, Creatinine 2.54 H 07/24/20 03:46: Sodium 133 L, Chloride 97 L, BUN 35 H, Creatinine 2.22 H 07/24/20 03:46: RBC 3.21 L, Hgb 10.9 L, Hct 33.2 L, MCV 103.0 H, MCH 34.1 H, RDW 15.1 H, Plt Count 129 L, Neutrophils % 76.9 H, Lymphocytes % 8.9 L, Monocytes % 13.0 H, Lymphocytes # 0.6 L, Monocytes # 0.9 H EKG Reviewed by me: Yes (Paced rhythm on telemetry) Hospitalist ROS - Review of Systems Cardiovascular: reports: edema. denies: chest pain, palpitations, orthopnea, paroxysmal noc. dyspnea, light headedness, other Gastrointestinal: denies: nausea, vomiting, abdominal pain, diarrhea, constipation, melena, hematochezia, other - Medication Medications: Active Medications Generic Name Dose Route Start Last Admin Trade Name Nathanaelq PRN Reason Stop Dose Admin Hydrocodone Bitart/Acetaminophen 1 tab 07/19/20 17:44 07/24/20 12:46 Hydrocodone/Acetaminophen 5/325 Mg Tablet PO 1 tab Q4H PRN Administration Mild Pain 0-3 Amiodarone HCl 200 mg 07/20/20 09:00 07/24/20 08:25 Amiodarone 200 Mg Tab PO 200 mg DAILY CHASTITY Administration Apixaban 2.5 mg 07/19/20 21:00 07/24/20 08:26 Apixaban 2.5 Mg Tab PO 2.5 mg BID CHASTITY Administration Cholecalciferol 5,000 units 07/24/20 09:00 07/24/20 08:25 Cholecalciferol 1,000 Units (25 Mcg) Tab PO 5,000 units DAILY CHASTITY Administration Escitalopram Oxalate 20 mg 07/20/20 09:00 07/24/20 08:26 Escitalopram Oxalate 20 Mg Tablet PO 20 mg DAILY CHASTITY Administration Cefazolin Sodium/Dextrose 1 gm 50 mls @ 100 mls/hr 07/22/20 22:00 07/24/20 13:56 / Device IVPB 07/24/20 23:59 50 mls Q8HR CHASTITY Administration Levothyroxine Sodium 224 mcg 07/20/20 06:00 07/24/20 05:41 Levothyroxine Sodium 112 Mcg Tab PO 224 mcg 0600 CHASTITY Administration Lorazepam 2 mg 07/21/20 21:00 07/23/20 21:05 Lorazepam 1 Mg Tab PO 2 mg HS CHASTITY Administration Pantoprazole Sodium 40 mg 07/21/20 09:00 07/24/20 08:25 Pantoprazole 40 Mg Tab PO 40 mg DAILY CHASTITY Administration Pantoprazole Sodium 40 mg 07/24/20 09:00 07/24/20 08:26 Pantoprazole 40 Mg Tab PO Not Given DAILY CHASTITY Prednisone 5 mg 07/24/20 08:00 07/24/20 08:26 Prednisone 5 Mg Tab PO 5 mg QAM-WM CHASTITY Administration - Exam General Appearance: NAD Heart: RRR, no gallops Respiratory: no wheezes, no ronchi Gastrointestinal: non-tender, non-distended Extremities: no cyanosis Extremities - other findings: Edema improving Neurological: no new deficit Hosp A/P - Plan Acute on chronic diastolic heart failure exacerbation Left lower extremity cellulitis TONYA on CKD stage IV Generalized weaknessmultifactorial Hyponatremia Hypokalemia Paroxysmal atrial fibrillation on anticoagulation Chronic adrenal insufficiency Hypothyroidism Hyperlipidemia History of labile hypertension Anxiety GERD Plan: Change Lasix and antibiotics to p.o. Recheck labs in a.m. Continue amiodarone, Eliquis, levothyroxine and other medications as above. Inpatient rehab eval per physical therapy. Continue other medications as above. Patient is stable for discharge on 12 BC and 24 hours if stable. Continue fluid restriction. Renal function improving.
[2020-07-24] MEDS: Lorazepam 1 MG TAB PO SCH (21:54)
[2020-07-25 04:49] LABS: #Eosinphils 0.1 thou/uL (0.0-0.7); #Lymphocytes 0.8 thou/uL (1.20-3.40); #Monocytes 0.9 thou/uL (0.11-0.59); %Basophils 0.3 % (0.0-1.0); %Eosinophils 1.9 % (0.0-10.0); %Lymphocytes 11.2 % (21.0-51.0); %Neutrophils 73.6 % (42.0-75.0); Hemoglobin 10.6 g/dL (12.0-16.0); Mean Corpuscular HGB CONC 30.9 g/dL (32.0-36.0); Mean Corpuscular Hemoglobin 31.7 pg (27.0-31.0); Mean Platelet Volume 8.1 fL (7.4-10.4); Platelet Count 147 thou/uL (130-400); RBC Distribution Width 15.3 % (11.5-14.5); Red Blood Cell (RBC) Count 3.35 mill/uL (4.20-5.40); White Blood Cell (WBC) Count 6.8 thou/uL (4.8-10.8)
[2020-07-25 05:07] LABS: Anion Gap 15 mmol/L (10-20); BUN (Urea Nitrogen) 45 mg/dL (9.8-20.1); Calc. Creatinine Clearance 17 mL/min (70-130); Carbon Dioxide 25 mmol/L (23-31); Chloride 97 mmol/L (98-107); Glucose 87 mg/dL (83-110); Magnesium 1.7 mg/dL (1.6-2.6); Sodium 133 mmol/L (136-145)
[2020-07-25] MEDS: Levothyroxine Sodium 112 MCG TAB PO SCH (05:52)
[2020-07-25] MEDS: Cholecalciferol 1,000 UNITS (25 MCG) TAB PO SCH (09:26)
[2020-07-25] MEDS: predniSONE 5 MG TAB PO SCH (09:27)
[2020-07-25] MEDS: Multivit, Therapeutic 1 TAB PO SCH (09:27)
[2020-07-25] MEDS: Cyanocobalamin (Vitamin B-12) 1,000 MCG TAB PO SCH (09:27)
[2020-07-25] MEDS: Cephalexin 250 MG CAP PO SCH ×3 (09:28→20:35)
[2020-07-25] MEDS: Folic Acid 1 MG TAB PO SCH (09:28)
[2020-07-25] MEDS: Escitalopram Oxalate 20 mg Tablet PO SCH (09:28)
[2020-07-25] MEDS: Furosemide 40 MG TAB PO SCH (09:28)
[2020-07-25] MEDS: Apixaban 2.5 MG TAB PO SCH ×2 (09:28→20:34)
--- NOTE | 2020-07-25 09:50 | PRG ---
DATE OF SERVICE: SUBJECTIVE: Ms. Contreras is feeling better, but her leg is still very swollen. She is elevating the leg. OBJECTIVE: VITAL SIGNS: Her blood pressure 129/62, pulse is 80 and it is regular. LUNGS: Clear. CARDIAC: Normal S1, normal S2. ABDOMEN: Soft, nontender. EXTREMITIES: Left leg still moderately swollen and warm. Looking at the pacemaker interrogation, she has been in really sustained atrial fibrillation since mid April, although it looked like the cardioversion that was done had her in sinus rhythm only very briefly. ASSESSMENT: 1. Atrial fibrillation, chronic, persistent, despite amiodarone. 2. Diastolic heart failure. PLAN: 1. We will stop amiodarone at this time. 2. Do ultrasound of the left lower extremity to make sure there is no clot. She is on Eliquis, but she still got a lot of swelling in the leg. 3. She is on oral antibiotics. Job ID: [id number]
[2020-07-25] MEDS: Amiodarone 200 MG TAB PO SCH (09:58)
--- NOTE | 2020-07-25 10:48 | ULT ---
EXAM: Left lower extremity venous Doppler HISTORY: Left lower extremity swelling/edema. FINDINGS: Grayscale, color-flow, Doppler evaluation, spectral analysis of the left lower extremity venous struc tures is performed with 2-D imaging. The left common femoral, superficial femoral, popliteal, posterior tibial, proximal greater saphenous and profunda femoral veins are imaged. There is normal luminal compressibility, flow, and augmentation in the visualized deep venous structu res of the left lower extremity. A lobulated heterogeneous collection was seen posterior to the knee in the popliteal fossa on prior s tudy of 03/17/2020. This is not present on today's examination, and findings are likely due to decrease in size and resolution of a presumed popliteal cyst. Subcutaneous edema is seen involving the distal left lower extremity. IMPRESSION: 1. No evidence of a deep vein thrombosis in the visualized deep venous structures left lower extremit y. 2. Distal left lower extremity subcutaneous edema.
--- NOTE | 2020-07-25 12:06 | PRG ---
DATE OF SERVICE: 07/25/2020 SUBJECTIVE: An 85-year-old female, being seen for acute kidney injury. The patient denied nausea, vomiting, or chest pain. OBJECTIVE: GENERAL: The patient is awake and alert. VITAL SIGNS: pulse 79, breathing at 16, blood pressure 129/62. HEENT: Head normocephalic and atraumatic. Eyes intact, no ulcers. Nose intact, no ulcers. Ears intact, no ulcers. NECK: Supple. No JVD. CHEST: Symmetrical and clear. CARDIOVASCULAR: Shows S1 and S2, no rub, no murmur. GASTROINTESTINAL: Abdomen is soft, bowel sounds positive. EXTREMITIES: Show no edema or ulcers. SKIN: Shows no rash or petechiae. MUSCULOSKELETAL: Shows no joint swelling or stiffness. GENITOURINARY: Shows no Lira or CVA tenderness. NEUROLOGIC: Motor intact. Cranial nerves intact. LABORATORY DATA: Reviewed. ASSESSMENT AND PLAN: 1. Chronic kidney disease, stage 4, stable. 2. Hypertension, stable. 3. Acute kidney injury, stable. Medication based on GFR appropriate. No indication for dialysis. Job ID: [id number] [facility]
[2020-07-25] MEDS: HYDROcodone/Acetaminophen 5/325 mg Tablet PO PRN ×2 (13:29→22:27)
[2020-07-25 14:03] VITALS: BMI 21.2
[2020-07-25] MEDS: Lorazepam 1 MG TAB PO SCH (20:34)
[2020-07-25] MEDS: Magnesium Chloride 64 MG TAB PO SCH (20:35)
--- NOTE | 2020-07-25 22:59 | PDOC.HOSPP ---
- Subjective Encounter Date: 07/25/20 Encounter Time: 13:45 Subjective: Patient seen and examined for congestive heart failure exacerbation. Shortness of breath improving. Continues to have leg swelling left more than right. No chest pain or palpitations. - Objective Vital Signs & Weight: Vital Signs (12 hours) Temp Pulse Pulse Pulse Resp BP BP 07/25/20 19:28 98.5 F 75 16 07/25/20 16:00 98.9 F 77 16 07/25/20 15:27 77 71 117/58 L 124/59 L 07/25/20 11:45 98.4 F 77 16 BP Pulse Ox 07/25/20 19:28 106/51 L 97 07/25/20 16:00 117/58 L 97 07/25/20 15:27 07/25/20 11:45 110/53 L 97 Weight Admit Weight 157 lb Weight 139 lb 6.4 oz I&O: 07/24/20 07/25/20 07/26/20 06:59 06:59 06:59 Intake Total 940 960 600 Output Total 1200 1150 500 Balance -260 -190 100 Result Diagrams: 07/25/20 03:50 07/25/20 03:50 Additional Labs: Abnormal Lab Results - Last 48 hrs 07/24/20 03:46: Sodium 133 L, Chloride 97 L, BUN 35 H, Creatinine 2.22 H 07/24/20 03:46: RBC 3.21 L, Hgb 10.9 L, Hct 33.2 L, MCV 103.0 H, MCH 34.1 H, RDW 15.1 H, Plt Count 129 L, Neutrophils % 76.9 H, Lymphocytes % 8.9 L, Monocytes % 13.0 H, Lymphocytes # 0.6 L, Monocytes # 0.9 H 07/25/20 03:50: Sodium 133 L, Chloride 97 L, BUN 45 H, Creatinine 2.38 H 07/25/20 03:50: RBC 3.35 L, Hgb 10.6 L, Hct 34.4 L, MCV 103.0 H, MCH 31.7 H, MCHC 30.9 L, RDW 15.3 H, Lymphocytes % 11.2 L, Monocytes % 13.0 H, Lymphocytes # 0.8 L, Monocytes # 0.9 H EKG Reviewed by me: Yes (Paced rhythm on telemetry) Hospitalist ROS - Review of Systems Respiratory: denies: cough, dry, shortness of breath, hemoptysis, SOB with excertion, pleuritic pain, sputum, wheezing, other Gastrointestinal: denies: nausea, vomiting, abdominal pain, diarrhea, constipation, melena, hematochezia, other - Medication Medications: Active Medications Generic Name Dose Route Start Last Admin Trade Name Freq PRN Reason Stop Dose Admin Hydrocodone Bitart/Acetaminophen 1 tab 07/19/20 17:44 07/25/20 22:27 Hydrocodone/Acetaminophen 5/325 Mg Tablet PO 1 tab Q4H PRN Administration Mild Pain 0-3 Apixaban 2.5 mg 07/19/20 21:00 07/25/20 20:34 Apixaban 2.5 Mg Tab PO 2.5 mg BID CHASTITY Administration Cephalexin 250 mg 07/25/20 09:00 07/25/20 20:35 Cephalexin 250 Mg Cap PO 250 mg TID CHASTITY Administration Cholecalciferol 5,000 units 07/24/20 09:00 07/25/20 09:26 Cholecalciferol 1,000 Units (25 Mcg) Tab PO 5,000 units DAILY CHASTITY Administration Cyanocobalamin 1,000 mcg 07/25/20 09:00 07/25/20 09:27 Cyanocobalamin (Vitamin B-12) 1,000 Mcg Tab PO 1,000 mcg DAILY CHASTITY Administration Escitalopram Oxalate 20 mg 07/20/20 09:00 07/25/20 09:28 Escitalopram Oxalate 20 Mg Tablet PO 20 mg DAILY CHASTITY Administration Folic Acid 1 mg 07/25/20 09:00 07/25/20 09:28 Folic Acid 1 Mg Tab PO 1 mg DAILY CHASTITY Administration Furosemide 40 mg 07/25/20 07:30 07/25/20 09:28 Furosemide 40 Mg Tab PO 40 mg DAILY-AC CHASTITY Administration Levothyroxine Sodium 224 mcg 07/20/20 06:00 07/25/20 05:52 Levothyroxine Sodium 112 Mcg Tab PO 224 mcg 0600 CHASTITY Administration Lorazepam 2 mg 07/21/20 21:00 07/25/20 20:34 Lorazepam 1 Mg Tab PO 2 mg HS CHASTITY Administration Magnesium Chloride 128 mg 07/25/20 21:00 07/25/20 20:35 Magnesium Chloride 64 Mg Tab PO 128 mg BID CHASTITY Administration Multivitamins 1 tab 07/25/20 09:00 07/25/20 09:27 Multivit, Therapeutic 1 Tab PO 1 tab DAILY CHASTITY Administration Pantoprazole Sodium 40 mg 07/21/20 09:00 07/25/20 09:27 Pantoprazole 40 Mg Tab PO 40 mg DAILY CHASTITY Administration Pantoprazole Sodium 40 mg 07/24/20 09:00 07/25/20 09:25 Pantoprazole 40 Mg Tab PO Not Given DAILY CHASTITY Prednisone 5 mg 07/24/20 08:00 07/25/20 09:27 Prednisone 5 Mg Tab PO 5 mg QAM-WM CHASTITY Administration - Exam Neck: supple, no JVD Heart: RRR, no gallops Respiratory: no wheezes, no ronchi Gastrointestinal: soft, non-tender Extremities: no cyanosis Hosp A/P - Plan Acute on chronic diastolic heart failure exacerbation Left lower extremity cellulitis TONYA on CKD stage IV Generalized weaknessmultifactorial Hyponatremia Hypokalemia Atrial fibrillation on anticoagulation Chronic adrenal insufficiency Hypothyroidism Hyperlipidemia History of labile hypertension Anxiety GERD Recent COVID infection Plan: Left lower extremity Doppler done today was negative for DVT.Amiodarone disco ntinued per cardiology. Continue Eliquis. Await inpatient rehabilitation placement. Continue po Lasix. Monitor renal function closely. Continue other medications as above. Continue therapy. Attempted to call family with no answer.
[2020-07-26 04:56] LABS: Anion Gap 14 mmol/L (10-20); BUN (Urea Nitrogen) 42 mg/dL (9.8-20.1); Calc. Creatinine Clearance 18 mL/min (70-130); Calcium 8.3 mg/dL (7.8-10.44); Carbon Dioxide 29 mmol/L (23-31); Chloride 96 mmol/L (98-107); Glucose 85 mg/dL (83-110); Potassium 3.9 mmol/L (3.5-5.1); Sodium 135 mmol/L (136-145)
[2020-07-26] MEDS: Levothyroxine Sodium 112 MCG TAB PO SCH (05:12)
[2020-07-26] MEDS: Cholecalciferol 1,000 UNITS (25 MCG) TAB PO SCH (08:24)
[2020-07-26] MEDS: HYDROcodone/Acetaminophen 5/325 mg Tablet PO PRN (08:25)
[2020-07-26] MEDS: Furosemide 40 MG TAB PO SCH (08:25)
[2020-07-26] MEDS: Folic Acid 1 MG TAB PO SCH (08:25)
[2020-07-26] MEDS: Escitalopram Oxalate 20 mg Tablet PO SCH (08:25)
[2020-07-26] MEDS: Multivit, Therapeutic 1 TAB PO SCH (08:25)
[2020-07-26] MEDS: Magnesium Chloride 64 MG TAB PO SCH (08:26)
[2020-07-26] MEDS: Cyanocobalamin (Vitamin B-12) 1,000 MCG TAB PO SCH (08:26)
[2020-07-26] MEDS: Cephalexin 250 MG CAP PO SCH ×2 (08:26→13:49)
[2020-07-26] MEDS: predniSONE 5 MG TAB PO SCH (08:26)
[2020-07-26] MEDS: Apixaban 2.5 MG TAB PO SCH (08:26)
--- NOTE | 2020-07-26 09:13 | PRG ---
DATE OF SERVICE: 07/26/2020 SUBJECTIVE: An 85-year-old female, being seen for CKD. The patient denies any nausea, vomiting, or chest pain. PHYSICAL EXAMINATION: General: The patient is awake and alert. Vital Signs: Afebrile, pulse 75, breathing at 16, blood pressure 130/61. HEENT: Head normocephalic and atraumatic. Eyes intact, no ulcers. Nose intact, no ulcers. Ears intact, no ulcers. Neck: Supple. No JVD. Chest: Symmetrical and clear. Cardiovascular: Shows S1 and S2, no rub, no murmur. Gastrointestinal: Abdomen is soft, bowel sounds positive. Extremities: Show no edema or ulcers. Skin: Shows no rash or petechiae. Musculoskeletal: Shows no joint swelling or stiffness. Genitourinary: Shows no Lira or CVA tenderness. Neurologic: Motor intact. Cranial nerves intact. LABORATORY DATA: Reviewed. ASSESSMENT AND PLAN: 1. Chronic kidney disease, stage 4, stable. 2. Hypertension, stable. 3. Anemia, stable. 4. Medication based on GFR, appropriate. I will sign off on this patient. Please reconsult as needed. Job ID: [id number]
--- NOTE | 2020-07-26 09:51 | PRG ---
DATE OF SERVICE: 07/26/2020 SUBJECTIVE: Ms. Contreras feels okay. Her leg is still swollen and painful, but there is no thrombus in the leg when we checked. OBJECTIVE: VITAL SIGNS: Blood pressure 130/60; pulse 70, it is paced. LUNGS: Clear. CARDIAC: Normal S1 and normal S2. ABDOMEN: Soft and nontender. EXTREMITIES: Still [id number] edema on the left lower extremity and [id number] on the right. ASSESSMENT: 1. Chronic swelling of the left lower extremity, probably has some venous reflux. No thrombus. 2. Stage 4 renal failure, stable. 3. Still quite a bit of edema. 4. Chronic atrial fibrillation. 5. Chronic diastolic heart failure. PLAN: 1. Increase furosemide to 40 mg twice a day. 2. Stop amiodarone. 3. Start Toprol-XL 25 mg a day to help with rate control. Start that tomorrow. Job ID: [id number]
[2020-07-26 13:42] VITALS: TEMP 97.8
[2020-07-26] MEDS ORDERED: Furosemide 40 MG TAB PO SCH (14:00)
[2020-07-26 15:05] VITALS: BP 122/53
--- NOTE | 2020-07-27 09:40 | PDOC.DS.DS ---
Provider - Provider Date of Admission: 07/19/20 11:23 Date of Discharge: 07/26/20 Admitting Provider: Reagan Brewster DO Consultations: Cardiology, Nephrology Primary Care Physician: Jeffry Sheikh MD Course - Hospital Course Hospital Course: Patient is 85-year-old female with congestive heart failure and CKD presented to the emergency room with generalized weakness on 07/19. Her work-up was consistent with acute on chronic diastolic heart failure exacerbation. She had a recent echo that showed ejection fraction 50 to 55%. Her BNP was 620 on admission. She was also found to have acute kidney injury with a maximum creatinine of 2.87 this admission. She was evaluated by cardiology and nephrology. She showed good improvement with diuretics. Her weight on admission was 157 pounds and at discharge is 137 pounds. Torsemide has been ch anged to Lasix per cardiology. Other medications have been optimized per cardiology. Renal function has stabilized. Repeat basic metabolic profile after 1 week is recommended. She also had some electrolyte abnormalities that has been corrected. She has been cleared by consultants for discharge. Patient was also found to have left lower extremity cellulitis that improved with IV antibiotics. Antibiotics have been transitioned to oral. Dopplers were negative for DVT. Final diagnosis: Acute on chronic diastolic heart failure exacerbation Left lower extremity cellulitis TONYA on CKD stage IV Generalized weaknessmultifactorial Hyponatremia Hypokalemia Atrial fibrillation on anticoagulation Chronic adrenal insufficiency Hypothyroidism Hyperlipidemia History of labile hypertension Anxiety GERD Recent COVID infection Time coordinating the discharge of this patient was 36 minutes. - Labs Lab Results: 07/25/20 03:50 07/26/20 03:55 Abnormal Lab Results - Last 48 hrs 07/26/20 03:55: Sodium 135 L, Chloride 96 L, BUN 42 H, Creatinine 2.26 H - Physical Exam Vitals: Weight Admit Weight 157 lb Weight 137 lb 4.8 oz Physical Exam: The patient was seen and examined on the day of discharge. Plan - Discharge Medications Prescriptions: Cephalexin [Keflex] 250 mg PO TID #20 cap Home Medications: Medication Instructions Recorded Confirmed Type Estradiol 1 mg PO QAM 02/21/13 07/19/20 History Lidocaine [Lidocaine 5% Patch] 1 patch TOP PRN PRN 09/30/13 07/19/20 History Lorazepam [Ativan] 2 mg PO HS 09/30/13 07/19/20 History predniSONE 5 mg PO QAM-WM 09/23/15 07/19/20 History Apixaban [Eliquis] 2.5 mg PO BID 11/04/15 07/19/20 History Esomeprazole Magnesium [NexIUM] 40 mg PO QAM 04/24/17 07/19/20 History Promethazine [Phenergan] 25 mg PO Q6HR PRN 04/24/17 07/19/20 History HYDROcodone Bit/APAP 5/325 [Ashley] 1 tab PO Q4H PRN #0 tab 07/23/17 07/19/20 Rx Escitalopram Oxalate [Lexapro] 20 mg PO DAILY 04/06/18 07/19/20 History Levothyroxine Sodium [Synthroid] 2 tab PO DAILY 04/06/18 07/19/20 History Cholecalciferol (Vitamin D3) 5,000 units PO DAILY 05/21/20 07/19/20 History [Vitamin D] Cephalexin [Keflex] 250 mg PO TID #20 cap 07/26/20 Rx Cyanocobalamin (Vitamin B-12) 1,000 mcg PO DAILY tab 07/26/20 Rx [Vitamin B-12] Folic Acid [Folvite] 1 mg PO DAILY tab 07/26/20 Rx Furosemide [Lasix] 40 mg PO 0900,1400 tab 07/26/20 Rx Magnesium Chloride [Slow-Mag] 64 mg PO BID tab 07/26/20 Rx Metoprolol Succinate [Toprol XL] 25 mg PO DAILY tab 07/26/20 Rx Multivit, Therapeutic [Theragran] 1 tab PO DAILY tab 07/26/20 Rx Allergies: clindamycin Allergy (Severe, Verified 06/09/20 21:15) Anaphylaxis FROM ESD REPORT methylprednisolone [From Solu-Medrol] Allergy (Severe, Verified 06/10/20 01:18) "I felt really bad" Per pt - Discharge Instructions Discharge Instructions:: BMP after 1 week - Follow up Plan Referrals: [facility], Gen[facility] Hector [Other] (Inpatient rehab admit.) Jeffry Sheikh MD [Primary Care Provider] - 7 Days (Please follow up with Dr Sheikh in 7days. Call the office to schedule an appointment. Please get a BMP in 1 week.) Martinez Arnold MD [Active] - 14 Days (Please follow up with Dr Arnold in two weeks. Call the office to schedule an appointment.) Jacquelyn Sol MD [Active] - ([facility] Amber Dillon MD [Active] - 14 Days (Please follow up in 2 weeks. Call the office to schedule an appointment.) Disposition: REHAB FACILITY Quality - Care Measures CORE MEASURES:: N/A
== END 2020-07-26 14:07 | DRG 682 ==
LOC: ERS 08:17 → ERHOLD 11:23 → 2NO 17:03
PROVIDERS: ADMIT Family Medicine; ATTEND Internal Medicine
DX: N17.9 Acute kidney failure, unspecified (principal); I50.33 Acute on chronic diastolic (congestive) heart failure; U07.1 COVID-19; J12.89 Other viral pneumonia; I13.0 Hypertensive heart and chronic kidney disease with heart failure and stage 1 through stage 4 chronic kidney disease, or unspecified chronic kidney disease; E27.40 Unspecified adrenocortical insufficiency; L03.116 Cellulitis of left lower limb; E87.1 Hypo-osmolality and hyponatremia; N18.4 Chronic kidney disease, stage 4 (severe); F32.9 Major depressive disorder, single episode, unspecified; I48.0 Paroxysmal atrial fibrillation; E78.5 Hyperlipidemia, unspecified; I89.0 Lymphedema, not elsewhere classified; E03.9 Hypothyroidism, unspecified; K21.9 Gastro-esophageal reflux disease without esophagitis; F41.9 Anxiety disorder, unspecified; Z96.642 Presence of left artificial hip joint; D63.1 Anemia in chronic kidney disease; E87.6 Hypokalemia; Z86.73 Personal history of transient ischemic attack (TIA), and cerebral infarction without residual deficits; Z95.1 Presence of aortocoronary bypass graft; Z95.2 Presence of prosthetic heart valve; Z90.710 Acquired absence of both cervix and uterus; Z88.1 Allergy status to other antibiotic agents; Z88.8 Allergy status to other drugs, medicaments and biological substances; Z79.01 Long term (current) use of anticoagulants; Z79.890 Hormone replacement therapy; Z79.52 Long term (current) use of systemic steroids; Z79.899 Other long term (current) drug therapy; Z88.5 Allergy status to narcotic agent
CPT/HCPCS: 36415; 71045; 80048; 80053; 81001; 82553; 83735; 83880; 84484; 85025; 87635; 93005; 93798; 94760; 96374; J0690; J1940; J3490; J7512; U0003

== ENCOUNTER 2020-09-28 08:00 | Inpatient (IN) | payer MEDICARE, BC ==
--- NOTE | 2020-09-28 08:42 | RAD ---
Exam: Chest one view HISTORY:Dyspnea. Body aches. Comparison: 07/27/2020 FINDINGS: Cardiac silhouette:Artery megaly. Sternotomy wires and left-sided transvenous pacemaker are once agai n demonstrated Aorta: Unremarkable Pulmonary vessels: Slightly prominent Costophrenic angles: Small bilateral effusions LUNGS: Bibasilar lung parenchymal opacities. Lungs are hyperinflated. Pneumothorax: None Osseous abnormalities: None IMPRESSION: Congestive heart failure.
[2020-09-28 09:31] LABS: ALT (SGPT) 10 U/L (8-55); AST (SGOT) 23 U/L (5-34); Albumin 3.4 g/dL (3.4-4.8); Alkaline Phosphatase 114 U/L (40-110); Anion Gap 14 mmol/L (10-20); BUN (Urea Nitrogen) 32 mg/dL (9.8-20.1); Calc. Creatinine Clearance 0 mL/min (70-130); Calcium 8.5 mg/dL (7.8-10.44); Carbon Dioxide 18 mmol/L (23-31); Chloride 110 mmol/L (98-107); Globulin 2.3 g/dL (2.4-3.5); Glucose 88 mg/dL (83-110); Potassium 4.2 mmol/L (3.5-5.1); Protein, Total 5.7 g/dL (5.8-8.1); Sodium 138 mmol/L (136-145)
[2020-09-28 09:34] LABS: #Eosinphils 0.1 thou/uL (0.0-0.7); #Lymphocytes 0.7 thou/uL (1.20-3.40); #Monocytes 0.4 thou/uL (0.11-0.59); #Neutrophils 6.3 thou/uL (1.40-6.50); %Basophils 0.4 % (0.0-1.0); %Eosinophils 1.1 % (0.0-10.0); %Lymphocytes 9.1 % (21.0-51.0); %Monocytes 4.7 % (0.0-10.0); %Neutrophils 84.7 % (42.0-75.0); Band 9 % (5-11); Hemoglobin 11.4 g/dL (12.0-16.0); Lymphocytes 13 % (21-51); MDiff Complete? YES; Mean Corpuscular HGB CONC 33.4 g/dL (32.0-36.0); Mean Corpuscular Hemoglobin 33.8 pg (27.0-31.0); Mean Platelet Volume 8.3 fL (7.4-10.4); Monocytes 4 % (0-10); Neutrophil 73 % (42-75); Ovalocytes SLIGHT = 2-5 cells (100X) (0-1/hpf); Platelet Count 97 thou/uL (130-400); Platelet Morphology Comment Appears Decreased; Polychromasia SLIGHT = 2-3 cells (100X) (0-2/hpf); RBC Distribution Width 14.7 % (11.5-14.5); Reactive Lymphocytes 1 % (0-10); Red Blood Cell (RBC) Count 3.38 mill/uL (4.20-5.40); White Blood Cell (WBC) Count 7.4 thou/uL (4.8-10.8)
[2020-09-28] MEDS ORDERED: Furosemide 40 MG/4 ML VIAL ONE ×2 (11:12→12:05)
[2020-09-28 11:41] LABS: Bacteria/HPF None Seen HPF (None Seen); Bilirubin Negative (Negative); Blood, Urine Negative (Negative); Clarity Clear (Clear); Glucose, Urine (Dipstick) Normal (Negative); Ketone, Urine Negative (Negative); Leukocyte Negative Leu/uL (Negative); Nitrite Negative (Negative); Protein, Urine (Dipstick) 50 mg/dL (Neg-Trace); RBC/HPF 0-3 HPF (0-3); Specific Gravity, Urine 1.029 (1.002-1.036); Squamous Epithelial 0-3 HPF (0-3); Urobilinogen 3 mg/dL (Less than 2); WBC/HPF 0-3 HPF (0-3); pH, Urine 5.5 (5.0-9.0)
--- NOTE | 2020-09-28 12:32 | PDOC.HHP ---
Hospitalist HPI Shortness of breath History of Present Illness: 85-year-old female who has congestive heart failure, based on most recent echocardiography patient has EF 50 to 55% with mild pulmonary hypertension and aortic regurgitation and tricuspid regurgitation, who came to emergency room for evaluation of shortness of breath. Patient had first dose of cold vaccine yesterday in left arm, subsequently she was feeling pain at the injection site, she was having multiple joint pain and body ache, which was worse than yesterday, she was also feeling chills and paramedics noted her ER temperature 103, patient was given Tylenol. Routine laboratory test in emergency room showed macrocytic anemia, elevated BNP, CKD stage IV, patient was on room air. Patient was also having increasing shortness of breath and cough, patient denies any lower extremity edema or orthopnea or PND, Patient has history of Covid in June 2020, In the emergency room cardiology was notified, patient was kept in the hospital for observation to treat underlying CHF exacerbation. ED Course: In the emergency room patient is given Lasix 40 mg IV push 2 doses Allergies/Adverse Reactions: Allergy/AdvReac Type Severity Reaction Status Date / Time clindamycin Allergy Severe Anaphylaxis Verified 06/09/20 21:15 methylprednisolone Allergy Severe "I felt Verified 06/10/20 01:18 [From Solu-Medrol] really bad" Home Medications: Medication Instructions Recorded Confirmed Type Estradiol 1 mg PO QAM 02/21/13 07/19/20 History Lidocaine [Lidocaine 5% Patch] 1 patch TOP PRN PRN 09/30/13 07/19/20 History Lorazepam [Ativan] 2 mg PO HS 09/30/13 07/19/20 History predniSONE 5 mg PO QAM- 09/23/15 07/19/20 History Apixaban [Eliquis] 2.5 mg PO BID 11/04/15 07/19/20 History Esomeprazole Magnesium [NexIUM] 40 mg PO QAM 04/24/17 07/19/20 History Promethazine [Phenergan] 25 mg PO Q6HR PRN 04/24/17 07/19/20 History HYDROcodone Bit/APAP 5/325 [[place]] 1 tab PO Q4H PRN #0 tab 07/23/17 07/19/20 Rx Escitalopram Oxalate [Lexapro] 20 mg PO DAILY 04/06/18 07/19/20 History Levothyroxine Sodium [Synthroid] 2 tab PO DAILY 04/06/18 07/19/20 History Cholecalciferol (Vitamin D3) 5,000 units PO DAILY 05/21/20 07/19/20 History [Vitamin D] Cephalexin [Keflex] 250 mg PO TID #20 cap 07/26/20 Rx Cyanocobalamin (Vitamin B-12) 1,000 mcg PO DAILY tab 07/26/20 Rx [Vitamin B-12] Folic Acid [Folvite] 1 mg PO DAILY tab 07/26/20 Rx Furosemide [Lasix] 40 mg PO 0900,1400 tab 07/26/20 Rx Magnesium Chloride [Slow-Mag] 64 mg PO BID tab 07/26/20 Rx Metoprolol Succinate [Toprol XL] 25 mg PO DAILY tab 07/26/20 Rx Multivit, Therapeutic [Theragran] 1 tab PO DAILY tab 07/26/20 Rx Past History: Past medical history Paroxysmal atrial fibrillation Cardiomyopathy Chronic diastolic heart failure Anxiety and depression History of CVA Dyslipidemia Chronic anticoagulation Past psychiatric history Anxiety and depression Past surgical history Pacemaker Nephrectomy Mitral valve repair Hysterectomy Left hip repair Social history Patient lives at home by herself, her daughter is visiting her frequently, no history of tobacco alcohol illicit drug abuse Hospitalist HPI RANDY Constitutional: reports: weakness, malaise ENT: denies: ear pain, ear discharge, nose pain, nose discharge, nose congestion, mouth pain, mouth swelling, throat pain, throat swelling, other Respiratory: reports: cough, shortness of breath, SOB with excertion. denies: dry, hemoptysis, pleuritic pain, sputum, wheezing, other Cardiovascular: denies: chest pain, palpitations, orthopnea, paroxysmal noc. dyspnea, edema, light headedness, other Gastrointestinal: denies: nausea, vomiting, abdominal pain, diarrhea, constipation, melena, hematochezia, other Genitourinary: denies: dysuria, frequency, incontinence, hematuria, retention, other Musculoskeletal: denies: neck pain, shoulder pain, arm pain, back pain, hand pa in, leg pain, foot pain, other Skin: denies: rash, lesions, maye, bruising, other Hospitalist Exam General Appearance: NAD, awake alert Eye: PERRL, anicteric sclera ENT: normocephalic atraumatic, no oropharyngeal lesions Neck: supple, symmetric, no JVD, no thyromegaly Heart: irregular, murmur present Heart - other findings: Respiratory: no wheezes, no ronchi Respiratory - other findings: Reduced air entry at base, few rales at base Gastrointestinal: soft, non-tender, non-distended, normal bowel sounds Extremities: no clubbing, 1+ LE edema Skin: normal turgor, no lesions Neurological: no focal deficits Musculoskeletal: normal tone, normal strength Psychiatric: normal affect, normal behavior, A&O x 3 Hospitalist Results Result Diagrams: 09/28/20 08:46 09/28/20 08:46 Lab results: Laboratory Last Values WBC 7.4 thou/uL (4.8-10.8) 09/28/20 08:46 RBC 3.38 mill/uL (4.20-5.40) L 09/28/20 08:46 Hgb 11.4 g/dL (12.0-16.0) L 09/28/20 08:46 Hct 34.2 % (36.0-47.0) L 09/28/20 08:46 MCV 101.0 fL (78.0-98.0) H 09/28/20 08:46 MCH 33.8 pg (27.0-31.0) H 09/28/20 08:46 MCHC 33.4 g/dL (32.0-36.0) 09/28/20 08:46 RDW 14.7 % (11.5-14.5) H 09/28/20 08:46 Plt Count 97 thou/uL (130-400) L 09/28/20 08:46 MPV 8.3 fL (7.4-10.4) 09/28/20 08:46 Neutrophils % 84.7 % (42.0-75.0) H 09/28/20 08:46 Neutrophils % (Manual) 73 % (42-75) 09/28/20 08:46 Band Neuts % (Manual) 9 % (5-11) 09/28/20 08:46 Lymphocytes % 9.1 % (21.0-51.0) L 09/28/20 08:46 Lymphocytes % (Manual) 13 % (21-51) L 09/28/20 08:46 Reactive Lymphs % 1 % (0-10) 09/28/20 08:46 Monocytes % 4.7 % (0.0-10.0) 09/28/20 08:46 Monocytes % (Manual) 4 % (0-10) 09/28/20 08:46 Eosinophils % 1.1 % (0.0-10.0) 09/28/20 08:46 Basophils % 0.4 % (0.0-1.0) 09/28/20 08:46 Neutrophils # 6.3 thou/uL (1.40-6.50) 09/28/20 08:46 Lymphocytes # 0.7 thou/uL (1.20-3.40) L 09/28/20 08:46 Monocytes # 0.4 thou/uL (0.11-0.59) 09/28/20 08:46 Eosinophils # 0.1 thou/uL (0.0-0.7) 09/28/20 08:46 Basophils # 0.0 thou/uL (0.0-0.2) 09/28/20 08:46 Plt Morphology Comment Appears Decreased L 09/28/20 08:46 Polychromasia SLIGHT = 2-3 cells (100X) (0-2/hpf) 09/28/20 08:46 Ovalocytes SLIGHT = 2-5 cells (100X) (0-1/hpf) 09/28/20 08:46 Sodium 138 mmol/L (136-145) 09/28/20 08:46 Potassium 4.2 mmol/L (3.5-5.1) 09/28/20 08:46 Chloride 110 mmol/L (98-107) H 09/28/20 08:46 Carbon Dioxide 18 mmol/L (23-31) L 09/28/20 08:46 Anion Gap 14 mmol/L (10-20) 09/28/20 08:46 BUN 32 mg/dL (9.8-20.1) H 09/28/20 08:46 Creatinine 2.03 mg/dL (0.6-1.1) H 09/28/20 08:46 Estimated GFR (MDRD) 23 09/28/20 08:46 Glucose 88 mg/dL (83-110) 09/28/20 08:46 Lactic Acid 1.6 mmol/L (0.5-2.2) 09/28/20 08:46 Calcium 8.5 mg/dL (7.8-10.44) 09/28/20 08:46 Total Bilirubin 1.0 mg/dL (0.2-1.2) 09/28/20 08:46 AST 23 U/L (5-34) 09/28/20 08:46 ALT 10 U/L (8-55) 09/28/20 08:46 Alkaline Phosphatase 114 U/L (40-110) H 09/28/20 08:46 Troponin I 0.026 ng/mL (< 0.028) 09/28/20 08:46 B-Natriuretic Peptide 942.7 pg/mL (0-100) H 09/28/20 08:46 Serum Total Protein 5.7 g/dL (5.8-8.1) L 09/28/20 08:46 Albumin 3.4 g/dL (3.4-4.8) 09/28/20 08:46 Globulin 2.3 g/dL (2.4-3.5) L 09/28/20 08:46 Albumin/Globulin Ratio 1.5 g/dL (1.2-2.2) 09/28/20 08:46 Urine Color Yellow (Yellow) 09/28/20 11:04 Urine Clarity Clear (Clear) 09/28/20 11:04 Urine pH 5.5 (5.0-9.0) 09/28/20 11:04 Ur Specific [place] 1.029 (1.002-1.036) 09/28/20 11:04 Urine Protein 50 mg/dL (Neg-Trace) A 09/28/20 11:04 Urine Glucose (UA) Normal mg/dL (Negative) 09/28/20 11:04 Urine Ketones Negative mg/dL (Negative) 09/28/20 11:04 Urine Blood Negative (Negative) 09/28/20 11:04 Urine Nitrite Negative (Negative) 09/28/20 11:04 Urine Bilirubin Negative (Negative) 09/28/20 11:04 Urine Urobilinogen 3 mg/dL (Less than 2) A 09/28/20 11:04 Ur Leukocyte Esterase Negative [place]/uL (Negative) 09/28/20 11:04 Urine RBC 0-3 HPF (0-3) 09/28/20 11:04 Urine WBC 0-3 HPF (0-3) 09/28/20 11:04 Ur Squamous Epith Cells 0-3 HPF (0-3) 09/28/20 11:04 Urine Bacteria None Seen HPF (None Seen) 09/28/20 11:04 Additional comment: EKG showing pacemaker rhythm Chest x-ray Status: image reviewed by me Additional Comments: FINDINGS: Cardiac silhouette:Artery megaly. Sternotomy wires and left-sided transvenous pacemaker are once agai n demonstrated Aorta: Unremarkable Pulmonary vessels: Slightly prominent Costophrenic angles: Small bilateral effusions LUNGS: Bibasilar lung parenchymal opacities. Lungs are hyperinflated. Pneumothorax: None Osseous abnormalities: None IMPRESSION: Congestive heart failure. Hospitalist H&P A/P (1) Acute on chronic diastolic (congestive) heart failure Code(s): I50.33 - ACUTE ON CHRONIC DIASTOLIC (CONGESTIVE) HEART FAILURE Status: Acute (2) Aortic regurgitation Code(s): I35.1 - NONRHEUMATIC AORTIC (VALVE) INSUFFICIENCY Status: Chronic (3) Tricuspid regurgitation Code(s): I07.1 - RHEUMATIC TRICUSPID INSUFFICIENCY Status: Chronic (4) Pulmonary hypertension Code(s): I27.20 - PULMONARY HYPERTENSION, UNSPECIFIED Status: Chronic (5) Anxiety and depression Code(s): F41.9 - ANXIETY DISORDER, UNSPECIFIED; F32.9 - MAJOR DEPRESSIVE DISORDER, SINGLE EPISODE, UNSPECIFIED Status: Chronic (6) CKD (chronic kidney disease), stage IV Code(s): N18.4 - CHRONIC KIDNEY DISEASE, STAGE 4 (SEVERE) Status: Chronic (7) Chronic anticoagulation Code(s): Z79.01 - TRAFFIC MONITOR SPECIALIST (CURRENT) USE OF ANTICOAGULANTS Status: Chronic (8) Dyslipidemia Code(s): E78.5 - HYPERLIPIDEMIA, UNSPECIFIED Status: Chronic (9) Hypothyroidism Code(s): E03.9 - HYPOTHYROIDISM, UNSPECIFIED Status: Chronic Qualifiers: (10) Macrocytosis Code(s): D75.89 - OTHER SPECIFIED DISEASES OF BLOOD AND BLOOD-FORMING ORGANS Status: Chronic (11) Paroxysmal A-fib Code(s): I48.0 - PAROXYSMAL ATRIAL FIBRILLATION Status: Chronic (12) Thrombocytopenia Code(s): D69.6 - THROMBOCYTOPENIA, UNSPECIFIED Status: Acute Plan: Patient has very mild CHF exacerbation, patient will be kept in the hospital for observation, she is not requiring oxygen, will continue with the Lasix 40 mg IV twice daily today and tomorrow and if she feels better then will consider discharging her home tomorrow We will continue her home medication while in hospital Cardiology has been consulted per emergency room, Expecting her discharge in next 24 hours.
[2020-09-28] MEDS ORDERED: Cepastat Lozenges 1 LOZ PO PRN (15:09)
[2020-09-28] MEDS ORDERED: Bisacodyl 10 MG SUPP PR PRN (15:09)
[2020-09-28] MEDS ORDERED: hydrALAZINE 20 MG/ML VIAL SLOW IVP PRN (15:09)
[2020-09-28] MEDS ORDERED: Senokot S 8.6-50 MG TAB PO PRN (15:09)
[2020-09-28] MEDS ORDERED: Ondansetron PF 4 MG/2 ML Vial IVP PRN (15:09)
[2020-09-28] MEDS ORDERED: Loratadine 10 MG TAB PO PRN (15:09)
[2020-09-28] MEDS ORDERED: Calcium Carbonate 500 MG ChewTAB PO PRN (15:09)
[2020-09-28] MEDS ORDERED: Ondansetron ODT 4 MG TAB PO PRN (15:09)
[2020-09-28] MEDS ORDERED: Loperamide HCl 2 MG CAP PO PRN (15:09)
[2020-09-28] MEDS ORDERED: Zolpidem Tartrate 5 MG TAB PO PRN (15:09)
[2020-09-28] MEDS ORDERED: Guaifenesin DM 100-10/5 ML UDCUP PO PRN (15:09)
[2020-09-28] MEDS ORDERED: Sodium Chloride 0.65% Nasal 44 ML BOT EA NARE PRN (15:09)
[2020-09-28] MEDS ORDERED: HYDROcodone/Acetaminophen 5/325 mg Tablet PO PRN (15:09)
[2020-09-28] MEDS ORDERED: Ondansetron PF 4 MG/2 ML Vial IVP SCH (15:10)
[2020-09-28] MEDS ORDERED: Ondansetron PF 4 MG/2 ML Vial ONE (15:16)
[2020-09-28 15:37] LABS: SARS-CoV-2 NAA Rapid Test Not Detected (NotDetected)
[2020-09-28] MEDS ORDERED: Acetaminophen 325 MG TAB PO SCH (16:00)
[2020-09-28 19:40] VITALS: BMI 23.1
[2020-09-28] MEDS ORDERED: Furosemide 40 MG/4 ML VIAL SLOW IVP SCH (20:30)
[2020-09-28] MEDS: Acetaminophen 325 MG TAB PO PRN (21:41)
[2020-09-28] MEDS: Apixaban 2.5 MG TAB PO SCH (21:42)
[2020-09-28] MEDS: Lorazepam 1 MG TAB PO SCH (21:42)
[2020-09-28] MEDS: Magnesium Chloride 64 MG TAB PO SCH (21:47)
[2020-09-29 04:44] LABS: #Lymphocytes 0.4 thou/uL (1.20-3.40); #Monocytes 0.3 thou/uL (0.11-0.59); #Neutrophils 5.8 thou/uL (1.40-6.50); %Basophils 0.4 % (0.0-1.0); %Eosinophils 0.5 % (0.0-10.0); %Lymphocytes 6.5 % (21.0-51.0); %Monocytes 4.2 % (0.0-10.0); %Neutrophils 88.3 % (42.0-75.0); Hemoglobin 12.4 g/dL (12.0-16.0); Mean Corpuscular Hemoglobin 33.4 pg (27.0-31.0); Mean Platelet Volume 8.7 fL (7.4-10.4); Platelet Count 81 thou/uL (130-400); RBC Distribution Width 14.6 % (11.5-14.5); Red Blood Cell (RBC) Count 3.72 mill/uL (4.20-5.40); White Blood Cell (WBC) Count 6.6 thou/uL (4.8-10.8)
[2020-09-29 05:15] LABS: ALT (SGPT) 9 U/L (8-55); AST (SGOT) 18 U/L (5-34); Albumin 3.5 g/dL (3.4-4.8); Alkaline Phosphatase 115 U/L (40-110); Anion Gap 15 mmol/L (10-20); BUN (Urea Nitrogen) 35 mg/dL (9.8-20.1); Bilirubin, Total 1.4 mg/dL (0.2-1.2); Calc. Creatinine Clearance 18 mL/min (70-130); Calcium 8.8 mg/dL (7.8-10.44); Carbon Dioxide 24 mmol/L (23-31); Chloride 102 mmol/L (98-107); Globulin 2.3 g/dL (2.4-3.5); Glucose 69 mg/dL (83-110); Magnesium 1.7 mg/dL (1.6-2.6); Potassium 4.1 mmol/L (3.5-5.1); Protein, Total 5.8 g/dL (5.8-8.1); Sodium 137 mmol/L (136-145); Uric Acid 10.5 mg/dL (2.6-6.0)
[2020-09-29 05:45] LABS: Bacteria/HPF None Seen HPF (None Seen); Bilirubin Negative (Negative); Blood, Urine Trace (Negative); Clarity Clear (Clear); Glucose, Urine (Dipstick) Normal (Negative); Ketone, Urine Negative (Negative); Leukocyte Negative Leu/uL (Negative); Nitrite Negative (Negative); Protein, Urine (Dipstick) Negative (Neg-Trace); RBC/HPF 0-3 HPF (0-3); Specific Gravity, Urine 1.008 (1.002-1.036); Squamous Epithelial 0-3 HPF (0-3); Urobilinogen Normal mg/dL (Less than 2); WBC/HPF 0-3 HPF (0-3); pH, Urine 5.5 (5.0-9.0)
[2020-09-29] MEDS: Levothyroxine Sodium 112 MCG TAB PO SCH (06:03)
[2020-09-29] MEDS: Furosemide 40 MG/4 ML VIAL SLOW IVP SCH ×2 (06:03→14:39)
--- NOTE | 2020-09-29 07:22 | PDOC.HOSPP ---
- Subjective Encounter Date: 09/29/20 Encounter Time: 07:19 Subjective: sob much improved. good diuresis - Objective Vital Signs & Weight: Vital Signs (12 hours) Temp Pulse Resp BP Pulse Ox 09/29/20 04:58 98.9 F 79 18 131/59 L 92 L 09/28/20 19:30 99.5 F 74 16 126/58 L 94 L Weight Weight 142 lb 4 oz I&O: 09/28/20 09/29/20 09/30/20 06:59 06:59 06:59 Intake Total 240 Output Total 1650 Balance -1410 Result Diagrams: 09/29/20 04:16 09/29/20 04:16 Hospitalist ROS - Medication Medications: Active Medications Generic Name Dose Route Start Last Admin Trade Name Freq PRN Reason Stop Dose Admin Acetaminophen 650 mg 09/28/20 15:09 09/28/20 21:41 Acetaminophen 325 Mg Tab PO 650 mg Q4H PRN Administration Headache/Fever/Mild Pain (1-3) Apixaban 2.5 mg 09/28/20 21:00 09/28/20 21:42 Apixaban 2.5 Mg Tab PO 2.5 mg BID CHASTITY Administration Furosemide 40 mg 09/29/20 06:00 09/29/20 06:03 Furosemide 40 Mg/4 Ml Vial SLOW IVP 40 mg 0600,1400 CHASTITY Administration Levothyroxine Sodium 224 mcg 09/29/20 06:00 09/29/20 06:03 Levothyroxine Sodium 112 Mcg Tab PO 224 mcg 0600 CHASTITY Administration Lorazepam 2 mg 09/28/20 21:00 09/28/20 21:42 Lorazepam 1 Mg Tab PO 2 mg HS CHASTITY Administration Magnesium Chloride 64 mg 09/28/20 21:00 09/28/20 21:47 Magnesium Chloride 64 Mg Tab PO 64 mg BID CHASTITY Administration Hospitalist Exam Vitals: Vital Signs (12 hours) Temp Pulse Resp BP Pulse Ox 09/29/20 04:58 98.9 F 79 18 131/59 L 92 L 09/28/20 19:30 99.5 F 74 16 126/58 L 94 L Weight Weight 142 lb 4 oz General Appearance: awake alert Neck: no JVD Heart: RRR, no murmur Respiratory - other findings: scant post-basilar rales, OW clear Gastrointestinal: soft, normal bowel sounds Extremities: no edema Hosp A/P (1) Acute on chronic diastolic (congestive) heart failure Code(s): I50.33 - ACUTE ON CHRONIC DIASTOLIC (CONGESTIVE) HEART FAILURE Status: Acute (2) Atrial fibrillation Code(s): I48.91 - UNSPECIFIED ATRIAL FIBRILLATION Status: Chronic Qualifiers: Atrial fibrillation type: paroxysmal Qualified Code(s): I48.0 - Paroxysmal atrial fibrillation (3) CKD (chronic kidney disease), stage IV Code(s): N18.4 - CHRONIC KIDNEY DISEASE, STAGE 4 (SEVERE) Status: Chronic (4) Dyslipidemia Code(s): E78.5 - HYPERLIPIDEMIA, UNSPECIFIED Status: Chronic (5) Hypothyroidism Code(s): E03.9 - HYPOTHYROIDISM, UNSPECIFIED Status: Chronic Qualifiers: (6) Adrenocortical insufficiency Code(s): E27.40 - UNSPECIFIED ADRENOCORTICAL INSUFFICIENCY Status: Chronic - Plan discuss with cardiology cont iv lasix this AM cont metoprolol, eliquis for atrial fib cont prednisone replacement tx
[2020-09-29] MEDS: Cholecalciferol 1,000 UNITS (25 MCG) TAB PO SCH (10:03)
[2020-09-29] MEDS: Magnesium Chloride 64 MG TAB PO SCH ×2 (10:03→21:29)
[2020-09-29] MEDS: Cyanocobalamin (Vitamin B-12) 1,000 MCG TAB PO SCH (10:04)
[2020-09-29] MEDS: Multivit, Therapeutic 1 TAB PO SCH (10:04)
[2020-09-29] MEDS: Escitalopram Oxalate 20 mg Tablet PO SCH (10:04)
[2020-09-29] MEDS: Folic Acid 1 MG TAB PO SCH (10:04)
[2020-09-29] MEDS: Estradiol 1 MG TAB PO SCH (10:04)
[2020-09-29] MEDS: predniSONE 5 MG TAB PO SCH (10:05)
[2020-09-29] MEDS: Apixaban 2.5 MG TAB PO SCH ×2 (10:05→21:29)
--- NOTE | 2020-09-29 10:21 | CON ---
DATE OF CONSULTATION: 09/29/2020 REASON FOR CONSULTATION: Recurrent and refractory diastolic heart failure. HISTORY OF PRESENT ILLNESS: Ms. Contreras is a very pleasant elderly woman with a long history of congestive heart failure, diastolic in origin. The patient has had multiple admissions for this in the past. She went to the emergency room yesterday with intractable swelling of her lower extremities and worsening breathing with a higher BNP. She is being admitted for further therapy. PAST MEDICAL HISTORY: 1. She has had history of adrenal insufficiency. She is on replacement therapy. 2. She has a history of mitral valve repair. 3. Atrial fibrillation, which is now chronic, persistent. MEDICATIONS: Please see nurses' note. She was on increasing dose of diuretics as an outpatient, but becoming ineffective. REVIEW OF SYSTEMS: CONSTITUTIONAL: Positive for fluid retention. VISION: No changes. HEARING: No changes. PULMONARY: Positive for shortness of breath. CARDIAC: Positive for shortness of breath and swelling. GASTROINTESTINAL: No nausea, vomiting, or diarrhea. SKIN: No rashes. EXTREMITIES: Severe swelling. Also has a history of cellulitis. ALLERGIES: TO CLINDAMYCIN AND METHYLPREDNISOLONE. PHYSICAL EXAMINATION: GENERAL: This is a very pleasant elderly woman. She is becoming more frail-appearing, 85 years of age, 5 feet 8 inches and weight 142, but she does have a lot of edema. VITAL SIGNS: Blood pressure 132/62, pulse 74 and regular. EYES: Sclerae nonicteric. MOUTH: Mucous membranes moist. NECK: Supple. No lymphadenopathy. LUNGS: Clear anteriorly and laterally. CARDIAC: Normal S1 and normal S2. There is a 2/6 to 3/6 apical holosystolic murmur of tricuspid insufficiency. ABDOMEN: Soft and nontender. EXTREMITIES: Severe edema. PERTINENT LABORATORY DATA: Creatinine is 2.46. Estimated GFR is 19. The most recent echocardiogram showed normal left ventricular function with tricuspid insufficiency and elevated pulmonary artery pressure. The patient's heart rhythm are atrial fibrillation with biventricular pacing. ASSESSMENT: 1. Diastolic congestive heart failure, becoming progressively refractory. 2. Renal insufficiency, stage 4. 3. Also has low platelet count of 81,000. 4. Previous biventricular pacemaker placement. 5. Chronic persistent atrial fibrillation. She previously was on amiodarone, but ultimately that even was not successful in maintaining sinus rhythm. The patient's refractory heart failure is becoming more, more difficult to control. We will have to give her diuretics and watch her kidney function here, really no other real options. Long-term prognosis appears poor. If the platelet count drops low, we will have to hold the Eliquis. Job ID: [id number]
[2020-09-29] MEDS: Acetaminophen 325 MG TAB PO PRN (16:48)
[2020-09-29] MEDS: Lorazepam 1 MG TAB PO SCH (21:29)
[2020-09-30 05:10] LABS: #Eosinphils 0.1 thou/uL (0.0-0.7); #Lymphocytes 0.5 thou/uL (1.20-3.40); #Monocytes 0.4 thou/uL (0.11-0.59); #Neutrophils 5.1 thou/uL (1.40-6.50); %Basophils 0.1 % (0.0-1.0); %Lymphocytes 8.3 % (21.0-51.0); %Neutrophils 83.7 % (42.0-75.0); Hemoglobin 12.1 g/dL (12.0-16.0); Mean Corpuscular HGB CONC 33.7 g/dL (32.0-36.0); Mean Corpuscular Hemoglobin 33.6 pg (27.0-31.0); Mean Corpuscular Volume 99.7 fL (78.0-98.0); Mean Platelet Volume 8.6 fL (7.4-10.4); Platelet Count 79 thou/uL (130-400); RBC Distribution Width 14.5 % (11.5-14.5); Red Blood Cell (RBC) Count 3.59 mill/uL (4.20-5.40); White Blood Cell (WBC) Count 6.2 thou/uL (4.8-10.8)
[2020-09-30 05:40] LABS: Anion Gap 14 mmol/L (10-20); BUN (Urea Nitrogen) 41 mg/dL (9.8-20.1); Calc. Creatinine Clearance 16 mL/min (70-130); Calcium 8.4 mg/dL (7.8-10.44); Carbon Dioxide 26 mmol/L (23-31); Chloride 98 mmol/L (98-107); Glucose 95 mg/dL (83-110); Potassium 3.5 mmol/L (3.5-5.1); Sodium 134 mmol/L (136-145)
[2020-09-30 05:46] LABS: Troponin I 0.064 ng/mL (< 0.028)
[2020-09-30] MEDS: Levothyroxine Sodium 112 MCG TAB PO SCH (06:00)
[2020-09-30] MEDS: Acetaminophen 325 MG TAB PO PRN (06:02)
[2020-09-30] MEDS: Furosemide 40 MG/4 ML VIAL SLOW IVP SCH ×2 (06:02→15:30)
[2020-09-30] MEDS: Cholecalciferol 1,000 UNITS (25 MCG) TAB PO SCH (09:22)
[2020-09-30] MEDS: Estradiol 1 MG TAB PO SCH (09:22)
[2020-09-30] MEDS: Cyanocobalamin (Vitamin B-12) 1,000 MCG TAB PO SCH (09:24)
[2020-09-30] MEDS: Escitalopram Oxalate 20 mg Tablet PO SCH (09:24)
[2020-09-30] MEDS: Folic Acid 1 MG TAB PO SCH (09:24)
[2020-09-30] MEDS: Multivit, Therapeutic 1 TAB PO SCH (09:24)
[2020-09-30] MEDS: Apixaban 2.5 MG TAB PO SCH (09:24)
[2020-09-30] MEDS: predniSONE 5 MG TAB PO SCH ×2 (09:24→09:54)
[2020-09-30] MEDS ORDERED: Potassium Chloride 20 MEQ TAB PO SCH (09:45)
[2020-09-30] MEDS: Magnesium Chloride 64 MG TAB PO SCH (09:51)
--- NOTE | 2020-09-30 10:02 | PRG ---
DATE OF SERVICE: 09/30/2020 SUBJECTIVE: Ms. Contreras feels better. No complaints. She had a good diuresis last night. OBJECTIVE: VITAL SIGNS: Her blood pressure 122/56; pulse 77, it is paced in the monitor. LUNGS: Clear. CARDIAC: Normal S1, normal S2. ABDOMEN: Soft, nontender. EXTREMITIES: Only mild to moderate edema. She has been elevating her legs well. ASSESSMENT: 1. Diastolic heart failure, acute on chronic, improved. 2. Renal failure stage 4, stable. PLAN: 1. Okay with me to be released home. Resume previous torsemide dose at home. 2. We will give her one dose of potassium prior to being discharged. Job ID: [id number]
--- NOTE | 2020-09-30 12:36 | PDOC.DS.DS ---
Provider Date of Admission: 09/29/20 14:25 Date of Discharge: 09/30/20 Admitting Provider: Roberta Berrios MD Consultations: Cardiology Primary Care Physician: Unknown Course Hospital Course: 85-year-old female who has congestive heart failure, based on most recent echocardiography patient has EF 50 to 55% with mild pulmonary hypertension and aortic regurgitation and tricuspid regurgitation, who came to emergency room for evaluation of shortness of breath. Patient had first dose of cold vaccine yesterday in left arm, subsequently she was feeling pain at the injection site, she was having multiple joint pain and body ache, which was worse than yesterday, she was also feeling chills and para medics noted her ER temperature 103, patient was given Tylenol. Routine laboratory test in emergency room showed macrocytic anemia, elevated BNP, CKD stage IV, patient was on room air. Patient was also having increasing shortness of breath and cough, patient denies any lower extremity edema or orthopnea or PND, Patient has history of Covid in June 2020, In the emergency room cardiology was notified, patient was kept in the hospital for observation to treat underlying CHF exacerbation. ED Course: In the emergency room patient is given Lasix 40 mg IV push 2 doses After admission patient was treated with IV Lasix, patient became euvolemic, she was not requiring any oxygen, cardiology cleared for discharge, patient is also feeling okay to go home today, patient will continue all her previous medication, we are not making any change in her medication, patient will be followed up with the nephrology as well as cardiology after discharge, Because of renal insufficiency and diastolic dysfunction patient is at risk for recurrent admission from CHF exacerbation, we have provided patient education about diet and fluid restriction as well as compliance with medication. Resuscitation Status: 09/28/20 12:21 Resuscitation Status Routine Resuscitation Status: FULL: Full Resuscitation Lab Results: 09/30/20 04:41 09/30/20 04:41 Abnormal Lab Results - Last 48 hrs 09/28/20 05:33: Urine Blood Trace A 09/29/20 04:16: BUN 35 H, Creatinine 2.46 H, Uric Acid 10.5 H, Total Bilirubin 1.4 H, Alkaline Phosphatase 115 H, Globulin 2.3 L 09/29/20 04:16: RBC 3.72 L, MCV 101.0 H, MCH 33.4 H, RDW 14.6 H, Plt Count 81 L, Neutrophils % 88.3 H, Lymphocytes % 6.5 L, Lymphocytes # 0.4 L 09/30/20 04:41: Troponin I 0.064 H 09/30/20 04:41: Sodium 134 L, BUN 41 H, Creatinine 2.53 H 09/30/20 04:41: RBC 3.59 L, Hct 35.8 L, MCV 99.7 H, MCH 33.6 H, Plt Count 79 L, Neutrophils % 83.7 H, Lymphocytes % 8.3 L, Lymphocytes # 0.5 L Microbiology - Entire Visit 09/28/20 11:04 Urine Straight Catheter Urine Culture - Final NO GROWTH AT 48 HOURS Vitals: Vital Signs (12 hours) Temp Pulse Resp BP Pulse Ox 09/30/20 11:50 98.2 F 75 12 124/60 95 09/30/20 08:20 97.8 F 77 12 122/56 L 99 09/30/20 04:44 98 09/30/20 03:40 97.6 F 79 12 135/64 98 Weight Weight 142 lb 4 oz Physical Exam: The patient was seen and examined on the day of discharge. General Appearance: NAD, awake alert Eye: PERRL, anicteric sclera ENT: normocephalic atraumatic, no oropharyngeal lesions Neck: supple, symmetric, no JVD, no thyromegaly Respiratory: no wheezes, no rales, no ronchi Cardiovascular: no gallops, no rubs, irregular Cardiovascular - other findings: Parasternal murmur noted, Gastrointestinal: soft, non-tender, non-distended, normal bowel sounds Extremities: no cyanosis, no clubbing, no edema Skin: normal turgor, no lesions Neurological: no focal deficits Musculoskeletal: normal tone, normal strength PSYCH: normal affect, normal behavior Problem (1) Acute on chronic diastolic (congestive) heart failure Code(s): I50.33 - ACUTE ON CHRONIC DIASTOLIC (CONGESTIVE) HEART FAILURE Status: Acute (2) Aortic regurgitation Code(s): I35.1 - NONRHEUMATIC AORTIC (VALVE) INSUFFICIENCY Status: Chronic (3) Tricuspid regurgitation Code(s): I07.1 - RHEUMATIC TRICUSPID INSUFFICIENCY Status: Chronic (4) Pulmonary hypertension Code(s): I27.20 - PULMONARY HYPERTENSION, UNSPECIFIED Status: Chronic (5) Anxiety and depression Code(s): F41.9 - ANXIETY DISORDER, UNSPECIFIED; F32.9 - MAJOR DEPRESSIVE DISORDER, SINGLE EPISODE, UNSPECIFIED Status: Chronic (6) CKD (chronic kidney disease), stage IV Code(s): N18.4 - CHRONIC KIDNEY DISEASE, STAGE 4 (SEVERE) Status: Chronic (7) Chronic anticoagulation Code(s): Z79.01 - VASCULAR NEUROLOGIST (CURRENT) USE OF ANTICOAGULANTS Status: Chronic (8) Dyslipidemia Code(s): E78.5 - HYPERLIPIDEMIA, UNSPECIFIED Status: Chronic (9) Hypothyroidism Code(s): E03.9 - HYPOTHYROIDISM, UNSPECIFIED Status: Chronic Qualifiers: (10) Macrocytosis Code(s): D75.89 - OTHER SPECIFIED DISEASES OF BLOOD AND BLOOD-FORMING ORGANS Status: Chronic (11) Paroxysmal A-fib Code(s): I48.0 - PAROXYSMAL ATRIAL FIBRILLATION Status: Chronic (12) Thrombocytopenia Code(s): D69.6 - THROMBOCYTOPENIA, UNSPECIFIED Status: Acute Plan Home Medications: Medication Instructions Recorded Confirmed Type Estradiol 1 mg PO QAM 02/21/13 09/28/20 History Lidocaine [Lidocaine 5% Patch] 1 patch TOP PRN PRN 09/30/13 09/28/20 History Lorazepam [Ativan] 2 mg PO HS 09/30/13 09/28/20 History predniSONE 5 mg PO QA- 09/23/15 09/28/20 History Apixaban [Eliquis] 2.5 mg PO BID 11/04/15 09/28/20 History Esomeprazole Magnesium [NexIUM] 40 mg PO QAM 04/24/17 09/28/20 History Promethazine [Phenergan] 25 mg PO Q6HR PRN 04/24/17 09/28/20 History HYDROcodone Bit/APAP 5/325 [[place]] 1 tab PO Q4H PRN #0 tab 07/23/17 09/28/20 Rx Escitalopram Oxalate [Lexapro] 20 mg PO DAILY 04/06/18 09/28/20 History Levothyroxine Sodium [Synthroid] 2 tab PO DAILY 04/06/18 09/28/20 History Cholecalciferol (Vitamin D3) 5,000 units PO DAILY 05/21/20 09/28/20 History [Vitamin D] Cyanocobalamin (Vitamin B-12) 1,000 mcg PO DAILY tab 07/26/20 09/28/20 Rx [Vitamin B-12] Torsemide 20 mg PO 1600 09/28/20 09/28/20 History Allergies: clindamycin Allergy (Severe, Verified 09/28/20 21:51) Anaphylaxis FROM ESD REPORT methylprednisolone [From Solu-Medrol] Allergy (Severe, Verified 09/28/20 21:51) "I felt really bad" Per pt Activity:: Activity as Tolerated Nourishment:: Heart Healthy Diet Therapies:: Not Applicable Equipment/Supplies:: Not Applicable IV Therapy:: Not Applicable Referrals: Unknown,Unknown [Primary Care Provider] - Disposition: HOME Quality CORE MEASURES:: N/A
[2020-09-30 15:36] VITALS: BP 105/50; TEMP 97.3
== END 2020-09-30 16:10 | disposition home or self-care (01) | DRG 291 ==
LOC: ERS 08:00 → ERHOLD 12:07 → 2NO 16:36 → OBSVTOIN 09-29 14:25
PROVIDERS: ADMIT Internal Medicine; ATTEND Internal Medicine
DX: I13.0 Hypertensive heart and chronic kidney disease with heart failure and stage 1 through stage 4 chronic kidney disease, or unspecified chronic kidney disease (principal); I50.33 Acute on chronic diastolic (congestive) heart failure; N18.4 Chronic kidney disease, stage 4 (severe); E27.40 Unspecified adrenocortical insufficiency; I48.19 Other persistent atrial fibrillation; Z20.822 Contact with and (suspected) exposure to COVID-19; I42.9 Cardiomyopathy, unspecified; F41.9 Anxiety disorder, unspecified; F32.9 Major depressive disorder, single episode, unspecified; I27.20 Pulmonary hypertension, unspecified; E78.5 Hyperlipidemia, unspecified; E03.9 Hypothyroidism, unspecified; D75.89 Other specified diseases of blood and blood-forming organs; D69.6 Thrombocytopenia, unspecified; I08.2 Rheumatic disorders of both aortic and tricuspid valves; D63.1 Anemia in chronic kidney disease; Z86.16 Personal history of COVID-19; Z88.1 Allergy status to other antibiotic agents; Z88.8 Allergy status to other drugs, medicaments and biological substances; Z79.899 Other long term (current) drug therapy; Z79.52 Long term (current) use of systemic steroids; Z79.890 Hormone replacement therapy; Z86.73 Personal history of transient ischemic attack (TIA), and cerebral infarction without residual deficits; Z79.01 Long term (current) use of anticoagulants; Z95.0 Presence of cardiac pacemaker; Z90.5 Acquired absence of kidney; Z90.710 Acquired absence of both cervix and uterus
CPT/HCPCS: 0240U; 36415; 71045; 80048; 80053; 81003; 81015; 83605; 83735; 83880; 84443; 84484; 84550; 85025; 87086; 93005; 93798; J1940; J2405; J7512

== ENCOUNTER 2020-11-06 21:14 | Emergency (ER) | payer MEDICARE, BC ==
[2020-11-06] MEDS ORDERED: HYDROcodone/Acetaminophen 5/325 mg Tablet ONE (21:25)
[2020-11-06] MEDS ORDERED: Lidocaine 1% (PF) 30 ML VIAL ONE (22:14)
== END 2020-11-07 01:24 | disposition home or self-care (01) ==
LOC: ERS 21:14
DX: S81.811A Laceration without foreign body, right lower leg, initial encounter (principal); S81.812A Laceration without foreign body, left lower leg, initial encounter; I48.91 Unspecified atrial fibrillation; Z86.73 Personal history of transient ischemic attack (TIA), and cerebral infarction without residual deficits; Z79.899 Other long term (current) drug therapy; W01.0XXA Fall on same level from slipping, tripping and stumbling without subsequent striking against object, initial encounter
CPT/HCPCS: 12016; 70450; 72125; J2001

== ENCOUNTER 2020-11-20 23:09 | Emergency (ER) | payer MEDICARE, BC ==
[2020-11-20] MEDS ORDERED: Lidocaine 1% w/Epinephrine 1:100K 20 ML VIAL ONE (23:22)
[2020-11-21] MEDS ORDERED: cloNIDine 0.1 MG TAB ONE (00:32)
[2020-11-21] MEDS ORDERED: Acetaminophen 500 MG TAB ONE (00:32)
== END 2020-11-21 00:57 | disposition home or self-care (01) ==
LOC: ERS 23:09
DX: S81.811A Laceration without foreign body, right lower leg, initial encounter (principal); S81.812A Laceration without foreign body, left lower leg, initial encounter; I48.91 Unspecified atrial fibrillation; I95.9 Hypotension, unspecified; Z86.73 Personal history of transient ischemic attack (TIA), and cerebral infarction without residual deficits; X58.XXXA Exposure to other specified factors, initial encounter
CPT/HCPCS: 99283

== ENCOUNTER 2021-05-26 18:43 | Inpatient (IN) | payer MEDICARE, BC ==
[2021-05-26 19:47] LABS: #Eosinphils 0.1 thou/uL (0.0-0.7); #Lymphocytes 0.7 thou/uL (1.20-3.40); #Monocytes 0.5 thou/uL (0.11-0.59); #Neutrophils 6.2 thou/uL (1.40-6.50); %Basophils 0.1 % (0.0-1.0); %Lymphocytes 9.3 % (21.0-51.0); %Monocytes 6.2 % (0.0-10.0); %Neutrophils 83.5 % (42.0-75.0); Hemoglobin 11.8 g/dL (12.0-16.0); Mean Corpuscular Hemoglobin 34.3 pg (27.0-31.0); Mean Platelet Volume 7.3 fL (7.4-10.4); Platelet Count 187 thou/uL (130-400); RBC Distribution Width 13.1 % (11.5-14.5); Red Blood Cell (RBC) Count 3.43 mill/uL (4.20-5.40); White Blood Cell (WBC) Count 7.4 thou/uL (4.8-10.8)
[2021-05-26 20:10] LABS: ALT (SGPT) 7 U/L (8-55); AST (SGOT) 17 U/L (5-34); Albumin 3.9 g/dL (3.4-4.8); Alkaline Phosphatase 133 U/L (40-110); Anion Gap 17 mmol/L (10-20); BUN (Urea Nitrogen) 51 mg/dL (9.8-20.1); Bilirubin, Total 1.2 mg/dL (0.2-1.2); Calc. Creatinine Clearance 0 mL/min (70-130); Calcium 8.9 mg/dL (7.8-10.44); Carbon Dioxide 17 mmol/L (23-31); Chloride 105 mmol/L (98-107); Globulin 2.6 g/dL (2.4-3.5); Glucose 108 mg/dL (83-110); Potassium 5.4 mmol/L (3.5-5.1); Protein, Total 6.5 g/dL (5.8-8.1); Sodium 134 mmol/L (136-145)
[2021-05-26] MEDS ORDERED: CEFAZOLIN 1 GM VIAL ONE (21:07)
[2021-05-26] MEDS ORDERED: Vancomycin 1 GM/200 ML BAG ONE (22:01)
[2021-05-27 00:29] VITALS: BMI 26.7
[2021-05-27] MEDS: Acetaminophen/Codeine 30-300mg Tablet PO PRN (02:31)
[2021-05-27] MEDS ORDERED: FLU VACC QS2021-22(65YR UP)/PF 240 MCG/0.7 ML SYRINGE IM ONE (09:00)
[2021-05-27] MEDS: Cholecalciferol 1,000 UNITS (25 MCG) TAB PO SCH (09:12)
[2021-05-27] MEDS: predniSONE 5 MG TAB PO SCH (09:13)
[2021-05-27] MEDS: Escitalopram Oxalate 20 mg Tablet PO SCH (09:13)
[2021-05-27] MEDS: Cyanocobalamin (Vitamin B-12) 1,000 MCG TAB PO SCH (09:13)
[2021-05-27] MEDS ORDERED: Levothyroxine Sodium 112 MCG TAB PO SCH (09:30)
[2021-05-27] MEDS: ceFAZolin 1 GM/D5W 1 GM in Premix Bag 1 BAG IVPB SCH ×2 (10:17→21:39)
[2021-05-27] MEDS: Torsemide 20 MG TAB PO SCH (16:03)
[2021-05-27 16:22] LABS: SARS-CoV-2 PCR by NAA Not Detected (NotDetected)
[2021-05-27] MEDS: Lorazepam 1 MG TAB PO SCH (21:10)
[2021-05-27] MEDS: Apixaban 2.5 MG TAB PO SCH (21:10)
[2021-05-27] MEDS ORDERED: Vancomycin 1 GM in Premix Bag 1 BAG IVPB SCH ×2 (22:00→23:00)
[2021-05-28] MEDS: Levothyroxine Sodium 112 MCG TAB PO SCH (07:05)
[2021-05-28] MEDS: Cyanocobalamin (Vitamin B-12) 1,000 MCG TAB PO SCH (08:04)
[2021-05-28] MEDS: predniSONE 5 MG TAB PO SCH (08:04)
[2021-05-28] MEDS: Cholecalciferol 1,000 UNITS (25 MCG) TAB PO SCH (08:05)
[2021-05-28] MEDS: Apixaban 2.5 MG TAB PO SCH ×2 (08:05→20:20)
[2021-05-28] MEDS: Escitalopram Oxalate 20 mg Tablet PO SCH (08:05)
[2021-05-28] MEDS: ceFAZolin 1 GM/D5W 1 GM in Premix Bag 1 BAG IVPB SCH (08:17)
[2021-05-28] MEDS ORDERED: Estradiol 1 MG TAB PO SCH (09:00)
[2021-05-28] MEDS: Acetaminophen/Codeine 30-300mg Tablet PO PRN ×2 (10:07→21:26)
[2021-05-28 11:01] LABS: #Eosinphils 0.1 thou/uL (0.0-0.7); #Lymphocytes 0.7 thou/uL (1.20-3.40); #Monocytes 0.5 thou/uL (0.11-0.59); #Neutrophils 5.8 thou/uL (1.40-6.50); %Basophils 0.3 % (0.0-1.0); %Eosinophils 1.7 % (0.0-10.0); %Lymphocytes 9.9 % (21.0-51.0); %Monocytes 6.6 % (0.0-10.0); %Neutrophils 81.4 % (42.0-75.0); Hemoglobin 11.5 g/dL (12.0-16.0); Mean Corpuscular HGB CONC 33.8 g/dL (32.0-36.0); Mean Corpuscular Hemoglobin 33.7 pg (27.0-31.0); Mean Corpuscular Volume 99.7 fL (78.0-98.0); Mean Platelet Volume 7.1 fL (7.4-10.4); Platelet Count 174 thou/uL (130-400); Red Blood Cell (RBC) Count 3.41 mill/uL (4.20-5.40); White Blood Cell (WBC) Count 7.1 thou/uL (4.8-10.8)
[2021-05-28 11:31] LABS: Anion Gap 17 mmol/L (10-20); BUN (Urea Nitrogen) 41 mg/dL (9.8-20.1); Calc. Creatinine Clearance 23 mL/min (70-130); Carbon Dioxide 20 mmol/L (23-31); Chloride 103 mmol/L (98-107); Glucose 93 mg/dL (83-110); Potassium 4.1 mmol/L (3.5-5.1); Sodium 136 mmol/L (136-145)
[2021-05-28] MEDS: Torsemide 20 MG TAB PO SCH (15:06)
[2021-05-28] MEDS: Cefepime 1 GM in Sodium Chloride 0.9% 100 ML IVPB SCH (15:07)
[2021-05-28] MEDS: Lorazepam 1 MG TAB PO SCH (20:20)
[2021-05-28 22:41] LABS: Vancomycin, Random 17.7 ug/mL (See Comment)
[2021-05-29] MEDS: Levothyroxine Sodium 112 MCG TAB PO SCH (05:59)
[2021-05-29] MEDS: Cholecalciferol 1,000 UNITS (25 MCG) TAB PO SCH (08:17)
[2021-05-29] MEDS: predniSONE 5 MG TAB PO SCH (08:17)
[2021-05-29] MEDS: Estradiol 1 MG TAB PO SCH (08:17)
[2021-05-29] MEDS: Escitalopram Oxalate 20 mg Tablet PO SCH (08:18)
[2021-05-29] MEDS: Cyanocobalamin (Vitamin B-12) 1,000 MCG TAB PO SCH (08:18)
[2021-05-29 08:56] LABS: #Eosinphils 0.2 thou/uL (0.0-0.7); #Lymphocytes 1.1 thou/uL (1.20-3.40); #Monocytes 0.7 thou/uL (0.11-0.59); #Neutrophils 4.7 thou/uL (1.40-6.50); %Basophils 0.4 % (0.0-1.0); %Eosinophils 2.5 % (0.0-10.0); %Lymphocytes 16.4 % (21.0-51.0); %Monocytes 11.1 % (0.0-10.0); %Neutrophils 69.6 % (42.0-75.0); Hemoglobin 11.3 g/dL (12.0-16.0); Mean Corpuscular HGB CONC 33.2 g/dL (32.0-36.0); Mean Corpuscular Hemoglobin 32.9 pg (27.0-31.0); Mean Platelet Volume 7.4 fL (7.4-10.4); Platelet Count 186 thou/uL (130-400); Red Blood Cell (RBC) Count 3.43 mill/uL (4.20-5.40); White Blood Cell (WBC) Count 6.7 thou/uL (4.8-10.8)
[2021-05-29] MEDS ORDERED: Vancomycin HCl 500 MG in Sodium Chloride 0.9% 100 ML IVPB SCH (09:00)
[2021-05-29 09:18] LABS: Anion Gap 12 mmol/L (10-20); BUN (Urea Nitrogen) 43 mg/dL (9.8-20.1); CRP (Inflammatory) 3.76 mg/dL (= or < 0.5); Calc. Creatinine Clearance 22 mL/min (70-130); Calcium 9.4 mg/dL (7.8-10.44); Carbon Dioxide 29 mmol/L (23-31); Chloride 100 mmol/L (98-107); Glucose 85 mg/dL (83-110); Potassium 4.3 mmol/L (3.5-5.1); Sodium 137 mmol/L (136-145)
[2021-05-29] MEDS: Apixaban 2.5 MG TAB PO SCH ×2 (10:04→20:45)
[2021-05-29] MEDS: Cefepime 1 GM in Sodium Chloride 0.9% 100 ML IVPB SCH (14:46)
[2021-05-29] MEDS: Torsemide 20 MG TAB PO SCH (16:04)
[2021-05-29] MEDS: Lorazepam 1 MG TAB PO SCH (20:45)
[2021-05-30] MEDS: Levothyroxine Sodium 112 MCG TAB PO SCH (05:59)
[2021-05-30] MEDS: Estradiol 1 MG TAB PO SCH (09:13)
[2021-05-30] MEDS: Cholecalciferol 1,000 UNITS (25 MCG) TAB PO SCH (09:13)
[2021-05-30] MEDS: Cyanocobalamin (Vitamin B-12) 1,000 MCG TAB PO SCH (09:14)
[2021-05-30] MEDS: Apixaban 2.5 MG TAB PO SCH ×2 (09:15→20:46)
[2021-05-30] MEDS: predniSONE 5 MG TAB PO SCH (09:15)
[2021-05-30] MEDS: Escitalopram Oxalate 20 mg Tablet PO SCH (09:15)
[2021-05-30] MEDS ORDERED: Vancomycin HCl 500 MG in Sodium Chloride 0.9% 100 ML IVPB SCH (10:30)
[2021-05-30] MEDS: Acetaminophen/Codeine 30-300mg Tablet PO PRN (13:32)
[2021-05-30] MEDS: Cefepime 1 GM in Sodium Chloride 0.9% 100 ML IVPB SCH (15:33)
[2021-05-30] MEDS: Torsemide 20 MG TAB PO SCH (15:33)
[2021-05-30] MEDS: Lorazepam 1 MG TAB PO SCH (20:46)
[2021-05-30] MEDS ORDERED: Acetaminophen 325 MG TAB PO PRN (21:16)
[2021-05-31] MEDS: Estradiol 1 MG TAB PO SCH (08:49)
[2021-05-31] MEDS: Cholecalciferol 1,000 UNITS (25 MCG) TAB PO SCH (08:49)
[2021-05-31] MEDS: Escitalopram Oxalate 20 mg Tablet PO SCH (08:49)
[2021-05-31] MEDS: predniSONE 5 MG TAB PO SCH (08:50)
[2021-05-31] MEDS: Cyanocobalamin (Vitamin B-12) 1,000 MCG TAB PO SCH (08:50)
[2021-05-31] MEDS: Apixaban 2.5 MG TAB PO SCH (08:50)
[2021-05-31 09:57] LABS: Vancomycin, Random 18.2 ug/mL (See Comment)
[2021-05-31 12:57] VITALS: BP 115/67; TEMP 97.6
[2021-05-31] MEDS ORDERED: Vancomycin HCl 500 MG in Sodium Chloride 0.9% 100 ML IVPB SCH (13:00)
== END 2021-05-31 14:02 | disposition home or self-care (01) | DRG 605 ==
LOC: ERS 18:43 → T4-B 22:25 → OBSVTOIN 05-28 13:21
PROVIDERS: ADMIT Internal Medicine; ATTEND Family Medicine
DX: S80.01XA Contusion of right knee, initial encounter (principal); I50.32 Chronic diastolic (congestive) heart failure; I13.0 Hypertensive heart and chronic kidney disease with heart failure and stage 1 through stage 4 chronic kidney disease, or unspecified chronic kidney disease; N18.4 Chronic kidney disease, stage 4 (severe); E27.40 Unspecified adrenocortical insufficiency; L03.116 Cellulitis of left lower limb; F41.9 Anxiety disorder, unspecified; F32.A Depression, unspecified; I27.20 Pulmonary hypertension, unspecified; D53.9 Nutritional anemia, unspecified; E03.9 Hypothyroidism, unspecified; E78.5 Hyperlipidemia, unspecified; W19.XXXA Unspecified fall, initial encounter; M19.90 Unspecified osteoarthritis, unspecified site; Z20.822 Contact with and (suspected) exposure to COVID-19; I48.91 Unspecified atrial fibrillation; Z79.01 Long term (current) use of anticoagulants; Z86.73 Personal history of transient ischemic attack (TIA), and cerebral infarction without residual deficits; Z88.1 Allergy status to other antibiotic agents; Z88.8 Allergy status to other drugs, medicaments and biological substances; Z79.899 Other long term (current) drug therapy; Z90.710 Acquired absence of both cervix and uterus; Z95.0 Presence of cardiac pacemaker; Z90.721 Acquired absence of ovaries, unilateral
CPT/HCPCS: 36415; 36416; 80048; 80053; 80202; 85025; 85652; 86140; 87070; 87205; 96365; 96366; 96367; 96376; G0378; J0690; J0692; J3370; J3490; J7512; U0003; U0005

== ENCOUNTER 2021-10-26 19:24 | Emergency (ER) | payer MEDICARE, BC ==
[2021-10-26 20:30] LABS: Hemoglobin 12.1 g/dL (12.0-16.0); Mean Corpuscular HGB CONC 33.5 g/dL (32.0-36.0); Mean Corpuscular Hemoglobin 33.6 pg (27.0-31.0); Red Blood Cell (RBC) Count 3.61 mill/uL (4.20-5.40)
[2021-10-26 20:44] LABS: #Lymphocytes 0.5 thou/uL (1.20-3.40); #Monocytes 0.3 thou/uL (0.11-0.59); #Neutrophils 5.2 thou/uL (1.40-6.50); %Basophils 0.4 % (0.0-1.0); %Eosinophils 0.5 % (0.0-10.0); %Monocytes 4.9 % (0.0-10.0); %Neutrophils 85.3 % (42.0-75.0); Mean Platelet Volume 7.8 fL (7.4-10.4); Platelet Count 113 thou/uL (130-400); Platelet Morphology Comment Appears Decreased
[2021-10-26 20:51] LABS: Bilirubin Negative (Negative); Blood, Urine Negative (Negative); Clarity Clear (Clear); Glucose, Urine (Dipstick) Normal (Negative); Ketone, Urine Negative (Negative); Leukocyte Negative Leu/uL (Negative); Nitrite Negative (Negative); Protein, Urine (Dipstick) Negative (Neg-Trace); Urobilinogen Normal mg/dL (Less than 2)
[2021-10-26 20:51] LABS: ALT (SGPT) 10 U/L (8-55); AST (SGOT) 15 U/L (5-34); Albumin 4.1 g/dL (3.4-4.8); Alkaline Phosphatase 80 U/L (40-110); Anion Gap 16 mmol/L (10-20); BUN (Urea Nitrogen) 37 mg/dL (9.8-20.1); Bilirubin, Total 0.8 mg/dL (0.2-1.2); Calc. Creatinine Clearance 0 mL/min (70-130); Carbon Dioxide 22 mmol/L (23-31); Chloride 103 mmol/L (98-107); Globulin 2.3 g/dL (2.4-3.5); Glucose 106 mg/dL (83-110); Potassium 5.5 mmol/L (3.5-5.1); Protein, Total 6.4 g/dL (5.8-8.1); Sodium 135 mmol/L (136-145)
[2021-10-26] MEDS ORDERED: Bacitracin 1 PK ONE (21:33)
== END 2021-10-26 22:16 | disposition home or self-care (01) ==
LOC: ERS 19:24
DX: S01.01XA Laceration without foreign body of scalp, initial encounter (principal); S61.411A Laceration without foreign body of right hand, initial encounter; I95.9 Hypotension, unspecified; Z86.73 Personal history of transient ischemic attack (TIA), and cerebral infarction without residual deficits; I48.91 Unspecified atrial fibrillation; Z79.01 Long term (current) use of anticoagulants; Z79.899 Other long term (current) drug therapy; W19.XXXA Unspecified fall, initial encounter
CPT/HCPCS: 12002; 36415; 70450; 72125; 80053; 81003; 84484; 85025; 93005

== ENCOUNTER 2021-11-23 14:22 | Outpatient (CLI) | payer MEDICARE, BC | END 2021-11-23 14:23 | disposition home or self-care (01) | LOC: BICRAD 14:22 | PROVIDERS: ATTEND Anesthesiology Pain Medicine | DX: S72.001A Fracture of unspecified part of neck of right femur, initial encounter for closed fracture (principal) ==

== ENCOUNTER 2022-01-13 13:10 | Emergency (ER) | payer MEDICARE, BC ==
[2022-01-13] MEDS ORDERED: Ondansetron ODT 4 MG TAB ONE (13:46)
[2022-01-13 14:06] LABS: #Eosinphils 0.3 thou/uL (0.0-0.7); #Lymphocytes 0.9 thou/uL (1.20-3.40); #Monocytes 0.6 thou/uL (0.11-0.59); #Neutrophils 5.3 thou/uL (1.40-6.50); %Basophils 0.2 % (0.0-1.0); %Eosinophils 3.7 % (0.0-10.0); %Lymphocytes 12.1 % (21.0-51.0); %Monocytes 8.9 % (0.0-10.0); %Neutrophils 75.1 % (42.0-75.0); Mean Corpuscular HGB CONC 33.1 g/dL (32.0-36.0); Mean Corpuscular Hemoglobin 33.1 pg (27.0-31.0); Mean Corpuscular Volume 99.9 fL (78.0-98.0); Mean Platelet Volume 7.6 fL (7.4-10.4); Platelet Count 111 thou/uL (130-400); RBC Distribution Width 13.3 % (11.5-14.5); Red Blood Cell (RBC) Count 3.32 mill/uL (4.20-5.40); White Blood Cell (WBC) Count 7.1 thou/uL (4.8-10.8)
[2022-01-13 14:33] LABS: ALT (SGPT) 9 U/L (8-55); AST (SGOT) 10 U/L (5-34); Albumin 3.6 g/dL (3.4-4.8); Alkaline Phosphatase 96 U/L (40-110); Anion Gap 15 mmol/L (10-20); BUN (Urea Nitrogen) 43 mg/dL (9.8-20.1); Bilirubin, Total 0.9 mg/dL (0.2-1.2); Calc. Creatinine Clearance 0 mL/min (70-130); Carbon Dioxide 21 mmol/L (23-31); Chloride 108 mmol/L (98-107); Glucose 71 mg/dL (83-110); Potassium 4.6 mmol/L (3.5-5.1); Protein, Total 5.6 g/dL (5.8-8.1); Sodium 139 mmol/L (136-145)
[2022-01-13 15:27] LABS: Bilirubin Negative (Negative); Blood, Urine 2+ (Negative); Clarity Extra Turbid (Clear); Glucose, Urine (Dipstick) Normal (Negative); Ketone, Urine Negative (Negative); Leukocyte 500 Leu/uL (Negative); Nitrite 1+ (Negative); Protein, Urine (Dipstick) 50 mg/dL (Neg-Trace); RBC/HPF 21-50 HPF (0-3); Specific Gravity, Urine 1.022 (1.002-1.036); Urobilinogen Normal mg/dL (Less than 2); WBC/HPF Greater than 50 HPF (0-3); pH, Urine 5.5 (5.0-9.0)
[2022-01-13 15:38] LABS: Bacteria/HPF 2+ HPF (None Seen)
== END 2022-01-13 16:55 | disposition home or self-care (01) ==
LOC: ERS 13:10
DX: N39.0 Urinary tract infection, site not specified (principal); R10.816 Epigastric abdominal tenderness; Z86.73 Personal history of transient ischemic attack (TIA), and cerebral infarction without residual deficits; I48.91 Unspecified atrial fibrillation
CPT/HCPCS: 51701; 71045; 80053; 81003; 81015; 84484; 85025; 87077; 87086; 87186; 93005; 96360; Q0162

== ENCOUNTER 2022-07-13 18:19 | Emergency (ER) | payer MEDICARE, BC ==
[2022-07-13 19:28] LABS: #Eosinphils 0.1 thou/uL (0.0-0.7); #Lymphocytes 0.7 thou/uL (1.20-3.40); #Monocytes 0.5 thou/uL (0.11-0.59); %Eosinophils 1.5 % (0.0-10.0); %Lymphocytes 15.5 % (21.0-51.0); %Monocytes 11.9 % (0.0-10.0); %Neutrophils 71.1 % (42.0-75.0); Hemoglobin 11.9 g/dL (12.0-16.0); Mean Corpuscular HGB CONC 33.5 g/dL (32.0-36.0); Mean Corpuscular Hemoglobin 33.2 pg (27.0-31.0); Mean Corpuscular Volume 99.1 fl (78.0-98.0); Mean Platelet Volume 8.1 fL (7.4-10.4); Platelet Count 94 10x3/uL (130-400); Red Blood Cell (RBC) Count 3.57 mill/uL (4.20-5.40); White Blood Cell (WBC) Count 4.2 10x3/uL (4.8-10.8)
[2022-07-13 19:47] LABS: ALT (SGPT) 10 U/L (8-55); AST (SGOT) 18 U/L (5-34); Albumin 3.9 g/dL (3.4-4.8); Alkaline Phosphatase 74 U/L (40-110); Anion Gap 14 mmol/L (10-20); BUN (Urea Nitrogen) 32 mg/dL (9.8-20.1); Bilirubin, Total 0.9 mg/dL (0.2-1.2); Calc. Creatinine Clearance 0 mL/min (70-130); Calcium 8.8 mg/dL (7.8-10.44); Carbon Dioxide 23 mmol/L (23-31); Chloride 105 mmol/L (98-107); Estimated GFR 24; Glucose 84 mg/dL (83-110); Potassium 4.5 mmol/L (3.5-5.1); Protein, Total 5.9 g/dL (5.8-8.1); Sodium 137 mmol/L (136-145)
[2022-07-13 21:06] LABS: SARS-CoV-2 NAA Rapid Test Not Detected (NotDetected)
[2022-07-13] MEDS ORDERED: Doxycycline 100 MG CAP PO SCH (22:15)
== END 2022-07-13 22:58 | disposition home or self-care (01) ==
LOC: ERS 18:19
DX: J06.9 Acute upper respiratory infection, unspecified (principal); Z20.822 Contact with and (suspected) exposure to COVID-19; M79.605 Pain in left leg
CPT/HCPCS: 0240U; 71045; 80053; 83880; 84484; 85025; 93005; 93971; 94760; 99285; 36415